=== PATIENT | male | born 1940 | race African-American/Black ===

== ENCOUNTER 2016-12-06 15:21 | Emergency (ER) | payer OTHER, MEDICAID ==
[2016-12-06 15:24] VITALS: BP 142/81; BMI 22.3
[2016-12-06] MEDS ORDERED: TORADOL 60 MG VIAL IM ONE (15:55)
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
[2016-12-06] MEDS ORDERED: TORADOL 60 MG VIAL ONE (16:10)
--- NOTE | 2016-12-06 16:28 | CT ---
HISTORY: Left flank pain. Study: CT abdomen and pelvis without contrast. Dose reduction techniques including Automated Exposur e Control (AEC) and adjustment of mA and kV were utilized. Comparison: None. Technique: Multiple axial images of the abdomen and pelvis were obtained from the lung bases to the pubic symphysis without the administration of IV contrast. Findings: The included portions of the lung bases are clear. The liver, gallbladder, pancreas, splee n, adrenal glands and kidneys are unremarkable in their noncontrast CT appearance. There is no nephr olithiasis or hydronephrosis. There are no calcified stones along the course of either ureter or wit hin the lumen of the well distended urinary bladder. There are bilateral pelvic phleboliths. The hunter endix is not visualized and by report is surgically absent. There is a left inguinal hernia which co ntains a loop of the redundant sigmoid colon without wall thickening or significant inflammatory liss nge. There is sigmoid diverticulosis without evidence of diverticulitis. There is a large amount of stool within the rectum. There is no small bowel dilatation. There is no significant mesenteric stra nding or lymphadenopathy. There is no intraperitoneal free air or free fluid. 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 There is multilevel degenerative disc disease of t he lumbar spine. IMPRESSION: 1. Left inguinal hernia which contains a loop of the redundant sigmoid colon. There is no wall thic kening or associated inflammatory change to suggest strangulation. Surgical consultation is recommen ded. 2. Sigmoid diverticulosis without evidence of diverticulitis. 3. No evidence of urolithiasis or obstructive uropathy. Reported By:
== END 2016-12-06 17:44 | disposition home or self-care (01) ==
LOC: ER 15:27
DX: M51.36 Other intervertebral disc degeneration, lumbar region (principal); K40.90 Unilateral inguinal hernia, without obstruction or gangrene, not specified as recurrent; K57.30 Diverticulosis of large intestine without perforation or abscess without bleeding; M54.5 Low back pain; R10.84 Generalized abdominal pain
CPT/HCPCS: 74176; 96372; 99282; J1885

== ENCOUNTER 2017-01-03 12:10 | Emergency (ER) | payer OTHER, MEDICAID ==
[2017-01-03 12:15] VITALS: BP 149/81; BMI 24.4
--- NOTE | 2017-01-03 12:47 | DR.GENAD ---
HPI - PCP Primary Care Physician: shahid - Complaint/Symptoms Chief Complaint:: patient stated he has been having right knee pain for several months and having back pain for several months. dr michel gave him lorcet 10 but he is out. - Nurses notes reviewed Nurses Notes Review: Yes - Source History Provided: Patient - Mode of Arrival Mode of Arrival: Ambulatory - Timing Onset of Chief Complaint: 09/10/16 Came on: Gradually - Duration Duration: Constant Duration: Days - Severity Severity: Moderate PMH - PMH Past Medical History: Yes Past Medical History: Anxiety, Diabetes, Dyslipidemia, Migraines, Hypertension Past Surgical History: Yes Surgical History: Appendectomy - Family History History of Family Medical Conditions: Yes Family Medical History: [place], Hypertension - Social History Does patient currently use any type of tobacco product: No Have you used tobacco products in the last 12 months: No Type of Tobacco Use: None Does any household member use tobacco: No Alcohol Use: None Do you use any recreational Drugs:: No Lives With: Family Lives Where: Home - infectious screening In the last 2 months have you had wt loss of >10#?: NO Have you had fever, night sweats or hemotysis?: No Have you traveled outside the country in the last 6 months?: No Isolation: Standard ROS - Review of Systems Constitutional: No Symptoms Reported Eyes: No Symptoms Reported ENTM: No Symptoms Reported Respiratoy: No Symptoms Reported Cardiovascular: No Symptoms Reported Gastrointestinal/Abdominal: No Symptoms Reported Genitourinary: No Symptoms Reported Neurological: No Symptoms Reported Musculoskeletal: Back Pain, Right, Knee Integumentary: No Symptoms Reported Hematologic/Lymphatic: No Symptoms Reported Endocrine: No Symptoms Reported All Other Systems: Reviewed and Negative PE - Vital Signs Vitals: Temperature 98.7 F Pulse Rate 77 Respiratory Rate 16 Blood Pressure [Left Arm] 158/78 Blood Pressure 149/81 O2 Sat by Pulse Oximetry 100 - General Limitations: No Limitations General Appearance: Alert - Head Head Exam: Normal Inspection - Eyes Eye exam: Normal Appearance - ENT ENT Exam: Normal External Ear Exam External Ear Exam: Normal External Inspection Throat Exam: Normal Inspection - Neck Neck Exam: Trachea Midline - Chest Chest Inspection: Symmetric Chest Wall Rise - Respiratory Respiratory Exam: Normal Lung Sounds Bilat Respiratory Exam: Bilateral Clear to Auscultation - Cardiovascular Cardiovascular Exam: Regular Rate, Normal Rhythm, Normal Heart Sounds - Abdominal Exam Abdominal Exam: Normal Inspection - Extremities Extremities Exam: Tenderness (RIGHT KNEE TENDER AND SWOLLEN.) - Back Back Exam: Paraspinal Tenderness (LOWER BACK) - Psychiatric Psychiatric Exam: Normal Affect, Normal Mood - Skin Skin Exam: Normal Color MDM - Differential Diagnosis Differential Diagnosis: ARTHRITIS, KNEE SPRAIN, KNEE PAIN, LOWER BACK STRAIN Course - Treatment Treatment: IM TORADOL AND IM DECADRUN IN ED. - Education/Counseling Education/Counseling: Patient, Education Educated On: Treatment, Diagnosis, Needs for Follow Up - Diagnosis Discharge Problem: Arthritis Back pain Qualifiers: Back pain location: low back pain Chronicity: chronic Back pain laterality: bilateral Sciatica presence: without sciatica Qualified Code(s): M54.5 - Low back pain; G89.29 - Other chronic pain Knee pain, right Qualifiers: Chronicity: chronic Qualified Code(s): M25.561 - Pain in right knee; G89.29 - Other chronic pain - Discharge Plan Disposition: HOME, SELF-CARE Condition: Stable Prescriptions: Meloxicam [Mobic Tab 15 mg] 15 mg PO DAILY #30 tab Prednisone [Prednisone Tab 10 mg] 10 mg PO QAM #7 tab Tramadol HCl 50 mg PO TID PRN #12 tablet PRN Reason: - Follow ups/Referrals Follow ups/Referrals: Nadia MICHEL [Primary Care Provider] - 3 days - Instructions Instructions: Arthritis, [id number], Back Pain, Adult, [id number] Additional Instructions: RETURN TO ED IF WORSE.
[2017-01-03] MEDS ORDERED: DECADRON INJ IM ONE (12:52)
[2017-01-03] MEDS ORDERED: TORADOL 60 MG VIAL IM ONE (12:52)
[2017-01-03] MEDS ORDERED: DECADRON INJ ONE (12:54)
[2017-01-03] MEDS ORDERED: TORADOL 60 MG VIAL ONE (12:54)
== END 2017-01-03 13:55 | disposition home or self-care (01) ==
LOC: ER 12:18
DX: M19.90 Unspecified osteoarthritis, unspecified site (principal); M54.5 Low back pain; M25.561 Pain in right knee; G89.29 Other chronic pain
CPT/HCPCS: 96372; 99282; J1100; J1885

== ENCOUNTER 2017-02-01 12:42 | Emergency (ER) | payer OTHER, MEDICAID ==
[2017-02-01 12:48] VITALS: BP 166/98; BMI 23.4
[2017-02-01] MEDS ORDERED: TORADOL 60 MG VIAL IM ONE (13:01)
[2017-02-01] MEDS ORDERED: TORADOL 60 MG VIAL ONE (13:07)
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
== END 2017-02-01 15:01 | disposition home or self-care (01) ==
LOC: ER 13:05
DX: M54.5 Low back pain (principal); G89.29 Other chronic pain; V87.7XXA Person injured in collision between other specified motor vehicles (traffic), initial encounter
CPT/HCPCS: 72100; 96372; 99282; J1885

== ENCOUNTER 2017-02-12 10:15 | Emergency (ER) | payer OTHER, MEDICAID ==
[2017-02-12 10:23] VITALS: BP 177/100; BMI 24.7
[2017-02-12] MEDS ORDERED: TORADOL 60 MG VIAL IM ONE (11:22)
[2017-02-12] MEDS ORDERED: NORFLEX INJ IM ONE (11:22)
[2017-02-12] MEDS ORDERED: TORADOL 60 MG VIAL ONE (11:26)
[2017-02-12] MEDS ORDERED: NORFLEX INJ ONE (11:26)
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
== END 2017-02-12 12:15 | disposition home or self-care (01) ==
LOC: ER 10:32
DX: M54.89 Other dorsalgia (principal)
CPT/HCPCS: 96372; 99281; 99282; J1885; J2360

== ENCOUNTER 2017-05-12 14:37 | Inpatient (IN) | payer OTHER, MEDICAID ==
[2017-05-12 14:46] VITALS: BMI 16.2
--- NOTE | 2017-05-12 15:38 | DR.GENAD ---
HPI - PCP Primary Care Physician: DEVEN - Complaint/Symptoms Chief Complaint Doctors Comments: Patient responds inappropirately to questons. He reports that he is under a lot of stress as a routine response to questions. He does not know what happended. The by standers reports that he was fine one minute then he blacked out. It is not known how long he was uresponsive. There is no reported vomiting or abnormal movements. EMS was summoned to the scene. Chief Complaint:: EMS STATED THAT FRIENDS ON SCENE STATED THAT PATIENT WAS JUST HANGING OUT AND ALL OF A SUDDEN PATIENT WAS LAYING ON THE GROUND. PATIENT IS VERY CONFUSED AND HAS ALTERED MENTAL STATUS. PATIENT WAS NORMAL PRIOR TO THIS HAPPENING. - Source History Provided: EMS - Mode of Arrival Mode of Arrival: EMS - Timing Onset of Chief Complaint: 05/12/17 PMH - PMH Past Medical History: Yes Past Medical History: Anxiety, Diabetes, Dyslipidemia, Migraines, Hypertension Past Surgical History: Yes Surgical History: Appendectomy Unable to Obtain Due To: Altered mental status - Family History History of Family Medical Conditions: Yes Family Medical History: [place], Hypertension - Social History Does patient currently use any type of tobacco product: No Have you used tobacco products in the last 12 months: No Type of Tobacco Use: None Does any household member use tobacco: No Do you use any recreational Drugs:: No Lives With: Family Lives Where: Home - infectious screening In the last 2 months have you had wt loss of >10#?: NO Have you had fever, night sweats or hemotysis?: No Have you traveled outside the country in the last 6 months?: No Isolation: Standard ROS - Review of Systems Constitutional: No Symptoms Reported Eyes: No Symptoms Reported ENTM: No Symptoms Reported Respiratoy: No Symptoms Reported Cardiovascular: No Symptoms Reported Gastrointestinal/Abdominal: No Symptoms Reported Genitourinary: No Symptoms Reported Neurological: See HPI Musculoskeletal: See HPI Integumentary: No Symptoms Reported Hematologic/Lymphatic: No Symptoms Reported Endocrine: No Symptoms Reported Psychiatric: No Symptoms Reported All Other Systems: Reviewed and Negative PE - Vital Signs Vitals: Temperature 98.2 F Pulse Rate 114 Respiratory Rate 20 Blood Pressure [Left Arm] 158/78 Blood Pressure 131/80 O2 Sat by Pulse Oximetry 100 - General General Appearance: Alert, In No Apparent Distress - Head Head Exam: Normal Inspection, Atraumatic - Eyes Eye exam: Normal Appearance, PERRL, EOMI - ENT ENT Exam: Normal Exam External Ear Exam: Normal External Inspection TM/Canal Exam: Bilateral Normal Nose Exam: Normal Nose Exam Mouth Exam: Normal Inspection Throat Exam: Normal Inspection - Chest Chest Inspection: Normal Inspection - Respiratory Respiratory Exam: Normal Lung Sounds Bilat Respiratory Exam: Bilateral Clear to Auscultation - Cardiovascular Cardiovascular Exam: Regular Rate, Normal Rhythm - Abdominal Exam Abdominal Exam: Normal Inspection, Normal Bowel Sounds Abdominal Tenderness: negative: RUQ, RLQ, LUQ, LLQ, Epigastrium, Suprapubic, Diffuse, Mild, Moderate, Severe, Other - Extremities Extremities Exam: Normal Inspection, Full ROM, Normal Capillary Refill. negative: Tenderness, Edema, Joint Swelling - Back Back Exam: Normal Inspection - Neurologic Neurological Exam: Alert, Oriented X3, CN II-XII Intact - Psychiatric Psychiatric Exam: Normal Affect, Normal Mood - Skin Skin Exam: Warm, Dry, Intact ROR - Labs Reviewed Result Diagrams: 05/12/17 16:03 05/12/17 16:03 Laboratory: WBC 10.3 X10^3/uL (3.6-10.0) H 05/12/17 16:03 RBC 4.35 X10^6/uL (4.7-6.0) L 05/12/17 16:03 Hgb 12.3 g/dL (13.5-18.0) L 05/12/17 16:03 Hct 36.9 % (42.0-54.0) L 05/12/17 16:03 MCV 84.7 fL (80.0-100.0) 05/12/17 16:03 MCH 28.3 pg (27.0-34.0) 05/12/17 16:03 MCHC 33.4 g/dL (33.0-35.0) 05/12/17 16:03 RDW 13.7 % (11.6-16.5) 05/12/17 16:03 Plt Count 231 X10^3/uL (150.0-450.0) 05/12/17 16:03 MPV 7.8 fL (7.4-11.0) 05/12/17 16:03 Neut % 82.4 % (42.0-75.0) H 05/12/17 16:03 Lymph % 9.7 % (21.0-51.0) L 05/12/17 16:03 [place] % 5.2 % (0.0-13.0) 05/12/17 16:03 Eos % 2.2 % (0.9-2.9) 05/12/17 16:03 Baso % 0.5 % (0.2-1.0) 05/12/17 16:03 Neut # 8.5 x10^3/uL (2.2-4.8) H 05/12/17 16:03 Lymph # 1.0 X10^3/uL (1.3-2.9) L 05/12/17 16:03 [place] # 0.5 x10^3/uL (0.3-0.8) 05/12/17 16:03 Eos # 0.2 x10^3/uL (0.0-0.2) 05/12/17 16:03 Baso # 0.1 X10^3/uL (0.0-0.1) 05/12/17 16:03 Absolute Nucleated RBC 0.0 /100WBC 05/12/17 16:03 Sodium 140 mmol/L (136-145) 05/12/17 16:03 Corrected Sodium 141 mmol/L (136-145) 05/12/17 16:03 Potassium 3.7 mmol/L (3.5-5.1) 05/12/17 16:03 Chloride 105 mmol/L (98-107) 05/12/17 16:03 Carbon Dioxide 25.5 mmol/L (21-32) 05/12/17 16:03 BUN 16 mg/dL (7-18) 05/12/17 16:03 Creatinine 1.44 mg/dL (0.70-1.30) H 05/12/17 16:03 Est GFR (MDRD) Af Amer > 60 (>60) 05/12/17 16:03 Est GFR (MDRD) Non-Af 51 (>60) L 05/12/17 16:03 Glucose 136 mg/dL (65-99) H 05/12/17 16:03 Calcium 8.4 mg/dL (8.5-10.1) L 05/12/17 16:03 Corrected Calcium 9.0 mg/dL (8.5-10.1) 05/12/17 16:03 Magnesium 1.4 mg/dL (1.7-2.9) L 05/12/17 16:03 Total Bilirubin 0.10 mg/dL (0.2-1.0) L 05/12/17 16:03 AST 14 Units/L (15-37) L 05/12/17 16:03 ALT 17 Units/L (12-78) 05/12/17 16:03 Alkaline Phosphatase 81 Units/L (46-116) 05/12/17 16:03 Creatine Kinase 48 Units/L (39-308) 05/12/17 16:03 CK-MB (CK-2) < 1.0 ng/mL (0-4.0) 05/12/17 16:03 CK/CKMB % Calc 2.1 % (<4) 05/12/17 16:03 Troponin I < 0.02 ng/mL (0-1.5) 05/12/17 16:03 C-Reactive Protein 3.10 mg/L (0-3.0) H 05/12/17 16:03 Total Protein 7.0 g/dL (6.4-8.2) 05/12/17 16:03 Albumin 3.3 g/dL (3.4-5.0) L 05/12/17 16:03 Globulin 3.7 g/dL (2.5-4.5) 05/12/17 16:03 Albumin/Globulin Ratio 0.9 Ratio (1.1-2.1) L 05/12/17 16:03 - XRAY XRAY Interpreted by: Radiologist (CT Brain:There is mild atrophy and nonspecific white matter hypoattenuation likely related to microvascular ischemic changes. No evidence of acute hemorrhage, midline shift,mass effect or abnormal extra axial fluid collection. The ventricular system is symmetric and nondilated. The soft tissues and osseous structures are unremarkable. The visualized paranasal sinuses are clear. Impression: There is mild atrophy and nonspecific white matter hypoattenuation likely related to microvascular ischemic changes. No acute intracranial abnormality identified. X-Ray Chest: Continued normal heart size. The left lung is essentially clear. There is an area of atelectasis in the medial right lower lung. No consolidation, hilar enlargment or pleural fluid. Impression: Small area of right middle lobe or right lower lobe atelectasis. Negative otherwise.) - Diagnosis Discharge Problem: Hypocalcemia, Hypoalbuminemia Altered mental status Qualifiers: Altered mental status type: transient alteration of awareness Qualified Code(s) : R40.4 - Transient alteration of awareness - Discharge Plan Condition: Stable - Follow ups/Referrals Follow ups/Referrals: Chase Pereyra [Primary Care Provider] - 3 days - Instructions
[2017-05-12 16:16] LABS: BASOPHILS # (AUTO) 0.1 X10^3/uL (0.0-0.1); BASOPHILS % (AUTO) 0.5 % (0.2-1.0); EOSINOPHILS # (AUTO) 0.2 x10^3/uL (0.0-0.2); EOSINOPHILS % (AUTO) 2.2 % (0.9-2.9); HEMATOCRIT 36.9 % (42.0-54.0); HEMOGLOBIN 12.3 g/dL (13.5-18.0); LYMPHOCYTES % (AUTO) 9.7 % (21.0-51.0); MEAN CORPUSCULAR HEMOGLOBIN 28.3 pg (27.0-34.0); MEAN CORPUSCULAR HGB CONC 33.4 g/dL (33.0-35.0); MEAN CORPUSCULAR VOLUME 84.7 fL (80.0-100.0); MEAN PLATELET VOLUME 7.8 fL (7.4-11.0); MONOCYTES # (AUTO) 0.5 x10^3/uL (0.3-0.8); MONOCYTES % (AUTO) 5.2 % (0.0-13.0); NEUTROPHILS # (AUTO) 8.5 x10^3/uL (2.2-4.8); NEUTROPHILS % (AUTO) 82.4 % (42.0-75.0); PLATELET COUNT 231 X10^3/uL (150.0-450.0); RED BLOOD COUNT 4.35 X10^6/uL (4.7-6.0); RED CELL DISTRIBUTION WIDTH 13.7 % (11.6-16.5); WHITE BLOOD COUNT 10.3 X10^3/uL (3.6-10.0)
--- NOTE | 2017-05-12 16:17 | RAD ---
Examination: AP chest History: Dizzy and confusion Comparison reference 07/25/2016 Findings: Continued normal heart size. The left lung is essentially clear. There is an area of atelec tasis in the medial right lower lung. No consolidation, hilar enlargement or pleural fluid. Impression: Small area of right middle lobe or right lower lobe atelectasis. Negative otherwise. Reported By:
--- NOTE | 2017-05-12 16:27 | CT ---
HISTORY: Altered mental status, dizziness, confusion, syncope Study: CT brain without contrast Comparison: None Technique: Multiple axial images of the brain were obtained from the skull base to the vertex without administra tion of IV contrast. Dose reduction techniques including Automated Exposure Control (AEC) and adjust ment of mA and kV were utilized. Findings: There is mild atrophy and nonspecific white matter hypoattenuation likely related to microvascular is chemic changes. No evidence of acute hemorrhage, midline shift, mass effect or abnormal extra-axial fluid collection. The ventricular system is symmetric and nondilated. The soft tissues and osseous structures are unremarkable. The visualized paranasal sinuses are clear. IMPRESSION: 1.There is mild atrophy and nonspecific white matter hypoattenuation likely related to microvascular ischemic changes. No acute intracranial abnormality identified. Reported By:
[2017-05-12 16:30] LABS: BLOOD UREA NITROGEN 16 mg/dL (7-18); CALCIUM 8.4 mg/dL (8.5-10.1); CARBON DIOXIDE 25.5 mmol/L (21-32); CHLORIDE 105 mmol/L (98-107); COR NA(FOR HYPERGLY) 141 mmol/L (136-145); CREATININE 1.44 mg/dL (0.70-1.30); SODIUM 140 mmol/L (136-145); TROPONIN I < 0.02 ng/mL (0-1.5); eGFR BLACK RACES > 60 (>60); eGFR NON BLACK RACES 51 (>60)
[2017-05-12 16:33] LABS: ALANINE AMINOTRANSFERASE 17 Units/L (12-78); ALBUMIN 3.3 g/dL (3.4-5.0); ALKALINE PHOSPHATASE 81 Units/L (46-116); ASPARTATE AMINO TRANSFERASE 14 Units/L (15-37); CKMB % 2.1 % (<4); CREATINE KINASE 48 Units/L (39-308); CREATINE KINASE MB < 1.0 ng/mL (0-4.0); MAGNESIUM 1.4 mg/dL (1.7-2.9)
[2017-05-12] MEDS: NS 1000 ML 1,000 ML IV SCH ×2 (17:18→20:47)
[2017-05-12] MEDS ORDERED: NORCO 10/325 TAB PO ONE (17:19)
[2017-05-12] MEDS ORDERED: NORCO 10/325 TAB ONE (17:20)
[2017-05-12] MEDS ORDERED: MAGNESIUM SULFATE 1 GM/100 mL PREMIX 1 GM/100 ML BAG IV PRN (19:36)
[2017-05-12] MEDS ORDERED: POTASSIUM CHL 60 MEQ/NS 0.45% 500 ML IV PRN (19:36)
[2017-05-12] MEDS ORDERED: POTASSIUM CHL 40 MEQ/NS 0.45% 500 ML IV PRN (19:36)
[2017-05-12] MEDS ORDERED: K-RIDER 10 MEQ/NS 100 ML 10 MEQ/100 ML BAG IV PRN (19:36)
[2017-05-12] MEDS ORDERED: K-LYTE EFFERVESCENT PO PRN (19:36)
[2017-05-12] MEDS ORDERED: POTASSIUM CHLORIDE LIQ 20 MEQ UDC PO PRN (19:36)
[2017-05-12] MEDS ORDERED: GLUCOPHAGE ONE (19:55)
[2017-05-12] MEDS: GLUCOPHAGE PO SCH (20:44)
[2017-05-12] MEDS: XANAX PO SCH (20:45)
[2017-05-12] MEDS: MAG-OX TAB PO PRN (20:45)
[2017-05-12] MEDS: ANTIVERT TAB 25 MG PO SCH (22:10)
[2017-05-12] MEDS: NEURONTIN CAP 300 MG PO SCH (22:10)
[2017-05-13] MEDS: NORCO 10/325 TAB PO SCH ×5 (00:23→21:39)
[2017-05-13] MEDS: MAG-OX TAB PO PRN ×3 (00:46→14:48)
[2017-05-13] MEDS: NS 1000 ML 1,000 ML IV SCH ×5 (03:11→21:40)
[2017-05-13 03:27] LABS: APPEARANCE,URINE CLEAR (CLEAR); COLOR,URINE PALE YELLOW (YELLOW); PH,URINE 6.5 (5.0 - 8.0)
[2017-05-13 03:28] LABS: BACTERIA,URINE NEGATIVE /HPF (NEGATIVE); BILIRUBIN,URINE NEGATIVE (NEGATIVE); BLOOD/HEMOGLOBIN,URINE TRACE (NEGATIVE); GLUCOSE, URINE NEGATIVE (NEGATIVE); KETONES,URINE NEGATIVE (NEGATIVE); LEUKOCYTE ESTERASE ,URINE NEGATIVE (NEGATIVE); NITRITES,URINE NEGATIVE (NEGATIVE); PROTEIN,URINE NEGATIVE (NEGATIVE); RBC,URINE 0-3 /HPF (NEGATIVE); SQUAMOUS EPITHELIAL CELL,UR FEW /HPF (NEGATIVE); UROBILINOGEN,URINE NORMAL (NORMAL)
[2017-05-13 05:34] LABS: ALANINE AMINOTRANSFERASE 15 Units/L (12-78); ALBUMIN 2.7 g/dL (3.4-5.0); ALKALINE PHOSPHATASE 70 Units/L (46-116); ASPARTATE AMINO TRANSFERASE 12 Units/L (15-37); BLOOD UREA NITROGEN 19 mg/dL (7-18); CALCIUM 7.9 mg/dL (8.5-10.1); CARBON DIOXIDE 23.5 mmol/L (21-32); CHLORIDE 109 mmol/L (98-107); COR CA(FOR HYPOALB) 8.9 mg/dL (8.5-10.1); MAGNESIUM 1.4 mg/dL (1.7-2.9); SODIUM 142 mmol/L (136-145); TOTAL PROTEIN 5.8 g/dL (6.4-8.2); eGFR BLACK RACES 59 (>60); eGFR NON BLACK RACES 49 (>60)
[2017-05-13 05:36] LABS: BASOPHILS # (AUTO) 0.1 X10^3/uL (0.0-0.1); BASOPHILS % (AUTO) 0.9 % (0.2-1.0); EOSINOPHILS # (AUTO) 0.3 x10^3/uL (0.0-0.2); EOSINOPHILS % (AUTO) 4.2 % (0.9-2.9); HEMATOCRIT 31.3 % (42.0-54.0); HEMOGLOBIN 10.7 g/dL (13.5-18.0); LYMPHOCYTES # (AUTO) 1.6 X10^3/uL (1.3-2.9); MEAN CORPUSCULAR HEMOGLOBIN 28.9 pg (27.0-34.0); MEAN CORPUSCULAR HGB CONC 34.4 g/dL (33.0-35.0); MEAN PLATELET VOLUME 7.7 fL (7.4-11.0); MONOCYTES # (AUTO) 0.5 x10^3/uL (0.3-0.8); MONOCYTES % (AUTO) 6.5 % (0.0-13.0); NEUTROPHILS # (AUTO) 5.7 x10^3/uL (2.2-4.8); NEUTROPHILS % (AUTO) 69.4 % (42.0-75.0); PLATELET COUNT 237 X10^3/uL (150.0-450.0); RED BLOOD COUNT 3.72 X10^6/uL (4.7-6.0); RED CELL DISTRIBUTION WIDTH 13.7 % (11.6-16.5); WHITE BLOOD COUNT 8.2 X10^3/uL (3.6-10.0)
[2017-05-13] MEDS: ANTIVERT TAB 25 MG PO SCH ×4 (05:39→21:39)
[2017-05-13] MEDS: NEURONTIN CAP 300 MG PO SCH ×4 (05:39→21:39)
--- NOTE | 2017-05-13 05:40 | RAD ---
Chest, AP portable Indication: Right middle lobe atelectasis Comparison: 05/12/2017 Findings: Triangular opacity of the right lower lung is unchanged. Minimal left basilar atelectasis h as developed. The lungs are otherwise essentially clear. Normal heart size. No significant pleural ef fusion. Impression: Minimal left basilar atelectasis. Otherwise, no significant change from prior. Reported By:
[2017-05-13] MEDS ORDERED: GLUCOPHAGE ONE (08:52)
[2017-05-13] MEDS: XANAX PO SCH ×3 (09:43→21:39)
[2017-05-13] MEDS: ZESTRIL TAB 10 MG PO SCH (09:43)
[2017-05-13] MEDS: GLUCOPHAGE PO SCH ×2 (09:43→21:38)
--- NOTE | 2017-05-13 11:50 | DR.H&P ---
H&P - History & Physical for Day of: H&P Date: 05/12/17 - Chief Complaint Chief Complaint: ALTERED MENTAL STATUS, SYNCOPE - Allergies Allergies/Adverse Reactions: Allergies Allergy/AdvReac Type Severity Reaction Status Date / Time No Known Drug Allergies Allergy Verified 05/12/17 14:46 - History of Present Illness History of Present Illness: IS A 76 YEAR OLD PATIENT OF OURS WHO PRESENTED TO THE EMERGENCY ROOM VIA EMS. FAMILY REPORTS SYMPTOMS OF SYNCOPE AND ALTERED MENTAL STATUS. THEY REPORT THAT PATIENT WAS SITTING AROUND TAKING ONE MINUTE AND THEN BLACKED OUT AND FELL TO THE GROUND. IT IS UNKNOWN TO HOW LONG HE WAS UNRESPONSIVE. THEY DO NOT REPORT SYMPTOMS OF VOMITING, FEVER, OR ABNORMAL MOVEMENTS. ON EXAMINATION, PUPILLS PERRL. HE DOES NOT ANSWER QUESTIONS APPROPRIATELY, BUT DOES REPORT THAT HE HAS BEEN UNDER A LOT OF STRESS. HE IS UNAWARE OF WHAT HAPPENED OR WHY HE WAS BROUGHT TO THE HOSPITAL. HEARTRATE IS RAPID. HE WAS PLACED ON OXYGEN VIA NASAL CANNULA AT 2L/MIN. LUNGS ARE CLEAR BILATERALLY TO AUSCULTATION. ABDOMEN IS ROUND, SOFT, AND NON-TENDER WITH NORMAL BOWEL SOUNDS NOTED IN ALL QUADRANTS. HE HAS NORMAL RANGE OF MOTION IN ALL EXTREMITIES. ON ARRIVAL TO THE ER, VITAL SIGNS WERE 98.5-149-00-100%-131/80. LABS, EKG, BRAIN CT, AND CHEST XRAY WERE OBTAINED. ABNORMAL LAB VALUES INCLUDE THE FOLLOWING: WBC 10.3, RBC 4.35, HGB 12.3, HCT 36.9, CREATININE 1.44, GLUCOSE 136, CALCIUM 8.4, MAGNESIUM 1.4, TOTAL BILI 0.10, AST 14, CRP 3.10, ALBUMIN 3.3 , A/G RATIO 0.9. URINALYSIS UNREMARKABLE. EKG REPORTS SINUS RHYTHM, PROBABLE LEFT ATRIAL ENLARGEMENT, LEFT VENTRICULAR HYPERTROPHY. HR 93. BRAIN CT REPORTED MILD ATROPHY AND NONSPECIFIC WHITE MATTER HYPOATTENUATION LIKELY RELATED TO MICROVASCULAR CHANGES. NO ACUTE INTRACRANIAL ABNORMALITY IDENTIFIED. CHEST XRAY REPORTED MINIMAL LEFT BASILAR ATELECTASIS. HE WAS GIVEN NORCO 10/325MG X 1 IN THE ER FOR COMPLAINTS OF HIP PAIN. WE ADMITTED PATIENT FOR FURTHER TREATMENT AND EVALUATION OF ALTERED MENTAL STATUS. WE PLAN TO FOLLOW UP WITH AM LABS AND CONTINUE TO MONITOR PATIENT. - Past Medical History Past Medical History: Anxiety, Diabetes, Dyslipidemia, Migraines, Hypertension - Past Surgical History Surgical History: Other - Family History Family Medical History: [place], Hypertension - Social History Does patient currently use any type of tobacco product: No Have you used tobacco products in the last 12 months: No Type of Tobacco Use: None Does any household member use tobacco: No Alcohol Use: None Drug Use: Prescription Drugs - Medications Home Medications: Meclizine HCl 1 tab PO TID 05/12/17 [History Confirmed 05/12/17] - Review of Systems Constitutional: Weakness. denies: No Symptoms Reported, See HPI, Fever, Chills , Sweats, Malaise, Other Eyes: No Symptoms Reported. denies: See HPI, Pain, Vision Change, Conjunctivae Inflammation, Eyelid Inflammation, Redness, Other ENT: No Symptoms Reported. denies: See HPI, Ear Pain, Ear Discharge, Nose Pain , Nose Discharge, Nose Congestion, Mouth Pain, Mouth Swelling, Throat Pain, Throat Swelling, Other Respiratory: No Symptoms Reported. denies: See HPI, Cough, Dry, Shortness of Breath, Hemoptysis, SOB with Excertion, Pleuritic Pain, Sputum, Wheezing, Other Cardiovascular: No Symptoms Reported. denies: Chest Pain, See HPI, Palpitations , Orthopnea, Paroxysmal Noc. Dyspnea, Edema, Light Headedness, Other Gastrointestinal: No Symptoms Reported. denies: See HPI, Nausea, Vomiting, Abdominal Pain, Diarrhea, Constipation, Melena, Hematochezia, Other Genitourinary: No Symptoms Reported. denies: See HPI, Dysuria, Frequency, Incontinence, Hematuria, Retention, Other Musculoskeletal: See HPI Skin: No Symptoms Reported. denies: See HPI, Rash, Lesions, Jaundice, Bruising , Wound, Ecchymosis, Other Neurological: Weakness, Confusion. denies: No Symptoms Reported, See HPI, Numbness, Incoordination, Change in Speech, Seizures, Other - Physical Exam Vital Signs: Temperature 97.9 F Pulse Rate [Right Brachial] 80 Pulse Rate 114 Respiratory Rate 18 Blood Pressure [Left Arm] 158/78 Blood Pressure 131/80 O2 Sat by Pulse Oximetry 96 Oriented: Person Eyes: Normal. negative: Blurred Vision, Diplopia, Discharge, Pain, Redness, Photophobia, Other Ear: Normal. negative: Right, Left, Swelling, Ecchymosis, Hemotypanum, Abrasion , Laceration Nose: Normal. negative: Injected, Discharge, Blood, Other Throat: Normal. negative: Tonsillar Hypertrophy, Red, Exudate, Dry, Other Respiratory: Clear Throughout. negative: Diminished Throughout, Rhonchi Throughout, Rales Throughout, Wheezes Throughout, RUL Clear, RML Clear, RLL Clear, ESTEBAN Clear, LML Clear, LLL Clear, RUL Diminished, RML Diminished, RLL Diminished, ESTEBAN Diminished, LML Diminished, LLL Diminished, RUL Absent, RML Absent, RLL Absent, ESTEBAN Absent, LML Absent, LLL Absent, RUL Rhonchi, RML Rhonchi , RLL Rhonchi, ESTEBAN Rhonchi, LML Rhonchi, LLL Rhonchi, RUL Insp. Wheeze, RML Insp. Wheeze, RLL Insp. Wheeze, ESTEBAN Insp.Wheeze, LML Insp.Wheeze, LLL Insp.Wheeze, RUL Exp. Wheeze, RML Exp. Wheeze, RLL Exp. Wheeze, ESTEBAN Exp. Wheeze , LML Exp. Wheeze, LLL Exp. Wheeze, RUL Rales, RML Rales, RLL Rales, ESTEBAN Rales, LML Rales, LLL Rales, RUL Rub, RML Rub, RLL Rub, ESTEBAN Rub, LML Rub, LLL Rub, RUL Squeak, RML Squeak, RLL Squeak, ESTEBAN Squeak, LML Squeak, LLL Squeak Cardiovascular: Tachycardia. negative: Irregular, Murmur, Edema : Normal. negative: Dysuria, Hematuria, Frequency, Discharge, Testicular Pain , Bleeding, , Other Auscultation: Bowel Sounds: Normal. negative: Bruit, Absent, Increased, Decreased, High Pitched, Other Palpation: Normal. negative: Spleen Enlarged, Liver Enlarged, Mass Pulsatile, Other Tenderness: Normal. negative: Diffuse, RUQ, RLQ, LUQ, LLQ, Epigastric, Periumbilical, Suprapubic, Mild, Moderate, Severe, Rebound, Guarding, Rigidity, Other Skin: Normal Musculoskeletal: Right, Left, Hip, Tender Psychiatric: Other (CONFUSION ) Mood Description: Calm Affect: Normal Speech Pattern: Clear - Assessment/Plan (1) Altered mental status Qualifiers: Altered mental status type: transient alteration of awareness Qualified Code(s): R40.4 - Transient alteration of awareness Status: Acute Plan: XANAX 0.5MG PO BID, OBTAIN MRI, HALDOL 1-2MG IV Q2H PRN, CONTINUE TO MONITOR
[2017-05-13] MEDS: HALDOL INJ IVP PRN (14:44)
--- NOTE | 2017-05-13 21:55 | PCM.PROG ---
Progress Note - Progress Note for Day of Date: 05/13/17 - Subjective Subjective: WAS ADMITTED FOR ALTERED MENTAL STATUS. TODAY, HE IS ALERT AND ORIENTED, SITTING UP IN BED ON MORNING ROUNDS. PATIENTS IS AT BEDSIDE. PATIENT REPORTS COMPLAINTS OF GENERALIZED WEAKNESS AND BILATERAL HIP PAIN. PATIENTS REPORTS THAT PATIENT CONTINUED WITH INTERMITTENT CONFUSION LAST NIGHT AND THIS MORNING. HE ANSWERS ALL QUESTIONS APPROPRIATELY ON ROUNDS. ON EXAMINATION, PUPILS PERRL. LUNGS ARE CLEAR TO AUSCULTATION BILATERALLY. ABDOMEN IS ROUND, SOFT, AND NON-TENDER. NORMAL BOWEL SOUNDS ARE NOTED IN ALL QUADRANTS. THERE IS GOOD RANGE OF MOTION NOTED IN ALL EXTREMITIES. HIS VITAL SIGNS THIS MORNING ARE 97.9-80-18-96%-158/78. ABNORMAL LAB VALUES THIS MORNING INCLUDE THE FOLLOWING: RBC 3.72, HGB 10.7, HCT 31.3, CHLORIDE 109, BUN 19, CREATININE 1.50, CHLORIDE 103, CALCIUM 7.9, MAGNESIUM 1.4, TIBC 199, TRANSFERRIN 147, AST 12, TOTAL PROTEIN 5.8, ALBUMIN 2.7, A/G RATIO 0.9, VITAMIN B12 118, FOLATE 4.6. URINE DRUG SCREEN IS POSITIVE FOR OPIATES AND MARIJUANA. A CHEST XRAY WAS OBTAINED THIS MORNING AND REPORTS MINIMAL LEFT BASILAR ATELECTASIS. OTHERWISE, NO SIGNIFICANT CHANGE FROM PRIOR CHEST XRAY. TODAY, WE WILL CONTINUE WITH CURRENT PLAN OF CARE. WE PLAN TO OBTAIN A BRAIN MRI WITH CONTRAST IN THE MORNING. OTHERWISE, WE WILL FOLLOW UP WITH AM LABS AND CONTINUE TO MONITOR PATIENT. - Past Medical Family Social History Past Med/Fam/Surg Hx: No changes since H&P Allergies: Allergies No Known Drug Allergies Allergy (Verified 05/12/17 14:46) - Review of Systems ROS: No change since H&P - Vital Signs and I&O's Vital Signs: Temperature 99.0 F Pulse Rate [Right Brachial] 79 Pulse Rate 114 Respiratory Rate 20 Blood Pressure [Right Arm] 132/99 Blood Pressure [Left Arm] 158/78 Blood Pressure 131/80 O2 Sat by Pulse Oximetry 97 Intake and Output: Intake & Output 05/11/17 05/12/17 05/13/17 05/14/17 11:59 11:59 11:59 11:59 Intake Total 680 360 Output Total 550 Balance 680 -190 - Physical Exam Oriented: Normal. negative: Time, Person, Place, Not Oriented, Unable to test, Other Eyes: Normal. negative: Blurred Vision, Diplopia, Discharge, Pain, Redness, Photophobia, Other Ear: Normal. negative: Right, Left, Swelling, Ecchymosis, Hemotypanum, Abrasion , Laceration Nose: Normal. negative: Injected, Discharge, Blood, Other Throat: Normal. negative: Tonsillar Hypertrophy, Red, Exudate, Dry, Other Respiratory: Normal. negative: Right, Left, Generalized, Superior, Inferior, Diminished, Wheezes, Rales, Rhonchi, OTHER Cardiovascular: Normal. negative: Tachycardia, Bradycardia, Irregular, S3, S4, Systolic, Diastolic, Murmur, Edema, Other : Normal. negative: Dysuria, Hematuria, Frequency, Discharge, Testicular Pain , Bleeding, , Other Auscultation: Bowel Sounds: Normal. negative: Bruit, Absent, Increased, Decreased, High Pitched, Other Palpation: Normal Tenderness: Normal. negative: Rebound, Guarding, Rigidity Skin: Normal Musculoskeletal: Right, Left, Hip, Tender Psychiatric: Normal Mood Description: Calm Affect: Normal Speech Pattern: Appropriate - Laboratory and Diagnostics Result Diagrams: 05/14/17 04:25 05/14/17 04:25 Labs: Laboratory WBC 8.2 X10^3/uL (3.6-10.0) 05/13/17 04:30 RBC 3.72 X10^6/uL (4.7-6.0) L 05/13/17 04:30 Hgb 10.7 g/dL (13.5-18.0) L 05/13/17 04:30 Hct 31.3 % (42.0-54.0) L 05/13/17 04:30 MCV 84.0 fL (80.0-100.0) 05/13/17 04:30 MCH 28.9 pg (27.0-34.0) 05/13/17 04:30 MCHC 34.4 g/dL (33.0-35.0) 05/13/17 04:30 RDW 13.7 % (11.6-16.5) 05/13/17 04:30 Plt Count 237 X10^3/uL (150.0-450.0) 05/13/17 04:30 MPV 7.7 fL (7.4-11.0) 05/13/17 04:30 Neut % 69.4 % (42.0-75.0) 05/13/17 04:30 Lymph % 19.0 % (21.0-51.0) L 05/13/17 04:30 [place] % 6.5 % (0.0-13.0) 05/13/17 04:30 Eos % 4.2 % (0.9-2.9) H 05/13/17 04:30 Baso % 0.9 % (0.2-1.0) 05/13/17 04:30 Neut # 5.7 x10^3/uL (2.2-4.8) H 05/13/17 04:30 Lymph # 1.6 X10^3/uL (1.3-2.9) 05/13/17 04:30 [place] # 0.5 x10^3/uL (0.3-0.8) 05/13/17 04:30 Eos # 0.3 x10^3/uL (0.0-0.2) H 05/13/17 04:30 Baso # 0.1 X10^3/uL (0.0-0.1) 05/13/17 04:30 Absolute Nucleated RBC 0.0 /100WBC 05/13/17 04:30 Sodium 142 mmol/L (136-145) 05/13/17 04:30 Corrected Sodium TNP 05/13/17 04:30 Potassium 3.9 mmol/L (3.5-5.1) 05/13/17 04:30 Chloride 109 mmol/L (98-107) H 05/13/17 04:30 Carbon Dioxide 23.5 mmol/L (21-32) 05/13/17 04:30 BUN 19 mg/dL (7-18) H 05/13/17 04:30 Creatinine 1.50 mg/dL (0.70-1.30) H 05/13/17 04:30 Est GFR (MDRD) Af Amer 59 (>60) 05/13/17 04:30 Est GFR (MDRD) Non-Af 49 (>60) L 05/13/17 04:30 Glucose 103 mg/dL (65-99) H 05/13/17 04:30 POC Glucose (mg/dL) 118 mg/dL (65-99) H 05/13/17 21:32 Calcium 7.9 mg/dL (8.5-10.1) L 05/13/17 04:30 Corrected Calcium 8.9 mg/dL (8.5-10.1) 05/13/17 04:30 Magnesium 1.4 mg/dL (1.7-2.9) L 05/13/17 04:30 Iron 56 ug/dL (50-175) 05/13/17 04:30 TIBC 199 ug/dL (250-450) L 05/13/17 04:30 Transferrin 147 mg/dL (202-364) L 05/13/17 04:30 Ferritin 192 ng/mL (26-388) 05/13/17 04:30 Total Bilirubin 0.20 mg/dL (0.2-1.0) 05/13/17 04:30 AST 12 Units/L (15-37) L 05/13/17 04:30 ALT 15 Units/L (12-78) 05/13/17 04:30 Alkaline Phosphatase 70 Units/L (46-116) 05/13/17 04:30 Creatine Kinase 48 Units/L (39-308) 05/12/17 16:03 CK-MB (CK-2) < 1.0 ng/mL (0-4.0) 05/12/17 16:03 CK/CKMB % Calc 2.1 % (<4) 05/12/17 16:03 Troponin I < 0.02 ng/mL (0-1.5) 05/12/17 16:03 C-Reactive Protein 3.10 mg/L (0-3.0) H 05/12/17 16:03 Total Protein 5.8 g/dL (6.4-8.2) L 05/13/17 04:30 Albumin 2.7 g/dL (3.4-5.0) L 05/13/17 04:30 Globulin 3.1 g/dL (2.5-4.5) 05/13/17 04:30 Albumin/Globulin Ratio 0.9 Ratio (1.1-2.1) L 05/13/17 04:30 Vitamin B12 118 pg/mL (193-986) L 05/13/17 04:30 Folate 4.6 ng/mL (>8.6) L 05/13/17 04:30 Specimen Type Clean catch urine 05/13/17 02:51 Urine Color Pale yellow (YELLOW) 05/13/17 02:51 Urine Appearance Clear (CLEAR) 05/13/17 02:51 Urine pH 6.5 (5.0 - 8.0) 05/13/17 02:51 Ur Specific [place] 1.015 (1.000-1.030) 05/13/17 02:51 Urine Protein Negative (NEGATIVE) 05/13/17 02:51 Urine Glucose (UA) Negative (NEGATIVE) 05/13/17 02:51 Urine Ketones Negative (NEGATIVE) 05/13/17 02:51 Urine Occult Blood Trace (NEGATIVE) 05/13/17 02:51 Urine Nitrite Negative (NEGATIVE) 05/13/17 02:51 Urine Bilirubin Negative (NEGATIVE) 05/13/17 02:51 Urine Urobilinogen Normal (NORMAL) 05/13/17 02:51 Ur Leukocyte Esterase Negative (NEGATIVE) 05/13/17 02:51 Urine RBC 0-3 /HPF (NEGATIVE) 05/13/17 02:51 Urine WBC 0-3 /HPF (NEGATIVE) 05/13/17 02:51 Ur Squamous Epith Cells Few /HPF (NEGATIVE) 05/13/17 02:51 Urine Bacteria Negative /HPF (NEGATIVE) 05/13/17 02:51 Ur Culture Indicated? No/not indicated 05/13/17 02:51 Urine Opiates Screen Positive (NEG=<300) 05/13/17 02:51 Urine Methadone Screen Negative (NEG=<300) 05/13/17 02:51 Ur Barbiturates Screen Negative (NEG=<200) 05/13/17 02:51 Ur Phencyclidine Scrn Negative (NEG=<25) 05/13/17 02:51 Ur Amphetamines Screen Negative (NEG=<1000) 05/13/17 02:51 U Benzodiazepines Scrn Negative (NEG=<200) 05/13/17 02:51 Urine Cocaine Screen Negative (NEG=<300) 05/13/17 02:51 U Marijuana (THC) Screen Positive (NEG=<50) A 05/13/17 02:51 - Plan (1) Altered mental status Status: Acute Qualifiers: Altered mental status type: transient alteration of awareness Qualified Code(s): R40.4 - Transient alteration of awareness Plan: CONTINUE XANAX, CONTINUE HALDOL, OBTAIN BRAIN MRI WITH CONTRAST, CONTINUE TO MONITOR
[2017-05-14 05:07] LABS: BASOPHILS # (AUTO) 0.1 X10^3/uL (0.0-0.1); BASOPHILS % (AUTO) 0.7 % (0.2-1.0); EOSINOPHILS # (AUTO) 0.4 x10^3/uL (0.0-0.2); EOSINOPHILS % (AUTO) 4.4 % (0.9-2.9); HEMOGLOBIN 11.2 g/dL (13.5-18.0); LYMPHOCYTES # (AUTO) 1.5 X10^3/uL (1.3-2.9); LYMPHOCYTES % (AUTO) 18.1 % (21.0-51.0); MEAN CORPUSCULAR HEMOGLOBIN 28.5 pg (27.0-34.0); MEAN CORPUSCULAR HGB CONC 33.8 g/dL (33.0-35.0); MEAN CORPUSCULAR VOLUME 84.3 fL (80.0-100.0); MEAN PLATELET VOLUME 7.8 fL (7.4-11.0); MONOCYTES # (AUTO) 0.5 x10^3/uL (0.3-0.8); NEUTROPHILS % (AUTO) 70.8 % (42.0-75.0); PLATELET COUNT 233 X10^3/uL (150.0-450.0); RED BLOOD COUNT 3.92 X10^6/uL (4.7-6.0); RED CELL DISTRIBUTION WIDTH 13.4 % (11.6-16.5); WHITE BLOOD COUNT 8.4 X10^3/uL (3.6-10.0)
[2017-05-14] MEDS: ANTIVERT TAB 25 MG PO SCH ×3 (05:35→21:08)
[2017-05-14] MEDS: NEURONTIN CAP 300 MG PO SCH ×3 (05:36→21:08)
[2017-05-14] MEDS: NORCO 10/325 TAB PO SCH ×3 (05:36→21:08)
[2017-05-14 05:37] LABS: ALANINE AMINOTRANSFERASE 16 Units/L (12-78); ALBUMIN 2.8 g/dL (3.4-5.0); ALKALINE PHOSPHATASE 62 Units/L (46-116); ASPARTATE AMINO TRANSFERASE 13 Units/L (15-37); BLOOD UREA NITROGEN 18 mg/dL (7-18); CALCIUM 8.2 mg/dL (8.5-10.1); CARBON DIOXIDE 23.2 mmol/L (21-32); CHLORIDE 108 mmol/L (98-107); COR CA(FOR HYPOALB) 9.2 mg/dL (8.5-10.1); CREATININE 1.35 mg/dL (0.70-1.30); SODIUM 140 mmol/L (136-145); TOTAL PROTEIN 5.9 g/dL (6.4-8.2); eGFR BLACK RACES > 60 (>60); eGFR NON BLACK RACES 55 (>60)
[2017-05-14] MEDS: NS 1000 ML 1,000 ML IV SCH ×3 (06:06→16:59)
[2017-05-14] MEDS ORDERED: GLUCOPHAGE ONE ×2 (08:51→19:47)
[2017-05-14] MEDS: XANAX PO SCH ×2 (09:03→20:07)
[2017-05-14] MEDS: ZESTRIL TAB 10 MG PO SCH (09:03)
[2017-05-14] MEDS: GLUCOPHAGE PO SCH ×2 (09:03→20:07)
--- NOTE | 2017-05-14 13:49 | PCM.PROG ---
Progress Note - Progress Note for Day of Date: 05/14/17 - Subjective Subjective: WAS ADMITTED FOR ALTERED MENTAL STATUS. TODAY, HE IS ALERT AND ORIENTED, LYING IN BED ON MORNING ROUNDS. PATIENTS IS AT BEDSIDE. PATIENT REPORTS COMPLAINTS OF GENERALIZED WEAKNESS AND BILATERAL HIP PAIN. PATIENTS REPORTS THAT PATIENT CONTINUED WITH INTERMITTENT CONFUSION LAST NIGHT AND THIS MORNING. AFTER ROUNDS YESTERDAY, PATIENT INCREASINGLY BECAME AGITATED AND PULLING AT TUBINGS AND GETTING OUT OF BED WITHOUT ASSISTANCE. PATIENT WAS PLACED IN RESTRAINTS FOR SAFETY. TODAY, HE ANSWERS ALL QUESTIONS APPROPRIATELY ON ROUNDS. RESTRAINTS HAVE BEEN DISCONTINUED. ON EXAMINATION, PUPILS PERRL. LUNGS ARE CLEAR TO AUSCULTATION BILATERALLY. ABDOMEN IS ROUND, SOFT, AND NON-TENDER. NORMAL BOWEL SOUNDS ARE NOTED IN ALL QUADRANTS. THERE IS GOOD RANGE OF MOTION NOTED IN ALL EXTREMITIES. HIS VITAL SIGNS THIS MORNING ARE 98.1-77-20-97%-182/88. ABNORMAL LAB VALUES THIS MORNING INCLUDE THE FOLLOWING: RBC 3.92, HGB 11.2, HCT 33, CHLORIDE 108, CREATININE 1.35, CALCIUM 8.2, MAGNESIUM 1.5, AST 13, TOTAL PROTEIN 5.9, ALBUMIN 2.8, A/G RATIO 0.9. A CHEST XRAY WAS OBTAINED THIS MORNING AND REPORTS MINIMAL LEFT BASILAR ATELECTASIS. OTHERWISE, NO SIGNIFICANT CHANGE FROM PRIOR CHEST XRAY. TODAY, WE WILL CONTINUE WITH CURRENT PLAN OF CARE. WE PLAN TO OBTAIN A BRAIN MRI WITH CONTRAST TODAY. OTHERWISE, WE WILL FOLLOW UP WITH AM LABS AND CONTINUE TO MONITOR PATIENT. - Past Medical Family Social History Past Med/Fam/Surg Hx: No changes since H&P Allergies: Allergies No Known Drug Allergies Allergy (Verified 05/12/17 14:46) - Review of Systems ROS: No change since H&P - Vital Signs and I&O's Vital Signs: Temperature 98.1 F Pulse Rate [Right Brachial] 77 Pulse Rate 114 Respiratory Rate 20 Blood Pressure [Right Arm] 182/88 Blood Pressure [Left Arm] 158/78 Blood Pressure 131/80 O2 Sat by Pulse Oximetry 97 Intake and Output: Intake & Output 05/12/17 05/13/17 05/14/17 05/15/17 11:59 11:59 11:59 11:59 Intake Total 680 960 Output Total 550 Balance 680 410 - Physical Exam Oriented: Normal. negative: Time, Person, Place, Not Oriented, Unable to test, Other Eyes: Normal. negative: Blurred Vision, Diplopia, Discharge, Pain, Redness, Photophobia, Other Ear: Normal. negative: Right, Left, Swelling, Ecchymosis, Hemotypanum, Abrasion , Laceration Nose: Normal. negative: Injected, Discharge, Blood, Other Throat: Normal. negative: Tonsillar Hypertrophy, Red, Exudate, Dry, Other Respiratory: Normal. negative: Right, Left, Generalized, Superior, Inferior, Diminished, Wheezes, Rales, Rhonchi, OTHER Cardiovascular: Normal. negative: Tachycardia, Bradycardia, Irregular, S3, S4, Systolic, Diastolic, Murmur, Edema, Other : Normal. negative: Dysuria, Hematuria, Frequency, Discharge, Testicular Pain , Bleeding, , Other Auscultation: Bowel Sounds: Normal. negative: Bruit, Absent, Increased, Decreased, High Pitched, Other Palpation: Normal Tenderness: Normal. negative: Rebound, Guarding, Rigidity Skin: Normal Musculoskeletal: Right, Left, Hip, Tender Psychiatric: Normal Mood Description: Calm Affect: Normal Speech Pattern: Appropriate - Laboratory and Diagnostics Result Diagrams: 05/14/17 04:25 05/14/17 04:25 Labs: Laboratory WBC 8.4 X10^3/uL (3.6-10.0) 05/14/17 04:25 RBC 3.92 X10^6/uL (4.7-6.0) L 05/14/17 04:25 Hgb 11.2 g/dL (13.5-18.0) L 05/14/17 04:25 Hct 33.0 % (42.0-54.0) L 05/14/17 04:25 MCV 84.3 fL (80.0-100.0) 05/14/17 04:25 MCH 28.5 pg (27.0-34.0) 05/14/17 04:25 MCHC 33.8 g/dL (33.0-35.0) 05/14/17 04:25 RDW 13.4 % (11.6-16.5) 05/14/17 04:25 Plt Count 233 X10^3/uL (150.0-450.0) 05/14/17 04:25 MPV 7.8 fL (7.4-11.0) 05/14/17 04:25 Neut % 70.8 % (42.0-75.0) 05/14/17 04:25 Lymph % 18.1 % (21.0-51.0) L 05/14/17 04:25 [place] % 6.0 % (0.0-13.0) 05/14/17 04:25 Eos % 4.4 % (0.9-2.9) H 05/14/17 04:25 Baso % 0.7 % (0.2-1.0) 05/14/17 04:25 Neut # 6.0 x10^3/uL (2.2-4.8) H 05/14/17 04:25 Lymph # 1.5 X10^3/uL (1.3-2.9) 05/14/17 04:25 [place] # 0.5 x10^3/uL (0.3-0.8) 05/14/17 04:25 Eos # 0.4 x10^3/uL (0.0-0.2) H 05/14/17 04:25 Baso # 0.1 X10^3/uL (0.0-0.1) 05/14/17 04:25 Absolute Nucleated RBC 0.0 /100WBC 05/14/17 04:25 Sodium 140 mmol/L (136-145) 05/14/17 04:25 Corrected Sodium TNP 05/14/17 04:25 Potassium 4.1 mmol/L (3.5-5.1) 05/14/17 04:25 Chloride 108 mmol/L (98-107) H 05/14/17 04:25 Carbon Dioxide 23.2 mmol/L (21-32) 05/14/17 04:25 BUN 18 mg/dL (7-18) 05/14/17 04:25 Creatinine 1.35 mg/dL (0.70-1.30) H 05/14/17 04:25 Est GFR (MDRD) Af Amer > 60 (>60) 05/14/17 04:25 Est GFR (MDRD) Non-Af 55 (>60) L 05/14/17 04:25 Glucose 92 mg/dL (65-99) 05/14/17 04:25 POC Glucose (mg/dL) 107 mg/dL (65-99) H 05/14/17 12:32 Calcium 8.2 mg/dL (8.5-10.1) L 05/14/17 04:25 Corrected Calcium 9.2 mg/dL (8.5-10.1) 05/14/17 04:25 Magnesium 1.5 mg/dL (1.7-2.9) L 05/14/17 04:25 Iron 56 ug/dL (50-175) 05/13/17 04:30 TIBC 199 ug/dL (250-450) L 05/13/17 04:30 Transferrin 147 mg/dL (202-364) L 05/13/17 04:30 Ferritin 192 ng/mL (26-388) 05/13/17 04:30 Total Bilirubin 0.20 mg/dL (0.2-1.0) 05/14/17 04:25 AST 13 Units/L (15-37) L 05/14/17 04:25 ALT 16 Units/L (12-78) 05/14/17 04:25 Alkaline Phosphatase 62 Units/L (46-116) 05/14/17 04:25 Creatine Kinase 48 Units/L (39-308) 05/12/17 16:03 CK-MB (CK-2) < 1.0 ng/mL (0-4.0) 05/12/17 16:03 CK/CKMB % Calc 2.1 % (<4) 05/12/17 16:03 Troponin I < 0.02 ng/mL (0-1.5) 05/12/17 16:03 C-Reactive Protein 3.10 mg/L (0-3.0) H 05/12/17 16:03 Total Protein 5.9 g/dL (6.4-8.2) L 05/14/17 04:25 Albumin 2.8 g/dL (3.4-5.0) L 05/14/17 04:25 Globulin 3.1 g/dL (2.5-4.5) 05/14/17 04:25 Albumin/Globulin Ratio 0.9 Ratio (1.1-2.1) L 05/14/17 04:25 Vitamin B12 118 pg/mL (193-986) L 05/13/17 04:30 Folate 4.6 ng/mL (>8.6) L 05/13/17 04:30 Specimen Type Clean catch urine 05/13/17 02:51 Urine Color Pale yellow (YELLOW) 05/13/17 02:51 Urine Appearance Clear (CLEAR) 05/13/17 02:51 Urine pH 6.5 (5.0 - 8.0) 05/13/17 02:51 Ur Specific [place] 1.015 (1.000-1.030) 05/13/17 02:51 Urine Protein Negative (NEGATIVE) 05/13/17 02:51 Urine Glucose (UA) Negative (NEGATIVE) 05/13/17 02:51 Urine Ketones Negative (NEGATIVE) 05/13/17 02:51 Urine Occult Blood Trace (NEGATIVE) 05/13/17 02:51 Urine Nitrite Negative (NEGATIVE) 05/13/17 02:51 Urine Bilirubin Negative (NEGATIVE) 05/13/17 02:51 Urine Urobilinogen Normal (NORMAL) 05/13/17 02:51 Ur Leukocyte Esterase Negative (NEGATIVE) 05/13/17 02:51 Urine RBC 0-3 /HPF (NEGATIVE) 05/13/17 02:51 Urine WBC 0-3 /HPF (NEGATIVE) 05/13/17 02:51 Ur Squamous Epith Cells Few /HPF (NEGATIVE) 05/13/17 02:51 Urine Bacteria Negative /HPF (NEGATIVE) 05/13/17 02:51 Ur Culture Indicated? No/not indicated 05/13/17 02:51 Urine Opiates Screen Positive (NEG=<300) 05/13/17 02:51 Urine Methadone Screen Negative (NEG=<300) 05/13/17 02:51 Ur Barbiturates Screen Negative (NEG=<200) 05/13/17 02:51 Ur Phencyclidine Scrn Negative (NEG=<25) 05/13/17 02:51 Ur Amphetamines Screen Negative (NEG=<1000) 05/13/17 02:51 U Benzodiazepines Scrn Negative (NEG=<200) 05/13/17 02:51 Urine Cocaine Screen Negative (NEG=<300) 05/13/17 02:51 U Marijuana (THC) Screen Positive (NEG=<50) A 05/13/17 02:51 - Plan (1) Altered mental status Status: Acute Qualifiers: Altered mental status type: transient alteration of awareness Qualified Code(s): R40.4 - Transient alteration of awareness Plan: CONTINUE XANAX, CONTINUE HALDOL, OBTAIN BRAIN MRI WITH CONTRAST, CONTINUE TO MONITOR
[2017-05-15] MEDS: ANTIVERT TAB 25 MG PO SCH ×4 (05:29→21:40)
[2017-05-15] MEDS: NORCO 10/325 TAB PO SCH ×4 (05:29→21:40)
[2017-05-15] MEDS: NEURONTIN CAP 300 MG PO SCH ×4 (05:29→21:40)
[2017-05-15] MEDS: NS 1000 ML 1,000 ML IV SCH ×4 (05:35→21:27)
[2017-05-15 08:16] LABS: BASOPHILS # (AUTO) 0.1 X10^3/uL (0.0-0.1); BASOPHILS % (AUTO) 0.7 % (0.2-1.0); EOSINOPHILS # (AUTO) 0.4 x10^3/uL (0.0-0.2); EOSINOPHILS % (AUTO) 4.6 % (0.9-2.9); HEMATOCRIT 33.4 % (42.0-54.0); HEMOGLOBIN 11.2 g/dL (13.5-18.0); LYMPHOCYTES % (AUTO) 11.3 % (21.0-51.0); MEAN CORPUSCULAR HEMOGLOBIN 28.5 pg (27.0-34.0); MEAN CORPUSCULAR HGB CONC 33.5 g/dL (33.0-35.0); MEAN CORPUSCULAR VOLUME 85.1 fL (80.0-100.0); MEAN PLATELET VOLUME 7.3 fL (7.4-11.0); MONOCYTES # (AUTO) 0.7 x10^3/uL (0.3-0.8); MONOCYTES % (AUTO) 7.2 % (0.0-13.0); NEUTROPHILS # (AUTO) 6.9 x10^3/uL (2.2-4.8); NEUTROPHILS % (AUTO) 76.2 % (42.0-75.0); PLATELET COUNT 214 X10^3/uL (150.0-450.0); RED BLOOD COUNT 3.92 X10^6/uL (4.7-6.0); RED CELL DISTRIBUTION WIDTH 13.8 % (11.6-16.5); WHITE BLOOD COUNT 9.1 X10^3/uL (3.6-10.0)
[2017-05-15] MEDS ORDERED: GLUCOPHAGE ONE ×2 (08:17→21:21)
[2017-05-15] MEDS: GLUCOPHAGE PO SCH ×3 (08:19→21:39)
[2017-05-15] MEDS: ZESTRIL TAB 10 MG PO SCH (08:19)
[2017-05-15] MEDS: XANAX PO SCH ×2 (08:19→21:29)
[2017-05-15 08:29] LABS: ALANINE AMINOTRANSFERASE 12 Units/L (12-78); ALBUMIN 2.7 g/dL (3.4-5.0); ALKALINE PHOSPHATASE 57 Units/L (46-116); ASPARTATE AMINO TRANSFERASE 13 Units/L (15-37); BLOOD UREA NITROGEN 18 mg/dL (7-18); CALCIUM 8.5 mg/dL (8.5-10.1); CARBON DIOXIDE 24.2 mmol/L (21-32); CHLORIDE 110 mmol/L (98-107); COR CA(FOR HYPOALB) 9.5 mg/dL (8.5-10.1); CREATININE 1.32 mg/dL (0.70-1.30); SODIUM 141 mmol/L (136-145); TOTAL PROTEIN 5.8 g/dL (6.4-8.2); eGFR BLACK RACES > 60 (>60); eGFR NON BLACK RACES 56 (>60)
[2017-05-15] MEDS ORDERED: VALIUM INJ IVP ONE (09:17)
[2017-05-15] MEDS: SNACK - Diabetic Appropriate PO SCH ×2 (09:59→21:40)
[2017-05-15] MEDS ORDERED: VALIUM INJ ONE (11:33)
[2017-05-15] MEDS: HALDOL INJ IVP PRN (15:30)
[2017-05-15] MEDS ORDERED: MILK OF MAGNESIA PO PRN (23:06)
[2017-05-16 04:47] LABS: BASOPHILS # (AUTO) 0.1 X10^3/uL (0.0-0.1); BASOPHILS % (AUTO) 0.8 % (0.2-1.0); EOSINOPHILS # (AUTO) 0.4 x10^3/uL (0.0-0.2); EOSINOPHILS % (AUTO) 4.9 % (0.9-2.9); HEMOGLOBIN 11.3 g/dL (13.5-18.0); LYMPHOCYTES % (AUTO) 13.2 % (21.0-51.0); MEAN CORPUSCULAR HEMOGLOBIN 28.3 pg (27.0-34.0); MEAN CORPUSCULAR HGB CONC 33.3 g/dL (33.0-35.0); MEAN PLATELET VOLUME 7.6 fL (7.4-11.0); MONOCYTES # (AUTO) 0.6 x10^3/uL (0.3-0.8); MONOCYTES % (AUTO) 7.6 % (0.0-13.0); NEUTROPHILS # (AUTO) 5.7 x10^3/uL (2.2-4.8); NEUTROPHILS % (AUTO) 73.5 % (42.0-75.0); PLATELET COUNT 218 X10^3/uL (150.0-450.0); RED CELL DISTRIBUTION WIDTH 13.9 % (11.6-16.5); WHITE BLOOD COUNT 7.8 X10^3/uL (3.6-10.0)
[2017-05-16 04:57] LABS: ALANINE AMINOTRANSFERASE 15 Units/L (12-78); ALBUMIN 2.7 g/dL (3.4-5.0); ALKALINE PHOSPHATASE 57 Units/L (46-116); ASPARTATE AMINO TRANSFERASE 14 Units/L (15-37); BLOOD UREA NITROGEN 17 mg/dL (7-18); CALCIUM 8.4 mg/dL (8.5-10.1); CARBON DIOXIDE 23.9 mmol/L (21-32); CHLORIDE 109 mmol/L (98-107); COR CA(FOR HYPOALB) 9.4 mg/dL (8.5-10.1); CREATININE 1.28 mg/dL (0.70-1.30); SODIUM 140 mmol/L (136-145); TOTAL PROTEIN 5.9 g/dL (6.4-8.2); eGFR BLACK RACES > 60 (>60); eGFR NON BLACK RACES 58 (>60)
[2017-05-16] MEDS: NORCO 10/325 TAB PO SCH ×3 (05:55→21:14)
[2017-05-16] MEDS: ANTIVERT TAB 25 MG PO SCH ×3 (05:56→21:15)
[2017-05-16] MEDS: NEURONTIN CAP 300 MG PO SCH ×3 (05:56→21:14)
[2017-05-16] MEDS ORDERED: GLUCOPHAGE ONE (10:35)
[2017-05-16] MEDS: XANAX PO SCH ×2 (11:19→21:14)
[2017-05-16] MEDS: COLACE CAP 100 MG PO SCH ×2 (11:29→21:15)
[2017-05-16] MEDS: NS 1000 ML 1,000 ML IV SCH ×2 (11:29→18:23)
[2017-05-16] MEDS: GLUCOPHAGE PO SCH ×2 (11:30→21:16)
[2017-05-16] MEDS: ZESTRIL TAB 10 MG PO SCH (11:30)
[2017-05-16] MEDS: HALDOL INJ IVP PRN ×2 (17:46→22:49)
[2017-05-16] MEDS: SNACK - Diabetic Appropriate PO SCH (21:15)
--- NOTE | 2017-05-17 01:17 | PCM.PROG ---
Progress Note - Progress Note for Day of Date: 05/15/17 - Subjective Subjective: WAS ADMITTED FOR ALTERED MENTAL STATUS. TODAY, HE IS ALERT AND ORIENTED, LYING IN BED ON MORNING ROUNDS. PATIENTS IS AT BEDSIDE. PATIENT REPORTS COMPLAINTS OF GENERALIZED WEAKNESS AND BILATERAL HIP PAIN. PATIENTS REPORTS THAT PATIENT CONTINUES WITH CONFUSION IN THE AFTERNOONS AND DURING THE NIGHT. ON EXAMINATION, PUPILS PERRL. LUNGS ARE CLEAR TO AUSCULTATION BILATERALLY. ABDOMEN IS ROUND, SOFT, AND NON-TENDER. NORMAL BOWEL SOUNDS ARE NOTED IN ALL QUADRANTS. THERE IS GOOD RANGE OF MOTION NOTED IN ALL EXTREMITIES. HIS VITAL SIGNS THIS MORNING ARE 98.0-95-20-97%-182/99. ABNORMAL LAB VALUES THIS MORNING INCLUDE THE FOLLOWING: RBC 3.92, HGB 11.2, HCT 33, CHLORIDE 110, CREATININE 1.32, AST 13, TOTAL PROTEIN 5.8, ALBUMIN 2.8, A/G RATIO 0.9. WE ATTEMPTED TO OBTAIN A MRI TODAY, HOWEVER, PATIENT WAS UNCOOPERATIVE AND REFUSED. TODAY, WE WILL CONTINUE WITH CURRENT PLAN OF CARE. STAFF REPORTS THAT PATIENT IS UNSTEADY WHEN AMBULATING. PHYSICAL THERAPY IS WORKING WITH PATIENT AND WE WILL CONTINUE TO UTILIZE THEIR SERVICES. OTHERWISE, WE WILL FOLLOW UP WITH AM LABS AND CONTINUE TO MONITOR PATIENT. - Past Medical Family Social History Past Med/Fam/Surg Hx: No changes since H&P Allergies: Allergies No Known Drug Allergies Allergy (Verified 05/12/17 14:46) - Review of Systems ROS: No change since H&P - Vital Signs and I&O's Vital Signs: Temperature 98.1 F Pulse Rate [Right Brachial] 86 Pulse Rate 114 Respiratory Rate 18 Blood Pressure [Right Arm] 114/65 Blood Pressure [Left Arm] 158/78 Blood Pressure 131/80 O2 Sat by Pulse Oximetry 94 Intake and Output: Intake & Output 05/14/17 05/15/17 05/16/17 05/17/17 11:59 11:59 11:59 11:59 Intake Total 960 3485 3906 920 Output Total 550 Balance 410 3485 3906 920 - Physical Exam Oriented: Normal. negative: Time, Person, Place, Not Oriented, Unable to test, Other Eyes: Normal. negative: Blurred Vision, Diplopia, Discharge, Pain, Redness, Photophobia, Other Ear: Normal. negative: Right, Left, Swelling, Ecchymosis, Hemotypanum, Abrasion , Laceration Nose: Normal. negative: Injected, Discharge, Blood, Other Throat: Normal. negative: Tonsillar Hypertrophy, Red, Exudate, Dry, Other Respiratory: Normal. negative: Right, Left, Generalized, Superior, Inferior, Diminished, Wheezes, Rales, Rhonchi, OTHER Cardiovascular: Normal. negative: Tachycardia, Bradycardia, Irregular, S3, S4, Systolic, Diastolic, Murmur, Edema, Other : Normal. negative: Dysuria, Hematuria, Frequency, Discharge, Testicular Pain , Bleeding, , Other Auscultation: Bowel Sounds: Normal. negative: Bruit, Absent, Increased, Decreased, High Pitched, Other Palpation: Normal Tenderness: Normal. negative: Rebound, Guarding, Rigidity Skin: Normal Musculoskeletal: Right, Left, Hip, Tender Psychiatric: Anxiety, Agitation, Other (INTERMITTENT CONFUSION ) Mood Description: Calm Affect: Normal Speech Pattern: Clear - Laboratory and Diagnostics Result Diagrams: 05/16/17 04:00 05/16/17 04:00 Labs: Laboratory WBC 7.8 X10^3/uL (3.6-10.0) 05/16/17 04:00 RBC 4.00 X10^6/uL (4.7-6.0) L 05/16/17 04:00 Hgb 11.3 g/dL (13.5-18.0) L 05/16/17 04:00 Hct 34.0 % (42.0-54.0) L 05/16/17 04:00 MCV 85.0 fL (80.0-100.0) 05/16/17 04:00 MCH 28.3 pg (27.0-34.0) 05/16/17 04:00 MCHC 33.3 g/dL (33.0-35.0) 05/16/17 04:00 RDW 13.9 % (11.6-16.5) 05/16/17 04:00 Plt Count 218 X10^3/uL (150.0-450.0) 05/16/17 04:00 MPV 7.6 fL (7.4-11.0) 05/16/17 04:00 Neut % 73.5 % (42.0-75.0) 05/16/17 04:00 Lymph % 13.2 % (21.0-51.0) L 05/16/17 04:00 [place] % 7.6 % (0.0-13.0) 05/16/17 04:00 Eos % 4.9 % (0.9-2.9) H 05/16/17 04:00 Baso % 0.8 % (0.2-1.0) 05/16/17 04:00 Neut # 5.7 x10^3/uL (2.2-4.8) H 05/16/17 04:00 Lymph # 1.0 X10^3/uL (1.3-2.9) L 05/16/17 04:00 [place] # 0.6 x10^3/uL (0.3-0.8) 05/16/17 04:00 Eos # 0.4 x10^3/uL (0.0-0.2) H 05/16/17 04:00 Baso # 0.1 X10^3/uL (0.0-0.1) 05/16/17 04:00 Absolute Nucleated RBC 0.0 /100WBC 05/16/17 04:00 Sodium 140 mmol/L (136-145) 05/16/17 04:00 Corrected Sodium TNP 05/16/17 04:00 Potassium 3.8 mmol/L (3.5-5.1) 05/16/17 04:00 Chloride 109 mmol/L (98-107) H 05/16/17 04:00 Carbon Dioxide 23.9 mmol/L (21-32) 05/16/17 04:00 BUN 17 mg/dL (7-18) 05/16/17 04:00 Creatinine 1.28 mg/dL (0.70-1.30) 05/16/17 04:00 Est GFR (MDRD) Af Amer > 60 (>60) 05/16/17 04:00 Est GFR (MDRD) Non-Af 58 (>60) L 05/16/17 04:00 Glucose 92 mg/dL (65-99) 05/16/17 04:00 POC Glucose (mg/dL) 99 mg/dL (65-99) 05/16/17 20:17 Calcium 8.4 mg/dL (8.5-10.1) L 05/16/17 04:00 Corrected Calcium 9.4 mg/dL (8.5-10.1) 05/16/17 04:00 Magnesium 1.5 mg/dL (1.7-2.9) L 05/14/17 04:25 Iron 56 ug/dL (50-175) 05/13/17 04:30 TIBC 199 ug/dL (250-450) L 05/13/17 04:30 Transferrin 147 mg/dL (202-364) L 05/13/17 04:30 Ferritin 192 ng/mL (26-388) 05/13/17 04:30 Total Bilirubin 0.20 mg/dL (0.2-1.0) 05/16/17 04:00 AST 14 Units/L (15-37) L 05/16/17 04:00 ALT 15 Units/L (12-78) 05/16/17 04:00 Alkaline Phosphatase 57 Units/L (46-116) 05/16/17 04:00 Creatine Kinase 48 Units/L (39-308) 05/12/17 16:03 CK-MB (CK-2) < 1.0 ng/mL (0-4.0) 05/12/17 16:03 CK/CKMB % Calc 2.1 % (<4) 05/12/17 16:03 Troponin I < 0.02 ng/mL (0-1.5) 05/12/17 16:03 C-Reactive Protein 3.10 mg/L (0-3.0) H 05/12/17 16:03 Total Protein 5.9 g/dL (6.4-8.2) L 05/16/17 04:00 Albumin 2.7 g/dL (3.4-5.0) L 05/16/17 04:00 Globulin 3.2 g/dL (2.5-4.5) 05/16/17 04:00 Albumin/Globulin Ratio 0.8 Ratio (1.1-2.1) L 05/16/17 04:00 Vitamin B12 118 pg/mL (193-986) L 05/13/17 04:30 Folate 4.6 ng/mL (>8.6) L 05/13/17 04:30 Specimen Type Clean catch urine 05/13/17 02:51 Urine Color Pale yellow (YELLOW) 05/13/17 02:51 Urine Appearance Clear (CLEAR) 05/13/17 02:51 Urine pH 6.5 (5.0 - 8.0) 05/13/17 02:51 Ur Specific [place] 1.015 (1.000-1.030) 05/13/17 02:51 Urine Protein Negative (NEGATIVE) 05/13/17 02:51 Urine Glucose (UA) Negative (NEGATIVE) 05/13/17 02:51 Urine Ketones Negative (NEGATIVE) 05/13/17 02:51 Urine Occult Blood Trace (NEGATIVE) 05/13/17 02:51 Urine Nitrite Negative (NEGATIVE) 05/13/17 02:51 Urine Bilirubin Negative (NEGATIVE) 05/13/17 02:51 Urine Urobilinogen Normal (NORMAL) 05/13/17 02:51 Ur Leukocyte Esterase Negative (NEGATIVE) 05/13/17 02:51 Urine RBC 0-3 /HPF (NEGATIVE) 05/13/17 02:51 Urine WBC 0-3 /HPF (NEGATIVE) 05/13/17 02:51 Ur Squamous Epith Cells Few /HPF (NEGATIVE) 05/13/17 02:51 Urine Bacteria Negative /HPF (NEGATIVE) 05/13/17 02:51 Ur Culture Indicated? No/not indicated 05/13/17 02:51 Urine Opiates Screen Positive (NEG=<300) 05/13/17 02:51 Urine Methadone Screen Negative (NEG=<300) 05/13/17 02:51 Ur Barbiturates Screen Negative (NEG=<200) 05/13/17 02:51 Ur Phencyclidine Scrn Negative (NEG=<25) 05/13/17 02:51 Ur Amphetamines Screen Negative (NEG=<1000) 05/13/17 02:51 U Benzodiazepines Scrn Negative (NEG=<200) 05/13/17 02:51 Urine Cocaine Screen Negative (NEG=<300) 05/13/17 02:51 U Marijuana (THC) Screen Positive (NEG=<50) A 05/13/17 02:51 - Plan (1) Altered mental status Status: Acute Qualifiers: Altered mental status type: transient alteration of awareness Qualified Code(s): R40.4 - Transient alteration of awareness Plan: CONTINUE XANAX, CONTINUE HALDOL, CONTINUE TO MONITOR (2) Hypertension Status: Acute Qualifiers: Hypertension type: essential hypertension Qualified Code(s): I10 - Essential (primary) hypertension Plan: CONTINUE ZESTRIL, CONTINUE TO MONITOR (3) Diabetes Status: Acute Qualifiers: Diabetes mellitus type: type 2 Diabetes mellitus complication status: without complication Diabetes mellitus halfway insulin use: with terminal make up operator use Qualified Code(s): E11.9 - Type 2 diabetes mellitus without complications ; Z79.4 - care home (current) use of insulin; Z79.4 - care home (current) use of insulin; Z79.4 - predatory animal exterminator (current) use of insulin; Z79.4 - care home ( current) use of insulin Plan: CONTINUE GLUCOPHAGE, CONTINUE TO MONITOR
[2017-05-17] MEDS: NS 1000 ML 1,000 ML IV SCH ×2 (03:39→18:41)
[2017-05-17] MEDS: ANTIVERT TAB 25 MG PO SCH ×3 (05:03→21:23)
[2017-05-17] MEDS: NORCO 10/325 TAB PO SCH ×3 (05:03→21:23)
[2017-05-17] MEDS: NEURONTIN CAP 300 MG PO SCH ×3 (05:03→21:22)
[2017-05-17 06:33] LABS: ALANINE AMINOTRANSFERASE 16 Units/L (12-78); ALBUMIN 3.3 g/dL (3.4-5.0); ALKALINE PHOSPHATASE 72 Units/L (46-116); ASPARTATE AMINO TRANSFERASE 21 Units/L (15-37); BLOOD UREA NITROGEN 15 mg/dL (7-18); CALCIUM 8.9 mg/dL (8.5-10.1); CARBON DIOXIDE 21.6 mmol/L (21-32); CHLORIDE 106 mmol/L (98-107); COR CA(FOR HYPOALB) 9.5 mg/dL (8.5-10.1); CREATININE 1.29 mg/dL (0.70-1.30); SODIUM 139 mmol/L (136-145); TOTAL PROTEIN 7.3 g/dL (6.4-8.2); eGFR BLACK RACES > 60 (>60); eGFR NON BLACK RACES 58 (>60)
[2017-05-17] MEDS ORDERED: GLUCOPHAGE ONE ×2 (08:53→20:00)
[2017-05-17] MEDS: ZESTRIL TAB 10 MG PO SCH (09:04)
[2017-05-17] MEDS: GLUCOPHAGE PO SCH ×2 (09:04→20:09)
[2017-05-17] MEDS: XANAX PO SCH ×2 (09:04→20:08)
[2017-05-17 10:17] LABS: BASOPHILS # (AUTO) 0.2 X10^3/uL (0.0-0.1); EOSINOPHILS # (AUTO) 0.4 x10^3/uL (0.0-0.2); HEMATOCRIT 39.2 % (42.0-54.0); HEMOGLOBIN 13.1 g/dL (13.5-18.0); LYMPHOCYTES # (AUTO) 1.3 X10^3/uL (1.3-2.9); LYMPHOCYTES % (AUTO) 7.1 % (21.0-51.0); MEAN CORPUSCULAR HEMOGLOBIN 28.3 pg (27.0-34.0); MEAN CORPUSCULAR HGB CONC 33.5 g/dL (33.0-35.0); MEAN CORPUSCULAR VOLUME 84.4 fL (80.0-100.0); MEAN PLATELET VOLUME 7.4 fL (7.4-11.0); MONOCYTES % (AUTO) 5.6 % (0.0-13.0); NEUTROPHILS # (AUTO) 15.1 x10^3/uL (2.2-4.8); NEUTROPHILS % (AUTO) 84.3 % (42.0-75.0); PLATELET COUNT 252 X10^3/uL (150.0-450.0); RED BLOOD COUNT 4.65 X10^6/uL (4.7-6.0); RED CELL DISTRIBUTION WIDTH 13.9 % (11.6-16.5)
[2017-05-17] MEDS ORDERED: TYLENOL 325 MG TAB PO PRN (11:38)
[2017-05-17] MEDS: ZyPREXA TAB 5 MG PO SCH ×2 (12:54→17:43)
[2017-05-17] MEDS ORDERED: ROCEPHIN VIAL 1 GM 1 GM in D5W 50 ML IV 50 ML IV SCH (13:00)
[2017-05-17] MEDS ORDERED: NS 50 ML IV 50 ML IV ONE (14:20)
[2017-05-17] MEDS ORDERED: ROCEPHIN VIAL 1 GM ONE (14:21)
[2017-05-17 14:59] LABS: BILIRUBIN,URINE NEGATIVE (NEGATIVE); BLOOD/HEMOGLOBIN,URINE 5+ (NEGATIVE); GLUCOSE, URINE NEGATIVE (NEGATIVE); KETONES,URINE 1+ (NEGATIVE); LEUKOCYTE ESTERASE ,URINE 3+ (NEGATIVE); NITRITES,URINE POSITIVE (NEGATIVE); PROTEIN,URINE 3+ (NEGATIVE); UROBILINOGEN,URINE NORMAL (NORMAL)
[2017-05-17 15:17] LABS: APPEARANCE,URINE CLOUDY (CLEAR); BACTERIA,URINE 2+ /HPF (NEGATIVE); COLOR,URINE YELLOW (YELLOW); RBC,URINE TNTC /HPF (NEGATIVE); SQUAMOUS EPITHELIAL CELL,UR FEW /HPF (NEGATIVE)
--- NOTE | 2017-05-17 15:30 | RAD ---
Examination: AP chest History: Fever, possible aspiration Comparison reference 05/13/2017 Findings: Continued normal heart size. The lungs are relatively hypo inflated compared to prior studi es. There is a persistent area of atelectasis/fibrosis adjacent to the right lower hilum. There is sl ight diffuse increase in parenchymal density behind the heart in the left lower lobe; the left diaphr agm surface is indistinct. No pneumothorax or large pleural effusion is evident. Impression: Possible acute infiltrate left lower lobe. Follow-up with standard PA and lateral views i f condition allows. Reported By:
[2017-05-17] MEDS: COLACE CAP 100 MG PO SCH (20:07)
[2017-05-17] MEDS: SNACK - Diabetic Appropriate PO SCH (20:10)
[2017-05-17] MEDS ORDERED: DUONEB 0.5 MG/3 MG NEB SCH (21:00)
[2017-05-17] MEDS ORDERED: TYLENOL SUPP 650 MG PR PRN (23:04)
--- NOTE | 2017-05-17 23:12 | RAD ---
Chest AP portable Indication: Congestion. Comparison: Radiograph from earlier the same day. Findings: Patchy left lower lung opacity persist. Diffuse increased interstitial markings and mild pe ribronchial thickening noted. Heart size is prominent. There is no pneumothorax or large effusion. Impression: 1. Cardiomegaly and borderline edema. Correlate clinically for CHF. 2. Left lower lung infiltrate possible. Follow-up to resolution to exclude underlying process. Reported By:
[2017-05-17] MEDS ORDERED: LASIX IVP ONE (23:32)
[2017-05-17] MEDS ORDERED: ZOSYN VIAL 3.375 GM 3.375 GM in NS 100 ML IV + SPIKE MINIBAG* 100 ML IV SCH (23:45)
--- NOTE | 2017-05-18 00:26 | PCM.PROG ---
Progress Note - Progress Note for Day of Date: 05/16/17 - Subjective Subjective: WAS ADMITTED FOR ALTERED MENTAL STATUS. TODAY, HE IS ALERT AND ORIENTED, LYING IN BED ON MORNING ROUNDS. PATIENTS IS AT BEDSIDE. PATIENT CONTINUES WITH REPORTS OF GENERALIZED WEAKNESS AND BILATERAL HIP PAIN. PATIENTS REPORTS THAT PATIENT CONTINUES WITH CONFUSION IN THE AFTERNOONS AND DURING THE NIGHT. SHE STATES THAT PATIENT FELL IN BATHROOM LAST NIGHT. WE CONFIRMED THIS WITH STAFF. A SKIN TEAR TO THE RIGHT ELBOW WAS OBTAINED DURING FALL. A TEGADERM IS NOTED TO ELBOW WITH NO SIGNS OR SX INFECTION NOTED TO SURROUNDING ARE. DRESSING DRY AND INTACT. ON EXAMINATION, PUPILS PERRL. LUNGS ARE CLEAR TO AUSCULTATION BILATERALLY. ABDOMEN IS ROUND, SOFT, AND NON-TENDER. NORMAL BOWEL SOUNDS ARE NOTED IN ALL QUADRANTS. THERE IS GOOD RANGE OF MOTION NOTED IN ALL EXTREMITIES. HIS VITAL SIGNS THIS MORNING ARE 98.3-91-20-90%-131/ 60. HE IS HEMODYNAMICALLY STABLE TODAY. TODAY, WE WILL CONTINUE WITH CURRENT PLAN OF CARE. PHYSICAL THERAPY IS WORKING WITH PATIENT AND WE WILL CONTINUE TO UTILIZE THEIR SERVICES. WE DISCUSSED PLAN FOR AFTER DISCHARGE WITH SPOUSE. SHE REPORTS THAT SHE WOULD LIKE TO BE ABLE TO TAKE PATIENT HOME IF HE IS STABLE. WE WILL CONSULT WITH HOME HEALTH FOR PATIENT ON THURSDAY. WE PLAN TO FOLLOW UP WITH AM LABS AND CONTINUE TO MONITOR PATIENT. - Past Medical Family Social History Past Med/Fam/Surg Hx: No changes since H&P Allergies: Allergies No Known Drug Allergies Allergy (Verified 05/12/17 14:46) - Review of Systems ROS: No change since H&P - Vital Signs and I&O's Vital Signs: Temperature 101.2 F Pulse Rate [Left Brachial] 120 Pulse Rate [Right Brachial] 90 Pulse Rate 110 Respiratory Rate 18 Blood Pressure [Right Arm] 156/83 Blood Pressure [Left Arm] 168/95 Blood Pressure 131/80 O2 Sat by Pulse Oximetry 92 Intake and Output: Intake & Output 05/15/17 05/16/17 05/17/17 05/18/17 11:59 11:59 11:59 11:59 Intake Total 3485 3906 980 1080 Balance 3485 3906 980 1080 - Physical Exam Oriented: Normal. negative: Time, Person, Place, Not Oriented, Unable to test, Other Eyes: Normal. negative: Blurred Vision, Diplopia, Discharge, Pain, Redness, Photophobia, Other Ear: Normal. negative: Right, Left, Swelling, Ecchymosis, Hemotypanum, Abrasion , Laceration Nose: Normal. negative: Injected, Discharge, Blood, Other Throat: Normal. negative: Tonsillar Hypertrophy, Red, Exudate, Dry, Other Respiratory: Normal. negative: Right, Left, Generalized, Superior, Inferior, Diminished, Wheezes, Rales, Rhonchi, OTHER Cardiovascular: Normal. negative: Tachycardia, Bradycardia, Irregular, S3, S4, Systolic, Diastolic, Murmur, Edema, Other : Normal. negative: Dysuria, Hematuria, Frequency, Discharge, Testicular Pain , Bleeding, , Other Auscultation: Bowel Sounds: Normal. negative: Bruit, Absent, Increased, Decreased, High Pitched, Other Palpation: Normal Tenderness: Normal. negative: Rebound, Guarding, Rigidity Skin: Normal Musculoskeletal: Right, Left, Hip, Tender Psychiatric: Anxiety, Agitation, Other (INTERMITTENT CONFUSION ) Mood Description: Calm Affect: Normal Speech Pattern: Clear, Inappropriate - Laboratory and Diagnostics Result Diagrams: 05/17/17 05:10 05/17/17 05:10 Labs: 05/17/17 19:16 Sputum - Endotracheal Wash - Final Laboratory WBC 18.0 X10^3/uL (3.6-10.0) H D 05/17/17 05:10 RBC 4.65 X10^6/uL (4.7-6.0) L 05/17/17 05:10 Hgb 13.1 g/dL (13.5-18.0) L 05/17/17 05:10 Hct 39.2 % (42.0-54.0) L 05/17/17 05:10 MCV 84.4 fL (80.0-100.0) 05/17/17 05:10 MCH 28.3 pg (27.0-34.0) 05/17/17 05:10 MCHC 33.5 g/dL (33.0-35.0) 05/17/17 05:10 RDW 13.9 % (11.6-16.5) 05/17/17 05:10 Plt Count 252 X10^3/uL (150.0-450.0) 05/17/17 05:10 MPV 7.4 fL (7.4-11.0) 05/17/17 05:10 Neut % 84.3 % (42.0-75.0) H 05/17/17 05:10 Lymph % 7.1 % (21.0-51.0) L 05/17/17 05:10 [place] % 5.6 % (0.0-13.0) 05/17/17 05:10 Eos % 2.0 % (0.9-2.9) 05/17/17 05:10 Baso % 1.0 % (0.2-1.0) 05/17/17 05:10 Neut # 15.1 x10^3/uL (2.2-4.8) H 05/17/17 05:10 Lymph # 1.3 X10^3/uL (1.3-2.9) 05/17/17 05:10 [place] # 1.0 x10^3/uL (0.3-0.8) H 05/17/17 05:10 Eos # 0.4 x10^3/uL (0.0-0.2) H 05/17/17 05:10 Baso # 0.2 X10^3/uL (0.0-0.1) H 05/17/17 05:10 Absolute Nucleated RBC 0.0 /100WBC 05/17/17 05:10 Sodium 139 mmol/L (136-145) 05/17/17 05:10 Corrected Sodium TNP 05/17/17 05:10 Potassium 4.2 mmol/L (3.5-5.1) 05/17/17 05:10 Chloride 106 mmol/L (98-107) 05/17/17 05:10 Carbon Dioxide 21.6 mmol/L (21-32) 05/17/17 05:10 BUN 15 mg/dL (7-18) 05/17/17 05:10 Creatinine 1.29 mg/dL (0.70-1.30) 05/17/17 05:10 Est GFR (MDRD) Af Amer > 60 (>60) 05/17/17 05:10 Est GFR (MDRD) Non-Af 58 (>60) L 05/17/17 05:10 Glucose 99 mg/dL (65-99) 05/17/17 05:10 POC Glucose (mg/dL) 129 mg/dL (65-99) H 05/17/17 20:06 Lactic Acid 0.8 mmol/L (0.4-2.0) 05/17/17 12:30 Calcium 8.9 mg/dL (8.5-10.1) 05/17/17 05:10 Corrected Calcium 9.5 mg/dL (8.5-10.1) 05/17/17 05:10 Magnesium 1.5 mg/dL (1.7-2.9) L 05/14/17 04:25 Iron 56 ug/dL (50-175) 05/13/17 04:30 TIBC 199 ug/dL (250-450) L 05/13/17 04:30 Transferrin 147 mg/dL (202-364) L 05/13/17 04:30 Ferritin 192 ng/mL (26-388) 05/13/17 04:30 Total Bilirubin 0.40 mg/dL (0.2-1.0) 05/17/17 05:10 AST 21 Units/L (15-37) 05/17/17 05:10 ALT 16 Units/L (12-78) 05/17/17 05:10 Alkaline Phosphatase 72 Units/L (46-116) 05/17/17 05:10 Creatine Kinase 48 Units/L (39-308) 05/12/17 16:03 CK-MB (CK-2) < 1.0 ng/mL (0-4.0) 05/12/17 16:03 CK/CKMB % Calc 2.1 % (<4) 05/12/17 16:03 Troponin I < 0.02 ng/mL (0-1.5) 05/12/17 16:03 C-Reactive Protein 3.10 mg/L (0-3.0) H 05/12/17 16:03 Total Protein 7.3 g/dL (6.4-8.2) 05/17/17 05:10 Albumin 3.3 g/dL (3.4-5.0) L 05/17/17 05:10 Globulin 4.0 g/dL (2.5-4.5) 05/17/17 05:10 Albumin/Globulin Ratio 0.8 Ratio (1.1-2.1) L 05/17/17 05:10 Vitamin B12 118 pg/mL (193-986) L 05/13/17 04:30 Folate 4.6 ng/mL (>8.6) L 05/13/17 04:30 Specimen Type Clean catch urine 05/17/17 14:26 Urine Color Yellow (YELLOW) 05/17/17 14:26 Urine Appearance Cloudy (CLEAR) 05/17/17 14:26 Urine pH 6.0 (5.0 - 8.0) 05/17/17 14:26 Ur Specific [place] 1.010 (1.000-1.030) 05/17/17 14:26 Urine Protein 3+ (NEGATIVE) 05/17/17 14:26 Urine Glucose (UA) Negative (NEGATIVE) 05/17/17 14: Urine Ketones 1+ (NEGATIVE) 05/17/17 14: Urine Occult Blood 5+ (NEGATIVE) 05/17/17 14: Urine Nitrite Positive (NEGATIVE) 05/17/17 14: Urine Bilirubin Negative (NEGATIVE) 05/17/17 14:26 Urine Urobilinogen Normal (NORMAL) 05/17/17 14:26 Ur Leukocyte Esterase 3+ (NEGATIVE) 05/17/17 14:26 Urine RBC Tntc /HPF (NEGATIVE) 05/17/17 14:26 Urine WBC Tntc /HPF (NEGATIVE) 05/17/17 14:26 Ur Squamous Epith Cells Few /HPF (NEGATIVE) 05/17/17 14:26 Urine Bacteria 2+ /HPF (NEGATIVE) 05/17/17 14:26 Ur Culture Indicated? Yes/culture set up 05/17/17 14:26 Urine Opiates Screen Positive (NEG=<300) 05/13/17 02:51 Urine Methadone Screen Negative (NEG=<300) 05/13/17 02:51 Ur Barbiturates Screen Negative (NEG=<200) 05/13/17 02:51 Ur Phencyclidine Scrn Negative (NEG=<25) 05/13/17 02:51 Ur Amphetamines Screen Negative (NEG=<1000) 05/13/17 02:51 U Benzodiazepines Scrn Negative (NEG=<200) 05/13/17 02:51 Urine Cocaine Screen Negative (NEG=<300) 05/13/17 02:51 U Marijuana (THC) Screen Positive (NEG=<50) A 05/13/17 02:51 - Plan (1) Altered mental status Status: Acute Qualifiers: Altered mental status type: transient alteration of awareness Qualified Code(s): R40.4 - Transient alteration of awareness Plan: CONTINUE XANAX, CONTINUE HALDOL, CONTINUE TO MONITOR (2) Hypertension Status: Acute Qualifiers: Hypertension type: essential hypertension Qualified Code(s): I10 - Essential (primary) hypertension Plan: CONTINUE ZESTRIL, CONTINUE TO MONITOR (3) Diabetes Status: Acute Qualifiers: Diabetes mellitus type: type 2 Diabetes mellitus complication status: without complication Diabetes mellitus long term care pharmacist insulin use: with long term care pharmacist use Qualified Code(s): E11.9 - Type 2 diabetes mellitus without complications ; Z79.4 - intermediate card tender (current) use of insulin; Z79.4 - intermediate card tender (current) use of insulin; Z79.4 - intermediate card tender (current) use of insulin; Z79.4 - intermediate card tender ( current) use of insulin Plan: CONTINUE GLUCOPHAGE, CONTINUE TO MONITOR
[2017-05-18] MEDS ORDERED: K-RIDER 10 MEQ/NS 100 ML 10 MEQ/100 ML BAG IV PRN (04:41)
[2017-05-18] MEDS ORDERED: POTASSIUM CHLORIDE LIQ 20 MEQ UDC PO PRN (04:41)
[2017-05-18] MEDS ORDERED: MILK OF MAGNESIA PO PRN (04:41)
[2017-05-18] MEDS ORDERED: POTASSIUM CHL 40 MEQ/NS 0.45% 500 ML IV PRN (04:41)
[2017-05-18] MEDS ORDERED: MAG-OX TAB PO PRN (04:41)
[2017-05-18] MEDS ORDERED: POTASSIUM CHL 60 MEQ/NS 0.45% 500 ML IV PRN (04:41)
[2017-05-18] MEDS ORDERED: TYLENOL SUPP 650 MG PR PRN (04:41)
[2017-05-18] MEDS ORDERED: MAGNESIUM SULFATE 1 GM/100 mL PREMIX 1 GM/100 ML BAG IV PRN (04:41)
[2017-05-18] MEDS ORDERED: K-LYTE EFFERVESCENT PO PRN (04:41)
[2017-05-18] MEDS: NORCO 10/325 TAB PO SCH ×4 (05:52→21:04)
[2017-05-18] MEDS: ZOSYN VIAL 3.375 GM 3.375 GM in NS 100 ML IV + SPIKE MINIBAG* 100 ML IV SCH ×3 (05:53→21:02)
[2017-05-18] MEDS: ANTIVERT TAB 25 MG PO SCH ×4 (05:53→21:03)
[2017-05-18] MEDS: NEURONTIN CAP 300 MG PO SCH ×4 (05:53→21:03)
[2017-05-18 06:08] LABS: BASOPHILS # (AUTO) 0.1 X10^3/uL (0.0-0.1); BASOPHILS % (AUTO) 0.4 % (0.2-1.0); EOSINOPHILS % (AUTO) 0.2 % (0.9-2.9); HEMATOCRIT 33.5 % (42.0-54.0); HEMOGLOBIN 11.2 g/dL (13.5-18.0); LYMPHOCYTES # (AUTO) 0.7 X10^3/uL (1.3-2.9); LYMPHOCYTES % (AUTO) 4.2 % (21.0-51.0); MEAN CORPUSCULAR HEMOGLOBIN 28.3 pg (27.0-34.0); MEAN CORPUSCULAR HGB CONC 33.6 g/dL (33.0-35.0); MEAN CORPUSCULAR VOLUME 84.3 fL (80.0-100.0); MEAN PLATELET VOLUME 8.2 fL (7.4-11.0); MONOCYTES # (AUTO) 1.3 x10^3/uL (0.3-0.8); NEUTROPHILS # (AUTO) 13.6 x10^3/uL (2.2-4.8); NEUTROPHILS % (AUTO) 87.2 % (42.0-75.0); PLATELET COUNT 189 X10^3/uL (150.0-450.0); RED BLOOD COUNT 3.98 X10^6/uL (4.7-6.0); RED CELL DISTRIBUTION WIDTH 13.9 % (11.6-16.5); WHITE BLOOD COUNT 15.6 X10^3/uL (3.6-10.0)
--- NOTE | 2017-05-18 06:29 | RAD ---
HISTORY: Shortness of breath Study: Chest AP portable Comparison: 05/17/2017 Findings: The patient is rotated to the right. The heart is mildly enlarged. No congestive heart failure is not ed. The lungs are mildly hypo inflated. The right lung and left upper lung coon are clear. There do es appear to be a left lower lobe infiltrate present unchanged from the prior examination. A small le ft pleural effusion may be present. The bony thorax is unremarkable. IMPRESSION: No change left lower lobe infiltrate Mild cardiomegaly without congestive heart failure Reported By:
[2017-05-18 06:30] LABS: ALBUMIN 2.6 g/dL (3.4-5.0); CALCIUM 8.4 mg/dL (8.5-10.1); CARBON DIOXIDE 21.7 mmol/L (21-32); COR CA(FOR HYPOALB) 9.5 mg/dL (8.5-10.1); CREATININE 1.66 mg/dL (0.70-1.30); TOTAL PROTEIN 6.2 g/dL (6.4-8.2)
[2017-05-18] MEDS: DUONEB 0.5 MG/3 MG NEB SCH ×4 (08:40→20:25)
[2017-05-18] MEDS ORDERED: GLUCOPHAGE ONE ×2 (08:45→20:50)
[2017-05-18] MEDS: XANAX PO SCH ×2 (09:00→21:03)
[2017-05-18] MEDS: ZESTRIL TAB 10 MG PO SCH (09:00)
[2017-05-18] MEDS: GLUCOPHAGE PO SCH ×2 (09:00→21:04)
[2017-05-18] MEDS: ZyPREXA TAB 5 MG PO SCH ×3 (10:11→18:02)
[2017-05-18] MEDS: LEVAQUIN PREMIX IV 750 MG 750 MG/150 ML BAG IV SCH (12:09)
--- NOTE | 2017-05-18 12:31 | RAD ---
Examination: Lumbar spine, five views History: Fell Findings: There are 6 non rib-bearing vertebrae. Alignment is anatomic. No acute fracture or bone valencia truction is noted. There are large flowing osteophytes present at multiple levels. Pedicles and sacro iliac joints intact. Slight disc narrowing is present at several levels. 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 Hypertrophic changes described are suggestive of DISH. Reported By:
[2017-05-18] MEDS: HALDOL INJ IVP PRN ×3 (12:58→23:59)
[2017-05-18] MEDS: COLACE CAP 100 MG PO SCH (21:04)
[2017-05-18] MEDS: SNACK - Diabetic Appropriate PO SCH (21:15)
--- NOTE | 2017-05-18 22:40 | PCM.PROG ---
Progress Note - Progress Note for Day of Date: 05/17/17 - Subjective Subjective: WAS ADMITTED FOR ALTERED MENTAL STATUS. TODAY, HE IS ALERT AND ORIENTED, LYING IN BED ON MORNING ROUNDS. PATIENTS IS AT BEDSIDE. PATIENT CONTINUES WITH REPORTS OF WEAKNESS. STAFF AND PATIENTS SPOUSE REPORTS THAT HE CONTINUES WITH CONFUSION AND ALTERED MENTAL STATUS AT TIMES. THEY REPORT THAT PATIENT IS COMBATIVE AT TIMES AND CONSTANTLY PULLING AT IV LINES. PATIENT DENIES PAIN AT THIS TIME. ON EXAMINATION, PUPILS PERRL. LUNGS ARE CLEAR TO AUSCULTATION BILATERALLY. ABDOMEN IS ROUND, SOFT, AND NON-TENDER. NORMAL BOWEL SOUNDS ARE NOTED IN ALL QUADRANTS. THERE IS GOOD RANGE OF MOTION NOTED IN ALL EXTREMITIES. HIS VITAL SIGNS THIS MORNING ARE 98.3-90-16-97%-156/83. TODAY' S LABS ARE CURRENTLY PENDING. I BELIEVE THAT PATIENT IS EXPERIENCING SYMPTOMS OF NEW ONSET DEMENTIA. WE WILL INCREASE ZYPREXA TO 5MG PO BID TODAY. OTHERWISE, WE WILL CONTINUE WITH CURRENT PLAN OF CARE. WE PLAN TO FOLLOW UP WITH AM LABS AND CONTINUE TO MONITOR PATIENT. - Past Medical Family Social History Past Med/Fam/Surg Hx: No changes since H&P Allergies: Allergies No Known Drug Allergies Allergy (Verified 05/12/17 14:46) - Review of Systems ROS: No change since H&P - Vital Signs and I&O's Vital Signs: Temperature 99.9 F Pulse Rate [Apical] 125 Pulse Rate [Left Brachial] 120 Pulse Rate [Right Brachial] 90 Pulse Rate 104 Respiratory Rate 20 Blood Pressure [Right Arm] 114/70 Blood Pressure [Left Arm] 110/62 Blood Pressure 131/80 O2 Sat by Pulse Oximetry 96 Intake and Output: Intake & Output 05/16/17 05/17/17 05/18/17 05/19/17 11:59 11:59 11:59 11:59 Intake Total 3906 980 1204 420 Balance 3906 980 1204 420 - Physical Exam Oriented: Normal. negative: Time, Person, Place, Not Oriented, Unable to test, Other Eyes: Normal. negative: Blurred Vision, Diplopia, Discharge, Pain, Redness, Photophobia, Other Ear: Normal. negative: Right, Left, Swelling, Ecchymosis, Hemotypanum, Abrasion , Laceration Nose: Normal. negative: Injected, Discharge, Blood, Other Throat: Normal. negative: Tonsillar Hypertrophy, Red, Exudate, Dry, Other Respiratory: Normal. negative: Right, Left, Generalized, Superior, Inferior, Diminished, Wheezes, Rales, Rhonchi, OTHER Cardiovascular: Normal. negative: Tachycardia, Bradycardia, Irregular, S3, S4, Systolic, Diastolic, Murmur, Edema, Other : Normal. negative: Dysuria, Hematuria, Frequency, Discharge, Testicular Pain , Bleeding, , Other Auscultation: Bowel Sounds: Normal. negative: Bruit, Absent, Increased, Decreased, High Pitched, Other Palpation: Normal Tenderness: Normal. negative: Rebound, Guarding, Rigidity Skin: Normal Musculoskeletal: Normal Psychiatric: Anxiety, Agitation, Other (INTERMITTENT CONFUSION ) Mood Description: Calm Affect: Normal Speech Pattern: Clear, Inappropriate - Laboratory and Diagnostics Result Diagrams: 05/18/17 05:15 05/18/17 05:15 Labs: 05/17/17 19:16 Sputum - Endotracheal Wash Sputum Culture - Preliminary 05/17/17 19:16 Sputum - Endotracheal Wash - Final 05/17/17 14:26 Urine,Catheterized Urine Culture - Preliminary Laboratory WBC 15.6 X10^3/uL (3.6-10.0) H 05/18/17 05:15 RBC 3.98 X10^6/uL (4.7-6.0) L 05/18/17 05:15 Hgb 11.2 g/dL (13.5-18.0) L 05/18/17 05:15 Hct 33.5 % (42.0-54.0) L 05/18/17 05:15 MCV 84.3 fL (80.0-100.0) 05/18/17 05:15 MCH 28.3 pg (27.0-34.0) 05/18/17 05:15 MCHC 33.6 g/dL (33.0-35.0) 05/18/17 05:15 RDW 13.9 % (11.6-16.5) 05/18/17 05:15 Plt Count 189 X10^3/uL (150.0-450.0) 05/18/17 05:15 MPV 8.2 fL (7.4-11.0) 05/18/17 05:15 Neut % 87.2 % (42.0-75.0) H 05/18/17 05:15 Lymph % 4.2 % (21.0-51.0) L 05/18/17 05:15 [place] % 8.0 % (0.0-13.0) 05/18/17 05:15 Eos % 0.2 % (0.9-2.9) L 05/18/17 05:15 Baso % 0.4 % (0.2-1.0) 05/18/17 05:15 Neut # 13.6 x10^3/uL (2.2-4.8) H 05/18/17 05:15 Lymph # 0.7 X10^3/uL (1.3-2.9) L 05/18/17 05:15 [place] # 1.3 x10^3/uL (0.3-0.8) H 05/18/17 05:15 Eos # 0.0 x10^3/uL (0.0-0.2) 05/18/17 05:15 Baso # 0.1 X10^3/uL (0.0-0.1) 05/18/17 05:15 Absolute Nucleated RBC 0.0 /100WBC 05/18/17 05:15 Sodium 137 mmol/L (136-145) 05/18/17 05:15 Corrected Sodium 138 mmol/L (136-145) 05/18/17 05:15 Potassium 4.4 mmol/L (3.5-5.1) 05/18/17 05:15 Chloride 105 mmol/L (98-107) 05/18/17 05:15 Carbon Dioxide 21.7 mmol/L (21-32) 05/18/17 05:15 BUN 18 mg/dL (7-18) 05/18/17 05:15 Creatinine 1.66 mg/dL (0.70-1.30) H 05/18/17 05:15 Est GFR (MDRD) Af Amer 52 (>60) L 05/18/17 05:15 Est GFR (MDRD) Non-Af 43 (>60) L 05/18/17 05:15 Glucose 121 mg/dL (65-99) H 05/18/17 05:15 POC Glucose (mg/dL) 139 mg/dL (65-99) H 05/18/17 21:01 Lactic Acid 0.8 mmol/L (0.4-2.0) 05/17/17 12:30 Calcium 8.4 mg/dL (8.5-10.1) L 05/18/17 05:15 Corrected Calcium 9.5 mg/dL (8.5-10.1) 05/18/17 05:15 Magnesium 1.5 mg/dL (1.7-2.9) L 05/14/17 04:25 Iron 56 ug/dL (50-175) 05/13/17 04:30 TIBC 199 ug/dL (250-450) L 05/13/17 04:30 Transferrin 147 mg/dL (202-364) L 05/13/17 04:30 Ferritin 192 ng/mL (26-388) 05/13/17 04:30 Total Bilirubin 0.80 mg/dL (0.2-1.0) 05/18/17 05:15 AST 20 Units/L (15-37) 05/18/17 05:15 ALT 15 Units/L (12-78) 05/18/17 05:15 Alkaline Phosphatase 56 Units/L (46-116) 05/18/17 05:15 Creatine Kinase 48 Units/L (39-308) 05/12/17 16:03 CK-MB (CK-2) < 1.0 ng/mL (0-4.0) 05/12/17 16:03 CK/CKMB % Calc 2.1 % (<4) 05/12/17 16:03 Troponin I < 0.02 ng/mL (0-1.5) 05/12/17 16:03 C-Reactive Protein 3.10 mg/L (0-3.0) H 05/12/17 16:03 Total Protein 6.2 g/dL (6.4-8.2) L 05/18/17 05:15 Albumin 2.6 g/dL (3.4-5.0) L 05/18/17 05:15 Globulin 3.6 g/dL (2.5-4.5) 05/18/17 05:15 Albumin/Globulin Ratio 0.7 Ratio (1.1-2.1) L 05/18/17 05:15 Vitamin B12 118 pg/mL (193-986) L 05/13/17 04:30 Folate 4.6 ng/mL (>8.6) L 05/13/17 04:30 Specimen Type Clean catch urine 05/17/17 14:26 Urine Color Yellow (YELLOW) 05/17/17 14:26 Urine Appearance Cloudy (CLEAR) 05/17/17 14:26 Urine pH 6.0 (5.0 - 8.0) 05/17/17 14:26 Ur Specific [place] 1.010 (1.000-1.030) 05/17/17 14:26 Urine Protein 3+ (NEGATIVE) 05/17/17 14:26 Urine Glucose (UA) Negative (NEGATIVE) 05/17/17 14:26 Urine Ketones 1+ (NEGATIVE) 05/17/17 14:26 Urine Occult Blood 5+ (NEGATIVE) 05/17/17 14:26 Urine Nitrite Positive (NEGATIVE) 05/17/17 14: Urine Bilirubin Negative (NEGATIVE) 05/17/17 14:26 Urine Urobilinogen Normal (NORMAL) 05/17/17 14:26 Ur Leukocyte Esterase 3+ (NEGATIVE) 05/17/17 14:26 Urine RBC Tntc /HPF (NEGATIVE) 05/17/17 14:26 Urine WBC Tntc /HPF (NEGATIVE) 05/17/17 14:26 Ur Squamous Epith Cells Few /HPF (NEGATIVE) 05/17/17 14:26 Urine Bacteria 2+ /HPF (NEGATIVE) 05/17/17 14:26 Ur Culture Indicated? Yes/culture set up 05/17/17 14:26 Urine Opiates Screen Positive (NEG=<300) 05/13/17 02:51 Urine Methadone Screen Negative (NEG=<300) 05/13/17 02:51 Ur Barbiturates Screen Negative (NEG=<200) 05/13/17 02:51 Ur Phencyclidine Scrn Negative (NEG=<25) 05/13/17 02:51 Ur Amphetamines Screen Negative (NEG=<1000) 05/13/17 02:51 U Benzodiazepines Scrn Negative (NEG=<200) 05/13/17 02:51 Urine Cocaine Screen Negative (NEG=<300) 05/13/17 02:51 U Marijuana (THC) Screen Positive (NEG=<50) A 05/13/17 02:51 - Plan (1) Altered mental status Status: Acute Qualifiers: Altered mental status type: transient alteration of awareness Qualified Code(s): R40.4 - Transient alteration of awareness Plan: ZYPREXA 5MG PO BID, CONTINUE XANAX, CONTINUE HALDOL, CONTINUE TO MONITOR (2) Hypertension Status: Acute Qualifiers: Hypertension type: essential hypertension Qualified Code(s): I10 - Essential (primary) hypertension Plan: CONTINUE ZESTRIL, CONTINUE TO MONITOR (3) Diabetes Status: Acute Qualifiers: Diabetes mellitus type: type 2 Diabetes mellitus complication status: without complication Diabetes mellitus snf insulin use: with snf use Qualified Code(s): E11.9 - Type 2 diabetes mellitus without complications ; Z79.4 - [facility] (current) use of insulin; Z79.4 - termite exterminator helper (current) use of insulin; Z79.4 - [facility] (current) use of insulin; Z79.4 - [facility] ( current) use of insulin Plan: CONTINUE GLUCOPHAGE, CONTINUE TO MONITOR (4) Dementia Status: Acute Qualifiers: Dementia type: vascular dementia Dementia behavioral disturbance: with behavioral disturbance Qualified Code(s): F01.51 - Vascular dementia with behavioral disturbance Plan: ZYPREXA 5MG PO BID, CONTINUE HALDOL PRN, CONTINUE TO MONITOR
--- NOTE | 2017-05-19 01:14 | PCM.PROG ---
Progress Note - Progress Note for Day of Date: 05/18/17 - Subjective Subjective: WAS ADMITTED FOR ALTERED MENTAL STATUS. ON YESTERDAYS ROUNDS, PATIENT WAS NOTED TO BE ALERT AND ORIENTED WITH NO COMPLAINTS NOTED. APPROXIMATELY TWO HOURS AFTER ROUNDS, PATIENT WAS NOTED WITH A TEMPERATURE OF 100.2 AND NOTED WITH COMPLAINTS OF SHORTNESS OF BREATH AND INCREASED AGITATION. LABS WERE PENDING ON MORNING ROUNDS. WHEN LABS WERE REPORTED, AND ELEVATED WBC WAS NOTED. WBC 18.0 COMPARED TO 7.8 ON PREVIOUS DAY. WE OBTAINED A REPEAT CHEST XRAY, URINALYSIS, BLOOD CULTURES, SPUTUM CULTURES, AND LACTIC ACID. REPEAT URINALYSIS REPORTED WBC TNTC, RBC TNTC, BACTERIA 2+, LEUKOCYTES 3+, NITRITES POSITIVE, OCCULT BLOOD 5+, URINE PROTEIN 3+. CHEST XRAY REPORTED POSSIBLE ACUTE INFILTRATE LEFT LOWER LOBE. HE WAS STARTED ON ROCEPHIN 1GM IV DAILY. PATIENT CONTINUED WITH SHORTNESS OF BREATH THROUGHOUT THE AFTERNOON AND NIGHT. AT 23:20 , OXYGEN SATURATIONS WERE NOTED TO BE 83% ON NASAL CANNULA. HE WAS PLACED ON A VENTI MASK. AN INCREASE IN SATURATIONS TO 93% NOTED. HIS HEART RATE WAS NOTED TO BE 150-180S. EKG REPORTED SVT WITH PVCs. PATIENT WAS NOTED WITH A PRODUCTIVE COUGH. WE DISCONTINUED ROCEPHIN AND STARTED ZOSYN. PATIENT WAS TRANSFERRED TO THE INTENSIVE CARE UNIT FOR CLOSE MONITORING. TODAY, PATIENT IS LYING IN BED WITH EYES CLOSE ON MORNING ROUNDS. PATIENTS IS AT BEDSIDE. SHE STATES THAT PATIENT IS RESTING WELL AND REQUEST THAT WE DO NOT WAKE HIM. SHE REPORTS THAT PATIENT CONTINUED WITH CONFUSION THROUGHOUT THE NIGHT. SHE STATES THAT HE CONTINUES WITH PRODUCTIVE COUGH AND SHORTNESS OF BREATH. SHE ALSO REPORTS THAT PATIENT WAS NOTED WITH COMPLAINTS OF LOWER BACK PAIN. SINCE PATIENT FELL TWO NIGHTS AGO, WE WILL OBTAIN A LUMBAR XRAY TO RULE OUT FRACURE FROM INJURY. ON EXAMINATION, HEART IS NORMAL IN RATE AND RHYTHM. LUNGS ARE NOTED WITH RHONCHI BILATERALLY TO AUSCULTATION. HE IS UTILIZING OXYGEN VIA NASAL CANNULA AT 2L/ MIN. ABDOMEN IS ROUND, SOFT, AND NON-TENDER. NORMAL BOWEL SOUNDS ARE NOTED IN ALL QUADRANTS. HIS VITAL SIGNS THIS MORNING ARE 100.4-98-18-98%-107/64. A DECREASE IN WBC TO 15.6 IS NOTED. OTHERWISE, HE IS HEMODYNAMICALLY STABLE. A CHEST XRAY WAS OBTAINED THIS MORNING AND REPORTS LEFT LOWER LOBE INFILTRATE, MILD CARDIOMEGALY WITHOUT CONGESTIVE HEART FAILURE. WE WILL ADD LEVAQUIN TO TREATMENT REGIMEN. OTHERWISE, WE WILL CONTINUE WITH CURRENT PLAN OF CARE. WE PLAN TO FOLLOW UP WITH AM LABS AND CONTINUE TO MONITOR PATIENT. - Past Medical Family Social History Past Med/Fam/Surg Hx: No changes since H&P Allergies: Allergies No Known Drug Allergies Allergy (Verified 05/12/17 14:46) - Review of Systems ROS: No change since H&P - Vital Signs and I&O's Vital Signs: Temperature 99.9 F Pulse Rate [Apical] 125 Pulse Rate [Left Brachial] 120 Pulse Rate [Right Brachial] 90 Pulse Rate 104 Respiratory Rate 21 Blood Pressure [Right Arm] 114/70 Blood Pressure [Left Arm] 107/74 Blood Pressure 131/80 O2 Sat by Pulse Oximetry 99 Intake and Output: Intake & Output 05/16/17 05/17/17 05/18/17 05/19/17 11:59 11:59 11:59 11:59 Intake Total 3906 980 1204 820 Balance 3906 980 1204 820 - Physical Exam Oriented: Person Eyes: Normal. negative: Blurred Vision, Diplopia, Discharge, Pain, Redness, Photophobia, Other Ear: Normal. negative: Right, Left, Swelling, Ecchymosis, Hemotypanum, Abrasion , Laceration Nose: Normal. negative: Injected, Discharge, Blood, Other Throat: Normal. negative: Tonsillar Hypertrophy, Red, Exudate, Dry, Other Respiratory: Right, Left, Generalized, Rhonchi Cardiovascular: Normal. negative: Tachycardia, Bradycardia, Irregular, S3, S4, Systolic, Diastolic, Murmur, Edema, Other : Normal. negative: Dysuria, Hematuria, Frequency, Discharge, Testicular Pain , Bleeding, , Other Auscultation: Bowel Sounds: Normal. negative: Bruit, Absent, Increased, Decreased, High Pitched, Other Palpation: Normal Tenderness: Normal. negative: Rebound, Guarding, Rigidity Skin: Normal Musculoskeletal: Back:Lumbar, Tender Psychiatric: Anxiety, Agitation, Other (INTERMITTENT CONFUSION ) Mood Description: Calm Affect: Normal Speech Pattern: Clear, Inappropriate - Laboratory and Diagnostics Result Diagrams: 05/18/17 05:15 05/18/17 05:15 Labs: 05/17/17 19:16 Sputum - Endotracheal Wash Sputum Culture - Preliminary 05/17/17 19:16 Sputum - Endotracheal Wash - Final 05/17/17 14:26 Urine,Catheterized Urine Culture - Preliminary Laboratory WBC 15.6 X10^3/uL (3.6-10.0) H 05/18/17 05:15 RBC 3.98 X10^6/uL (4.7-6.0) L 05/18/17 05:15 Hgb 11.2 g/dL (13.5-18.0) L 05/18/17 05:15 Hct 33.5 % (42.0-54.0) L 05/18/17 05:15 MCV 84.3 fL (80.0-100.0) 05/18/17 05:15 MCH 28.3 pg (27.0-34.0) 05/18/17 05:15 MCHC 33.6 g/dL (33.0-35.0) 05/18/17 05:15 RDW 13.9 % (11.6-16.5) 05/18/17 05:15 Plt Count 189 X10^3/uL (150.0-450.0) 05/18/17 05:15 MPV 8.2 fL (7.4-11.0) 05/18/17 05:15 Neut % 87.2 % (42.0-75.0) H 05/18/17 05:15 Lymph % 4.2 % (21.0-51.0) L 05/18/17 05:15 [place] % 8.0 % (0.0-13.0) 05/18/17 05:15 Eos % 0.2 % (0.9-2.9) L 05/18/17 05:15 Baso % 0.4 % (0.2-1.0) 05/18/17 05:15 Neut # 13.6 x10^3/uL (2.2-4.8) H 05/18/17 05:15 Lymph # 0.7 X10^3/uL (1.3-2.9) L 05/18/17 05:15 [place] # 1.3 x10^3/uL (0.3-0.8) H 05/18/17 05:15 Eos # 0.0 x10^3/uL (0.0-0.2) 05/18/17 05:15 Baso # 0.1 X10^3/uL (0.0-0.1) 05/18/17 05:15 Absolute Nucleated RBC 0.0 /100WBC 05/18/17 05:15 Sodium 137 mmol/L (136-145) 05/18/17 05:15 Corrected Sodium 138 mmol/L (136-145) 05/18/17 05:15 Potassium 4.4 mmol/L (3.5-5.1) 05/18/17 05:15 Chloride 105 mmol/L (98-107) 05/18/17 05:15 Carbon Dioxide 21.7 mmol/L (21-32) 05/18/17 05:15 BUN 18 mg/dL (7-18) 05/18/17 05:15 Creatinine 1.66 mg/dL (0.70-1.30) H 05/18/17 05:15 Est GFR (MDRD) Af Amer 52 (>60) L 05/18/17 05:15 Est GFR (MDRD) Non-Af 43 (>60) L 05/18/17 05:15 Glucose 121 mg/dL (65-99) H 05/18/17 05:15 POC Glucose (mg/dL) 139 mg/dL (65-99) H 05/18/17 21:01 Lactic Acid 0.8 mmol/L (0.4-2.0) 05/17/17 12:30 Calcium 8.4 mg/dL (8.5-10.1) L 05/18/17 05:15 Corrected Calcium 9.5 mg/dL (8.5-10.1) 05/18/17 05:15 Magnesium 1.5 mg/dL (1.7-2.9) L 05/14/17 04:25 Iron 56 ug/dL (50-175) 05/13/17 04:30 TIBC 199 ug/dL (250-450) L 05/13/17 04:30 Transferrin 147 mg/dL (202-364) L 05/13/17 04:30 Ferritin 192 ng/mL (26-388) 05/13/17 04:30 Total Bilirubin 0.80 mg/dL (0.2-1.0) 05/18/17 05:15 AST 20 Units/L (15-37) 05/18/17 05:15 ALT 15 Units/L (12-78) 05/18/17 05:15 Alkaline Phosphatase 56 Units/L (46-116) 05/18/17 05:15 Creatine Kinase 48 Units/L (39-308) 05/12/17 16:03 CK-MB (CK-2) < 1.0 ng/mL (0-4.0) 05/12/17 16:03 CK/CKMB % Calc 2.1 % (<4) 05/12/17 16:03 Troponin I < 0.02 ng/mL (0-1.5) 05/12/17 16:03 C-Reactive Protein 3.10 mg/L (0-3.0) H 05/12/17 16:03 Total Protein 6.2 g/dL (6.4-8.2) L 05/18/17 05:15 Albumin 2.6 g/dL (3.4-5.0) L 05/18/17 05:15 Globulin 3.6 g/dL (2.5-4.5) 05/18/17 05:15 Albumin/Globulin Ratio 0.7 Ratio (1.1-2.1) L 05/18/17 05:15 Vitamin B12 118 pg/mL (193-986) L 05/13/17 04:30 Folate 4.6 ng/mL (>8.6) L 05/13/17 04:30 Specimen Type Clean catch urine 05/17/17 14:26 Urine Color Yellow (YELLOW) 05/17/17 14:26 Urine Appearance Cloudy (CLEAR) 05/17/17 14:26 Urine pH 6.0 (5.0 - 8.0) 05/17/17 14:26 Ur Specific [place] 1.010 (1.000-1.030) 05/17/17 14:26 Urine Protein 3+ (NEGATIVE) 05/17/17 14:26 Urine Glucose (UA) Negative (NEGATIVE) 05/17/17 14:26 Urine Ketones 1+ (NEGATIVE) 05/17/17 14:26 Urine Occult Blood 5+ (NEGATIVE) 05/17/17 14:26 Urine Nitrite Positive (NEGATIVE) 05/17/17 14:26 Urine Bilirubin Negative (NEGATIVE) 05/17/17 14:26 Urine Urobilinogen Normal (NORMAL) 05/17/17 14:26 Ur Leukocyte Esterase 3+ (NEGATIVE) 05/17/17 14:26 Urine RBC Tntc /HPF (NEGATIVE) 05/17/17 14:26 Urine WBC Tntc /HPF (NEGATIVE) 05/17/17 14:26 Ur Squamous Epith Cells Few /HPF (NEGATIVE) 05/17/17 14:26 Urine Bacteria 2+ /HPF (NEGATIVE) 05/17/17 14:26 Ur Culture Indicated? Yes/culture set up 05/17/17 14:26 Urine Opiates Screen Positive (NEG=<300) 05/13/17 02:51 Urine Methadone Screen Negative (NEG=<300) 05/13/17 02:51 Ur Barbiturates Screen Negative (NEG=<200) 05/13/17 02:51 Ur Phencyclidine Scrn Negative (NEG=<25) 05/13/17 02:51 Ur Amphetamines Screen Negative (NEG=<1000) 05/13/17 02:51 U Benzodiazepines Scrn Negative (NEG=<200) 05/13/17 02:51 Urine Cocaine Screen Negative (NEG=<300) 05/13/17 02:51 U Marijuana (THC) Screen Positive (NEG=<50) A 05/13/17 02:51 - Plan (1) Urinary tract infection Status: Acute Qualifiers: Urinary tract infection type: acute cystitis Hematuria presence: with hematuria Qualified Code(s): N30.01 - Acute cystitis with hematuria Plan: LEVAQUIN 750MG IV DAILY, ZOSYN 3.375GM IV TID, CONTINUE TO MONITOR (2) Pneumonia Status: Acute Qualifiers: Pneumonia type: aspiration pneumonia Laterality: left Lung location: lower lobe of lung Plan: LEVAQUIN 750MG IV DAILY, ZOSYN 3.375GM IV DAILY, RESPIRATORY TX, SUPPLEMENTAL OXYGEN, CONTINUE TO MONITOR (3) Altered mental status Status: Acute Qualifiers: Altered mental status type: transient alteration of awareness Qualified Code(s): R40.4 - Transient alteration of awareness Plan: ZYPREXA 5MG PO BID, CONTINUE XANAX, CONTINUE HALDOL, CONTINUE TO MONITOR (4) Hypertension Status: Acute Qualifiers: Hypertension type: essential hypertension Qualified Code(s): I10 - Essential (primary) hypertension Plan: CONTINUE ZESTRIL, CONTINUE TO MONITOR (5) Diabetes Status: Acute Qualifiers: Diabetes mellitus type: type 2 Diabetes mellitus complication status: without complication Diabetes mellitus detention insulin use: with detention use Qualified Code(s): E11.9 - Type 2 diabetes mellitus without complications ; Z79.4 - termite technician (current) use of insulin; Z79.4 - senior care (current) use of insulin; Z79.4 - termite technician (current) use of insulin; Z79.4 - senior care ( current) use of insulin Plan: CONTINUE GLUCOPHAGE, CONTINUE TO MONITOR (6) Dementia Status: Acute Qualifiers: Dementia type: vascular dementia Dementia behavioral disturbance: with behavioral disturbance Qualified Code(s): F01.51 - Vascular dementia with behavioral disturbance Plan: ZYPREXA 5MG PO BID, CONTINUE HALDOL PRN, CONTINUE TO MONITOR
[2017-05-19] MEDS: HALDOL INJ IVP PRN ×6 (02:19→21:00)
[2017-05-19] MEDS: ZOSYN VIAL 3.375 GM 3.375 GM in NS 100 ML IV + SPIKE MINIBAG* 100 ML IV SCH ×3 (05:04→20:59)
[2017-05-19] MEDS: ANTIVERT TAB 25 MG PO SCH ×3 (05:05→21:00)
[2017-05-19] MEDS: NORCO 10/325 TAB PO SCH ×3 (05:05→21:00)
[2017-05-19] MEDS: NEURONTIN CAP 300 MG PO SCH ×3 (05:05→20:59)
[2017-05-19 05:31] LABS: BASOPHILS % (AUTO) 0.4 % (0.2-1.0); EOSINOPHILS # (AUTO) 0.3 x10^3/uL (0.0-0.2); EOSINOPHILS % (AUTO) 2.9 % (0.9-2.9); HEMATOCRIT 29.3 % (42.0-54.0); HEMOGLOBIN 9.9 g/dL (13.5-18.0); LYMPHOCYTES # (AUTO) 0.8 X10^3/uL (1.3-2.9); LYMPHOCYTES % (AUTO) 6.8 % (21.0-51.0); MEAN CORPUSCULAR HEMOGLOBIN 28.2 pg (27.0-34.0); MEAN CORPUSCULAR HGB CONC 33.6 g/dL (33.0-35.0); MEAN CORPUSCULAR VOLUME 83.9 fL (80.0-100.0); MONOCYTES # (AUTO) 0.9 x10^3/uL (0.3-0.8); MONOCYTES % (AUTO) 7.7 % (0.0-13.0); NEUTROPHILS # (AUTO) 9.3 x10^3/uL (2.2-4.8); NEUTROPHILS % (AUTO) 82.2 % (42.0-75.0); PLATELET COUNT 197 X10^3/uL (150.0-450.0); RED CELL DISTRIBUTION WIDTH 13.7 % (11.6-16.5); WHITE BLOOD COUNT 11.3 X10^3/uL (3.6-10.0)
[2017-05-19 05:50] LABS: ALBUMIN 2.3 g/dL (3.4-5.0); CALCIUM 8.3 mg/dL (8.5-10.1); CARBON DIOXIDE 24.5 mmol/L (21-32); COR CA(FOR HYPOALB) 9.7 mg/dL (8.5-10.1); CREATININE 1.88 mg/dL (0.70-1.30)
--- NOTE | 2017-05-19 07:01 | RAD ---
Examination: Portable AP chest History: SOB Comparison reference 05/18/2017 Findings: Continued normal heart size with central pulmonary vascular congestion. Persistent bibasal airspace disease consistent with pneumonia/atelectasis. No evidence for pneumothorax or large pleural effusion. Impression: Persistent bibasal disease, left greater than right. No new abnormality demonstrated. New Reported By:
[2017-05-19] MEDS ORDERED: GLUCOPHAGE ONE ×2 (08:09→20:10)
[2017-05-19] MEDS: GLUCOPHAGE PO SCH ×2 (08:20→20:59)
[2017-05-19] MEDS: DUONEB 0.5 MG/3 MG NEB SCH ×4 (08:20→22:12)
[2017-05-19] MEDS: XANAX PO SCH ×2 (08:21→21:00)
[2017-05-19] MEDS: ZyPREXA TAB 5 MG PO SCH ×2 (08:21→17:11)
[2017-05-19] MEDS: LEVAQUIN PREMIX IV 750 MG 750 MG/150 ML BAG IV SCH (08:21)
[2017-05-19] MEDS: ZESTRIL TAB 10 MG PO SCH (08:21)
[2017-05-19] MEDS: COLACE CAP 100 MG PO SCH (21:00)
[2017-05-19] MEDS: SNACK - Diabetic Appropriate PO SCH (21:01)
--- NOTE | 2017-05-19 22:59 | PCM.PROG ---
Progress Note - Progress Note for Day of Date: 05/19/17 - Subjective Subjective: WAS ADMITTED FOR ALTERED MENTAL STATUS. ON 05/17/17, HE WAS FOUND TO HAVE PNEUMONIA AND A URINARY TRACT INFECTION FOR WHICH TREATMENT WAS STARTED. TODAY, HE IS ALERT, LYING IN BED ON MORNING ROUNDS. PATIENTS IS AT BEDSIDE. HE IS NOTED TO BE IN SOFT WRIST RESTRAINTS DUE TO COMBATIVE BEHAVIOR TOWARDS SPOUSE AND STAFF. PATIENT IS CONTINUOUSLY TRYING TO CLIMB OVER SIDE RAILS AND GET OUT OF BED. HE IS PULLING AT IV LINES. PATIENT IS NOTED WITH INAPPROPRIATE RESPONSES UPON EXAMINATION. ON EXAMINATION, HEART IS NORMAL IN RATE AND RHYTHM. LUNGS CONTINUE WITH RHONCHI BILATERALLY TO AUSCULTATION. HE IS UTILIZING OXYGEN VIA NASAL CANNULA AT 2L/MIN. ABDOMEN IS ROUND, SOFT, AND NON- TENDER. NORMAL BOWEL SOUNDS ARE NOTED IN ALL QUADRANTS. HIS VITAL SIGNS THIS MORNING ARE 98.9-809-28-100%-151/88. A DECREASE IN WBC TO 11.3 IS NOTED. OTHERWISE, HE REMAINS HEMODYNAMICALLY STABLE. URINE CULTURE REPORTS GROWTH OF STAPHYLOCOCCUS AUREUS. IT IS SENSITIVE TO THE LEVAQUIN AND ZOSYN THAT HE IS ON. A CHEST XRAY WAS OBTAINED THIS MORNING AND REPORTS PERSISTENT BIBASAL DISEASE, LEFT GREATER THAN RIGHT. NO NEW ABNORMALITY DEMONSTRATED. TODAY, WE WILL INCREASE ZYPREXA TO 10MG BID. OTHERWISE, WE WILL CONTINUE WITH CURRENT PLAN OF CARE. WE PLAN TO FOLLOW UP WITH AM LABS AND CONTINUE TO MONITOR PATIENT. - Past Medical Family Social History Past Med/Fam/Surg Hx: No changes since H&P Allergies: Allergies No Known Drug Allergies Allergy (Verified 05/12/17 14:46) - Review of Systems ROS: No change since H&P - Vital Signs and I&O's Vital Signs: Temperature 99.1 F Pulse Rate [Apical] 112 Pulse Rate [Left Brachial] 120 Pulse Rate [Right Brachial] 90 Pulse Rate 134 Respiratory Rate 20 Blood Pressure [Right Arm] 114/70 Blood Pressure [Left Arm] 99/57 Blood Pressure 131/80 O2 Sat by Pulse Oximetry 100 Intake and Output: Intake & Output 05/17/17 05/18/17 05/19/17 05/20/17 11:59 11:59 11:59 11:59 Intake Total 980 1204 1130 600 Balance 980 1204 1130 600 - Physical Exam Oriented: Person Eyes: Normal. negative: Blurred Vision, Diplopia, Discharge, Pain, Redness, Photophobia, Other Ear: Normal. negative: Right, Left, Swelling, Ecchymosis, Hemotypanum, Abrasion , Laceration Nose: Normal. negative: Injected, Discharge, Blood, Other Throat: Normal. negative: Tonsillar Hypertrophy, Red, Exudate, Dry, Other Respiratory: Right, Left, Generalized, Rhonchi Cardiovascular: Normal. negative: Tachycardia, Bradycardia, Irregular, S3, S4, Systolic, Diastolic, Murmur, Edema, Other : Normal. negative: Dysuria, Hematuria, Frequency, Discharge, Testicular Pain , Bleeding, , Other Auscultation: Bowel Sounds: Normal. negative: Bruit, Absent, Increased, Decreased, High Pitched, Other Palpation: Normal Tenderness: Normal. negative: Rebound, Guarding, Rigidity Skin: Normal Musculoskeletal: Back:Lumbar, Tender Psychiatric: Anxiety, Agitation, Other (INTERMITTENT CONFUSION ) Mood Description: Calm Affect: Normal Speech Pattern: Clear, Inappropriate - Laboratory and Diagnostics Result Diagrams: 05/19/17 04:30 05/19/17 04:30 Labs: 05/17/17 13:22 Blood Blood Culture - Preliminary 05/17/17 12:30 Blood Blood Culture - Preliminary 05/17/17 19:16 Sputum - Endotracheal Wash Sputum Culture - Preliminary 05/17/17 19:16 Sputum - Endotracheal Wash - Final 05/17/17 14:26 Urine,Catheterized Urine Culture - Final Staphylococcus Aureus Laboratory WBC 11.3 X10^3/uL (3.6-10.0) H 05/19/17 04:30 RBC 3.50 X10^6/uL (4.7-6.0) L 05/19/17 04:30 Hgb 9.9 g/dL (13.5-18.0) L 05/19/17 04:30 Hct 29.3 % (42.0-54.0) L 05/19/17 04:30 MCV 83.9 fL (80.0-100.0) 05/19/17 04:30 MCH 28.2 pg (27.0-34.0) 05/19/17 04:30 MCHC 33.6 g/dL (33.0-35.0) 05/19/17 04:30 RDW 13.7 % (11.6-16.5) 05/19/17 04:30 Plt Count 197 X10^3/uL (150.0-450.0) 05/19/17 04:30 MPV 8.0 fL (7.4-11.0) 05/19/17 04:30 Neut % 82.2 % (42.0-75.0) H 05/19/17 04:30 Lymph % 6.8 % (21.0-51.0) L 05/19/17 04:30 [place] % 7.7 % (0.0-13.0) 05/19/17 04:30 Eos % 2.9 % (0.9-2.9) 05/19/17 04:30 Baso % 0.4 % (0.2-1.0) 05/19/17 04:30 Neut # 9.3 x10^3/uL (2.2-4.8) H 05/19/17 04:30 Lymph # 0.8 X10^3/uL (1.3-2.9) L 05/19/17 04:30 [place] # 0.9 x10^3/uL (0.3-0.8) H 05/19/17 04:30 Eos # 0.3 x10^3/uL (0.0-0.2) H 05/19/17 04:30 Baso # 0.0 X10^3/uL (0.0-0.1) 05/19/17 04:30 Absolute Nucleated RBC 0.0 /100WBC 05/19/17 04:30 Sodium 141 mmol/L (136-145) 05/19/17 04:30 Corrected Sodium 141 mmol/L (136-145) 05/19/17 04:30 Potassium 4.3 mmol/L (3.5-5.1) 05/19/17 04:30 Chloride 107 mmol/L (98-107) 05/19/17 04:30 Carbon Dioxide 24.5 mmol/L (21-32) 05/19/17 04:30 BUN 25 mg/dL (7-18) H 05/19/17 04:30 Creatinine 1.88 mg/dL (0.70-1.30) H 05/19/17 04:30 Est GFR (MDRD) Af Amer 45 (>60) L 05/19/17 04:30 Est GFR (MDRD) Non-Af 37 (>60) L 05/19/17 04:30 Glucose 115 mg/dL (65-99) H 05/19/17 04:30 POC Glucose (mg/dL) 131 mg/dL (65-99) H 05/19/17 20:07 Lactic Acid 0.8 mmol/L (0.4-2.0) 05/17/17 12:30 Calcium 8.3 mg/dL (8.5-10.1) L 05/19/17 04:30 Corrected Calcium 9.7 mg/dL (8.5-10.1) 05/19/17 04:30 Magnesium 1.5 mg/dL (1.7-2.9) L 05/14/17 04:25 Iron 56 ug/dL (50-175) 05/13/17 04:30 TIBC 199 ug/dL (250-450) L 05/13/17 04:30 Transferrin 147 mg/dL (202-364) L 05/13/17 04:30 Ferritin 192 ng/mL (26-388) 05/13/17 04:30 Total Bilirubin 0.40 mg/dL (0.2-1.0) 05/19/17 04:30 AST 14 Units/L (15-37) L 05/19/17 04:30 ALT 15 Units/L (12-78) 05/19/17 04:30 Alkaline Phosphatase 77 Units/L (46-116) 05/19/17 04:30 Creatine Kinase 48 Units/L (39-308) 05/12/17 16:03 CK-MB (CK-2) < 1.0 ng/mL (0-4.0) 05/12/17 16:03 CK/CKMB % Calc 2.1 % (<4) 05/12/17 16:03 Troponin I < 0.02 ng/mL (0-1.5) 05/12/17 16:03 C-Reactive Protein 3.10 mg/L (0-3.0) H 05/12/17 16:03 Total Protein 6.0 g/dL (6.4-8.2) L 05/19/17 04:30 Albumin 2.3 g/dL (3.4-5.0) L 05/19/17 04:30 Globulin 3.7 g/dL (2.5-4.5) 05/19/17 04:30 Albumin/Globulin Ratio 0.6 Ratio (1.1-2.1) L 05/19/17 04:30 Vitamin B12 118 pg/mL (193-986) L 05/13/17 04:30 Folate 4.6 ng/mL (>8.6) L 05/13/17 04:30 Specimen Type Clean catch urine 05/17/17 14:26 Urine Color Yellow (YELLOW) 05/17/17 14:26 Urine Appearance Cloudy (CLEAR) 05/17/17 14:26 Urine pH 6.0 (5.0 - 8.0) 05/17/17 14:26 Ur Specific [place] 1.010 (1.000-1.030) 05/17/17 14:26 Urine Protein 3+ (NEGATIVE) 05/17/17 14:26 Urine Glucose (UA) Negative (NEGATIVE) 05/17/17 14:26 Urine Ketones 1+ (NEGATIVE) 05/17/17 14:26 Urine Occult Blood 5+ (NEGATIVE) 05/17/17 14:26 Urine Nitrite Positive (NEGATIVE) 05/17/17 14:26 Urine Bilirubin Negative (NEGATIVE) 05/17/17 14:26 Urine Urobilinogen Normal (NORMAL) 05/17/17 14:26 Ur Leukocyte Esterase 3+ (NEGATIVE) 05/17/17 14:26 Urine RBC Tntc /HPF (NEGATIVE) 05/17/17 14:26 Urine WBC Tntc /HPF (NEGATIVE) 05/17/17 14:26 Ur Squamous Epith Cells Few /HPF (NEGATIVE) 05/17/17 14:26 Urine Bacteria 2+ /HPF (NEGATIVE) 05/17/17 14:26 Ur Culture Indicated? Yes/culture set up 05/17/17 14:26 Urine Opiates Screen Positive (NEG=<300) 05/13/17 02:51 Urine Methadone Screen Negative (NEG=<300) 05/13/17 02:51 Ur Barbiturates Screen Negative (NEG=<200) 05/13/17 02:51 Ur Phencyclidine Scrn Negative (NEG=<25) 05/13/17 02:51 Ur Amphetamines Screen Negative (NEG=<1000) 05/13/17 02:51 U Benzodiazepines Scrn Negative (NEG=<200) 05/13/17 02:51 Urine Cocaine Screen Negative (NEG=<300) 05/13/17 02:51 U Marijuana (THC) Screen Positive (NEG=<50) A 05/13/17 02:51 - Plan (1) Urinary tract infection Status: Acute Qualifiers: Urinary tract infection type: acute cystitis Hematuria presence: with hematuria Qualified Code(s): N30.01 - Acute cystitis with hematuria Plan: LEVAQUIN 750MG IV DAILY, ZOSYN 3.375GM IV TID, CONTINUE TO MONITOR (2) Pneumonia Status: Acute Qualifiers: Pneumonia type: aspiration pneumonia Laterality: left Lung location: lower lobe of lung Plan: LEVAQUIN 750MG IV DAILY, ZOSYN 3.375GM IV DAILY, RESPIRATORY TX, SUPPLEMENTAL OXYGEN, CONTINUE TO MONITOR (3) Altered mental status Status: Acute Qualifiers: Altered mental status type: transient alteration of awareness Qualified Code(s): R40.4 - Transient alteration of awareness Plan: ZYPREXA 5MG PO BID, CONTINUE XANAX, CONTINUE HALDOL, CONTINUE TO MONITOR (4) Hypertension Status: Acute Qualifiers: Hypertension type: essential hypertension Qualified Code(s): I10 - Essential (primary) hypertension Plan: CONTINUE ZESTRIL, CONTINUE TO MONITOR (5) Diabetes Status: Acute Qualifiers: Diabetes mellitus type: type 2 Diabetes mellitus complication status: without complication Diabetes mellitus longitudinal float operator insulin use: with longitudinal float operator use Qualified Code(s): E11.9 - Type 2 diabetes mellitus without complications ; Z79.4 - nursing home (current) use of insulin; Z79.4 - nursing home (current) use of insulin; Z79.4 - long term care social worker (current) use of insulin; Z79.4 - long term care social worker ( current) use of insulin Plan: CONTINUE GLUCOPHAGE, CONTINUE TO MONITOR (6) Dementia Status: Acute Qualifiers: Dementia type: vascular dementia Dementia behavioral disturbance: with behavioral disturbance Qualified Code(s): F01.51 - Vascular dementia with behavioral disturbance Plan: ZYPREXA 5MG PO BID, CONTINUE HALDOL PRN, CONTINUE TO MONITOR
[2017-05-20] MEDS: NEURONTIN CAP 300 MG PO SCH ×4 (05:08→21:04)
[2017-05-20] MEDS: ANTIVERT TAB 25 MG PO SCH ×4 (05:08→21:04)
[2017-05-20] MEDS: ZOSYN VIAL 3.375 GM 3.375 GM in NS 100 ML IV + SPIKE MINIBAG* 100 ML IV SCH ×3 (05:09→21:23)
[2017-05-20] MEDS: NORCO 10/325 TAB PO SCH ×4 (05:09→21:04)
[2017-05-20 05:24] LABS: BASOPHILS # (AUTO) 0.1 X10^3/uL (0.0-0.1); BASOPHILS % (AUTO) 0.8 % (0.2-1.0); EOSINOPHILS # (AUTO) 0.5 x10^3/uL (0.0-0.2); EOSINOPHILS % (AUTO) 4.7 % (0.9-2.9); HEMATOCRIT 32.2 % (42.0-54.0); HEMOGLOBIN 10.9 g/dL (13.5-18.0); LYMPHOCYTES % (AUTO) 9.9 % (21.0-51.0); MEAN CORPUSCULAR HEMOGLOBIN 28.4 pg (27.0-34.0); MEAN CORPUSCULAR HGB CONC 33.8 g/dL (33.0-35.0); MEAN CORPUSCULAR VOLUME 84.1 fL (80.0-100.0); MONOCYTES # (AUTO) 0.7 x10^3/uL (0.3-0.8); MONOCYTES % (AUTO) 7.4 % (0.0-13.0); NEUTROPHILS # (AUTO) 7.7 x10^3/uL (2.2-4.8); NEUTROPHILS % (AUTO) 77.2 % (42.0-75.0); PLATELET COUNT 240 X10^3/uL (150.0-450.0); RED BLOOD COUNT 3.83 X10^6/uL (4.7-6.0); RED CELL DISTRIBUTION WIDTH 13.7 % (11.6-16.5); WHITE BLOOD COUNT 9.9 X10^3/uL (3.6-10.0)
[2017-05-20 05:35] LABS: ALANINE AMINOTRANSFERASE 17 Units/L (12-78); ALBUMIN 2.6 g/dL (3.4-5.0); ALKALINE PHOSPHATASE 59 Units/L (46-116); ASPARTATE AMINO TRANSFERASE 16 Units/L (15-37); BLOOD UREA NITROGEN 25 mg/dL (7-18); CALCIUM 9.1 mg/dL (8.5-10.1); CARBON DIOXIDE 23.8 mmol/L (21-32); CHLORIDE 108 mmol/L (98-107); COR CA(FOR HYPOALB) 10.2 mg/dL (8.5-10.1); SODIUM 141 mmol/L (136-145); TOTAL PROTEIN 6.8 g/dL (6.4-8.2); eGFR BLACK RACES 51 (>60); eGFR NON BLACK RACES 42 (>60)
--- NOTE | 2017-05-20 07:16 | RAD ---
Examination: Portable AP chest History: Congestion, increasing Comparison reference 05/19/2017 Findings: Continued normal heart size with bilateral lower lobe airspace process. Central vascular co ngestion is stable. There is no evidence for large pleural effusion or pneumothorax. Impression: No change since 1 day earlier. Reported By:
[2017-05-20] MEDS ORDERED: GLUCOPHAGE ONE ×2 (08:14→20:44)
[2017-05-20] MEDS: GLUCOPHAGE PO SCH ×2 (08:32→21:04)
[2017-05-20] MEDS: ZyPREXA TAB 5 MG PO SCH ×2 (08:32→17:03)
[2017-05-20] MEDS: HALDOL INJ IVP PRN ×2 (08:32→19:26)
[2017-05-20] MEDS: ZESTRIL TAB 10 MG PO SCH (08:33)
[2017-05-20] MEDS: XANAX PO SCH (08:49)
[2017-05-20] MEDS: DUONEB 0.5 MG/3 MG NEB SCH ×4 (12:11→21:52)
[2017-05-20] MEDS: ATIVAN TAB 0.5 MG PO SCH ×3 (15:19→21:05)
[2017-05-20] MEDS: SNACK - Diabetic Appropriate PO SCH (20:00)
[2017-05-20] MEDS: COLACE CAP 100 MG PO SCH (21:03)
[2017-05-20] MEDS: MILK OF MAGNESIA PO SCH (21:05)
[2017-05-21 04:57] LABS: BASOPHILS # (AUTO) 0.1 X10^3/uL (0.0-0.1); BASOPHILS % (AUTO) 0.5 % (0.2-1.0); EOSINOPHILS # (AUTO) 0.6 x10^3/uL (0.0-0.2); EOSINOPHILS % (AUTO) 5.1 % (0.9-2.9); HEMATOCRIT 34.2 % (42.0-54.0); HEMOGLOBIN 11.6 g/dL (13.5-18.0); LYMPHOCYTES # (AUTO) 1.3 X10^3/uL (1.3-2.9); LYMPHOCYTES % (AUTO) 11.4 % (21.0-51.0); MEAN CORPUSCULAR HEMOGLOBIN 28.4 pg (27.0-34.0); MEAN CORPUSCULAR VOLUME 83.6 fL (80.0-100.0); MEAN PLATELET VOLUME 7.5 fL (7.4-11.0); MONOCYTES # (AUTO) 0.7 x10^3/uL (0.3-0.8); MONOCYTES % (AUTO) 6.3 % (0.0-13.0); NEUTROPHILS # (AUTO) 8.6 x10^3/uL (2.2-4.8); NEUTROPHILS % (AUTO) 76.7 % (42.0-75.0); PLATELET COUNT 301 X10^3/uL (150.0-450.0); RED BLOOD COUNT 4.09 X10^6/uL (4.7-6.0); RED CELL DISTRIBUTION WIDTH 13.5 % (11.6-16.5); WHITE BLOOD COUNT 11.3 X10^3/uL (3.6-10.0)
[2017-05-21] MEDS: ANTIVERT TAB 25 MG PO SCH ×3 (05:08→22:03)
[2017-05-21] MEDS: NORCO 10/325 TAB PO SCH ×3 (05:09→22:03)
[2017-05-21] MEDS: ZOSYN VIAL 3.375 GM 3.375 GM in NS 100 ML IV + SPIKE MINIBAG* 100 ML IV SCH ×3 (05:09→22:01)
[2017-05-21] MEDS: NEURONTIN CAP 300 MG PO SCH ×3 (05:09→22:02)
[2017-05-21] MEDS: ATIVAN TAB 0.5 MG PO SCH ×3 (05:09→22:02)
[2017-05-21 05:14] LABS: ALANINE AMINOTRANSFERASE 24 Units/L (12-78); ALBUMIN 2.8 g/dL (3.4-5.0); ALKALINE PHOSPHATASE 70 Units/L (46-116); ASPARTATE AMINO TRANSFERASE 26 Units/L (15-37); BLOOD UREA NITROGEN 26 mg/dL (7-18); CALCIUM 9.7 mg/dL (8.5-10.1); CARBON DIOXIDE 23.1 mmol/L (21-32); CHLORIDE 107 mmol/L (98-107); COR CA(FOR HYPOALB) 10.7 mg/dL (8.5-10.1); CREATININE 1.66 mg/dL (0.70-1.30); SODIUM 141 mmol/L (136-145); TOTAL PROTEIN 7.4 g/dL (6.4-8.2); eGFR BLACK RACES 52 (>60); eGFR NON BLACK RACES 43 (>60)
[2017-05-21] MEDS: HALDOL INJ IVP PRN ×4 (06:09→15:18)
--- NOTE | 2017-05-21 06:24 | RAD ---
Examination: Portable AP chest History: Congestion Comparison reference 05/20/2017 Findings: Continued normal heart size. Persistent but improving central vascular congestionWith inter sam improvement in aeration of the bases. Areas of bibasal infiltrates/atelectasis remain. No new abn ormality is noted. Impression: 1 day interval improvement in appearance of the chest. Reported By:
[2017-05-21] MEDS ORDERED: GLUCOPHAGE ONE ×2 (07:20→21:47)
[2017-05-21] MEDS: ZESTRIL TAB 10 MG PO SCH (08:02)
[2017-05-21] MEDS: MILK OF MAGNESIA PO SCH ×2 (08:02→22:02)
[2017-05-21] MEDS: GLUCOPHAGE PO SCH ×2 (08:02→22:02)
[2017-05-21] MEDS: ZyPREXA TAB 5 MG PO SCH ×2 (08:03→17:57)
[2017-05-21] MEDS ORDERED: LEVAQUIN PREMIX IV 750 MG 750 MG/150 ML BAG IV SCH (09:00)
[2017-05-21] MEDS: DUONEB 0.5 MG/3 MG NEB SCH ×4 (09:11→20:46)
[2017-05-21] MEDS ORDERED: LOPRESSOR INJ 5 MG AMP IVP ONE (09:13)
[2017-05-21] MEDS: TOPROL XL PO SCH (09:17)
[2017-05-21] MEDS: ZESTRIL TAB 20 MG PO SCH ×2 (09:18→22:02)
[2017-05-21] MEDS ORDERED: CATAPRES-TTS-2 TD SCH (10:00)
--- NOTE | 2017-05-21 10:11 | PCM.PROG ---
Progress Note - Progress Note for Day of Date: 05/20/17 - Subjective Subjective: WAS ADMITTED FOR ALTERED MENTAL STATUS. ON 05/17/17, HE WAS FOUND TO HAVE PNEUMONIA AND A URINARY TRACT INFECTION FOR WHICH TREATMENT WAS STARTED. TODAY, HE IS ALERT, LYING IN BED ON MORNING ROUNDS. PATIENTS IS AT BEDSIDE. STAFF REPORTS THAT PATIENT CONTINUES TO BE CONFUSED AND COMBATIVE THROUGHOUT THE NIGHT. HE IS IN SOFT WRIST RESTRAINTS THIS MORNING. SPOUSE REPORTS THAT HE HAS BEEN COMBATIVE AND AGGRESSIVE WITH HER. PATIENT IS NOT ORIENTED TO PLACE OR SITUATION. 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 ON EXAMINATION, HEART IS NORMAL IN RATE AND RHYTHM. LUNGS SOUNDS ARE DIMINISHED. HE IS UTILIZING OXYGEN VIA NASAL CANNULA AT 2L/MIN. ABDOMEN IS ROUND , SOFT, AND NON-TENDER. NORMAL BOWEL SOUNDS ARE NOTED IN ALL QUADRANTS. HIS VITAL SIGNS THIS MORNING ARE 99.5-97-15-100%-137/74. A DECREASE IN WBC TO 9.9 IS NOTED. OTHERWISE, HE REMAINS HEMODYNAMICALLY STABLE. HE CONTINUES ON ANTIBIOTICS FOR GROWTH OF STAPHYLOCOCCUS AUREUS IN URINE AND SPUTUM. HE IS CURRENTLY RECEIVING LEVAQUIN AND ZOSYN IV. BLOOD CULTURES ARE NEGATIVE. A CHEST XRAY WAS OBTAINED THIS MORNING AND REPORTS STABLE CENTRAL VASCULAR CONGESTION. NORMAL HEART SIZE WITH BILATERAL LOWER LOBE AIRSPACE PROCESS. TODAY , WE DISCONTINUE THE XANAX AND START ATIVAN 0.5MG PO TID. OTHERWISE, WE WILL CONTINUE WITH CURRENT PLAN OF CARE. WE PLAN TO FOLLOW UP WITH AM LABS AND CONTINUE TO MONITOR PATIENT. - Past Medical Family Social History Past Med/Fam/Surg Hx: No changes since H&P Allergies: Allergies No Known Drug Allergies Allergy (Verified 05/12/17 14:46) - Review of Systems ROS: No change since H&P - Vital Signs and I&O's Vital Signs: Temperature 98.9 F Pulse Rate [Apical] 128 Pulse Rate [Left Brachial] 120 Pulse Rate [Right Brachial] 90 Pulse Rate 122 Respiratory Rate 12 Blood Pressure [Right Arm] 114/70 Blood Pressure [Left Arm] 141/85 Blood Pressure 131/80 O2 Sat by Pulse Oximetry 100 Intake and Output: Intake & Output 05/18/17 05/19/17 05/20/17 05/21/17 11:59 11:59 11:59 11:59 Intake Total 1204 1130 1010 712 Balance 1204 1130 1010 712 - Physical Exam Oriented: Person Eyes: Normal. negative: Blurred Vision, Diplopia, Discharge, Pain, Redness, Photophobia, Other Ear: Normal. negative: Right, Left, Swelling, Ecchymosis, Hemotypanum, Abrasion , Laceration Nose: Normal. negative: Injected, Discharge, Blood, Other Throat: Normal. negative: Tonsillar Hypertrophy, Red, Exudate, Dry, Other Respiratory: Generalized, Diminished Cardiovascular: Normal. negative: Tachycardia, Bradycardia, Irregular, S3, S4, Systolic, Diastolic, Murmur, Edema, Other : Normal. negative: Dysuria, Hematuria, Frequency, Discharge, Testicular Pain , Bleeding, , Other Auscultation: Bowel Sounds: Normal. negative: Bruit, Absent, Increased, Decreased, High Pitched, Other Palpation: Normal Tenderness: Normal. negative: Rebound, Guarding, Rigidity Skin: Normal Musculoskeletal: Back:Lumbar, Tender Psychiatric: Anxiety, Agitation, Other (INTERMITTENT CONFUSION ) Mood Description: Calm Affect: Normal Speech Pattern: Clear, Inappropriate - Laboratory and Diagnostics Result Diagrams: 05/21/17 04:10 05/21/17 04:10 Labs: 05/17/17 19:16 Sputum - Endotracheal Wash Sputum Culture - Final Staphylococcus Aureus 05/17/17 19:16 Sputum - Endotracheal Wash - Final 05/17/17 13:22 Blood Blood Culture - Preliminary 05/17/17 12:30 Blood Blood Culture - Preliminary 05/17/17 14:26 Urine,Catheterized Urine Culture - Final Staphylococcus Aureus Laboratory WBC 11.3 X10^3/uL (3.6-10.0) H 05/21/17 04:10 RBC 4.09 X10^6/uL (4.7-6.0) L 05/21/17 04:10 Hgb 11.6 g/dL (13.5-18.0) L 05/21/17 04:10 Hct 34.2 % (42.0-54.0) L 05/21/17 04:10 MCV 83.6 fL (80.0-100.0) 05/21/17 04:10 MCH 28.4 pg (27.0-34.0) 05/21/17 04:10 MCHC 34.0 g/dL (33.0-35.0) 05/21/17 04:10 RDW 13.5 % (11.6-16.5) 05/21/17 04:10 Plt Count 301 X10^3/uL (150.0-450.0) 05/21/17 04:10 MPV 7.5 fL (7.4-11.0) 05/21/17 04:10 Neut % 76.7 % (42.0-75.0) H 05/21/17 04:10 Lymph % 11.4 % (21.0-51.0) L 05/21/17 04:10 [place] % 6.3 % (0.0-13.0) 05/21/17 04:10 Eos % 5.1 % (0.9-2.9) H 05/21/17 04:10 Baso % 0.5 % (0.2-1.0) 05/21/17 04:10 Neut # 8.6 x10^3/uL (2.2-4.8) H 05/21/17 04:10 Lymph # 1.3 X10^3/uL (1.3-2.9) 05/21/17 04:10 [place] # 0.7 x10^3/uL (0.3-0.8) 05/21/17 04:10 Eos # 0.6 x10^3/uL (0.0-0.2) H 05/21/17 04:10 Baso # 0.1 X10^3/uL (0.0-0.1) 05/21/17 04:10 Absolute Nucleated RBC 0.0 /100WBC 05/21/17 04:10 Sodium 141 mmol/L (136-145) 05/21/17 04:10 Corrected Sodium TNP 05/21/17 04:10 Potassium 4.7 mmol/L (3.5-5.1) 05/21/17 04:10 Chloride 107 mmol/L (98-107) 05/21/17 04:10 Carbon Dioxide 23.1 mmol/L (21-32) 05/21/17 04:10 BUN 26 mg/dL (7-18) H 05/21/17 04:10 Creatinine 1.66 mg/dL (0.70-1.30) H 05/21/17 04:10 Est GFR (MDRD) Af Amer 52 (>60) L 05/21/17 04:10 Est GFR (MDRD) Non-Af 43 (>60) L 05/21/17 04:10 Glucose 103 mg/dL (65-99) H 05/21/17 04:10 POC Glucose (mg/dL) 113 mg/dL (65-99) H 05/21/17 05:45 Lactic Acid 0.8 mmol/L (0.4-2.0) 05/17/17 12:30 Calcium 9.7 mg/dL (8.5-10.1) 05/21/17 04:10 Corrected Calcium 10.7 mg/dL (8.5-10.1) H 05/21/17 04:10 Magnesium 1.5 mg/dL (1.7-2.9) L 05/14/17 04:25 Iron 56 ug/dL (50-175) 05/13/17 04:30 TIBC 199 ug/dL (250-450) L 05/13/17 04:30 Transferrin 147 mg/dL (202-364) L 05/13/17 04:30 Ferritin 192 ng/mL (26-388) 05/13/17 04:30 Total Bilirubin 0.60 mg/dL (0.2-1.0) 05/21/17 04:10 AST 26 Units/L (15-37) 05/21/17 04:10 ALT 24 Units/L (12-78) 05/21/17 04:10 Alkaline Phosphatase 70 Units/L (46-116) 05/21/17 04:10 Creatine Kinase 48 Units/L (39-308) 05/12/17 16:03 CK-MB (CK-2) < 1.0 ng/mL (0-4.0) 05/12/17 16:03 CK/CKMB % Calc 2.1 % (<4) 05/12/17 16:03 Troponin I < 0.02 ng/mL (0-1.5) 05/12/17 16:03 C-Reactive Protein 3.10 mg/L (0-3.0) H 05/12/17 16:03 Total Protein 7.4 g/dL (6.4-8.2) 05/21/17 04:10 Albumin 2.8 g/dL (3.4-5.0) L 05/21/17 04:10 Globulin 4.6 g/dL (2.5-4.5) H 05/21/17 04:10 Albumin/Globulin Ratio 0.6 Ratio (1.1-2.1) L 05/21/17 04:10 Vitamin B12 118 pg/mL (193-986) L 05/13/17 04:30 Folate 4.6 ng/mL (>8.6) L 05/13/17 04:30 Specimen Type Clean catch urine 05/17/17 14:26 Urine Color Yellow (YELLOW) 05/17/17 14:26 Urine Appearance Cloudy (CLEAR) 05/17/17 14:26 Urine pH 6.0 (5.0 - 8.0) 05/17/17 14:26 Ur Specific [place] 1.010 (1.000-1.030) 05/17/17 14:26 Urine Protein 3+ (NEGATIVE) 05/17/17 14:26 Urine Glucose (UA) Negative (NEGATIVE) 05/17/17 14:26 Urine Ketones 1+ (NEGATIVE) 05/17/17 14:26 Urine Occult Blood 5+ (NEGATIVE) 05/17/17 14:26 Urine Nitrite Positive (NEGATIVE) 05/17/17 14:26 Urine Bilirubin Negative (NEGATIVE) 05/17/17 14:26 Urine Urobilinogen Normal (NORMAL) 05/17/17 14:26 Ur Leukocyte Esterase 3+ (NEGATIVE) 05/17/17 14:26 Urine RBC Tntc /HPF (NEGATIVE) 05/17/17 14:26 Urine WBC Tntc /HPF (NEGATIVE) 05/17/17 14:26 Ur Squamous Epith Cells Few /HPF (NEGATIVE) 05/17/17 14:26 Urine Bacteria 2+ /HPF (NEGATIVE) 05/17/17 14:26 Ur Culture Indicated? Yes/culture set up 05/17/17 14:26 Urine Opiates Screen Positive (NEG=<300) 05/13/17 02:51 Urine Methadone Screen Negative (NEG=<300) 05/13/17 02:51 Ur Barbiturates Screen Negative (NEG=<200) 05/13/17 02:51 Ur Phencyclidine Scrn Negative (NEG=<25) 05/13/17 02:51 Ur Amphetamines Screen Negative (NEG=<1000) 05/13/17 02:51 U Benzodiazepines Scrn Negative (NEG=<200) 05/13/17 02:51 Urine Cocaine Screen Negative (NEG=<300) 05/13/17 02:51 U Marijuana (THC) Screen Positive (NEG=<50) A 05/13/17 02:51 - Plan (1) Urinary tract infection Status: Acute Qualifiers: Urinary tract infection type: acute cystitis Hematuria presence: with hematuria Qualified Code(s): N30.01 - Acute cystitis with hematuria Plan: LEVAQUIN 750MG IV DAILY, ZOSYN 3.375GM IV TID, CONTINUE TO MONITOR (2) Pneumonia Status: Acute Qualifiers: Pneumonia type: aspiration pneumonia Laterality: left Lung location: lower lobe of lung Plan: LEVAQUIN 750MG IV DAILY, ZOSYN 3.375GM IV DAILY, RESPIRATORY TX, SUPPLEMENTAL OXYGEN, CONTINUE TO MONITOR (3) Altered mental status Status: Acute Qualifiers: Altered mental status type: transient alteration of awareness Qualified Code(s): R40.4 - Transient alteration of awareness Plan: ZYPREXA 10MG PO BID, DISCONTINUE XANAX AND START ATIVAN 0.5MG PO TID, CONTINUE HALDOL, CONTINUE TO MONITOR (4) Hypertension Status: Acute Qualifiers: Hypertension type: essential hypertension Qualified Code(s): I10 - Essential (primary) hypertension Plan: CONTINUE ZESTRIL, CONTINUE TO MONITOR (5) Diabetes Status: Acute Qualifiers: Diabetes mellitus type: type 2 Diabetes mellitus complication status: without complication Diabetes mellitus shelter insulin use: with electronic test technician use Qualified Code(s): E11.9 - Type 2 diabetes mellitus without complications ; Z79.4 - retirement (current) use of insulin; Z79.4 - supervisor production managing (current) use of insulin; Z79.4 - supervisor production managing (current) use of insulin; Z79.4 - supervisor production managing ( current) use of insulin Plan: CONTINUE GLUCOPHAGE, CONTINUE TO MONITOR (6) Dementia Status: Acute Qualifiers: Dementia type: vascular dementia Dementia behavioral disturbance: with behavioral disturbance Qualified Code(s): F01.51 - Vascular dementia with behavioral disturbance Plan: ZYPREXA 10MG PO BID, CONTINUE HALDOL PRN, CONTINUE TO MONITOR
--- NOTE | 2017-05-21 14:21 | PCM.PROG ---
Progress Note - Progress Note for Day of Date: 05/21/17 - Subjective Subjective: WAS ADMITTED FOR ALTERED MENTAL STATUS. HE WAS FOUND TO HAVE PNEUMONIA AND A URINARY TRACT INFECTION FOR WHICH TREATMENT WAS STARTED. TODAY, HE IS ALERT, LYING IN BED WITH SPOUSE AT BEDSIDE. PATIENT CONTINUES WITH AGITATION. HE CONTINUES TO BE IN SOFT WRIST RESTRAINTS DUE TO COMBATIVE AND AGGRESSIVE BEHAVIOUR. SPOUSE REPORTS THAT PATIENTS COUGH HAS IMPROVED AND HAS NOT VERBALIZED COMPLAINTS OF ANY KIND. PATIENT CONTINUES TO BE DISORIENTED. ON EXAMINATION, HEART IS NORMAL IN RATE AND RHYTHM. LUNGS SOUNDS ARE DIMINISHED THROUGHOUT. HE IS CURRENTLY UTILIZING OXYGEN VIA NASAL CANNULA AT 2L/MIN. ABDOMEN IS ROUND, SOFT, AND NON-TENDER. NORMAL BOWEL SOUNDS ARE NOTED IN ALL QUADRANTS. GOOD MOVEMENT NOTED TO ALL EXTREMITIES WHEN RESTRAINTS RELEASED. HIS VITAL SIGNS THIS MORNING ARE 98.4-612-49-100%-141/85. AN INCREASE IN WBC TO 11.3 IS NOTED. OTHERWISE, HE REMAINS HEMODYNAMICALLY STABLE. A CHEST XRAY WAS OBTAINED THIS MORNING AND REPORTS PERSISTENT BUT IMPROVING CENTRAL VASCULAR CONGESTION WITH INTERVAL IMPROVEMENT IN AERATION OF THE BASES. AREAS OF BIBASAL INFILTRATES/ATELECTASIS REMAIN. NO NEW ABNORMALITY IS NOTED. HE CONTINUES ON ANTIBIOTICS FOR GROWTH OF STAPHYLOCOCCUS AUREUS IN URINE AND SPUTUM. HE IS CURRENTLY RECEIVING LEVAQUIN 750MG IV Q48H AND ZOSYN 3.375MG IV TID. TODAY, WE WILL CONSULT WITH THE BEHAVIORAL UNIT IN [place] FOR POSSIBLE TRANSFER. SHAY IS MEDICALLY CLEAR TO BE TRANSFERRED TO THE BEHAVIORAL UNIT. HE WILL NEED TO CONTINUE ON IV ANTIBIOTICS FOR INFECTION IN SPUTUM AND URINE. - Past Medical Family Social History Past Med/Fam/Surg Hx: No changes since H&P Allergies: Allergies No Known Drug Allergies Allergy (Verified 05/12/17 14:46) - Review of Systems ROS: No change since H&P - Vital Signs and I&O's Vital Signs: Temperature 99.6 F Pulse Rate [Apical] 128 Pulse Rate [Left Brachial] 120 Pulse Rate [Right Brachial] 90 Pulse Rate 119 Respiratory Rate 20 Blood Pressure [Right Arm] 114/70 Blood Pressure [Left Arm] 162/98 Blood Pressure 164/89 O2 Sat by Pulse Oximetry 100 Intake and Output: Intake & Output 05/19/17 05/20/17 05/21/17 05/22/17 11:59 11:59 11:59 11:59 Intake Total 1130 1010 712 Balance 1130 1010 712 - Physical Exam Oriented: Person Eyes: Normal. negative: Blurred Vision, Diplopia, Discharge, Pain, Redness, Photophobia, Other Ear: Normal. negative: Right, Left, Swelling, Ecchymosis, Hemotypanum, Abrasion , Laceration Nose: Normal. negative: Injected, Discharge, Blood, Other Throat: Normal. negative: Tonsillar Hypertrophy, Red, Exudate, Dry, Other Respiratory: Generalized, Diminished Cardiovascular: Normal. negative: Tachycardia, Bradycardia, Irregular, S3, S4, Systolic, Diastolic, Murmur, Edema, Other : Normal. negative: Dysuria, Hematuria, Frequency, Discharge, Testicular Pain , Bleeding, , Other Auscultation: Bowel Sounds: Normal. negative: Bruit, Absent, Increased, Decreased, High Pitched, Other Palpation: Normal Tenderness: Normal. negative: Rebound, Guarding, Rigidity Skin: Normal Musculoskeletal: Normal Psychiatric: Anxiety, Agitation, Other (INTERMITTENT CONFUSION ) Mood Description: Calm Affect: Normal Speech Pattern: Clear, Inappropriate - Laboratory and Diagnostics Result Diagrams: 05/21/17 04:10 05/21/17 04:10 Labs: 05/17/17 19:16 Sputum - Endotracheal Wash Sputum Culture - Final Staphylococcus Aureus 05/17/17 19:16 Sputum - Endotracheal Wash - Final 05/17/17 13:22 Blood Blood Culture - Preliminary 05/17/17 12:30 Blood Blood Culture - Preliminary 05/17/17 14:26 Urine,Catheterized Urine Culture - Final Staphylococcus Aureus Laboratory WBC 11.3 X10^3/uL (3.6-10.0) H 05/21/17 04:10 RBC 4.09 X10^6/uL (4.7-6.0) L 05/21/17 04:10 Hgb 11.6 g/dL (13.5-18.0) L 05/21/17 04:10 Hct 34.2 % (42.0-54.0) L 05/21/17 04:10 MCV 83.6 fL (80.0-100.0) 05/21/17 04:10 MCH 28.4 pg (27.0-34.0) 05/21/17 04:10 MCHC 34.0 g/dL (33.0-35.0) 05/21/17 04:10 RDW 13.5 % (11.6-16.5) 05/21/17 04:10 Plt Count 301 X10^3/uL (150.0-450.0) 05/21/17 04:10 MPV 7.5 fL (7.4-11.0) 05/21/17 04:10 Neut % 76.7 % (42.0-75.0) H 05/21/17 04:10 Lymph % 11.4 % (21.0-51.0) L 05/21/17 04:10 [place] % 6.3 % (0.0-13.0) 05/21/17 04:10 Eos % 5.1 % (0.9-2.9) H 05/21/17 04:10 Baso % 0.5 % (0.2-1.0) 05/21/17 04:10 Neut # 8.6 x10^3/uL (2.2-4.8) H 05/21/17 04:10 Lymph # 1.3 X10^3/uL (1.3-2.9) 05/21/17 04:10 [place] # 0.7 x10^3/uL (0.3-0.8) 05/21/17 04:10 Eos # 0.6 x10^3/uL (0.0-0.2) H 05/21/17 04:10 Baso # 0.1 X10^3/uL (0.0-0.1) 05/21/17 04:10 Absolute Nucleated RBC 0.0 /100WBC 05/21/17 04:10 Sodium 141 mmol/L (136-145) 05/21/17 04:10 Corrected Sodium TNP 05/21/17 04:10 Potassium 4.7 mmol/L (3.5-5.1) 05/21/17 04:10 Chloride 107 mmol/L (98-107) 05/21/17 04:10 Carbon Dioxide 23.1 mmol/L (21-32) 05/21/17 04:10 BUN 26 mg/dL (7-18) H 05/21/17 04:10 Creatinine 1.66 mg/dL (0.70-1.30) H 05/21/17 04:10 Est GFR (MDRD) Af Amer 52 (>60) L 05/21/17 04:10 Est GFR (MDRD) Non-Af 43 (>60) L 05/21/17 04:10 Glucose 103 mg/dL (65-99) H 05/21/17 04:10 POC Glucose (mg/dL) 113 mg/dL (65-99) H 05/21/17 05:45 Lactic Acid 0.8 mmol/L (0.4-2.0) 05/17/17 12:30 Calcium 9.7 mg/dL (8.5-10.1) 05/21/17 04:10 Corrected Calcium 10.7 mg/dL (8.5-10.1) H 05/21/17 04:10 Magnesium 1.5 mg/dL (1.7-2.9) L 05/14/17 04:25 Iron 56 ug/dL (50-175) 05/13/17 04:30 TIBC 199 ug/dL (250-450) L 05/13/17 04:30 Transferrin 147 mg/dL (202-364) L 05/13/17 04:30 Ferritin 192 ng/mL (26-388) 05/13/17 04:30 Total Bilirubin 0.60 mg/dL (0.2-1.0) 05/21/17 04:10 AST 26 Units/L (15-37) 05/21/17 04:10 ALT 24 Units/L (12-78) 05/21/17 04:10 Alkaline Phosphatase 70 Units/L (46-116) 05/21/17 04:10 Creatine Kinase 48 Units/L (39-308) 05/12/17 16:03 CK-MB (CK-2) < 1.0 ng/mL (0-4.0) 05/12/17 16:03 CK/CKMB % Calc 2.1 % (<4) 05/12/17 16:03 Troponin I < 0.02 ng/mL (0-1.5) 05/12/17 16:03 C-Reactive Protein 3.10 mg/L (0-3.0) H 05/12/17 16:03 Total Protein 7.4 g/dL (6.4-8.2) 05/21/17 04:10 Albumin 2.8 g/dL (3.4-5.0) L 05/21/17 04:10 Globulin 4.6 g/dL (2.5-4.5) H 05/21/17 04:10 Albumin/Globulin Ratio 0.6 Ratio (1.1-2.1) L 05/21/17 04:10 Vitamin B12 118 pg/mL (193-986) L 05/13/17 04:30 Folate 4.6 ng/mL (>8.6) L 05/13/17 04:30 Specimen Type Clean catch urine 05/17/17 14:26 Urine Color Yellow (YELLOW) 05/17/17 14:26 Urine Appearance Cloudy (CLEAR) 05/17/17 14:26 Urine pH 6.0 (5.0 - 8.0) 05/17/17 14:26 Ur Specific [place] 1.010 (1.000-1.030) 05/17/17 14:26 Urine Protein 3+ (NEGATIVE) 05/17/17 14:26 Urine Glucose (UA) Negative (NEGATIVE) 05/17/17 14:26 Urine Ketones 1+ (NEGATIVE) 05/17/17 14:26 Urine Occult Blood 5+ (NEGATIVE) 05/17/17 14:26 Urine Nitrite Positive (NEGATIVE) 05/17/17 14:26 Urine Bilirubin Negative (NEGATIVE) 05/17/17 14:26 Urine Urobilinogen Normal (NORMAL) 05/17/17 14:26 Ur Leukocyte Esterase 3+ (NEGATIVE) 05/17/17 14:26 Urine RBC Tntc /HPF (NEGATIVE) 05/17/17 14:26 Urine WBC Tntc /HPF (NEGATIVE) 05/17/17 14:26 Ur Squamous Epith Cells Few /HPF (NEGATIVE) 05/17/17 14:26 Urine Bacteria 2+ /HPF (NEGATIVE) 05/17/17 14:26 Ur Culture Indicated? Yes/culture set up 05/17/17 14:26 Urine Opiates Screen Positive (NEG=<300) 05/13/17 02:51 Urine Methadone Screen Negative (NEG=<300) 05/13/17 02:51 Ur Barbiturates Screen Negative (NEG=<200) 05/13/17 02:51 Ur Phencyclidine Scrn Negative (NEG=<25) 05/13/17 02:51 Ur Amphetamines Screen Negative (NEG=<1000) 05/13/17 02:51 U Benzodiazepines Scrn Negative (NEG=<200) 05/13/17 02:51 Urine Cocaine Screen Negative (NEG=<300) 05/13/17 02:51 U Marijuana (THC) Screen Positive (NEG=<50) A 05/13/17 02:51 - Plan (1) Urinary tract infection Status: Acute Qualifiers: Urinary tract infection type: acute cystitis Hematuria presence: with hematuria Qualified Code(s): N30.01 - Acute cystitis with hematuria Plan: LEVAQUIN 750MG IV DAILY, ZOSYN 3.375GM IV TID, CONTINUE TO MONITOR (2) Pneumonia Status: Acute Qualifiers: Pneumonia type: aspiration pneumonia Laterality: left Lung location: lower lobe of lung Plan: LEVAQUIN 750MG IV DAILY, ZOSYN 3.375GM IV DAILY, RESPIRATORY TX, SUPPLEMENTAL OXYGEN, CONTINUE TO MONITOR (3) Altered mental status Status: Acute Qualifiers: Altered mental status type: transient alteration of awareness Qualified Code(s): R40.4 - Transient alteration of awareness Plan: ZYPREXA 10MG PO BID, DISCONTINUE XANAX AND START ATIVAN 0.5MG PO TID, CONTINUE HALDOL, CONTINUE TO MONITOR (4) Hypertension Status: Acute Qualifiers: Hypertension type: essential hypertension Qualified Code(s): I10 - Essential (primary) hypertension Plan: CONTINUE ZESTRIL, CONTINUE TO MONITOR (5) Diabetes Status: Acute Qualifiers: Diabetes mellitus type: type 2 Diabetes mellitus complication status: without complication Diabetes mellitus nursing home insulin use: with nursing home use Qualified Code(s): E11.9 - Type 2 diabetes mellitus without complications ; Z79.4 - skilled nursing (current) use of insulin; Z79.4 - skilled nursing (current) use of insulin; Z79.4 - local intermodal truck driver (current) use of insulin; Z79.4 - skilled nursing ( current) use of insulin Plan: CONTINUE GLUCOPHAGE, CONTINUE TO MONITOR (6) Dementia Status: Acute Qualifiers: Dementia type: vascular dementia Dementia behavioral disturbance: with behavioral disturbance Qualified Code(s): F01.51 - Vascular dementia with behavioral disturbance Plan: ZYPREXA 10MG PO BID, CONTINUE HALDOL PRN, CONTINUE TO MONITOR
[2017-05-21] MEDS: SNACK - Diabetic Appropriate PO SCH (20:35)
[2017-05-21] MEDS ORDERED: ZESTRIL TAB 20 MG ONE (21:47)
[2017-05-21] MEDS: COLACE CAP 100 MG PO SCH (22:01)
[2017-05-22] MEDS: HALDOL INJ IVP PRN ×4 (00:15→14:03)
[2017-05-22 05:12] LABS: BASOPHILS # (AUTO) 0.1 X10^3/uL (0.0-0.1); BASOPHILS % (AUTO) 0.9 % (0.2-1.0); EOSINOPHILS # (AUTO) 0.4 x10^3/uL (0.0-0.2); EOSINOPHILS % (AUTO) 3.9 % (0.9-2.9); HEMATOCRIT 31.7 % (42.0-54.0); HEMOGLOBIN 10.9 g/dL (13.5-18.0); LYMPHOCYTES # (AUTO) 0.9 X10^3/uL (1.3-2.9); LYMPHOCYTES % (AUTO) 8.7 % (21.0-51.0); MEAN CORPUSCULAR HEMOGLOBIN 28.9 pg (27.0-34.0); MEAN CORPUSCULAR HGB CONC 34.3 g/dL (33.0-35.0); MEAN CORPUSCULAR VOLUME 84.1 fL (80.0-100.0); MEAN PLATELET VOLUME 7.4 fL (7.4-11.0); MONOCYTES # (AUTO) 0.8 x10^3/uL (0.3-0.8); MONOCYTES % (AUTO) 7.1 % (0.0-13.0); NEUTROPHILS # (AUTO) 8.3 x10^3/uL (2.2-4.8); NEUTROPHILS % (AUTO) 79.4 % (42.0-75.0); PLATELET COUNT 293 X10^3/uL (150.0-450.0); RED BLOOD COUNT 3.77 X10^6/uL (4.7-6.0); WHITE BLOOD COUNT 10.5 X10^3/uL (3.6-10.0)
[2017-05-22] MEDS: ATIVAN TAB 0.5 MG PO SCH ×2 (05:45→13:01)
[2017-05-22] MEDS: NORCO 10/325 TAB PO SCH ×2 (05:45→13:02)
[2017-05-22] MEDS: ANTIVERT TAB 25 MG PO SCH ×2 (05:45→13:01)
[2017-05-22] MEDS: ZOSYN VIAL 3.375 GM 3.375 GM in NS 100 ML IV + SPIKE MINIBAG* 100 ML IV SCH ×2 (05:45→13:02)
[2017-05-22] MEDS: NEURONTIN CAP 300 MG PO SCH ×2 (05:45→13:01)
[2017-05-22 07:12] LABS: ALBUMIN 2.7 g/dL (3.4-5.0); CALCIUM 9.5 mg/dL (8.5-10.1); CARBON DIOXIDE 25.5 mmol/L (21-32); COR CA(FOR HYPOALB) 10.5 mg/dL (8.5-10.1); CREATININE 1.63 mg/dL (0.70-1.30)
--- NOTE | 2017-05-22 07:17 | RAD ---
Examination: Portable AP chest History: Congestion Comparison reference 05/21/2017 Findings: Continued normal heart size. Improving central vascular congestion. Persistent bibasal atel ectasis. No pulmonary edema or pneumothorax. Impression: No new abnormality; slight improvement in pulmonary vascular congestion. Reported By:
[2017-05-22] MEDS ORDERED: GLUCOPHAGE ONE (08:29)
[2017-05-22] MEDS: GLUCOPHAGE PO SCH (08:37)
[2017-05-22] MEDS: MILK OF MAGNESIA PO SCH (08:38)
[2017-05-22] MEDS: ZyPREXA TAB 5 MG PO SCH (08:38)
[2017-05-22] MEDS: ZESTRIL TAB 20 MG PO SCH ×2 (08:38→12:19)
[2017-05-22] MEDS: TOPROL XL PO SCH (08:38)
[2017-05-22] MEDS: DUONEB 0.5 MG/3 MG NEB SCH (09:00)
--- NOTE | 2017-05-22 10:29 | PCM.PROG ---
Progress Note - Progress Note for Day of Date: 05/22/17 - Subjective Subjective: WAS ADMITTED FOR ALTERED MENTAL STATUS. HE WAS FOUND TO HAVE PNEUMONIA AND A URINARY TRACT INFECTION FOR WHICH TREATMENT WAS STARTED. STATUS WAS CHANGED FROM ICU TO FLOOR STATUS YESTERDAY. HE REMAINS IN THE INTENSIVE CARE UNIT DUE TO BED AVAILABILITY. TODAY, HE IS LYING IN BED WITH EYES CLOSED. HE AWAKENS AND RESPONDS TO VERBAL STIMULI. PAITENT APPEARS TO BE LESS AGITATED THAN YESTERDAY. STAFF REPORTS RECENTLY ADMINISTERING HALDOL DUE TO AGITATION. STAFF REPORTS THAT PATIENT CONTINUES WITH CONFUSION AND AGITATION WHEN AROUSED. ON EXAMINATION, HEART IS NORMAL IN RATE AND RHYTHM. LUNGS SOUNDS ARE CLEAR BILATERALLY TO AUSCULTATION. HE IS CURRENTLY UTILIZING OXYGEN VIA NASAL CANNULA AT 2L/MIN. ABDOMEN IS ROUND, SOFT, AND NON-TENDER. NORMAL BOWEL SOUNDS ARE NOTED IN ALL QUADRANTS. GOOD MOVEMENT NOTED TO ALL EXTREMITIES. HIS VITAL SIGNS THIS MORNING ARE 98.4-91-25-100% ON RA-108/72. HE REMAINS HEMODYNAMICALLY TODAY.A CHEST XRAY WAS OBTAINED THIS MORNING AND REPORTS NO ABNORMALITY IDENTIFIED. WE CONTINUE TO CONSULT WITH BEHAVIORAL HEALTH REGARDING POSSIBLE TRANSFER FOR FURTHER EVALUATION. - Past Medical Family Social History Past Med/Fam/Surg Hx: No changes since H&P Allergies: Allergies No Known Drug Allergies Allergy (Verified 05/12/17 14:46) - Review of Systems ROS: No change since H&P - Vital Signs and I&O's Vital Signs: Temperature 98.4 F Pulse Rate [Apical] 88 Pulse Rate [Left Brachial] 120 Pulse Rate [Right Brachial] 90 Pulse Rate 101 Respiratory Rate 24 Blood Pressure [Right Arm] 114/70 Blood Pressure [Left Arm] 103/64 Blood Pressure 164/89 O2 Sat by Pulse Oximetry 100 Intake and Output: Intake & Output 05/19/17 05/20/17 05/21/17 05/22/17 11:59 11:59 11:59 11:59 Intake Total 1130 6437 414 6834 Output Total 400 Balance 1130 1010 712 645 - Physical Exam Oriented: Person Eyes: Normal. negative: Blurred Vision, Diplopia, Discharge, Pain, Redness, Photophobia, Other Ear: Normal. negative: Right, Left, Swelling, Ecchymosis, Hemotypanum, Abrasion , Laceration Nose: Normal. negative: Injected, Discharge, Blood, Other Throat: Normal. negative: Tonsillar Hypertrophy, Red, Exudate, Dry, Other Respiratory: Generalized, Diminished Cardiovascular: Normal. negative: Tachycardia, Bradycardia, Irregular, S3, S4, Systolic, Diastolic, Murmur, Edema, Other : Normal. negative: Dysuria, Hematuria, Frequency, Discharge, Testicular Pain , Bleeding, , Other Auscultation: Bowel Sounds: Normal. negative: Bruit, Absent, Increased, Decreased, High Pitched, Other Palpation: Normal Tenderness: Normal. negative: Rebound, Guarding, Rigidity Skin: Normal Musculoskeletal: Normal Psychiatric: Anxiety, Agitation, Other (INTERMITTENT CONFUSION ) Mood Description: Calm Affect: Normal Speech Pattern: Inappropriate - Laboratory and Diagnostics Result Diagrams: 05/22/17 04:20 05/22/17 04:20 Labs: 05/17/17 19:16 Sputum - Endotracheal Wash Sputum Culture - Final Staphylococcus Aureus 05/17/17 19:16 Sputum - Endotracheal Wash - Final 05/17/17 13:22 Blood Blood Culture - Preliminary 05/17/17 12:30 Blood Blood Culture - Preliminary 05/17/17 14:26 Urine,Catheterized Urine Culture - Final Staphylococcus Aureus Laboratory WBC 10.5 X10^3/uL (3.6-10.0) H 05/22/17 04:20 RBC 3.77 X10^6/uL (4.7-6.0) L 05/22/17 04:20 Hgb 10.9 g/dL (13.5-18.0) L 05/22/17 04:20 Hct 31.7 % (42.0-54.0) L 05/22/17 04:20 MCV 84.1 fL (80.0-100.0) 05/22/17 04:20 MCH 28.9 pg (27.0-34.0) 05/22/17 04:20 MCHC 34.3 g/dL (33.0-35.0) 05/22/17 04:20 RDW 14.0 % (11.6-16.5) 05/22/17 04:20 Plt Count 293 X10^3/uL (150.0-450.0) 05/22/17 04:20 MPV 7.4 fL (7.4-11.0) 05/22/17 04:20 Neut % 79.4 % (42.0-75.0) H 05/22/17 04:20 Lymph % 8.7 % (21.0-51.0) L 05/22/17 04:20 Vance % 7.1 % (0.0-13.0) 05/22/17 04:20 Eos % 3.9 % (0.9-2.9) H 05/22/17 04:20 Baso % 0.9 % (0.2-1.0) 05/22/17 04:20 Neut # 8.3 x10^3/uL (2.2-4.8) H 05/22/17 04:20 Lymph # 0.9 X10^3/uL (1.3-2.9) L 05/22/17 04:20 [place]ance # 0.8 x10^3/uL (0.3-0.8) 05/22/17 04:20 Eos # 0.4 x10^3/uL (0.0-0.2) H 05/22/17 04:20 Baso # 0.1 X10^3/uL (0.0-0.1) 05/22/17 04:20 Absolute Nucleated RBC 0.0 /100WBC 05/22/17 04:20 Sodium 141 mmol/L (136-145) 05/22/17 04:20 Corrected Sodium 141 mmol/L (136-145) 05/22/17 04:20 Potassium 4.7 mmol/L (3.5-5.1) 05/22/17 04:20 Chloride 106 mmol/L (98-107) 05/22/17 04:20 Carbon Dioxide 25.5 mmol/L (21-32) 05/22/17 04:20 BUN 30 mg/dL (7-18) H 05/22/17 04:20 Creatinine 1.63 mg/dL (0.70-1.30) H 05/22/17 04:20 Est GFR (MDRD) Af Amer 53 (>60) L 05/22/17 04:20 Est GFR (MDRD) Non-Af 44 (>60) L 05/22/17 04:20 Glucose 120 mg/dL (65-99) H 05/22/17 04:20 POC Glucose (mg/dL) 119 mg/dL (65-99) H 05/22/17 05:43 Lactic Acid 0.8 mmol/L (0.4-2.0) 05/17/17 12:30 Calcium 9.5 mg/dL (8.5-10.1) 05/22/17 04:20 Corrected Calcium 10.5 mg/dL (8.5-10.1) H 05/22/17 04:20 Magnesium 1.5 mg/dL (1.7-2.9) L 05/14/17 04:25 Iron 56 ug/dL (50-175) 05/13/17 04:30 TIBC 199 ug/dL (250-450) L 05/13/17 04:30 Transferrin 147 mg/dL (202-364) L 05/13/17 04:30 Ferritin 192 ng/mL (26-388) 05/13/17 04:30 Total Bilirubin 0.60 mg/dL (0.2-1.0) 05/22/17 04:20 AST 27 Units/L (15-37) 05/22/17 04:20 ALT 25 Units/L (12-78) 05/22/17 04:20 Alkaline Phosphatase 70 Units/L (46-116) 05/22/17 04:20 Creatine Kinase 48 Units/L (39-308) 05/12/17 16:03 CK-MB (CK-2) < 1.0 ng/mL (0-4.0) 05/12/17 16:03 CK/CKMB % Calc 2.1 % (<4) 05/12/17 16:03 Troponin I < 0.02 ng/mL (0-1.5) 05/12/17 16:03 C-Reactive Protein 3.10 mg/L (0-3.0) H 05/12/17 16:03 Total Protein 7.0 g/dL (6.4-8.2) 05/22/17 04:20 Albumin 2.7 g/dL (3.4-5.0) L 05/22/17 04:20 Globulin 4.3 g/dL (2.5-4.5) 05/22/17 04:20 Albumin/Globulin Ratio 0.6 Ratio (1.1-2.1) L 05/22/17 04:20 Vitamin B12 118 pg/mL (193-986) L 05/13/17 04:30 Folate 4.6 ng/mL (>8.6) L 05/13/17 04:30 Specimen Type Clean catch urine 05/17/17 14:26 Urine Color Yellow (YELLOW) 05/17/17 14: Urine Appearance Cloudy (CLEAR) 05/17/17 14:26 Urine pH 6.0 (5.0 - 8.0) 05/17/17 14:26 Ur Specific Jadwin 1.010 (1.000-1.030) 05/17/17 14:26 Urine Protein 3+ (NEGATIVE) 05/17/17 14:26 Urine Glucose (UA) Negative (NEGATIVE) 05/17/17 14:26 Urine Ketones 1+ (NEGATIVE) 05/17/17 14:26 Urine Occult Blood 5+ (NEGATIVE) 05/17/17 14: Urine Nitrite Positive (NEGATIVE) 05/17/17 14: Urine Bilirubin Negative (NEGATIVE) 05/17/17 14:26 Urine Urobilinogen Normal (NORMAL) 05/17/17 14:26 Ur Leukocyte Esterase 3+ (NEGATIVE) 05/17/17 14:26 Urine RBC Tntc /HPF (NEGATIVE) 05/17/17 14:26 Urine WBC Tntc /HPF (NEGATIVE) 05/17/17 14:26 Ur Squamous Epith Cells Few /HPF (NEGATIVE) 05/17/17 14:26 Urine Bacteria 2+ /HPF (NEGATIVE) 05/17/17 14:26 Ur Culture Indicated? Yes/culture set up 05/17/17 14:26 Urine Opiates Screen Positive (NEG=<300) 05/13/17 02:51 Urine Methadone Screen Negative (NEG=<300) 05/13/17 02:51 Ur Barbiturates Screen Negative (NEG=<200) 05/13/17 02:51 Ur Phencyclidine Scrn Negative (NEG=<25) 05/13/17 02:51 Ur Amphetamines Screen Negative (NEG=<1000) 05/13/17 02:51 U Benzodiazepines Scrn Negative (NEG=<200) 05/13/17 02:51 Urine Cocaine Screen Negative (NEG=<300) 05/13/17 02:51 U Marijuana (THC) Screen Positive (NEG=<50) A 05/13/17 02:51 - Plan (1) Urinary tract infection Status: Acute Qualifiers: Urinary tract infection type: acute cystitis Hematuria presence: with hematuria Qualified Code(s): N30.01 - Acute cystitis with hematuria Plan: LEVAQUIN 750MG IV DAILY, ZOSYN 3.375GM IV TID, CONTINUE TO MONITOR (2) Pneumonia Status: Acute Qualifiers: Pneumonia type: aspiration pneumonia Laterality: left Lung location: lower lobe of lung Plan: LEVAQUIN 750MG IV DAILY, ZOSYN 3.375GM IV DAILY, RESPIRATORY TX, SUPPLEMENTAL OXYGEN, CONTINUE TO MONITOR (3) Altered mental status Status: Acute Qualifiers: Altered mental status type: transient alteration of awareness Qualified Code(s): R40.4 - Transient alteration of awareness Plan: ZYPREXA 10MG PO BID, DISCONTINUE XANAX AND START ATIVAN 0.5MG PO TID, CONTINUE HALDOL, CONTINUE TO MONITOR (4) Hypertension Status: Acute Qualifiers: Hypertension type: essential hypertension Qualified Code(s): I10 - Essential (primary) hypertension Plan: CONTINUE ZESTRIL, CONTINUE TO MONITOR (5) Diabetes Status: Acute Qualifiers: Diabetes mellitus type: type 2 Diabetes mellitus complication status: without complication Diabetes mellitus editorial specialist insulin use: with editorial specialist use Qualified Code(s): E11.9 - Type 2 diabetes mellitus without complications ; Z79.4 - skilled nursing (current) use of insulin; Z79.4 - chief media officer (current) use of insulin; Z79.4 - skilled nursing (current) use of insulin; Z79.4 - chief media officer ( current) use of insulin Plan: CONTINUE GLUCOPHAGE, CONTINUE TO MONITOR (6) Dementia Status: Acute Qualifiers: Dementia type: vascular dementia Dementia behavioral disturbance: with behavioral disturbance Qualified Code(s): F01.51 - Vascular dementia with behavioral disturbance Plan: ZYPREXA 10MG PO BID, CONTINUE HALDOL PRN, CONTINUE TO MONITOR
[2017-05-22] MEDS ORDERED: ZESTRIL TAB 20 MG ONE (12:14)
[2017-05-22 14:25] VITALS: BP 158/84
== END 2017-05-22 14:20 | DRG 884 ==
LOC: ER 14:51 → MED/SURG 17:37 → ICU 05-17 23:55 → MED/SURG 05-17 23:55 → UNDODISIN 05-22 14:20
PROVIDERS: ADMIT Internal Medicine; ATTEND Internal Medicine
DX: R40.4 Transient alteration of awareness (principal); R55 Syncope and collapse; E83.51 Hypocalcemia; J16.8 Pneumonia due to other specified infectious organisms; N30.01 Acute cystitis with hematuria; F41.8 Other specified anxiety disorders; E11.65 Type 2 diabetes mellitus with hyperglycemia; E78.2 Mixed hyperlipidemia; I10 Essential (primary) hypertension; R94.31 Abnormal electrocardiogram [ECG] [EKG]; R53.1 Weakness; M25.552 Pain in left hip; M25.551 Pain in right hip; F12.90 Cannabis use, unspecified, uncomplicated; F11.90 Opioid use, unspecified, uncomplicated; Z91.81 History of falling; R26.89 Other abnormalities of gait and mobility; Z79.4 Long term (current) use of insulin; W18.39XA Other fall on same level, initial encounter; Y92.231 Patient bathroom in hospital as the place of occurrence of the external cause; F01.51 Vascular dementia, unspecified severity, with behavioral disturbance; R06.02 Shortness of breath; M54.5 Low back pain; B95.62 Methicillin resistant Staphylococcus aureus infection as the cause of diseases classified elsewhere; Z78.1 Physical restraint status
CPT/HCPCS: 36415; 70450; 71010; 72110; 80053; 80307; 81001; 82550; 82553; 82607; 82728; 82746; 83540; 83550; 83605; 83735; 84466; 84484; 85025; 86140; 87040; 87070; 87077; 87086; 87088; 87186; 87205; 93005; 94640; 94760; 96365; 97535; 99284; A4216; A4222; G0434; J0696; J1630; J1940; J1956; J2543; J3360; J3490; J7620

== ENCOUNTER 2017-06-10 15:35 | Inpatient (IN) | payer OTHER, MEDICAID ==
[2017-06-10 15:53] VITALS: BMI 21.9
--- NOTE | 2017-06-10 15:53 | DR.AMS ---
HPI - Time Seen Time seen: 16:00 - PCP Primary Care Physician: DEVEN - HPI Comment HPI Comment: PATIENT IS GETTING WORSE. RECENTLY GOT HOME FROM [facility]. - Complaint Cheif Complaint Doctors Comments: GENERALIZE WEAKNESS, ANOREXIA AND LOWGRADE FEVER WITH CONFUSION. Chief Complaint:: EMS STATES PT'S FAMILY C/O PT HAS NOT BEEN EATING OR DRINKING. EMS ALSO STATES PT HAS BEEN HAVING INCREASED AMS AND RUNNING LOW GRADE FEVER. - Reviewed Nurses Notes Reviewed: Yes - Source History Provided: Family Member, EMS - Mode of Arrival Mode of Arrival: EMS - Timing Onset of Chief Complaint: 06/10/17 Came On: Suddenly Symptoms: Unchanged - Duration Duration: Constant Duration: Days - Quality Quality: Confusion - Severity Severity: Moderate - Context Recent: None History Of: Dementia, Diabetes - Associated Signs and Symptoms Associated Signs and Symptoms: Generalized Weakness, Change in Behavior, Confusion, Decreased Oral Intake PMH - PMH Past Medical History: Yes Past Medical History: Anxiety, Dementia, Diabetes, Dyslipidemia, Migraines, Hypertension Past Surgical History: Yes Surgical History: Other - Family History History of Family Medical Conditions: Yes Family Medical History: [place], Hypertension - Social History Does any household member use tobacco: No Alcohol Use: None Do you use any recreational Drugs:: No Lives With: Family Lives Where: Home - infectious screening In the last 2 months have you had wt loss of >10#?: NO Have you had fever, night sweats or hemotysis?: No Have you traveled outside the country in the last 6 months?: No Isolation: Standard ROS - Review of Systems Constitutional: Fever (LOW GRADE), Weakness, Fatigue, Loss of Appetite. negative: Chills Eyes: negative: Eye Pain, Discharge ENTM: Mouth Pain (BITE LOWER LIP). negative: Ear Pain, Nose Discharge, Nose Congestion, Throat Pain Respiratoy: Non-Productive Cough, Short of Breath (ON EXERTION). negative: Productive Cough, Wheezing, Hemoptysis Cardiovascular: Edema. negative: Chest Pain Gastrointestinal/Abdominal: negative: Abdominal Pain, Diarrhea, Nausea, Vomiting Genitourinary: negative: Hematuria Neurological: Weakness Musculoskeletal: No Symptoms Reported Integumentary: Change in Color Hematologic/Lymphatic: Easy Bruising Endocrine: No Symptoms Reported All Other Systems: Reviewed and Negative PE - Vitals Vital Signs: Temp Pulse Resp BP BP BP Pulse Ox 06/10/17 15:35 99.8 F H 68 20 139/91 96 05/22/17 14:00 158/84 158/84 05/18/17 12:00 114/70 - General Limitations: Altered Mental Status General Appearance: Alert - Head Head Exam: Normal Inspection Head Exam Physical: Other (NONE) - Eyes Eye exam: Other (SMALL REACTIVE PUPIL.) Pupils: Regular, Round: Bilateral, Reactive: Bilateral - ENT ENT Exam: Normal External Ear Exam External Ear Exam: Normal External Inspection TM/Canal Exam: Bilateral Normal Nose Exam: Normal Nose Exam Mouth Exam: Lip Swelling (LLOWER LIP WITH OLD BLOOD.). negative: Trismus - Neck Neck Exam: Trachea Midline - Chest Chest Inspection: Symmetric Chest Wall Rise - Respiratory Respiratory Exam: Normal Lung Sounds Bilat Respiratory Exam: Bilateral Rhonchi, Lower Rhonchi - Cardiovascular Cardiovascular Exam: Regular Rate, Normal Rhythm, Normal Heart Sounds - Abdominal Exam Abdominal Exam: Normal Bowel Sounds, Soft. negative: Tenderness - Extremities Extremities Exam: Normal Inspection - Back Back Exam: Paraspinal Tenderness - Neurological Neurological Exam: Alert, Oriented X3 Upper Motor Neuron Exam: Babinski Sign: Normal MDM - Additional Information Obtained Additional Information Obtained From: Family - Differential Diagnosis Metabolic: Dehydration, DKA, Hypercalcemia, Hypernatremia, Hypoglycemia, Hyponatremia Infectious: UTI Course - Treatment Treatment: SEE ORDERS - Consultation Consultation Comments: DISCUSS PATIENT WITH DR. CARVALHO. HE WILL ADMIT PATIENT. - Education/Counseling Education/Counseling: Patient, Family, Education Educated On: Diagnosis ROR - Labs Reviewed Laboratory Results Reviewed?: Yes Result Diagrams: 06/10/17 16:02 06/10/17 16:02 Laboratory: WBC 10.6 X10^3/uL (3.6-10.0) H 06/10/17 16:02 RBC 3.81 X10^6/uL (4.7-6.0) L 06/10/17 16:02 Hgb 10.7 g/dL (13.5-18.0) L 06/10/17 16:02 Hct 32.1 % (42.0-54.0) L 06/10/17 16:02 MCV 84.3 fL (80.0-100.0) 06/10/17 16:02 MCH 28.2 pg (27.0-34.0) 06/10/17 16:02 MCHC 33.5 g/dL (33.0-35.0) 06/10/17 16:02 RDW 13.8 % (11.6-16.5) 06/10/17 16:02 Plt Count 382 X10^3/uL (150.0-450.0) 06/10/17 16:02 MPV 7.6 fL (7.4-11.0) 06/10/17 16:02 Neut % 87.3 % (42.0-75.0) H 06/10/17 16:02 Lymph % 3.7 % (21.0-51.0) L 06/10/17 16:02 [place] % 5.1 % (0.0-13.0) 06/10/17 16:02 Eos % 3.4 % (0.9-2.9) H 06/10/17 16:02 Baso % 0.5 % (0.2-1.0) 06/10/17 16:02 Neut # 9.3 x10^3/uL (2.2-4.8) H 06/10/17 16:02 Lymph # 0.4 X10^3/uL (1.3-2.9) L 06/10/17 16:02 [place] # 0.5 x10^3/uL (0.3-0.8) 06/10/17 16:02 Eos # 0.4 x10^3/uL (0.0-0.2) H 06/10/17 16:02 Baso # 0.1 X10^3/uL (0.0-0.1) 06/10/17 16:02 Absolute Nucleated RBC 0.0 /100WBC 06/10/17 16:02 Sodium 147 mmol/L (136-145) H 06/10/17 16:02 Corrected Sodium TNP 06/10/17 16:02 Potassium 4.5 mmol/L (3.5-5.1) 06/10/17 16:02 Chloride 112 mmol/L (98-107) H 06/10/17 16:02 Carbon Dioxide 25.0 mmol/L (21-32) 06/10/17 16:02 BUN 24 mg/dL (7-18) H 06/10/17 16:02 Creatinine 1.42 mg/dL (0.70-1.30) H 06/10/17 16:02 Est GFR (MDRD) Af Amer > 60 (>60) 06/10/17 16:02 Est GFR (MDRD) Non-Af 52 (>60) L 06/10/17 16:02 Glucose 109 mg/dL (65-99) H 06/10/17 16:02 Calcium 10.0 mg/dL (8.5-10.1) 06/10/17 16:02 Corrected Calcium 11.1 mg/dL (8.5-10.1) H 06/10/17 16:02 Total Bilirubin 0.40 mg/dL (0.2-1.0) 06/10/17 16:02 AST 50 Units/L (15-37) H 06/10/17 16:02 ALT 59 Units/L (12-78) 06/10/17 16:02 Alkaline Phosphatase 85 Units/L (46-116) 06/10/17 16:02 Creatine Kinase 300 Units/L (39-308) 06/10/17 16:02 CK-MB (CK-2) < 1.0 ng/mL (0-4.0) 06/10/17 16:02 CK/CKMB % Calc 0.3 % (<4) 06/10/17 16:02 Troponin I < 0.02 ng/mL (0-1.5) 06/10/17 16:02 Total Protein 7.8 g/dL (6.4-8.2) 06/10/17 16:02 Albumin 2.6 g/dL (3.4-5.0) L 06/10/17 16:02 Globulin 5.2 g/dL (2.5-4.5) H 06/10/17 16:02 Albumin/Globulin Ratio 0.5 Ratio (1.1-2.1) L 06/10/17 16:02 - XRAY XRAY Interpreted by: Radiologist XRAY Findings: REPORT DECUSS WITH PATIENT. - EKG Rhythm: NSR (EKG NOTED) - Diagnosis Discharge Problem: Dehydration Mental status alteration Qualifiers: Altered mental status type: transient alteration of awareness Qualified Code(s) : R40.4 - Transient alteration of awareness Dementia Qualifiers: Dementia type: unspecified type Dementia behavioral disturbance: with behavioral disturbance Qualified Code(s): F03.91 - Unspecified dementia with behavioral disturbance - Discharge Plan Condition: Stable - Follow ups/Referrals Follow ups/Referrals: Chase Carvalho [Primary Care Provider] - 3 days - Instructions
[2017-06-10 16:11] LABS: BASOPHILS # (AUTO) 0.1 X10^3/uL (0.0-0.1); BASOPHILS % (AUTO) 0.5 % (0.2-1.0); EOSINOPHILS # (AUTO) 0.4 x10^3/uL (0.0-0.2); EOSINOPHILS % (AUTO) 3.4 % (0.9-2.9); HEMATOCRIT 32.1 % (42.0-54.0); HEMOGLOBIN 10.7 g/dL (13.5-18.0); LYMPHOCYTES # (AUTO) 0.4 X10^3/uL (1.3-2.9); LYMPHOCYTES % (AUTO) 3.7 % (21.0-51.0); MEAN CORPUSCULAR HEMOGLOBIN 28.2 pg (27.0-34.0); MEAN CORPUSCULAR HGB CONC 33.5 g/dL (33.0-35.0); MEAN CORPUSCULAR VOLUME 84.3 fL (80.0-100.0); MEAN PLATELET VOLUME 7.6 fL (7.4-11.0); MONOCYTES # (AUTO) 0.5 x10^3/uL (0.3-0.8); MONOCYTES % (AUTO) 5.1 % (0.0-13.0); NEUTROPHILS # (AUTO) 9.3 x10^3/uL (2.2-4.8); NEUTROPHILS % (AUTO) 87.3 % (42.0-75.0); PLATELET COUNT 382 X10^3/uL (150.0-450.0); RED BLOOD COUNT 3.81 X10^6/uL (4.7-6.0); RED CELL DISTRIBUTION WIDTH 13.8 % (11.6-16.5); WHITE BLOOD COUNT 10.6 X10^3/uL (3.6-10.0)
--- NOTE | 2017-06-10 16:22 | CT ---
CT head without contrast Indication: Altered mental status Technique: Helical CT images of the brain were obtained without IV contrast. Reformatted images in th e coronal and sagittal planes were also generated for review. Comparison: 05/12/2017 Findings: There is no intracranial hemorrhage, visible acute infarct, focal or generalized edema, ext ra-axial collection, hydrocephalus or mass. There is stable age-appropriate cerebral atrophy with pro portional compensatory ventricular and sulcal enlargement. Patchy periventricular and subcortical whi te matter hypodensities appear unchanged, suggestive for mild microangiopathic disease. The visualize d paranasal sinuses and mastoid air cells are clear. No acute osseous or soft tissue abnormality is i dentified. Impression: No acute intracranial abnormality. Stable atrophy and mild microangiopathic disease. Reported By:
--- NOTE | 2017-06-10 16:23 | RAD ---
Examination: AP chest History: AMS, low-grade fever Comparison reference 05/22/2017 Findings: Continued normal heart size. Stable area of linear atelectasis or fibrosis right base. Inte rval development of a 2.0 cm nodular density at the left costophrenic angle. No pneumothorax or signi ficant pleural fluid. Impression: Interval appearance of rounded nodular density left lung base. This could be inflammatory or neoplastic. Follow-up indicated. Reported By:
[2017-06-10 16:27] LABS: BLOOD UREA NITROGEN 24 mg/dL (7-18); CHLORIDE 112 mmol/L (98-107); CREATININE 1.42 mg/dL (0.70-1.30); SODIUM 147 mmol/L (136-145); TROPONIN I < 0.02 ng/mL (0-1.5); eGFR BLACK RACES > 60 (>60); eGFR NON BLACK RACES 52 (>60)
[2017-06-10 16:31] LABS: ALANINE AMINOTRANSFERASE 59 Units/L (12-78); ALBUMIN 2.6 g/dL (3.4-5.0); ALKALINE PHOSPHATASE 85 Units/L (46-116); ASPARTATE AMINO TRANSFERASE 50 Units/L (15-37); CKMB % 0.3 % (<4); COR CA(FOR HYPOALB) 11.1 mg/dL (8.5-10.1); CREATINE KINASE 300 Units/L (39-308); CREATINE KINASE MB < 1.0 ng/mL (0-4.0); TOTAL PROTEIN 7.8 g/dL (6.4-8.2)
[2017-06-10] MEDS ORDERED: XANAX PO PRN (17:31)
[2017-06-10] MEDS ORDERED: NYSTATIN CREAM ONE (18:06)
[2017-06-10] MEDS ORDERED: NYSTATIN POWDER ONE (18:07)
[2017-06-10] MEDS: NS 1000 ML 1,000 ML IV SCH (18:16)
[2017-06-10] MEDS: NYSTATIN POWDER TOP SCH ×2 (18:37→21:36)
[2017-06-10] MEDS: NYSTATIN CREAM TOP SCH ×2 (18:37→21:36)
[2017-06-10] MEDS: COLACE CAP 100 MG PO SCH (21:35)
[2017-06-10] MEDS: LOPRESSOR TAB 50 MG PO SCH (21:35)
[2017-06-10] MEDS: MILK OF MAGNESIA PO SCH (21:35)
[2017-06-10] MEDS: ZyPREXA TAB 5 MG PO SCH (21:35)
[2017-06-10] MEDS: NYSTATIN SUSP PO SCH (21:36)
[2017-06-10] MEDS: NEURONTIN CAP 100 MG PO SCH (22:00)
[2017-06-11 00:06] LABS: CKMB % 0.5 % (<4); CREATINE KINASE 191 Units/L (39-308); CREATINE KINASE MB < 1.0 ng/mL (0-4.0); TROPONIN I < 0.02 ng/mL (0-1.5)
[2017-06-11] MEDS: NEURONTIN CAP 100 MG PO SCH ×3 (05:42→21:04)
[2017-06-11 05:54] LABS: BILIRUBIN,URINE NEGATIVE (NEGATIVE); BLOOD/HEMOGLOBIN,URINE 4+ (NEGATIVE); GLUCOSE, URINE NEGATIVE (NEGATIVE); KETONES,URINE 1+ (NEGATIVE); LEUKOCYTE ESTERASE ,URINE NEGATIVE (NEGATIVE); NITRITES,URINE NEGATIVE (NEGATIVE); PROTEIN,URINE 2+ (NEGATIVE); UROBILINOGEN,URINE NORMAL (NORMAL)
[2017-06-11 06:09] LABS: APPEARANCE,URINE CLEAR (CLEAR); BACTERIA,URINE NEGATIVE /HPF (NEGATIVE); COLOR,URINE YELLOW (YELLOW); RBC,URINE 15-20 /HPF (NEGATIVE); SQUAMOUS EPITHELIAL CELL,UR RARE /HPF (NEGATIVE); YEAST,URINE MODERATE /HPF (NEGATIVE)
[2017-06-11 06:21] LABS: ALANINE AMINOTRANSFERASE 53 Units/L (12-78); ALBUMIN 2.2 g/dL (3.4-5.0); ALKALINE PHOSPHATASE 71 Units/L (46-116); ASPARTATE AMINO TRANSFERASE 53 Units/L (15-37); BLOOD UREA NITROGEN 22 mg/dL (7-18); CALCIUM 8.9 mg/dL (8.5-10.1); CARBON DIOXIDE 20.6 mmol/L (21-32); COR CA(FOR HYPOALB) 10.3 mg/dL (8.5-10.1); CREATININE 1.41 mg/dL (0.70-1.30); MAGNESIUM 1.8 mg/dL (1.7-2.9); SODIUM 149 mmol/L (136-145); TOTAL PROTEIN 6.8 g/dL (6.4-8.2); eGFR BLACK RACES > 60 (>60); eGFR NON BLACK RACES 52 (>60)
[2017-06-11 06:26] LABS: CHLORIDE 116 mmol/L (98-107); CKMB % 0.7 % (<4); CREATINE KINASE 149 Units/L (39-308); CREATINE KINASE MB < 1.0 ng/mL (0-4.0); TROPONIN I < 0.02 ng/mL (0-1.5)
[2017-06-11 06:34] LABS: BASOPHILS # (AUTO) 0.1 X10^3/uL (0.0-0.1); BASOPHILS % (AUTO) 0.6 % (0.2-1.0); EOSINOPHILS # (AUTO) 0.2 x10^3/uL (0.0-0.2); EOSINOPHILS % (AUTO) 1.9 % (0.9-2.9); HEMATOCRIT 30.6 % (42.0-54.0); HEMOGLOBIN 10.2 g/dL (13.5-18.0); LYMPHOCYTES # (AUTO) 0.4 X10^3/uL (1.3-2.9); LYMPHOCYTES % (AUTO) 4.5 % (21.0-51.0); MEAN CORPUSCULAR HEMOGLOBIN 28.1 pg (27.0-34.0); MEAN CORPUSCULAR HGB CONC 33.4 g/dL (33.0-35.0); MEAN CORPUSCULAR VOLUME 84.2 fL (80.0-100.0); MEAN PLATELET VOLUME 8.8 fL (7.4-11.0); MONOCYTES # (AUTO) 0.7 x10^3/uL (0.3-0.8); MONOCYTES % (AUTO) 8.2 % (0.0-13.0); NEUTROPHILS % (AUTO) 84.8 % (42.0-75.0); PLATELET COUNT 301 X10^3/uL (150.0-450.0); RED BLOOD COUNT 3.63 X10^6/uL (4.7-6.0); RED CELL DISTRIBUTION WIDTH 13.6 % (11.6-16.5); WHITE BLOOD COUNT 8.2 X10^3/uL (3.6-10.0)
[2017-06-11] MEDS ORDERED: GLUCOPHAGE ONE ×2 (07:52→20:27)
[2017-06-11] MEDS: DIFLUCAN 200 MG IV PREMIX* 200 MG/100 ML BAG IV SCH ×2 (08:54→10:20)
[2017-06-11] MEDS: NS 1000 ML 1,000 ML IV SCH ×2 (08:54→21:18)
[2017-06-11] MEDS: ALBUMIN HUMAN 25%- 100ML 100 ML IV SCH ×2 (08:55→10:20)
[2017-06-11] MEDS: NYSTATIN POWDER TOP SCH ×2 (09:37→21:03)
[2017-06-11] MEDS: NYSTATIN CREAM TOP SCH ×2 (09:37→21:03)
[2017-06-11] MEDS: LOPRESSOR TAB 50 MG PO SCH ×2 (12:30→21:19)
[2017-06-11] MEDS: TYLENOL SUPP 650 MG PR PRN ×2 (12:30→16:55)
[2017-06-11] MEDS: GLUCOPHAGE PO SCH ×2 (12:30→21:02)
[2017-06-11] MEDS: PROTONIX TAB 40 MG PO SCH (12:30)
[2017-06-11] MEDS: LASIX PO SCH (12:30)
[2017-06-11] MEDS: NYSTATIN SUSP PO SCH ×4 (12:30→21:20)
--- NOTE | 2017-06-11 16:20 | RAD ---
HISTORY: Shortness of breath, cough Study: Single view chest Comparison: 06/10/2017 Findings: Single portable view is submitted. Persistent 3 cm rounded opacity seen at the left lung base. No eff usion or pneumothorax identified. The cardiac and mediastinal contours are within normal limits. The soft tissues are unremarkable. IMPRESSION: 1. Persistent 3 cm rounded opacity at the left lung base. CT recommended for further characterization . Reported By:
[2017-06-11] MEDS: ROCEPHIN VIAL 1 GM 1 GM in NS 100 ML IV + SPIKE MINIBAG* 100 ML IV SCH (16:51)
[2017-06-11] MEDS ORDERED: CATAPRES-TTS-1 TD SCH (21:00)
[2017-06-11] MEDS: COLACE CAP 100 MG PO SCH (21:01)
[2017-06-11] MEDS: ZyPREXA TAB 5 MG PO SCH (21:04)
[2017-06-11] MEDS: MILK OF MAGNESIA PO SCH (21:20)
[2017-06-12 06:24] LABS: ALANINE AMINOTRANSFERASE 52 Units/L (12-78); ALBUMIN 2.5 g/dL (3.4-5.0); ALKALINE PHOSPHATASE 67 Units/L (46-116); ASPARTATE AMINO TRANSFERASE 51 Units/L (15-37); BLOOD UREA NITROGEN 23 mg/dL (7-18); CALCIUM 8.7 mg/dL (8.5-10.1); CARBON DIOXIDE 23.6 mmol/L (21-32); CHLORIDE 110 mmol/L (98-107); COR CA(FOR HYPOALB) 9.9 mg/dL (8.5-10.1); CREATININE 1.56 mg/dL (0.70-1.30); SODIUM 145 mmol/L (136-145); eGFR BLACK RACES 56 (>60); eGFR NON BLACK RACES 46 (>60)
[2017-06-12 07:25] LABS: BASOPHILS # (AUTO) 0.1 X10^3/uL (0.0-0.1); BASOPHILS % (AUTO) 0.5 % (0.2-1.0); EOSINOPHILS # (AUTO) 0.1 x10^3/uL (0.0-0.2); EOSINOPHILS % (AUTO) 0.7 % (0.9-2.9); HEMATOCRIT 29.1 % (42.0-54.0); HEMOGLOBIN 9.9 g/dL (13.5-18.0); LYMPHOCYTES % (AUTO) 9.2 % (21.0-51.0); MEAN CORPUSCULAR HEMOGLOBIN 28.4 pg (27.0-34.0); MEAN CORPUSCULAR HGB CONC 34.1 g/dL (33.0-35.0); MEAN CORPUSCULAR VOLUME 83.1 fL (80.0-100.0); MONOCYTES # (AUTO) 0.8 x10^3/uL (0.3-0.8); MONOCYTES % (AUTO) 7.5 % (0.0-13.0); NEUTROPHILS # (AUTO) 8.7 x10^3/uL (2.2-4.8); NEUTROPHILS % (AUTO) 82.1 % (42.0-75.0); PLATELET COUNT 251 X10^3/uL (150.0-450.0); RED CELL DISTRIBUTION WIDTH 13.6 % (11.6-16.5); WHITE BLOOD COUNT 10.6 X10^3/uL (3.6-10.0)
[2017-06-12] MEDS: NYSTATIN POWDER TOP SCH ×2 (09:00→20:33)
[2017-06-12] MEDS: NYSTATIN SUSP PO SCH ×4 (09:00→20:35)
--- NOTE | 2017-06-12 10:25 | DR.H&P ---
H&P - History & Physical for Day of: H&P Date: 06/10/17 - Chief Complaint Chief Complaint: altered mental status, weakness - Allergies Allergies/Adverse Reactions: Allergies Allergy/AdvReac Type Severity Reaction Status Date / Time No Known Drug Allergies Allergy Verified 05/12/17 14:46 - History of Present Illness History of Present Illness: is a 76 year old patient of ours who presented to the emergency room via ems with complaints of generalized weakness , low grade fever, decreased appetite, and altered mental status (per family). Family reports that patient was recently released from the behavioral health unit in [place], [place], and symptoms have increasingly gotten worse since then. Patient has a known history of dementia. On examination, pupils PERRL. Patient is confused and does not follow simple commands. There is dry blood noted to mouth. Family reports that patient bites on his lower lip. Heart is reglular in rate and rhythm. Bilateral lungs are noted with rhonchi throughout and diminished. Abdomen is flat, soft, and non-tender with normal bowel sounds noted in all quadrants. Sacrum is noted with a stage 2 pressure ulcer with yellow slough. There is normal range of motion noted to all extremities. Bilateral lower extremities are noted with non-pitting edema. On arrival to the emergency room, vital signs were 99.8-68-20-96%-139/91. Labs, brain CT, and xray were obtained. Abnormal lab values include the following: wbc 10.6, rbc 3.81, hgb 10.7, hct 32.1, sodium 147, chloride 112, bun 24, creatinine 1.42, glucose 109, ast 50, albumin 2.6, globulin 5.2. cardiac enzymes within normal limits. Urinalysis reported wbc 0-3, rbd 15-20, leukocytes negative, bacteria negative, moderate amount of yeast, protein 2+, nitrites negative. A chest xray was obtained and reported a rounded nodular density left lung base. This could be inflammatory or neoplastic. Brain CT reported no acute intracranial abnormality. Stable atrophy and mild microangiopathic disease. EKG reported sinus tachycardia with HR 121. We admitted patient for further treatment and evaluation. He was started on normal saline at 75ml/hr. we will obtain wound cultures and follow up with AM labs. - Past Medical History Past Medical History: Anxiety, Dementia, Diabetes, Dyslipidemia, Migraines, Hypertension - Past Surgical History Surgical History: Other - Family History Family Medical History: [place], Hypertension - Social History Does patient currently use any type of tobacco product: No Have you used tobacco products in the last 12 months: No Type of Tobacco Use: None Does any household member use tobacco: No Alcohol Use: None Drug Use: Prescription Drugs - Medications Home Medications: Alprazolam [XANAX 0.5 MG *] 1 tab PO TID PRN 06/10/17 [History Confirmed ] Amoxicillin [AMOXIL CAP 500 MG *] 1 cap PO BID 06/10/17 [History Confirmed 06/10] Furosemide [LASIX TAB 20 MG *] 1 tab PO DAILY 06/10/17 [History Confirmed ] Gabapentin 2 cap PO TID 06/10/17 [History Confirmed 06/10/17] Metformin HCl [GLUCOPHAGE 500 MG *] 1 tab PO BID 06/10/17 [History Confirmed 08/23] Metoprolol Tartrate [LOPRESSOR 50 MG *] 1 tab PO BID 06/10/17 [History Confirmed 06/10/17] Nystatin Susp [NYSTATIN ORAL SUSP *] 1 teaspoon PO QID 06/10/17 [History Confirmed 06/10/17] Olanzapine [Zyprexa 10 mg] 1 tab PO HS 06/10/17 [History Confirmed 06/10/17] Pantoprazole Sodium 40 mg [PROTONIX 40 MG *] 1 tab PO DAILY 06/10/17 [History Confirmed 06/10/17] - Review of Systems Constitutional: Fever, Weakness, Other (LOSS OF APPETITE) Eyes: No Symptoms Reported. denies: See HPI, Pain, Vision Change, Conjunctivae Inflammation, Eyelid Inflammation, Redness, Other ENT: Mouth Pain (BITE LOWER LIP) Respiratory: Cough, Shortness of Breath, SOB with Excertion Cardiovascular: Edema (BILATERAL LOWER EXTREMITIES) Gastrointestinal: No Symptoms Reported Genitourinary: No Symptoms Reported Musculoskeletal: No Symptoms Reported Skin: Wound (SACRAL WOUND ) Neurological: Weakness, Confusion - Physical Exam Vital Signs: Temperature 99.3 F Pulse Rate [Right Brachial] 107 Pulse Rate [Left Brachial] 113 Pulse Rate 68 Respiratory Rate 20 Blood Pressure [Right Arm] 136/76 Blood Pressure [Left Arm] 180/84 Blood Pressure 139/91 O2 Sat by Pulse Oximetry 96 Oriented: Not Oriented Eyes: Normal. negative: Blurred Vision, Diplopia, Discharge, Pain, Redness, Photophobia, Other Ear: Normal. negative: Right, Left, Swelling, Ecchymosis, Hemotypanum, Abrasion , Laceration Nose: Normal. negative: Injected, Discharge, Blood, Other Throat: Normal. negative: Tonsillar Hypertrophy, Red, Exudate, Dry, Other Respiratory: Diminished Throughout, Rhonchi Throughout Cardiovascular: Edema (BILATERAL LOWER EXTREMITY EDEMA ) : Normal Auscultation: Bowel Sounds: Normal Palpation: Normal Tenderness: Normal Skin: Wound (STAGE 2 DECUBITUS ULCER ) Musculoskeletal: Normal Psychiatric: Normal, Other (DISORIENTED, CONFUSED ) Mood Description: Calm Affect: Normal Speech Pattern: Inappropriate - Assessment/Plan (1) Altered mental status Qualifiers: Altered mental status type: transient alteration of awareness Qualified Code(s): R40.4 - Transient alteration of awareness Status: Acute Plan: CONTINUE ZYPREXA 10MG HS, CONTINUE TO MONITOR (2) Decubital ulcer Qualifiers: Pressure ulcer location: sacral region Pressure ulcer stage: stage 2 Qualified Code(s): L89.152 - Pressure ulcer of sacral region, stage 2 Status: Acute Plan: WOUND CARE, IV ANTIBIOTICS, CONTINUE TO MONITOR
[2017-06-12] MEDS: NS 1000 ML 1,000 ML IV SCH ×2 (10:42→22:11)
[2017-06-12] MEDS: LEVAQUIN PREMIX IV 500 MG 500 MG/100 ML BAG IV SCH (10:42)
[2017-06-12] MEDS: ZOSYN VIAL 3.375 GM 3.375 GM in NS 100 ML IV + SPIKE MINIBAG* 100 ML IV SCH ×4 (10:42→22:11)
[2017-06-12] MEDS: ALBUMIN HUMAN 25%- 100ML 100 ML IV SCH (10:42)
[2017-06-12] MEDS: DIFLUCAN 200 MG IV PREMIX* 200 MG/100 ML BAG IV SCH (10:42)
[2017-06-12] MEDS: PROTONIX TAB 40 MG PO SCH (11:39)
[2017-06-12] MEDS: GLUCOPHAGE PO SCH ×2 (11:39→20:33)
[2017-06-12] MEDS: LOPRESSOR TAB 50 MG PO SCH ×3 (11:39→20:33)
[2017-06-12] MEDS: LASIX PO SCH (11:39)
[2017-06-12] MEDS: NYSTATIN CREAM TOP SCH ×2 (11:40→20:33)
--- NOTE | 2017-06-12 12:21 | CT ---
CT CHEST WITH IV CONTRAST HISTORY: Lung nodule Comparison: Chest x-ray 06/11/2017 Technique: Multiple axial images of the chest were obtained from the thoracic inlet to the upper abdo men after the administration of IV contrast.Dose reduction techniques including Automated Exposure Co ntrol (AEC) and adjustment of mA and kV were utlized. Findings: The heart is normal in size. No pericardial effusion. 3 cm subcarinal lymph node on series 4, image 28. Although not optimized to detect pulmonary embolism, no large central pulmonary emboli are seen. Patchy consolidations at the left lung base and, to a lesser degree, the right lung base. No effusion s. Limited images of the upper abdomen are unremarkable. No aggressive osseous lesions. IMPRESSION: 1. Patchy bibasilar opacities which are favored to represent infection or aspiration. Reported By:
[2017-06-12] MEDS: NEURONTIN CAP 100 MG PO SCH ×3 (13:57→22:11)
[2017-06-12] MEDS: MILK OF MAGNESIA PO PRN (13:59)
[2017-06-12] MEDS: ROCEPHIN VIAL 1 GM 1 GM in NS 100 ML IV + SPIKE MINIBAG* 100 ML IV SCH (15:42)
[2017-06-12] MEDS ORDERED: GLUCOPHAGE ONE (20:23)
[2017-06-12] MEDS: COLACE CAP 100 MG PO SCH (20:33)
[2017-06-12] MEDS: ZyPREXA TAB 5 MG PO SCH (20:33)
--- NOTE | 2017-06-12 21:19 | PCM.PROG ---
Progress Note - Progress Note for Day of Date: 06/11/17 - Subjective Subjective: WAS ADMITTED FOR ALTERED MENTAL STATUS AND GENERALIZED WEAKNESS. TODAY, HE IS LYING IN BED WITH EYES CLOSED. PATIENT IS DIFFICULT TO AROUSE, BUT DOES RESPOND TO PAINFUL STIMULI. HEARTRATE IS RAPID. BILATERAL LUNGS ARE NOTED WITH RHONCHI THROUGHOUT. ABDOMEN IS FLAT, SOFT, AND NON-TENDER WITH DECREASED BOWEL SOUNDS NOTED IN ALL QUADRANTS. BUTTOCK/SACRUM CONTINUES WITH REDNESS AND A STAGE 2 DECUBITUS ULCER WITH YELLOW SLOUGH. STAFF REPORTS THAT PATIENT SPIKED A TEMPERATURE OF 100.3 THROUGHOUT THE NIGHT. HIS VITAL SIGNS THIS MORNING ARE 100.8-116-20-97%-180/84. LABS WERE OBTAINED. ABNORMAL LAB VALUES INCLUDE THE FOLLOWING: RBC 3.63, HGB 10.2, HCT 30.6, SODIUM 149, CHLORIDE 116, CARBON DIOXIDE 20.6, BUN 22, CREATININE 1.41, GLUCOSE 105, AST 53 , ALBUMIN 2.2, GLOBULIN 4.6. CARDIAC ENZYMES HAVE BEEN WITHIN NORMAL LIMITS. A CHEST XRAY WAS OBTAINED TODAY AND REPORTS PERSISTENT 3CM ROUNDED OPACITY AT THE LEFT LUNG BASE. TODAY, WE PLAN TO OBTAIN WOUND CULTURES OF THE SACRUM WELL BLOOD CULTURES. WE WILL ORDER FOR A SPUTUM INDUCTION AND CULTURE. WE WILL START PATIENT ON ROCEPHIN 1GM IV DAILY AND OBTAIN A CHEST CT WITH CONTRAST IN THE MORNING. WE WILL START ALBUMIN 25% IV DAILY. OTHERWISE, WE PLAN TO FOLLOW UP WITH AM LABS AND CONTINUE TO MONITOR PATIENT. - Past Medical Family Social History Past Med/Fam/Surg Hx: No changes since H&P Allergies: Allergies No Known Drug Allergies Allergy (Verified 05/12/17 14:46) - Review of Systems ROS: No change since H&P - Vital Signs and I&O's Vital Signs: Temperature 98.6 F Pulse Rate [Right Brachial] 107 Pulse Rate [Left Brachial] 101 Pulse Rate 68 Respiratory Rate 20 Blood Pressure [Right Arm] 136/76 Blood Pressure [Left Arm] 142/80 Blood Pressure 139/91 O2 Sat by Pulse Oximetry 98 Intake and Output: Intake & Output 06/10/17 06/11/17 06/12/17 06/13/17 11:59 11:59 11:59 11:59 Intake Total 875 580 660 Output Total 2155 700 Balance 875 -3105 -40 - Physical Exam Oriented: Not Oriented Eyes: Normal. negative: Blurred Vision, Diplopia, Discharge, Pain, Redness, Photophobia, Other Ear: Normal. negative: Right, Left, Swelling, Ecchymosis, Hemotypanum, Abrasion , Laceration Nose: Normal. negative: Injected, Discharge, Blood, Other Throat: Normal. negative: Tonsillar Hypertrophy, Red, Exudate, Dry, Other Respiratory: Right, Left, Generalized, Rhonchi Cardiovascular: Tachycardia : Normal Auscultation: Bowel Sounds: Normal Palpation: Normal Tenderness: Normal Skin: Wound (BUTTOCK, SACRUM) Musculoskeletal: Normal Psychiatric: Normal Mood Description: Calm Affect: Normal Speech Pattern: Clear, Inappropriate - Laboratory and Diagnostics Result Diagrams: 06/15/17 05:15 06/15/17 05:15 Labs: 06/11/17 15:39 Sputum - Expectorated Sputum Sputum Culture - Preliminary 06/11/17 15:39 Sputum - Expectorated Sputum - Final 06/11/17 12:58 Buttock Gram Stain - Final 06/11/17 12:58 Buttock Wound Culture - Preliminary 06/11/17 12:58 Buttock Gram Stain - Final 06/11/17 12:58 Buttock Wound Culture - Preliminary Laboratory WBC 10.6 X10^3/uL (3.6-10.0) H 06/12/17 07:10 RBC 3.50 X10^6/uL (4.7-6.0) L 06/12/17 07:10 Hgb 9.9 g/dL (13.5-18.0) L 06/12/17 07:10 Hct 29.1 % (42.0-54.0) L 06/12/17 07:10 MCV 83.1 fL (80.0-100.0) 06/12/17 07:10 MCH 28.4 pg (27.0-34.0) 06/12/17 07:10 MCHC 34.1 g/dL (33.0-35.0) 06/12/17 07:10 RDW 13.6 % (11.6-16.5) 06/12/17 07:10 Plt Count 251 X10^3/uL (150.0-450.0) 06/12/17 07:10 MPV 8.0 fL (7.4-11.0) 06/12/17 07:10 Neut % 82.1 % (42.0-75.0) H 06/12/17 07:10 Lymph % 9.2 % (21.0-51.0) L 06/12/17 07:10 [place] % 7.5 % (0.0-13.0) 06/12/17 07:10 Eos % 0.7 % (0.9-2.9) L 06/12/17 07:10 Baso % 0.5 % (0.2-1.0) 06/12/17 07:10 Neut # 8.7 x10^3/uL (2.2-4.8) H 06/12/17 07:10 Lymph # 1.0 X10^3/uL (1.3-2.9) L 06/12/17 07:10 [place] # 0.8 x10^3/uL (0.3-0.8) 06/12/17 07:10 Eos # 0.1 x10^3/uL (0.0-0.2) 06/12/17 07:10 Baso # 0.1 X10^3/uL (0.0-0.1) 06/12/17 07:10 Absolute Nucleated RBC 0.0 /100WBC 06/12/17 07:10 Sodium 145 mmol/L (136-145) 06/12/17 04:50 Corrected Sodium TNP 06/12/17 04:50 Potassium 4.1 mmol/L (3.5-5.1) 06/12/17 04:50 Chloride 110 mmol/L (98-107) H 06/12/17 04:50 Carbon Dioxide 23.6 mmol/L (21-32) 06/12/17 04:50 BUN 23 mg/dL (7-18) H 06/12/17 04:50 Creatinine 1.56 mg/dL (0.70-1.30) H 06/12/17 04:50 Est GFR (MDRD) Af Amer 56 (>60) L 06/12/17 04:50 Est GFR (MDRD) Non-Af 46 (>60) L 06/12/17 04:50 Glucose 98 mg/dL (65-99) 06/12/17 04:50 POC Glucose (mg/dL) 127 mg/dL (65-99) H 06/12/17 20:22 Calcium 8.7 mg/dL (8.5-10.1) 06/12/17 04:50 Corrected Calcium 9.9 mg/dL (8.5-10.1) 06/12/17 04:50 Magnesium 1.8 mg/dL (1.7-2.9) 06/11/17 05:19 Total Bilirubin 0.20 mg/dL (0.2-1.0) 06/12/17 04:50 AST 51 Units/L (15-37) H 06/12/17 04:50 ALT 52 Units/L (12-78) 06/12/17 04:50 Alkaline Phosphatase 67 Units/L (46-116) 06/12/17 04:50 Creatine Kinase 149 Units/L (39-308) 06/11/17 05:19 CK-MB (CK-2) < 1.0 ng/mL (0-4.0) 06/11/17 05:19 CK/CKMB % Calc 0.7 % (<4) 06/11/17 05:19 Troponin I < 0.02 ng/mL (0-1.5) 06/11/17 05:19 Total Protein 7.0 g/dL (6.4-8.2) 06/12/17 04:50 Albumin 2.5 g/dL (3.4-5.0) L 06/12/17 04:50 Globulin 4.5 g/dL (2.5-4.5) 06/12/17 04:50 Albumin/Globulin Ratio 0.6 Ratio (1.1-2.1) L 06/12/17 04:50 Specimen Type Catherized urine 06/11/17 05:29 Urine Color Yellow (YELLOW) 06/11/17 05:29 Urine Appearance Clear (CLEAR) 06/11/17 05:29 Urine pH 7.0 (5.0 - 8.0) 06/11/17 05:29 Ur Specific [place] 1.010 (1.000-1.030) 06/11/17 05:29 Urine Protein 2+ (NEGATIVE) 06/11/17 05:29 Urine Glucose (UA) Negative (NEGATIVE) 06/11/17 05:29 Urine Ketones 1+ (NEGATIVE) 06/11/17 05:29 Urine Occult Blood 4+ (NEGATIVE) 06/11/17 05:29 Urine Nitrite Negative (NEGATIVE) 06/11/17 05:29 Urine Bilirubin Negative (NEGATIVE) 06/11/17 05:29 Urine Urobilinogen Normal (NORMAL) 06/11/17 05:29 Ur Leukocyte Esterase Negative (NEGATIVE) 06/11/17 05:29 Urine RBC 15-20 /HPF (NEGATIVE) 06/11/17 05:29 Urine WBC 0-3 /HPF (NEGATIVE) 06/11/17 05:29 Ur Squamous Epith Cells Rare /HPF (NEGATIVE) 06/11/17 05:29 Urine Bacteria Negative /HPF (NEGATIVE) 06/11/17 05:29 Urine Yeast Moderate /HPF (NEGATIVE) 06/11/17 05:29 Ur Culture Indicated? No/not indicated 06/11/17 05:29 - Plan (1) Cellulitis of buttock Status: Acute Plan: ROCEPHIN 1GM IV DAILY, WOUND CARE, WOUND CULTURES, CONTINUE TO MONITOR (2) Decubital ulcer Status: Acute Qualifiers: Pressure ulcer location: sacral region Pressure ulcer stage: stage 2 Qualified Code(s): L89.152 - Pressure ulcer of sacral region, stage 2 Plan: WOUND CARE, WOUND CULTURES, CONTINUE TO MONITOR (3) Altered mental status Status: Acute Qualifiers: Altered mental status type: transient alteration of awareness Qualified Code(s): R40.4 - Transient alteration of awareness Plan: CONTINUE ZYPREXA 10MG HS, CONTINUE TO MONITOR (4) Hypoalbuminemia Status: Acute Plan: ALBUMIN 25% IV DAILY, CONTINUE TO MONITOR
--- NOTE | 2017-06-12 21:31 | PCM.PROG ---
Progress Note - Progress Note for Day of Date: 06/12/17 - Subjective Subjective: WAS ADMITTED FOR ALTERED MENTAL STATUS AND GENERALIZED WEAKNESS. TODAY, HE IS LYING IN BED WITH EYES CLOSED. PATIENTCONTINUES TO BE DIFFICULT TO AROUSE TODAY. HEART RATE IS REGULAR IN RATE AND RHYTHM. BILATERAL LUNGS CONTINUE WITH RHONCHI THROUGHOUT. ABDOMEN IS FLAT, SOFT, AND NON-TENDER WITH DECREASED BOWEL SOUNDS NOTED IN ALL QUADRANTS. BUTTOCK/SACRUM CONTINUES WITH REDNESS AND A STAGE 2 DECUBITUS ULCER WITH YELLOW SLOUGH. STAFF REPORTS THAT PATIENT SPIKED A TEMPERATURE OF 102.3 YESTERDAY. HIS VITAL SIGNS THIS MORNING ARE 99.3, 107, 20, 96%, 136/76. LABS WERE OBTAINED. ABNORMAL LAB VALUES INCLUDE THE FOLLOWING: WBC 10.6, RBC 3.50, HGB 9.9, HCT 29.1, CHLORIDE 110, BUN 23, CREATININE 1.56, AST 51, ALBUMIN 2.5. WOUND CULTURES WERE OBTAINED. PRELIMINARY RESULTS REPORT GROWTH OF COAGULASE NEGATIVE STAPH AT DAY 1. SPUTUM CULTURE REPORTS MODERATE GROWTH OF GRAM POSITIVE COCCI AND MODERATE WHITE BLOOD CELLS. BLOOD CULTURES ARE PENDING. A CHEST CT WAS OBTAINED AND REPORTED PATCHY BIBASILAR OPACITIES WHICH ARE FAVORED TO REPRESENT INFECTION OR ASPIRATION. TODAY, WE WILL DISCONTINUE THE ROCEPHIN AND START LEVAQUIN 500MG IV DAILY AND ZOSYB 3.375GM IV Q8H. WE WILL CONTINUE WOUND CARE. OTHERWISE, WE PLAN TO FOLLOW UP WITH AM LABS AND CONTINUE TO MONITOR PATIENT. - Past Medical Family Social History Past Med/Fam/Surg Hx: No changes since H&P Allergies: Allergies No Known Drug Allergies Allergy (Verified 05/12/17 14:46) - Review of Systems ROS: No change since H&P - Vital Signs and I&O's Vital Signs: Temperature 98.6 F Pulse Rate [Right Brachial] 107 Pulse Rate [Left Brachial] 101 Pulse Rate 68 Respiratory Rate 20 Blood Pressure [Right Arm] 136/76 Blood Pressure [Left Arm] 142/80 Blood Pressure 139/91 O2 Sat by Pulse Oximetry 98 Intake and Output: Intake & Output 06/10/17 06/11/17 06/12/17 06/13/17 11:59 11:59 11:59 11:59 Intake Total 875 580 660 Output Total 6302 700 Balance 875 -6275 -40 - Physical Exam Oriented: Not Oriented Eyes: Normal. negative: Blurred Vision, Diplopia, Discharge, Pain, Redness, Photophobia, Other Ear: Normal. negative: Right, Left, Swelling, Ecchymosis, Hemotypanum, Abrasion , Laceration Nose: Normal. negative: Injected, Discharge, Blood, Other Throat: Normal. negative: Tonsillar Hypertrophy, Red, Exudate, Dry, Other Respiratory: Right, Left, Generalized, Rhonchi Cardiovascular: Tachycardia : Normal Auscultation: Bowel Sounds: Normal Palpation: Normal Tenderness: Normal Skin: Wound (BUTTOCK, SACRUM) Musculoskeletal: Normal Psychiatric: Normal Mood Description: Calm Affect: Normal Speech Pattern: Clear, Inappropriate - Laboratory and Diagnostics Result Diagrams: 06/15/17 05:15 06/15/17 05:15 Labs: 06/11/17 15:39 Sputum - Expectorated Sputum Sputum Culture - Preliminary 06/11/17 15:39 Sputum - Expectorated Sputum - Final 06/11/17 12:58 Buttock Gram Stain - Final 06/11/17 12:58 Buttock Wound Culture - Preliminary 06/11/17 12:58 Buttock Gram Stain - Final 06/11/17 12:58 Buttock Wound Culture - Preliminary Laboratory WBC 10.6 X10^3/uL (3.6-10.0) H 06/12/17 07:10 RBC 3.50 X10^6/uL (4.7-6.0) L 06/12/17 07:10 Hgb 9.9 g/dL (13.5-18.0) L 06/12/17 07:10 Hct 29.1 % (42.0-54.0) L 06/12/17 07:10 MCV 83.1 fL (80.0-100.0) 06/12/17 07:10 MCH 28.4 pg (27.0-34.0) 06/12/17 07:10 MCHC 34.1 g/dL (33.0-35.0) 06/12/17 07:10 RDW 13.6 % (11.6-16.5) 06/12/17 07:10 Plt Count 251 X10^3/uL (150.0-450.0) 06/12/17 07:10 MPV 8.0 fL (7.4-11.0) 06/12/17 07:10 Neut % 82.1 % (42.0-75.0) H 06/12/17 07:10 Lymph % 9.2 % (21.0-51.0) L 06/12/17 07:10 [place] % 7.5 % (0.0-13.0) 06/12/17 07:10 Eos % 0.7 % (0.9-2.9) L 06/12/17 07:10 Baso % 0.5 % (0.2-1.0) 06/12/17 07:10 Neut # 8.7 x10^3/uL (2.2-4.8) H 06/12/17 07:10 Lymph # 1.0 X10^3/uL (1.3-2.9) L 06/12/17 07:10 [place] # 0.8 x10^3/uL (0.3-0.8) 06/12/17 07:10 Eos # 0.1 x10^3/uL (0.0-0.2) 06/12/17 07:10 Baso # 0.1 X10^3/uL (0.0-0.1) 06/12/17 07:10 Absolute Nucleated RBC 0.0 /100WBC 06/12/17 07:10 Sodium 145 mmol/L (136-145) 06/12/17 04:50 Corrected Sodium TNP 06/12/17 04:50 Potassium 4.1 mmol/L (3.5-5.1) 06/12/17 04:50 Chloride 110 mmol/L (98-107) H 06/12/17 04:50 Carbon Dioxide 23.6 mmol/L (21-32) 06/12/17 04:50 BUN 23 mg/dL (7-18) H 06/12/17 04:50 Creatinine 1.56 mg/dL (0.70-1.30) H 06/12/17 04:50 Est GFR (MDRD) Af Amer 56 (>60) L 06/12/17 04:50 Est GFR (MDRD) Non-Af 46 (>60) L 06/12/17 04:50 Glucose 98 mg/dL (65-99) 06/12/17 04:50 POC Glucose (mg/dL) 127 mg/dL (65-99) H 06/12/17 20:22 Calcium 8.7 mg/dL (8.5-10.1) 06/12/17 04:50 Corrected Calcium 9.9 mg/dL (8.5-10.1) 06/12/17 04:50 Magnesium 1.8 mg/dL (1.7-2.9) 06/11/17 05:19 Total Bilirubin 0.20 mg/dL (0.2-1.0) 06/12/17 04:50 AST 51 Units/L (15-37) H 06/12/17 04:50 ALT 52 Units/L (12-78) 06/12/17 04:50 Alkaline Phosphatase 67 Units/L (46-116) 06/12/17 04:50 Creatine Kinase 149 Units/L (39-308) 06/11/17 05:19 CK-MB (CK-2) < 1.0 ng/mL (0-4.0) 06/11/17 05:19 CK/CKMB % Calc 0.7 % (<4) 06/11/17 05:19 Troponin I < 0.02 ng/mL (0-1.5) 06/11/17 05:19 Total Protein 7.0 g/dL (6.4-8.2) 06/12/17 04:50 Albumin 2.5 g/dL (3.4-5.0) L 06/12/17 04:50 Globulin 4.5 g/dL (2.5-4.5) 06/12/17 04:50 Albumin/Globulin Ratio 0.6 Ratio (1.1-2.1) L 06/12/17 04:50 Specimen Type Catherized urine 06/11/17 05:29 Urine Color Yellow (YELLOW) 06/11/17 05:29 Urine Appearance Clear (CLEAR) 06/11/17 05:29 Urine pH 7.0 (5.0 - 8.0) 06/11/17 05:29 Ur Specific [place] 1.010 (1.000-1.030) 06/11/17 05:29 Urine Protein 2+ (NEGATIVE) 06/11/17 05:29 Urine Glucose (UA) Negative (NEGATIVE) 06/11/17 05:29 Urine Ketones 1+ (NEGATIVE) 06/11/17 05:29 Urine Occult Blood 4+ (NEGATIVE) 06/11/17 05:29 Urine Nitrite Negative (NEGATIVE) 06/11/17 05:29 Urine Bilirubin Negative (NEGATIVE) 06/11/17 05:29 Urine Urobilinogen Normal (NORMAL) 06/11/17 05:29 Ur Leukocyte Esterase Negative (NEGATIVE) 06/11/17 05:29 Urine RBC 15-20 /HPF (NEGATIVE) 06/11/17 05:29 Urine WBC 0-3 /HPF (NEGATIVE) 06/11/17 05:29 Ur Squamous Epith Cells Rare /HPF (NEGATIVE) 06/11/17 05:29 Urine Bacteria Negative /HPF (NEGATIVE) 06/11/17 05:29 Urine Yeast Moderate /HPF (NEGATIVE) 06/11/17 05:29 Ur Culture Indicated? No/not indicated 06/11/17 05:29 - Plan (1) Cellulitis of buttock Status: Acute Plan: LEVAQUIN AND ZOSYN IV, WOUND CARE, WOUND CULTURES, CONTINUE TO MONITOR (2) Decubital ulcer Status: Acute Qualifiers: Pressure ulcer location: sacral region Pressure ulcer stage: stage 2 Qualified Code(s): L89.152 - Pressure ulcer of sacral region, stage 2 Plan: WOUND CARE, WOUND CULTURES, CONTINUE TO MONITOR (3) Altered mental status Status: Acute Qualifiers: Altered mental status type: transient alteration of awareness Qualified Code(s): R40.4 - Transient alteration of awareness Plan: CONTINUE ZYPREXA 10MG HS, CONTINUE TO MONITOR (4) Hypoalbuminemia Status: Acute Plan: ALBUMIN 25% IV DAILY, CONTINUE TO MONITOR
[2017-06-13 05:21] LABS: BASOPHILS % (AUTO) 0.5 % (0.2-1.0); EOSINOPHILS # (AUTO) 0.1 x10^3/uL (0.0-0.2); HEMATOCRIT 27.4 % (42.0-54.0); HEMOGLOBIN 9.2 g/dL (13.5-18.0); LYMPHOCYTES # (AUTO) 0.7 X10^3/uL (1.3-2.9); LYMPHOCYTES % (AUTO) 9.6 % (21.0-51.0); MEAN CORPUSCULAR HEMOGLOBIN 28.1 pg (27.0-34.0); MEAN CORPUSCULAR HGB CONC 33.7 g/dL (33.0-35.0); MEAN CORPUSCULAR VOLUME 83.2 fL (80.0-100.0); MEAN PLATELET VOLUME 8.2 fL (7.4-11.0); MONOCYTES # (AUTO) 0.6 x10^3/uL (0.3-0.8); MONOCYTES % (AUTO) 7.9 % (0.0-13.0); PLATELET COUNT 273 X10^3/uL (150.0-450.0); RED BLOOD COUNT 3.29 X10^6/uL (4.7-6.0); RED CELL DISTRIBUTION WIDTH 13.5 % (11.6-16.5); WHITE BLOOD COUNT 7.4 X10^3/uL (3.6-10.0)
[2017-06-13] MEDS: ZOSYN VIAL 3.375 GM 3.375 GM in NS 100 ML IV + SPIKE MINIBAG* 100 ML IV SCH ×3 (05:25→21:19)
[2017-06-13] MEDS: NEURONTIN CAP 100 MG PO SCH ×3 (05:25→21:29)
--- NOTE | 2017-06-13 06:46 | RAD ---
Chest, one view Indication: Shortness of breath Comparison: CT chest 06/12/2017 Findings: The heart size is normal. There are streaky right lower lobe opacities and dense rounded fo cus of consolidation within the left lower lobe, grossly unchanged when compared to the prior CT. The upper lungs remain clear. No significant pleural effusion or pneumothorax identified. Impression: Stable bilateral lobe opacities, either representing platelike and rounded atelectasis or pneumonia. Correlation recommended. Reported By:
[2017-06-13 07:45] LABS: ALANINE AMINOTRANSFERASE 41 Units/L (12-78); ALBUMIN 2.5 g/dL (3.4-5.0); ALKALINE PHOSPHATASE 58 Units/L (46-116); BLOOD UREA NITROGEN 18 mg/dL (7-18); CALCIUM 8.2 mg/dL (8.5-10.1); CARBON DIOXIDE 21.9 mmol/L (21-32); CHLORIDE 110 mmol/L (98-107); COR CA(FOR HYPOALB) 9.4 mg/dL (8.5-10.1); CREATININE 1.47 mg/dL (0.70-1.30); SODIUM 145 mmol/L (136-145); TOTAL PROTEIN 5.9 g/dL (6.4-8.2); eGFR BLACK RACES 60 (>60); eGFR NON BLACK RACES 50 (>60)
[2017-06-13 07:54] LABS: ASPARTATE AMINO TRANSFERASE 34 Units/L (15-37)
[2017-06-13] MEDS: CHECK PATCH XX SCH ×2 (09:00→21:30)
[2017-06-13] MEDS ORDERED: GLUCOPHAGE ONE ×2 (10:21→20:47)
[2017-06-13] MEDS: ALBUMIN HUMAN 25%- 100ML 100 ML IV SCH (10:26)
[2017-06-13] MEDS: LASIX PO SCH (10:27)
[2017-06-13] MEDS: DIFLUCAN 200 MG IV PREMIX* 200 MG/100 ML BAG IV SCH (10:27)
[2017-06-13] MEDS: GLUCOPHAGE PO SCH ×2 (10:27→21:29)
[2017-06-13] MEDS: NS 1000 ML 1,000 ML IV SCH (10:28)
[2017-06-13] MEDS: NYSTATIN SUSP PO SCH ×4 (10:28→21:28)
[2017-06-13] MEDS: PROTONIX TAB 40 MG PO SCH (10:28)
[2017-06-13] MEDS: LEVAQUIN PREMIX IV 500 MG 500 MG/100 ML BAG IV SCH (10:28)
[2017-06-13] MEDS: NYSTATIN POWDER TOP SCH ×2 (10:28→21:28)
[2017-06-13] MEDS: NYSTATIN CREAM TOP SCH ×2 (10:28→21:29)
[2017-06-13] MEDS: LOPRESSOR TAB 50 MG PO SCH ×3 (10:28→21:30)
[2017-06-13] MEDS ORDERED: DUONEB 0.5 MG/3 MG NEB SCH (13:00)
[2017-06-13] MEDS: MILK OF MAGNESIA PO PRN (17:36)
[2017-06-13] MEDS: COLACE CAP 100 MG PO SCH (21:28)
[2017-06-13] MEDS: ZyPREXA TAB 5 MG PO SCH (21:29)
[2017-06-13] MEDS: TAMIFLU PO SCH (21:48)
[2017-06-14] MEDS: NS 1000 ML 1,000 ML IV SCH ×3 (04:49→15:29)
[2017-06-14] MEDS: NEURONTIN CAP 100 MG PO SCH ×3 (05:39→21:04)
[2017-06-14] MEDS: ZOSYN VIAL 3.375 GM 3.375 GM in NS 100 ML IV + SPIKE MINIBAG* 100 ML IV SCH ×3 (05:40→21:04)
[2017-06-14 06:42] LABS: BASOPHILS % (AUTO) 0.4 % (0.2-1.0); EOSINOPHILS # (AUTO) 0.1 x10^3/uL (0.0-0.2); EOSINOPHILS % (AUTO) 1.3 % (0.9-2.9); HEMATOCRIT 24.7 % (42.0-54.0); HEMOGLOBIN 8.4 g/dL (13.5-18.0); LYMPHOCYTES # (AUTO) 0.9 X10^3/uL (1.3-2.9); LYMPHOCYTES % (AUTO) 18.4 % (21.0-51.0); MEAN CORPUSCULAR HEMOGLOBIN 28.3 pg (27.0-34.0); MEAN CORPUSCULAR HGB CONC 33.8 g/dL (33.0-35.0); MEAN CORPUSCULAR VOLUME 83.6 fL (80.0-100.0); MEAN PLATELET VOLUME 8.2 fL (7.4-11.0); MONOCYTES # (AUTO) 0.4 x10^3/uL (0.3-0.8); MONOCYTES % (AUTO) 7.7 % (0.0-13.0); NEUTROPHILS # (AUTO) 3.7 x10^3/uL (2.2-4.8); NEUTROPHILS % (AUTO) 72.2 % (42.0-75.0); PLATELET COUNT 274 X10^3/uL (150.0-450.0); RED BLOOD COUNT 2.96 X10^6/uL (4.7-6.0); RED CELL DISTRIBUTION WIDTH 13.2 % (11.6-16.5); WHITE BLOOD COUNT 5.1 X10^3/uL (3.6-10.0)
[2017-06-14 06:56] LABS: ALANINE AMINOTRANSFERASE 29 Units/L (12-78); ALBUMIN 2.4 g/dL (3.4-5.0); ALKALINE PHOSPHATASE 53 Units/L (46-116); ASPARTATE AMINO TRANSFERASE 25 Units/L (15-37); BLOOD UREA NITROGEN 18 mg/dL (7-18); CARBON DIOXIDE 21.7 mmol/L (21-32); CHLORIDE 110 mmol/L (98-107); COR CA(FOR HYPOALB) 9.3 mg/dL (8.5-10.1); CREATININE 1.49 mg/dL (0.70-1.30); SODIUM 143 mmol/L (136-145); TOTAL PROTEIN 5.9 g/dL (6.4-8.2); eGFR BLACK RACES 59 (>60); eGFR NON BLACK RACES 49 (>60)
--- NOTE | 2017-06-14 08:06 | RAD ---
Examination: Portable AP chest History: SOB Comparison reference 06/13/2017 Findings:Persistent and stable heart size. Mild interstitial infiltrate in the base these with associ ated discoid atelectasis right lower lung. No evidence for developing pleural fluid or pneumothorax. Impression: No change since 1 day earlier. Reported By:
[2017-06-14] MEDS ORDERED: GLUCOPHAGE ONE ×2 (11:01→20:45)
[2017-06-14] MEDS: NYSTATIN SUSP PO SCH ×4 (11:12→21:03)
[2017-06-14] MEDS: CHECK PATCH XX SCH ×2 (11:12→21:05)
[2017-06-14] MEDS: TAMIFLU PO SCH ×2 (11:12→23:53)
[2017-06-14] MEDS: GLUCOPHAGE PO SCH ×2 (11:12→21:04)
[2017-06-14] MEDS: PROTONIX TAB 40 MG PO SCH (11:12)
[2017-06-14] MEDS: LASIX PO SCH (11:12)
[2017-06-14] MEDS: LOPRESSOR TAB 50 MG PO SCH ×2 (11:12→21:03)
[2017-06-14] MEDS: NYSTATIN CREAM TOP SCH ×2 (11:13→21:04)
[2017-06-14] MEDS: DIFLUCAN 200 MG IV PREMIX* 200 MG/100 ML BAG IV SCH (11:13)
[2017-06-14] MEDS: NYSTATIN POWDER TOP SCH ×2 (11:13→21:05)
[2017-06-14] MEDS: ALBUMIN HUMAN 25%- 100ML 100 ML IV SCH (11:13)
[2017-06-14] MEDS: LEVAQUIN PREMIX IV 500 MG 500 MG/100 ML BAG IV SCH (11:13)
[2017-06-14] MEDS: ZyPREXA TAB 5 MG PO SCH (21:03)
[2017-06-14] MEDS: COLACE CAP 100 MG PO SCH (21:03)
--- NOTE | 2017-06-14 22:15 | PCM.PROG ---
Progress Note - Progress Note for Day of Date: 06/13/17 - Subjective Subjective: WAS ADMITTED FOR ALTERED MENTAL STATUS AND GENERALIZED WEAKNESS. TODAY, HE IS LYING IN BED WITH EYES OPEN ON MORNING ROUNDS. HE IS ALERT AND ANSWERS QUESTIONS APPROPRIATLY THIS MORNING. HE COMPLAINS OF WEAKNESS AND COUGH. ON EXAMINATION, HEART RATE IS REGULAR IN RATE AND RHYTHM. BILATERAL LUNGS CONTINUE WITH RHONCHI THROUGHOUT. ABDOMEN IS FLAT, SOFT, AND NON-TENDER WITH DECREASED BOWEL SOUNDS NOTED IN ALL QUADRANTS. BUTTOCK/SACRUM IS NOTED WITH A DRESSING TO WOUND. DRESSING IS DRY AND INTACT AT THIS TIME. PATIENT CONTINUED TO RUN A FEVER THROUGHOUT THE NIGHT. TEMPERATURE SPIKED TO 102.2 AT MIDNIGHT. HIS VITAL SIGNS THIS MORNING ARE 99.1-92-20-95%-128/69. LABS WERE OBTAINED. HE IS HEMODYNAMICALLY STABLE TODAY. A INFLUENZA SWAB WAS COLLECTED AND REPORTED POSITIVE FOR FLU A. WOUND CULTURES WERE OBTAINED. PRELIMINARY RESULTS REPORT GROWTH OF COAGULASE NEGATIVE STAPH AT DAY 3. SPUTUM CULTURE REPORTS NORMAL ROBERTO AT DAY 2. PRELIMINARY BLOOD CULTURES REPORT NO GROWTH. CHEST XRAY REPORTS STABLE BILATERAL LOBE OPACITIES, EITHER REPRESENTING PLATELIKE AND ROUNDED ATELECTASIS OR PNEUMONIA. TODAY, WE WILL START TAMIFLU 75MG PO BID. WE WILL CONTINUE WOUND CARE AND IV ANTIBIOTICS. OTHERWISE, WE PLAN TO FOLLOW UP WITH AM LABS AND CONTINUE TO MONITOR PATIENT. - Past Medical Family Social History Past Med/Fam/Surg Hx: No changes since H&P Allergies: Allergies No Known Drug Allergies Allergy (Verified 05/12/17 14:46) - Review of Systems ROS: No change since H&P - Vital Signs and I&O's Vital Signs: Temperature 98 F Pulse Rate [Right Brachial] 92 Pulse Rate [Left Brachial] 82 Pulse Rate 68 Respiratory Rate 20 Blood Pressure [Right Arm] 127/68 Blood Pressure [Left Arm] 142/80 Blood Pressure 139/91 O2 Sat by Pulse Oximetry 97 Intake and Output: Intake & Output 06/12/17 06/13/17 06/14/17 06/15/17 11:59 11:59 11:59 11:59 Intake Total 580 1255 1872 1275 Output Total 8758 2250 Balance -1745 -995 1872 1275 - Physical Exam Oriented: Person Eyes: Normal. negative: Blurred Vision, Diplopia, Discharge, Pain, Redness, Photophobia, Other Ear: Normal. negative: Right, Left, Swelling, Ecchymosis, Hemotypanum, Abrasion , Laceration Nose: Normal. negative: Injected, Discharge, Blood, Other Throat: Normal. negative: Tonsillar Hypertrophy, Red, Exudate, Dry, Other Respiratory: Right, Left, Generalized, Rhonchi Cardiovascular: Tachycardia : Normal Auscultation: Bowel Sounds: Normal Palpation: Normal Tenderness: Normal Skin: Wound (BUTTOCK, SACRUM) Musculoskeletal: Normal Psychiatric: Normal Mood Description: Calm Affect: Normal Speech Pattern: Clear, Inappropriate - Laboratory and Diagnostics Result Diagrams: 06/15/17 05:15 06/15/17 05:15 Labs: 06/11/17 12:58 Buttock Gram Stain - Final 06/11/17 12:58 Buttock Wound Culture - Final 06/11/17 12:58 Buttock Gram Stain - Final 06/11/17 12:58 Buttock Wound Culture - Final 06/11/17 12:23 Blood Blood Culture - Preliminary 06/11/17 12:19 Blood Blood Culture - Preliminary 06/11/17 15:39 Sputum - Expectorated Sputum Sputum Culture - Final 06/11/17 15:39 Sputum - Expectorated Sputum - Final Laboratory WBC 5.1 X10^3/uL (3.6-10.0) 06/14/17 05:56 RBC 2.96 X10^6/uL (4.7-6.0) L 06/14/17 05:56 Hgb 8.4 g/dL (13.5-18.0) L 06/14/17 05:56 Hct 24.7 % (42.0-54.0) L 06/14/17 05:56 MCV 83.6 fL (80.0-100.0) 06/14/17 05:56 MCH 28.3 pg (27.0-34.0) 06/14/17 05:56 MCHC 33.8 g/dL (33.0-35.0) 06/14/17 05:56 RDW 13.2 % (11.6-16.5) 06/14/17 05:56 Plt Count 274 X10^3/uL (150.0-450.0) 06/14/17 05:56 MPV 8.2 fL (7.4-11.0) 06/14/17 05:56 Neut % 72.2 % (42.0-75.0) 06/14/17 05:56 Lymph % 18.4 % (21.0-51.0) L 06/14/17 05:56 [place] % 7.7 % (0.0-13.0) 06/14/17 05:56 Eos % 1.3 % (0.9-2.9) 06/14/17 05:56 Baso % 0.4 % (0.2-1.0) 06/14/17 05:56 Neut # 3.7 x10^3/uL (2.2-4.8) 06/14/17 05:56 Lymph # 0.9 X10^3/uL (1.3-2.9) L 06/14/17 05:56 [place] # 0.4 x10^3/uL (0.3-0.8) 06/14/17 05:56 Eos # 0.1 x10^3/uL (0.0-0.2) 06/14/17 05:56 Baso # 0.0 X10^3/uL (0.0-0.1) 06/14/17 05:56 Absolute Nucleated RBC 0.1 /100WBC 06/14/17 05:56 Sodium 143 mmol/L (136-145) 06/14/17 05:56 Corrected Sodium TNP 06/14/17 05:56 Potassium 3.7 mmol/L (3.5-5.1) 06/14/17 05:56 Chloride 110 mmol/L (98-107) H 06/14/17 05:56 Carbon Dioxide 21.7 mmol/L (21-32) 06/14/17 05:56 BUN 18 mg/dL (7-18) 06/14/17 05:56 Creatinine 1.49 mg/dL (0.70-1.30) H 06/14/17 05:56 Est GFR (MDRD) Af Amer 59 (>60) 06/14/17 05:56 Est GFR (MDRD) Non-Af 49 (>60) L 06/14/17 05:56 Glucose 99 mg/dL (65-99) 06/14/17 05:56 POC Glucose (mg/dL) 91 mg/dL (65-99) 06/14/17 22:09 Calcium 8.0 mg/dL (8.5-10.1) L 06/14/17 05:56 Corrected Calcium 9.3 mg/dL (8.5-10.1) 06/14/17 05:56 Magnesium 1.8 mg/dL (1.7-2.9) 06/11/17 05:19 Total Bilirubin 0.10 mg/dL (0.2-1.0) L 06/14/17 05:56 AST 25 Units/L (15-37) 06/14/17 05:56 ALT 29 Units/L (12-78) 06/14/17 05:56 Alkaline Phosphatase 53 Units/L (46-116) 06/14/17 05:56 Creatine Kinase 149 Units/L (39-308) 06/11/17 05:19 CK-MB (CK-2) < 1.0 ng/mL (0-4.0) 06/11/17 05:19 CK/CKMB % Calc 0.7 % (<4) 06/11/17 05:19 Troponin I < 0.02 ng/mL (0-1.5) 06/11/17 05:19 Total Protein 5.9 g/dL (6.4-8.2) L 06/14/17 05:56 Albumin 2.4 g/dL (3.4-5.0) L 06/14/17 05:56 Globulin 3.5 g/dL (2.5-4.5) 06/14/17 05:56 Albumin/Globulin Ratio 0.7 Ratio (1.1-2.1) L 06/14/17 05:56 Specimen Type Catherized urine 06/11/17 05:29 Urine Color Yellow (YELLOW) 06/11/17 05:29 Urine Appearance Clear (CLEAR) 06/11/17 05:29 Urine pH 7.0 (5.0 - 8.0) 06/11/17 05:29 Ur Specific [place] 1.010 (1.000-1.030) 06/11/17 05:29 Urine Protein 2+ (NEGATIVE) 06/11/17 05:29 Urine Glucose (UA) Negative (NEGATIVE) 06/11/17 05:29 Urine Ketones 1+ (NEGATIVE) 06/11/17 05:29 Urine Occult Blood 4+ (NEGATIVE) 06/11/17 05:29 Urine Nitrite Negative (NEGATIVE) 06/11/17 05:29 Urine Bilirubin Negative (NEGATIVE) 06/11/17 05:29 Urine Urobilinogen Normal (NORMAL) 06/11/17 05:29 Ur Leukocyte Esterase Negative (NEGATIVE) 06/11/17 05:29 Urine RBC 15-20 /HPF (NEGATIVE) 06/11/17 05:29 Urine WBC 0-3 /HPF (NEGATIVE) 06/11/17 05:29 Ur Squamous Epith Cells Rare /HPF (NEGATIVE) 06/11/17 05:29 Urine Bacteria Negative /HPF (NEGATIVE) 06/11/17 05:29 Urine Yeast Moderate /HPF (NEGATIVE) 06/11/17 05:29 Ur Culture Indicated? No/not indicated 06/11/17 05:29 Influenza Type A (PCR) Positive (NEGATIVE) A 06/13/17 09:05 Influenza Type B (PCR) Negative (NEGATIVE) 06/13/17 09:05 - Plan (1) Cellulitis of buttock Status: Acute Plan: LEVAQUIN AND ZOSYN IV, WOUND CARE, WOUND CULTURES, CONTINUE TO MONITOR (2) Decubital ulcer Status: Acute Qualifiers: Pressure ulcer location: sacral region Pressure ulcer stage: stage 2 Qualified Code(s): L89.152 - Pressure ulcer of sacral region, stage 2 Plan: WOUND CARE, WOUND CULTURES, CONTINUE TO MONITOR (3) Altered mental status Status: Acute Qualifiers: Altered mental status type: transient alteration of awareness Qualified Code(s): R40.4 - Transient alteration of awareness Plan: CONTINUE ZYPREXA 10MG HS, CONTINUE TO MONITOR (4) Influenza A Status: Acute Plan: TAMIFLU 75MG PO BID, CONTINUE TO MONITOR (5) Hypoalbuminemia Status: Acute Plan: ALBUMIN 25% IV DAILY, CONTINUE TO MONITOR
[2017-06-15] MEDS: NS 1000 ML 1,000 ML IV SCH (05:42)
[2017-06-15 06:25] LABS: BASOPHILS % (AUTO) 0.6 % (0.2-1.0); EOSINOPHILS % (AUTO) 0.8 % (0.9-2.9); HEMATOCRIT 27.8 % (42.0-54.0); HEMOGLOBIN 9.5 g/dL (13.5-18.0); LYMPHOCYTES % (AUTO) 19.8 % (21.0-51.0); MEAN CORPUSCULAR HEMOGLOBIN 28.3 pg (27.0-34.0); MEAN CORPUSCULAR HGB CONC 34.2 g/dL (33.0-35.0); MEAN CORPUSCULAR VOLUME 82.5 fL (80.0-100.0); MEAN PLATELET VOLUME 8.6 fL (7.4-11.0); MONOCYTES # (AUTO) 0.4 x10^3/uL (0.3-0.8); MONOCYTES % (AUTO) 7.6 % (0.0-13.0); NEUTROPHILS # (AUTO) 3.6 x10^3/uL (2.2-4.8); NEUTROPHILS % (AUTO) 71.2 % (42.0-75.0); PLATELET COUNT 270 X10^3/uL (150.0-450.0); RED BLOOD COUNT 3.36 X10^6/uL (4.7-6.0); RED CELL DISTRIBUTION WIDTH 13.7 % (11.6-16.5); WHITE BLOOD COUNT 5.1 X10^3/uL (3.6-10.0)
[2017-06-15] MEDS: NEURONTIN CAP 100 MG PO SCH ×2 (06:29→15:11)
[2017-06-15] MEDS: ZOSYN VIAL 3.375 GM 3.375 GM in NS 100 ML IV + SPIKE MINIBAG* 100 ML IV SCH (06:29)
--- NOTE | 2017-06-15 06:34 | RAD ---
Examination: Portable AP chest History: SOB Comparison reference 06/14/2017 Findings: Continued normal heart size. Stable discoid atelectasis right parahilar area with diffuse i nfiltrate again noted at the left base. No pneumothorax identified. Impression: Bilateral parenchymal abnormalities as described; no interval change. Reported By:
[2017-06-15 06:45] LABS: ALBUMIN 2.6 g/dL (3.4-5.0); CALCIUM 8.2 mg/dL (8.5-10.1); COR CA(FOR HYPOALB) 9.3 mg/dL (8.5-10.1); CREATININE 1.47 mg/dL (0.70-1.30); TOTAL PROTEIN 6.3 g/dL (6.4-8.2)
[2017-06-15] MEDS ORDERED: GLUCOPHAGE ONE (09:05)
[2017-06-15] MEDS: ALBUMIN HUMAN 25%- 100ML 100 ML IV SCH (10:03)
[2017-06-15] MEDS: NYSTATIN SUSP PO SCH ×2 (10:04→15:11)
[2017-06-15] MEDS: GLUCOPHAGE PO SCH (10:04)
[2017-06-15] MEDS: PROTONIX TAB 40 MG PO SCH (10:05)
[2017-06-15] MEDS: TAMIFLU PO SCH (10:05)
[2017-06-15] MEDS: NYSTATIN CREAM TOP SCH (10:06)
[2017-06-15] MEDS: LASIX PO SCH (10:06)
[2017-06-15] MEDS: LOPRESSOR TAB 50 MG PO SCH (10:06)
[2017-06-15] MEDS: NYSTATIN POWDER TOP SCH (10:07)
[2017-06-15] MEDS: CHECK PATCH XX SCH (10:14)
[2017-06-15] MEDS: LEVAQUIN PREMIX IV 500 MG 500 MG/100 ML BAG IV SCH (11:09)
[2017-06-15] MEDS: DIFLUCAN 200 MG IV PREMIX* 200 MG/100 ML BAG IV SCH (12:00)
--- NOTE | 2017-06-15 16:04 | PCM.PROG ---
Progress Note - Progress Note for Day of Date: 06/14/17 - Subjective Subjective: WAS ADMITTED FOR ALTERED MENTAL STATUS AND GENERALIZED WEAKNESS. TODAY, HE IS LYING IN BED WITH EYES CLOSED ON MORNING ROUNDS. HE AWAKENS TO VERBAL STIMULI. HE IS DISORIENTED UPON AWAKENING. HE CONTINUES TO COMPLAIN OF WEAKNESS AND COUGH. ON EXAMINATION, HEART RATE IS REGULAR IN RATE AND RHYTHM. BILATERAL LUNGS CONTINUE WITH RHONCHI THROUGHOUT, DIMINISHED. ABDOMEN IS FLAT, SOFT, AND NON-TENDER WITH DECREASED BOWEL SOUNDS NOTED IN ALL QUADRANTS. BUTTOCK/SACRUM IS NOTED WITH A DRESSING TO WOUND. DRESSING IS DRY AND INTACT AT THIS TIME. PATIENT HAS BEEN AFEBRILE THROUGHOUT THE NIGHT. HIS VITAL SIGNS THIS MORNING ARE 99.2-81-20-98%-127/68. LABS WERE OBTAINED. HE IS ANEMIC, WITH HGB NOTED TO BE 8.4, HCT 24.7. WE WILL CONTINUE TO MONITOR THIS. TOTAL PROTEIN 5.9, ALBUMIN 2.4. OTHERWISE, HE IS HEMODYNAMICALLY STABLE. WE CONTINUE TO AWAIT FINAL RESULTS OF SPUTUM, BLOOD, AND WOUND CULTURES. TODAYS CHEST XRAY REPORTS MILD INTERSTITIAL INFILTRATE IN THE BASE THESE WITH ASSOCIATED DISCOID ATELECTASIS RIGHT LOWER LUNG. PATIENTS SPOUSE REPORTS THAT SHE IS NO LONGER ABLE TO CARE FOR HIM AT HOME DUE TO THE NEED FOR MODERATE ASSISTANCE WITH ADLS AND AMBULATING. SHE REQUEST THAT PATIENT BE ADMITTED TO [facility]. WE ARE IN AGREEMENT WITH PLAN AND WILL DISCUSS THIS WITH CASE MANAGEMENT. WE WILL CONTINUE WITH CURRENT PLAN OF CARE TODAY. OTHERWISE, WE PLAN TO FOLLOW UP WITH AM LABS AND CONTINUE TO MONITOR PATIENT. - Past Medical Family Social History Past Med/Fam/Surg Hx: No changes since H&P Allergies: Allergies No Known Drug Allergies Allergy (Verified 05/12/17 14:46) - Review of Systems ROS: No change since H&P - Vital Signs and I&O's Vital Signs: Temperature 98.1 F Pulse Rate [Right Brachial] 92 Pulse Rate [Left Brachial] 84 Pulse Rate 68 Respiratory Rate 20 Blood Pressure [Right Arm] 127/68 Blood Pressure [Left Arm] 135/78 Blood Pressure 139/91 O2 Sat by Pulse Oximetry 97 Intake and Output: Intake & Output 06/13/17 06/14/17 06/15/17 06/16/17 11:59 11:59 11:59 11:59 Intake Total 1255 1872 1600 Output Total 2250 400 Balance -995 1872 1200 - Physical Exam Oriented: Person Eyes: Normal. negative: Blurred Vision, Diplopia, Discharge, Pain, Redness, Photophobia, Other Ear: Normal. negative: Right, Left, Swelling, Ecchymosis, Hemotypanum, Abrasion , Laceration Nose: Normal. negative: Injected, Discharge, Blood, Other Throat: Normal. negative: Tonsillar Hypertrophy, Red, Exudate, Dry, Other Respiratory: Right, Left, Generalized, Rhonchi Cardiovascular: Tachycardia : Normal Auscultation: Bowel Sounds: Normal Palpation: Normal Tenderness: Normal Skin: Wound (BUTTOCK, SACRUM) Musculoskeletal: Normal Psychiatric: Normal Mood Description: Calm Affect: Normal Speech Pattern: Clear, Inappropriate - Laboratory and Diagnostics Result Diagrams: 06/15/17 05:15 06/15/17 05:15 Labs: 06/11/17 12:58 Buttock Gram Stain - Final 06/11/17 12:58 Buttock Wound Culture - Final 06/11/17 12:58 Buttock Gram Stain - Final 06/11/17 12:58 Buttock Wound Culture - Final 06/11/17 12:23 Blood Blood Culture - Preliminary 06/11/17 12:19 Blood Blood Culture - Preliminary 06/11/17 15:39 Sputum - Expectorated Sputum Sputum Culture - Final 06/11/17 15:39 Sputum - Expectorated Sputum - Final Laboratory WBC 5.1 X10^3/uL (3.6-10.0) 06/15/17 05:15 RBC 3.36 X10^6/uL (4.7-6.0) L 06/15/17 05:15 Hgb 9.5 g/dL (13.5-18.0) L 06/15/17 05:15 Hct 27.8 % (42.0-54.0) L 06/15/17 05:15 MCV 82.5 fL (80.0-100.0) 06/15/17 05:15 MCH 28.3 pg (27.0-34.0) 06/15/17 05:15 MCHC 34.2 g/dL (33.0-35.0) 06/15/17 05:15 RDW 13.7 % (11.6-16.5) 06/15/17 05:15 Plt Count 270 X10^3/uL (150.0-450.0) 06/15/17 05:15 MPV 8.6 fL (7.4-11.0) 06/15/17 05:15 Neut % 71.2 % (42.0-75.0) 06/15/17 05:15 Lymph % 19.8 % (21.0-51.0) L 06/15/17 05:15 [place] % 7.6 % (0.0-13.0) 06/15/17 05:15 Eos % 0.8 % (0.9-2.9) L 06/15/17 05:15 Baso % 0.6 % (0.2-1.0) 06/15/17 05:15 Neut # 3.6 x10^3/uL (2.2-4.8) 06/15/17 05:15 Lymph # 1.0 X10^3/uL (1.3-2.9) L 06/15/17 05:15 [place] # 0.4 x10^3/uL (0.3-0.8) 06/15/17 05:15 Eos # 0.0 x10^3/uL (0.0-0.2) 06/15/17 05:15 Baso # 0.0 X10^3/uL (0.0-0.1) 06/15/17 05:15 Absolute Nucleated RBC 0.2 /100WBC 06/15/17 05:15 Sodium 143 mmol/L (136-145) 06/15/17 05:15 Corrected Sodium 143 mmol/L (136-145) 06/15/17 05:15 Potassium 3.9 mmol/L (3.5-5.1) 06/15/17 05:15 Chloride 111 mmol/L (98-107) H 06/15/17 05:15 Carbon Dioxide 18.0 mmol/L (21-32) L 06/15/17 05:15 BUN 16 mg/dL (7-18) 06/15/17 05:15 Creatinine 1.47 mg/dL (0.70-1.30) H 06/15/17 05:15 Est GFR (MDRD) Af Amer 60 (>60) 06/15/17 05:15 Est GFR (MDRD) Non-Af 50 (>60) L 06/15/17 05:15 Glucose 111 mg/dL (65-99) H 06/15/17 05:15 POC Glucose (mg/dL) 123 mg/dL (65-99) H 06/15/17 11:31 Calcium 8.2 mg/dL (8.5-10.1) L 06/15/17 05:15 Corrected Calcium 9.3 mg/dL (8.5-10.1) 06/15/17 05:15 Magnesium 1.8 mg/dL (1.7-2.9) 06/11/17 05:19 Total Bilirubin 0.20 mg/dL (0.2-1.0) 06/15/17 05:15 AST 32 Units/L (15-37) 06/15/17 05:15 ALT 25 Units/L (12-78) 06/15/17 05:15 Alkaline Phosphatase 55 Units/L (46-116) 06/15/17 05:15 Creatine Kinase 149 Units/L (39-308) 06/11/17 05:19 CK-MB (CK-2) < 1.0 ng/mL (0-4.0) 06/11/17 05:19 CK/CKMB % Calc 0.7 % (<4) 06/11/17 05:19 Troponin I < 0.02 ng/mL (0-1.5) 06/11/17 05:19 Total Protein 6.3 g/dL (6.4-8.2) L 06/15/17 05:15 Albumin 2.6 g/dL (3.4-5.0) L 06/15/17 05:15 Globulin 3.7 g/dL (2.5-4.5) 06/15/17 05:15 Albumin/Globulin Ratio 0.7 Ratio (1.1-2.1) L 06/15/17 05:15 Specimen Type Catherized urine 06/11/17 05:29 Urine Color Yellow (YELLOW) 06/11/17 05:29 Urine Appearance Clear (CLEAR) 06/11/17 05:29 Urine pH 7.0 (5.0 - 8.0) 06/11/17 05:29 Ur Specific [place] 1.010 (1.000-1.030) 06/11/17 05:29 Urine Protein 2+ (NEGATIVE) 06/11/17 05:29 Urine Glucose (UA) Negative (NEGATIVE) 06/11/17 05:29 Urine Ketones 1+ (NEGATIVE) 06/11/17 05:29 Urine Occult Blood 4+ (NEGATIVE) 06/11/17 05:29 Urine Nitrite Negative (NEGATIVE) 06/11/17 05:29 Urine Bilirubin Negative (NEGATIVE) 06/11/17 05:29 Urine Urobilinogen Normal (NORMAL) 06/11/17 05:29 Ur Leukocyte Esterase Negative (NEGATIVE) 06/11/17 05:29 Urine RBC 15-20 /HPF (NEGATIVE) 06/11/17 05:29 Urine WBC 0-3 /HPF (NEGATIVE) 06/11/17 05:29 Ur Squamous Epith Cells Rare /HPF (NEGATIVE) 06/11/17 05:29 Urine Bacteria Negative /HPF (NEGATIVE) 06/11/17 05:29 Urine Yeast Moderate /HPF (NEGATIVE) 06/11/17 05:29 Ur Culture Indicated? No/not indicated 06/11/17 05:29 Influenza Type A (PCR) Positive (NEGATIVE) A 06/13/17 09:05 Influenza Type B (PCR) Negative (NEGATIVE) 06/13/17 09:05 - Plan (1) Cellulitis of buttock Status: Acute Plan: LEVAQUIN AND ZOSYN IV, WOUND CARE, WOUND CULTURES, CONTINUE TO MONITOR (2) Decubital ulcer Status: Acute Qualifiers: Pressure ulcer location: sacral region Pressure ulcer stage: stage 2 Qualified Code(s): L89.152 - Pressure ulcer of sacral region, stage 2 Plan: WOUND CARE, WOUND CULTURES, CONTINUE TO MONITOR (3) Altered mental status Status: Acute Qualifiers: Altered mental status type: transient alteration of awareness Qualified Code(s): R40.4 - Transient alteration of awareness Plan: CONTINUE ZYPREXA 10MG HS, CONTINUE TO MONITOR (4) Influenza A Status: Acute Plan: TAMIFLU 75MG PO BID, CONTINUE TO MONITOR (5) Hypoalbuminemia Status: Acute Plan: ALBUMIN 25% IV DAILY, CONTINUE TO MONITOR
[2017-06-15 16:58] VITALS: BP 137/81
== END 2017-06-15 15:35 | DRG 641 ==
LOC: ER 15:35 → MED/SURG 17:03 → OBSVTOIN 06-12 10:00
PROVIDERS: ADMIT Internal Medicine; ATTEND Internal Medicine
DX: E86.0 Dehydration (principal); F03.91 Unspecified dementia, unspecified severity, with behavioral disturbance; L03.317 Cellulitis of buttock; R40.4 Transient alteration of awareness; R53.1 Weakness; L89.152 Pressure ulcer of sacral region, stage 2; J10.1 Influenza due to other identified influenza virus with other respiratory manifestations; R94.31 Abnormal electrocardiogram [ECG] [EKG]; R06.02 Shortness of breath; I10 Essential (primary) hypertension; E78.2 Mixed hyperlipidemia; F41.8 Other specified anxiety disorders
CPT/HCPCS: 36415; 70450; 71045; 71260; 80053; 81001; 82550; 82553; 83735; 84484; 85025; 87040; 87070; 87075; 87205; 87502; 93005; 94760; 96365; 99284; A4222; G9035; P9047; G0378; J0696; J1450; J1956; J2543

== ENCOUNTER 2017-06-24 05:15 | Inpatient (IN) | payer OTHER, MEDICAID ==
[2017-06-24] MEDS ORDERED: NS 1000 ML 1,000 ML ONE (05:30)
--- NOTE | 2017-06-24 05:52 | DR.GENAD ---
HPI - PCP Primary Care Physician: DEVEN - Complaint/Symptoms Chief Complaint Doctors Comments: [facility] secondary to becoming tachycardic s/p deep suctioning. He was recently discharged from the hospital after being treated for bilateral pneumonia. Patient is alert with frequent cough. VS 99.4 HR 148 R26 BP 134/61, shivering. Patient has been in [facility] care since spouse is unable to provide care he needs. Chief Complaint:: PT IS SOB; SOUNDS "WET"; TACHYCARDIC Self Treatment fo Chief Complaint: ATTEMPTED TO SUCTION AT NH - Source History Provided: [facility] - Mode of Arrival Mode of Arrival: Stretcher - Timing Onset of Chief Complaint: 06/23/17 PMH - PMH Past Medical History: Yes Past Medical History: Anxiety, Dementia, Diabetes, Migraines, Hypertension Past Surgical History: No Surgical History: Unknown - Family History History of Family Medical Conditions: No Family Medical History: [place], Hypertension - Social History Alcohol Use: None Do you use any recreational Drugs:: No Lives With: Other Lives Where: [facility] - infectious screening Have you traveled outside the country in the last 6 months?: No ROS - Review of Systems Eyes: No Symptoms Reported ENTM: See HPI Respiratoy: No Symptoms Reported Cardiovascular: Other (tachy) Gastrointestinal/Abdominal: No Symptoms Reported Genitourinary: No Symptoms Reported Neurological: No Symptoms Reported, Pre-existing Deficit (speech, walking, dementia), Problems Walking, Speech Problem Musculoskeletal: No Symptoms Reported Integumentary: No Symptoms Reported Hematologic/Lymphatic: No Symptoms Reported Endocrine: No Symptoms Reported Psychiatric: Other (Dementia) All Other Systems: Reviewed and Negative PE - Vital Signs Vitals: Temperature 99.4 F Pulse Rate [Right Brachial] 148 Respiratory Rate 26 Blood Pressure [Right Arm] 134/61 Blood Pressure [Left Arm] 137/81 Blood Pressure 137/81 O2 Sat by Pulse Oximetry 99 - General General Appearance: Anxious - Head Head Exam: Normal Inspection, Atraumatic - Eyes Eye exam: Normal Appearance, PERRL, EOMI - ENT ENT Exam: Normal Exam External Ear Exam: Normal External Inspection TM/Canal Exam: Bilateral Normal Nose Exam: Normal Nose Exam Mouth Exam: Normal Inspection Throat Exam: Normal Inspection - Neck Neck Exam: Normal Inspection, Full ROM - Chest Chest Inspection: Normal Inspection - Respiratory Respiratory Exam: Normal Lung Sounds Bilat (moist), Other (moist) Respiratory Exam: Bilateral Clear to Auscultation, Bilateral Crackles (moist) - Cardiovascular Cardiovascular Exam: Tachycardia - Abdominal Exam Abdominal Exam: Normal Inspection Abdominal Tenderness: negative: RUQ, RLQ, LUQ, LLQ, Epigastrium, Suprapubic, Diffuse, Mild, Moderate, Severe, Other - Extremities Extremities Exam: Normal Inspection - Back Back Exam: Normal Inspection - Neurologic Neurological Exam: Alert, Oriented X3, CN II-XII Intact - Psychiatric Psychiatric Exam: Agitated - Skin Skin Exam: Warm, Dry, Intact Course - Reevaluation 1st: Improved - Consultation Called: 07:50 (Dr Pereyra agreed to admit for further management) ROR - Labs Reviewed Result Diagrams: 06/24/17 06:20 06/24/17 06:20 Laboratory: WBC 13.5 X10^3/uL (3.6-10.0) H 06/24/17 06:20 RBC 4.03 X10^6/uL (4.7-6.0) L 06/24/17 06:20 Hgb 10.9 g/dL (13.5-18.0) L 06/24/17 06:20 Hct 32.9 % (42.0-54.0) L 06/24/17 06:20 MCV 81.5 fL (80.0-100.0) 06/24/17 06:20 MCH 27.0 pg (27.0-34.0) 06/24/17 06:20 MCHC 33.1 g/dL (33.0-35.0) 06/24/17 06:20 RDW 13.7 % (11.6-16.5) 06/24/17 06:20 Plt Count 576 X10^3/uL (150.0-450.0) H 06/24/17 06:20 MPV 8.0 fL (7.4-11.0) 06/24/17 06:20 Neut % 78.6 % (42.0-75.0) H 06/24/17 06:20 Lymph % 11.9 % (21.0-51.0) L 06/24/17 06:20 [place] % 9.3 % (0.0-13.0) 06/24/17 06:20 Eos % 0.0 % (0.9-2.9) L 06/24/17 06:20 Baso % 0.2 % (0.2-1.0) 06/24/17 06:20 Neut # 10.6 x10^3/uL (2.2-4.8) H 06/24/17 06:20 Lymph # 1.6 X10^3/uL (1.3-2.9) 06/24/17 06:20 [place] # 1.3 x10^3/uL (0.3-0.8) H 06/24/17 06:20 Eos # 0.0 x10^3/uL (0.0-0.2) 06/24/17 06:20 Baso # 0.0 X10^3/uL (0.0-0.1) 06/24/17 06:20 Absolute Nucleated RBC 0.1 /100WBC 06/24/17 06:20 Influenza Type A (PCR) Positive (NEGATIVE) A 06/24/17 05:30 Influenza Type B (PCR) Negative (NEGATIVE) 06/24/17 05:30 - XRAY XRAY Interpreted by: Radiologist (Chest: Improved aeration with very small subsegmental foci of atelectasis present in the lung bases.) - Diagnosis Discharge Problem: Influenza A, Dehydration, Hyperosmolality, R/O Pulmonary Embolus, Prerenal acute renal failure, Hypernatremia - Discharge Plan Condition: Stable - Follow ups/Referrals Follow ups/Referrals: Chase Pereyra [Primary Care Provider] - 3 days - Instructions
--- NOTE | 2017-06-24 06:07 | RAD ---
HISTORY: Shortness of breath Study: Single-view chest Comparison: 06/15/2017 Findings: Cardiac monitoring electrodes are noted on the chest. The trachea is midline. Heart size is normal. T here is aortic uncoiling. Improved aeration is noted in the lungs. Very small subsegmental foci of at electasis are present in the lung bases. No pleural fluid or pneumothorax is seen. Osseous structures are intact. IMPRESSION: Improved aeration with very small subsegmental foci of atelectasis present in the lung bases. Reported By:
[2017-06-24 06:40] LABS: BASOPHILS % (AUTO) 0.2 % (0.2-1.0); HEMATOCRIT 32.9 % (42.0-54.0); HEMOGLOBIN 10.9 g/dL (13.5-18.0); LYMPHOCYTES # (AUTO) 1.6 X10^3/uL (1.3-2.9); LYMPHOCYTES % (AUTO) 11.9 % (21.0-51.0); MEAN CORPUSCULAR HGB CONC 33.1 g/dL (33.0-35.0); MEAN CORPUSCULAR VOLUME 81.5 fL (80.0-100.0); MONOCYTES # (AUTO) 1.3 x10^3/uL (0.3-0.8); MONOCYTES % (AUTO) 9.3 % (0.0-13.0); NEUTROPHILS # (AUTO) 10.6 x10^3/uL (2.2-4.8); NEUTROPHILS % (AUTO) 78.6 % (42.0-75.0); PLATELET COUNT 576 X10^3/uL (150.0-450.0); RED BLOOD COUNT 4.03 X10^6/uL (4.7-6.0); RED CELL DISTRIBUTION WIDTH 13.7 % (11.6-16.5); WHITE BLOOD COUNT 13.5 X10^3/uL (3.6-10.0)
[2017-06-24 06:47] LABS: CALCIUM 9.4 mg/dL (8.5-10.1); CARBON DIOXIDE 19.2 mmol/L (21-32); CREATININE 2.32 mg/dL (0.70-1.30)
[2017-06-24 06:54] LABS: COR CA(FOR HYPOALB) 10.2 mg/dL (8.5-10.1); TOTAL PROTEIN 7.1 g/dL (6.4-8.2)
[2017-06-24 06:58] LABS: CKMB % 2.8 % (<4); CREATINE KINASE 36 Units/L (39-308); CREATINE KINASE MB < 1.0 ng/mL (0-4.0); MAGNESIUM 1.7 mg/dL (1.7-2.9); TROPONIN I < 0.02 ng/mL (0-1.5)
[2017-06-24 07:00] LABS: B-TYPE NATRIURETIC PEPTIDE 54.8 pg/mL (0-79)
[2017-06-24] MEDS ORDERED: NS 1/2 1000 ML IV 1,000 ML IV ONE (07:23)
[2017-06-24] MEDS ORDERED: TAMIFLU PO ONE (07:25)
[2017-06-24] MEDS: TAMIFLU PO SCH ×3 (07:46→22:26)
[2017-06-24] MEDS ORDERED: XANAX PO PRN (08:00)
[2017-06-24] MEDS ORDERED: NS 1/2 1000 ML IV 1,000 ML IV SCH (08:00)
[2017-06-24] MEDS ORDERED: DUONEB 0.5 MG/3 MG NEB SCH (09:00)
[2017-06-24] MEDS ORDERED: TAMIFLU PO SCH (09:00)
[2017-06-24 10:07] LABS: BILIRUBIN,URINE 1+ (NEGATIVE); BLOOD/HEMOGLOBIN,URINE 1+ (NEGATIVE); GLUCOSE, URINE NEGATIVE (NEGATIVE); KETONES,URINE 1+ (NEGATIVE); LEUKOCYTE ESTERASE ,URINE NEGATIVE (NEGATIVE); NITRITES,URINE NEGATIVE (NEGATIVE); PROTEIN,URINE 2+ (NEGATIVE); UROBILINOGEN,URINE NORMAL (NORMAL)
[2017-06-24 10:26] LABS: APPEARANCE,URINE CLEAR (CLEAR); BACTERIA,URINE NEGATIVE /HPF (NEGATIVE); COLOR,URINE YELLOW (YELLOW); RBC,URINE 0-5 /HPF (NEGATIVE); SQUAMOUS EPITHELIAL CELL,UR RARE /HPF (NEGATIVE)
[2017-06-24] MEDS ORDERED: MILK OF MAGNESIA PO PRN (10:40)
[2017-06-24] MEDS ORDERED: NORCO 10/325 TAB PO PRN (10:40)
[2017-06-24] MEDS: LOPRESSOR TAB 50 MG PO SCH ×2 (10:46→22:21)
[2017-06-24] MEDS: GLUCOPHAGE PO SCH ×2 (10:46→22:20)
[2017-06-24] MEDS: COLACE CAP 100 MG PO SCH (10:46)
[2017-06-24] MEDS ORDERED: PROTONIX TAB 40 MG PO SCH (11:00)
[2017-06-24] MEDS ORDERED: PHARMACY CONSULT - DOSE _____ XX SCH (11:00)
[2017-06-24] MEDS ORDERED: HumuLIN R SC SCH (11:30)
[2017-06-24] MEDS: MEGACE PO SCH (12:23)
[2017-06-24] MEDS ORDERED: HumuLIN R SC PRN (12:23)
[2017-06-24] MEDS: NS 1/2 1000 ML IV 1,000 ML IV SCH (12:24)
[2017-06-24] MEDS: LEVAQUIN PREMIX IV 750 MG 750 MG/150 ML BAG IV SCH (12:45)
[2017-06-24] MEDS: MUCOMYST 20% 200 MG/ML NEB SCH ×3 (13:52→20:43)
[2017-06-24] MEDS: ACCUNEB 1.25 MG NEBULE NEB SCH ×3 (13:52→20:43)
[2017-06-24] MEDS: VANCOMYCIN HCL 1 GM VIAL 1 GM in NS 250 ML IV 250 ML IV SCH (15:09)
--- NOTE | 2017-06-24 15:10 | RAD ---
HISTORY: Central line placement Study: Single-view chest Comparison: 06/24/2017 Findings: There has been interval placement of a left central venous catheter, with the distal tip appearing to terminate within the lower SVC or cavoatrial junction. The trachea is midline. The cardiac silhouett e is unremarkable. There has been worsening airspace disease or consolidation within the medial right lung base, concerning for pneumonia. Unchanged infiltrate and/or atelectasis within the left lung ba se is noted. IMPRESSION: 1. Central line in place as above. Worsening medial right basilar airspace disease/consolidation conc erning for pneumonia. Reported By:
[2017-06-24] MEDS: NEURONTIN CAP 100 MG PO SCH ×2 (15:20→22:25)
[2017-06-24] MEDS: ALBUMIN HUMAN 25%- 100ML 100 ML IV SCH (16:00)
[2017-06-24] MEDS: TYLENOL SUPP 650 MG RECTAL PRN (18:00)
[2017-06-24 18:25] VITALS: BMI 21.5
[2017-06-24] MEDS ORDERED: OLANZAPINE PO SCH (21:00)
[2017-06-24] MEDS: FORTAZ or TAZICEF INJ 1 GM in NS 100 ML IV + SPIKE MINIBAG* 100 ML IV SCH (22:10)
[2017-06-24] MEDS: ZyPREXA TAB 5 MG PO SCH (22:24)
[2017-06-25] MEDS: TYLENOL SUPP 650 MG RECTAL PRN ×2 (01:35→02:30)
[2017-06-25] MEDS: VALIUM INJ IVP PRN ×2 (02:32→09:38)
[2017-06-25] MEDS ORDERED: NS 1/2 1000 ML IV 1,000 ML IV ONE ×3 (04:24→23:33)
[2017-06-25] MEDS: NS 1/2 1000 ML IV 1,000 ML IV SCH ×2 (04:31→18:45)
[2017-06-25 06:29] LABS: BASOPHILS % (AUTO) 0.1 % (0.2-1.0); HEMATOCRIT 27.4 % (42.0-54.0); HEMOGLOBIN 9.1 g/dL (13.5-18.0); LYMPHOCYTES # (AUTO) 1.6 X10^3/uL (1.3-2.9); LYMPHOCYTES % (AUTO) 7.3 % (21.0-51.0); MEAN CORPUSCULAR HEMOGLOBIN 26.9 pg (27.0-34.0); MEAN CORPUSCULAR HGB CONC 33.1 g/dL (33.0-35.0); MEAN CORPUSCULAR VOLUME 81.1 fL (80.0-100.0); MEAN PLATELET VOLUME 7.7 fL (7.4-11.0); MONOCYTES # (AUTO) 0.8 x10^3/uL (0.3-0.8); MONOCYTES % (AUTO) 3.6 % (0.0-13.0); PLATELET COUNT 351 X10^3/uL (150.0-450.0); RED BLOOD COUNT 3.38 X10^6/uL (4.7-6.0); RED CELL DISTRIBUTION WIDTH 13.8 % (11.6-16.5); WHITE BLOOD COUNT 21.3 X10^3/uL (3.6-10.0)
[2017-06-25 06:45] LABS: ALBUMIN 2.6 g/dL (3.4-5.0); CALCIUM 9.2 mg/dL (8.5-10.1); CARBON DIOXIDE 23.2 mmol/L (21-32); COR CA(FOR HYPOALB) 10.3 mg/dL (8.5-10.1); CREATININE 2.26 mg/dL (0.70-1.30); TOTAL PROTEIN 6.7 g/dL (6.4-8.2)
[2017-06-25 07:04] LABS: BAND NEUTROPHILS % 25 % (0-10)
[2017-06-25 07:05] LABS: PLATELET MORPHOLOGY COMMENT NORMAL (NORMAL)
--- NOTE | 2017-06-25 07:06 | RAD ---
Examination: Portable AP chest History: SOB Comparison 06/24/2017 Findings: Continued normal heart size. Persistent bilateral lower lobe airspace disease with slight i nterval progression. Upper lungs remain clear. No large pleural effusion or complicating pneumothorax . Stable position of left subclavian line. Impression: Persistent lower lobe infiltrates consistent with bibasal pneumonia. Reported By:
[2017-06-25] MEDS: NEURONTIN CAP 100 MG PO SCH ×3 (07:12→22:12)
[2017-06-25] MEDS: VANCOMYCIN HCL 1 GM VIAL 1 GM in NS 250 ML IV 250 ML IV SCH (08:25)
[2017-06-25] MEDS: PROTONIX INJ 40 MG VIAL IVP SCH (08:26)
[2017-06-25] MEDS: ACCUNEB 1.25 MG NEBULE NEB SCH ×4 (09:00→21:32)
[2017-06-25] MEDS: MUCOMYST 20% 200 MG/ML NEB SCH ×4 (09:00→21:32)
[2017-06-25] MEDS: ALBUMIN HUMAN 25%- 100ML 100 ML IV SCH (10:08)
[2017-06-25] MEDS: FORTAZ or TAZICEF INJ 1 GM in NS 100 ML IV + SPIKE MINIBAG* 100 ML IV SCH ×2 (10:08→21:30)
[2017-06-25] MEDS: HALDOL INJ IVP PRN (10:54)
--- NOTE | 2017-06-25 11:05 | DR.H&P ---
H&P - History & Physical for Day of: H&P Date: 06/24/17 - Chief Complaint Chief Complaint: short of breath - Allergies Allergies/Adverse Reactions: Allergies Allergy/AdvReac Type Severity Reaction Status Date / Time No Known Drug Allergies Allergy Verified 05/12/17 14:46 - History of Present Illness History of Present Illness: is a 76 year old patient of ours who presented to the emergency room from the long-term with complaints of shortness of breath and tachycardia. prison staff reports that they attempted deep suctioning when patient became tachycardic. Patient was recently discharged from the long-term after being treated for pneumonia and influenza. Patient has a medical history of hypertension, arthritis, DM type 2, depression, and dementia. On arrival to the ER, patient was noted with frequent cough. Heart rate rapid with a rate in the 140s. Bilateral lungs noted with crackles. Abdomen is round, soft, and non-tender with normal bowel sounds in all quadrants. There is normal range of motion noted to all extremities. On arrival to the ER, vitals were 99.4, 148, 26, 99% 2L NC, 134/61. Labs, chest xray, and EKG obtained. Abnormal lab values include the following: WBC 13.5, RBC 4.03, Hgb 10.9, Hct 32.9, Plt Count 576, D-Dimer 2760, Sodium 152, Corrected Sodium 154, Chloride 114, Carbon Dioxide 19.2, BUN 51, Creatinine 2.32 , GFR af 36, GFR non 29, Glucose 194, Calcium 10.2, AST 14, Creatine Kinase 36, Albumin 3.0, A/G Ratio 0.7, Influenza A Positive. Urinalysis: Catherized, Protein 2+, Ketones 1+, Occult Blood 1+, Bilirubin 1+, RBC 0-5. Sputum Culture Pending, Sputum Gram Stain Gram Pos Rods Rare, Gram Pos Cocci Moderate pair chains, Gram Neg Rods Rare, WBC Moderate. Blood Cultures x2 Pending. Chest X-Ray : Improved aeration with very small subsegmental foci of atelectasis present in the lung bases. EKG: Sinus Tachycardia. Oeut=156. He was started on normal saline and given a duoneb x 1 in the ER. Only mild improvement in symptoms noted. We admitted patient to the intensive care unit for further treatment and evaluation. He was started on normal saline, fortaz 1gm iv q8h, vancomycin 1gm iv daily, and levaquin 750mg iv q48h. He was also started on respiratory tx with mucomyst. We plan to follow up with am labs and chest xray and continue to monitor patient. - Past Medical History Past Medical History: Anxiety, Dementia, Diabetes, Migraines, Hypertension - Past Surgical History Surgical History: Other - Family History Family Medical History: [place], Hypertension - Social History Does patient currently use any type of tobacco product: No Have you used tobacco products in the last 12 months: No Type of Tobacco Use: None Alcohol Use: None Drug Use: None - Medications Home Medications: Acetaminophen [TYLENOL SUPPOSITORY 650 MG *] 1 tab RECTAL Q4H PRN 06/24/17 [ History Confirmed 06/24/17] Clonidine HCl [CATAPRES-TTS patch 0.1 mg/24 hr 7-day *] 1 patch TD WEEKLY [History Confirmed 06/24/17] Docusate Sodium [Colace] 100 mg PO HS 06/24/17 [History Confirmed 06/24/17] Hydrocodone-Acet 10/325 mg [NORCO 10 MG/325 MG *] 1 tab PO Q6H PRN 06/24/17 [ History Confirmed 06/24/17] Insulin R (Regular) [HUMULIN R (REGULAR) INSULIN 10 ML VIAL *] 1 unit SQ ACHS [History Confirmed 06/24/17] Magnesium Hydroxide [Milk of Magnesia] 30 ml PO Q6H PRN 06/24/17 [History Confirmed 06/24/17] Megestrol Acetate [MEGACE TAB 40 MG *] 1 tab PO DAILY 06/24/17 [History Confirmed 06/24/17] - Review of Systems Constitutional: Fever, Chills, Weakness Eyes: No Symptoms Reported ENT: No Symptoms Reported Respiratory: Cough, Shortness of Breath Cardiovascular: See HPI Gastrointestinal: No Symptoms Reported Genitourinary: No Symptoms Reported Skin: No Symptoms Reported Neurological: Weakness, Confusion - Physical Exam Vital Signs: Temperature 99.4 F Pulse Rate [Right Brachial] 125 Pulse Rate 128 Respiratory Rate 20 Blood Pressure [Right Arm] 134/60 Blood Pressure [Left Arm] 118/65 Blood Pressure 137/81 O2 Sat by Pulse Oximetry 100 Oriented: Not Oriented Eyes: Normal Ear: Normal Nose: Normal Throat: Normal Respiratory: Rales Throughout Cardiovascular: Tachycardia. negative: S3, S4, Murmur, Edema : Normal. negative: Dysuria, Hematuria, Frequency, Discharge, Testicular Pain , Bleeding, , Other Auscultation: Bowel Sounds: Normal. negative: Bruit, Absent, Increased, Decreased, High Pitched, Other Palpation: Normal. negative: Spleen Enlarged, Liver Enlarged, Mass Pulsatile, Other Tenderness: Normal Skin: Normal Musculoskeletal: Instability Psychiatric: Agitation, Other (dementia ) Affect: Anxious Speech Pattern: Unclear - Assessment/Plan (1) Pneumonia Qualifiers: Pneumonia type: due to unspecified organism Laterality: bilateral Lung location: lower lobe of lung Qualified Code(s): J18.9 - Pneumonia, unspecified organism Status: Acute Plan: FORTAZ 1GM IV Q12H, LEVAQUIN 750MG IV Q48H, VANCOMYCIN 1GM IV DAILY, RESPIRATORY TX, SUPPLEMENTAL OXYGEN, CONTINUE TO MONTIOR (2) Dehydration Status: Acute Plan: 1/2 NS AT 80ML/HR, CONTINUE TO MONITOR (3) Hypernatremia Status: Acute Plan: 1/2NS AT 80ML/HR, CONTINUE TO MONITOR (4) Influenza A Status: Acute Plan: TAMIFLU 75MG PO BID, CONTINUE TO MONITOR (5) Prerenal acute renal failure Status: Acute Plan: 1/2 NS AT 80ML/HR, CONTINUE TO MONITOR
[2017-06-25] MEDS: COLACE CAP 100 MG PO SCH (12:50)
[2017-06-25] MEDS: GLUCOPHAGE PO SCH ×2 (12:51→22:10)
[2017-06-25] MEDS: LOPRESSOR TAB 50 MG PO SCH ×2 (12:51→22:11)
[2017-06-25] MEDS: TAMIFLU PO SCH ×2 (12:51→22:11)
[2017-06-25] MEDS: MEGACE PO SCH (12:51)
[2017-06-25] MEDS: MORPHINE SULFATE INJ 2 MG INJ IVP PRN (17:27)
[2017-06-25] MEDS ORDERED: LOPRESSOR INJ 5 MG AMP IVP ONE (20:14)
[2017-06-25] MEDS: ZyPREXA TAB 5 MG PO SCH (22:11)
[2017-06-26] MEDS: NEURONTIN CAP 100 MG PO SCH ×3 (05:10→22:31)
[2017-06-26 06:36] LABS: BASOPHILS # (AUTO) 0.1 X10^3/uL (0.0-0.1); BASOPHILS % (AUTO) 0.2 % (0.2-1.0); HEMATOCRIT 27.1 % (42.0-54.0); LYMPHOCYTES # (AUTO) 1.4 X10^3/uL (1.3-2.9); LYMPHOCYTES % (AUTO) 6.1 % (21.0-51.0); MEAN CORPUSCULAR HGB CONC 33.2 g/dL (33.0-35.0); MEAN CORPUSCULAR VOLUME 81.4 fL (80.0-100.0); MEAN PLATELET VOLUME 8.4 fL (7.4-11.0); MONOCYTES # (AUTO) 1.2 x10^3/uL (0.3-0.8); MONOCYTES % (AUTO) 5.2 % (0.0-13.0); NEUTROPHILS # (AUTO) 20.5 x10^3/uL (2.2-4.8); NEUTROPHILS % (AUTO) 88.5 % (42.0-75.0); PLATELET COUNT 282 X10^3/uL (150.0-450.0); RED BLOOD COUNT 3.32 X10^6/uL (4.7-6.0); RED CELL DISTRIBUTION WIDTH 13.9 % (11.6-16.5); WHITE BLOOD COUNT 23.2 X10^3/uL (3.6-10.0)
[2017-06-26 07:01] LABS: BAND NEUTROPHILS % 13 % (0-10)
[2017-06-26 07:02] LABS: PLATELET MORPHOLOGY COMMENT NORMAL (NORMAL)
[2017-06-26 07:06] LABS: ALBUMIN 2.5 g/dL (3.4-5.0); CALCIUM 9.6 mg/dL (8.5-10.1); CARBON DIOXIDE 20.1 mmol/L (21-32); COR CA(FOR HYPOALB) 10.8 mg/dL (8.5-10.1); CREATININE 1.75 mg/dL (0.70-1.30); TOTAL PROTEIN 6.7 g/dL (6.4-8.2)
--- NOTE | 2017-06-26 07:40 | RAD ---
Chest AP portable Indication: Hypertension and diabetes. Comparison: 06/25/2017 Findings: Right infrahilar opacity process. There is no pneumothorax. Trace left effusion suspected. Heart size is normal. Lungs appear hyperinflated. Impression: Right lower lung opacity is concerning for pneumonia. Follow-up to resolution. Reported By:
[2017-06-26] MEDS: MUCOMYST 20% 200 MG/ML NEB SCH ×4 (09:32→21:40)
[2017-06-26] MEDS: ACCUNEB 1.25 MG NEBULE NEB SCH ×4 (09:32→21:40)
[2017-06-26] MEDS: ALBUMIN HUMAN 25%- 100ML 100 ML IV SCH (09:34)
[2017-06-26] MEDS: PROTONIX INJ 40 MG VIAL IVP SCH (09:36)
[2017-06-26] MEDS: VANCOMYCIN HCL 1 GM VIAL 1 GM in NS 250 ML IV 250 ML IV SCH (09:39)
[2017-06-26] MEDS: LOPRESSOR TAB 50 MG PO SCH ×2 (09:40→22:27)
[2017-06-26] MEDS: MEGACE PO SCH (09:40)
[2017-06-26] MEDS: GLUCOPHAGE PO SCH ×2 (09:40→22:26)
[2017-06-26] MEDS: TAMIFLU PO SCH ×2 (09:40→22:30)
[2017-06-26] MEDS: COLACE CAP 100 MG PO SCH (09:41)
[2017-06-26] MEDS: FORTAZ or TAZICEF INJ 1 GM in NS 100 ML IV + SPIKE MINIBAG* 100 ML IV SCH ×2 (09:49→21:44)
[2017-06-26] MEDS: LEVAQUIN PREMIX IV 750 MG 750 MG/150 ML BAG IV SCH (13:31)
[2017-06-26] MEDS: NS 1/2 1000 ML IV 1,000 ML IV SCH (13:33)
[2017-06-26] MEDS: MORPHINE SULFATE INJ 2 MG INJ IVP PRN (13:40)
[2017-06-26] MEDS ORDERED: POTASSIUM CHL 60 MEQ/NS 0.45% 500 ML IV PRN (15:42)
[2017-06-26] MEDS ORDERED: POTASSIUM CHLORIDE LIQ 20 MEQ UDC PO PRN (15:42)
[2017-06-26] MEDS ORDERED: K-LYTE EFFERVESCENT PO PRN (15:42)
[2017-06-26] MEDS ORDERED: MAG-OX TAB PO PRN (15:42)
[2017-06-26] MEDS ORDERED: MAGNESIUM SULFATE 1 GM/100 mL PREMIX 1 GM/100 ML BAG IV PRN (15:42)
--- NOTE | 2017-06-26 21:04 | PCM.PROG ---
Progress Note - Progress Note for Day of Date: 06/25/17 - Subjective Subjective: WAS ADMITTED FOR DEHYDRATION, PRERENAL FAILURE, HYPERNATREMIA, INFLUENZA A, AND PNEUMONIA. TODAY, HE IS LYING IN BED WITH EYES CLOSED ON MORNING ROUNDS. HE AWAKENS AND RESPONDS TO VERBAL STIMULI. UPON AWAKENING, PATIENT BEGINS TO ATTEMPT CLIMING OUT OF BED AND STATES THAT HE HAS TO GO LAY BRICKS AT WORK. HE IS NOT ORIENTED TO LOCATION OR TIME. PATIENT DOES HAVE A HISTORY SIGNIFICANT FOR DEMENTIA. HE CONTINUES WITH A PERSISTENT, PRODUCTIVE COUGH. ON EXAMINATION, HEART RATE IS RAPID, WITH RATE IN THE 140S. BILATERAL LUNGS ARE NOTED WITH COURSE RHONCHI AND WHEEZING. HE IS CURRENTLY UTILIZING OXYGEN VIA NASAL CANNULA AT 2L/MIN. ABDOMEN IS ROUND, SOFT, AND NON- TENDER WITH NORMAL BOWEL SOUNDS NOTED IN ALL QUADRANTS. THERE IS NORMAL RANGE OF MOTION NOTED TO ALL EXTREMITIES. HIS VITALS THIS MORNING ARE 99.6-215-65-100% -123/74. ABNORMAL LAB VALUES INCLUDE THE FOLLOWING: WBC 21.3, RBC 3.38, HGB 9.1 , HCT 27.4, SODIUM 152, CHLORIDE 116, BUN 48, CREATININE 2.26, GLUCOSE 159, ALBUMIN 2.6. A CHEST XRAY WAS OBTAINED TODAY AND REPORTED WORSENING MEDIAL RIGHT BIASILAR AIRSPACE DISEASE/CONSOLIDATION CONCERNING FOR PNEUMONIA. HE CONTINUES ON VANCOMYCIN, LEVAQUIN, AND FORTAZ, AND RESPIRATORY TREATMENTS. WE WILL START HALDOL 2MG IV Q4H PRN AGITATION. OTHERWISE, WE WILL CONTINUE WITH CURRENT PLAN OF CARE TODAY. WE PLAN TO FOLLOW UP WITH AM LABS AND CHEST XRAY AND CONTINUE TO MONITOR. - Past Medical Family Social History Past Med/Fam/Surg Hx: No changes since H&P Allergies: Allergies No Known Drug Allergies Allergy (Verified 05/12/17 14:46) - Review of Systems ROS: No change since H&P - Vital Signs and I&O's Vital Signs: Temperature 99.1 F Pulse Rate [Right Brachial] 120 Pulse Rate 129 Respiratory Rate 16 Blood Pressure [Right Arm] 122/62 Blood Pressure [Left Arm] 118/65 Blood Pressure 134/79 O2 Sat by Pulse Oximetry 100 Intake and Output: Intake & Output 06/24/17 06/25/17 06/26/17 06/27/17 11:59 11:59 11:59 11:59 Intake Total 1810 2024 1087 Output Total 1000 1025 450 Balance 811 1000 637 - Physical Exam Oriented: Not Oriented Eyes: Normal Ear: Normal Nose: Normal Throat: Normal Respiratory: Right, Left, Generalized, Wheezes, Rhonchi Cardiovascular: Tachycardia. negative: S3, S4, Murmur, Edema : Normal. negative: Dysuria, Hematuria, Frequency, Discharge, Testicular Pain , Bleeding, , Other Auscultation: Bowel Sounds: Normal. negative: Bruit, Absent, Increased, Decreased, High Pitched, Other Palpation: Normal Tenderness: Normal Skin: Normal Musculoskeletal: Instability Psychiatric: Agitation, Other (dementia ) Affect: Anxious Speech Pattern: Unclear - Laboratory and Diagnostics Result Diagrams: 06/26/17 06:00 06/26/17 06:00 Labs: 06/24/17 10:32 Blood Blood Culture - Preliminary 06/24/17 10:15 Blood Blood Culture - Preliminary 06/24/17 06:30 Sputum - Expectorated Sputum Sputum Culture - Final Methicillin Resis Staph Aureus 06/24/17 06:30 Sputum - Expectorated Sputum - Final Laboratory WBC 23.2 X10^3/uL (3.6-10.0) H 06/26/17 06:00 RBC 3.32 X10^6/uL (4.7-6.0) L 06/26/17 06:00 Hgb 9.0 g/dL (13.5-18.0) L 06/26/17 06:00 Hct 27.1 % (42.0-54.0) L 06/26/17 06:00 MCV 81.4 fL (80.0-100.0) 06/26/17 06:00 MCH 27.0 pg (27.0-34.0) 06/26/17 06:00 MCHC 33.2 g/dL (33.0-35.0) 06/26/17 06:00 RDW 13.9 % (11.6-16.5) 06/26/17 06:00 Plt Count 282 X10^3/uL (150.0-450.0) 06/26/17 06:00 Plt Count Comment Adequate (ADEQUATE) 06/26/17 06:00 MPV 8.4 fL (7.4-11.0) 06/26/17 06:00 Neut % 88.5 % (42.0-75.0) H 06/26/17 06:00 Lymph % 6.1 % (21.0-51.0) L 06/26/17 06:00 [place] % 5.2 % (0.0-13.0) 06/26/17 06:00 Eos % 0.0 % (0.9-2.9) L 06/26/17 06:00 Baso % 0.2 % (0.2-1.0) 06/26/17 06:00 Neut # 20.5 x10^3/uL (2.2-4.8) H 06/26/17 06:00 Lymph # 1.4 X10^3/uL (1.3-2.9) 06/26/17 06:00 [place] # 1.2 x10^3/uL (0.3-0.8) H 06/26/17 06:00 Eos # 0.0 x10^3/uL (0.0-0.2) 06/26/17 06:00 Baso # 0.1 X10^3/uL (0.0-0.1) 06/26/17 06:00 Absolute Nucleated RBC 0.0 /100WBC 06/26/17 06:00 Total Counted 100 06/26/17 06:00 Neutrophils % (Manual) 80 % (39-76) H 06/26/17 06:00 Band Neutrophils % 13 % (0-10) H 06/26/17 06:00 Lymphocytes % (Manual) 3 % (13-43) L 06/26/17 06:00 Monocytes % (Manual) 4 % (4-9) 06/26/17 06:00 Plt Morphology Comment Normal (NORMAL) 06/26/17 06:00 RBC Morphology Normal (NORMAL) 06/26/17 06:00 D-Dimer 2760 ng/mL (0-400) H* 06/24/17 06:20 Sodium 154 mmol/L (136-145) H* 06/26/17 06:00 Corrected Sodium 155 mmol/L (136-145) H 06/26/17 06:00 Potassium 3.1 mmol/L (3.5-5.1) L 06/26/17 06:00 Chloride 120 mmol/L (98-107) H* 06/26/17 06:00 Carbon Dioxide 20.1 mmol/L (21-32) L 06/26/17 06:00 BUN 40 mg/dL (7-18) H 06/26/17 06:00 Creatinine 1.75 mg/dL (0.70-1.30) H 06/26/17 06:00 Est GFR (MDRD) Af Amer 49 (>60) L 06/26/17 06:00 Est GFR (MDRD) Non-Af 41 (>60) L 06/26/17 06:00 Glucose 125 mg/dL (65-99) H 06/26/17 06:00 POC Glucose (mg/dL) 89 mg/dL (65-99) 06/26/17 17:27 Lactic Acid 1.7 mmol/L (0.4-2.0) 06/24/17 10:32 Calcium 9.6 mg/dL (8.5-10.1) 06/26/17 06:00 Corrected Calcium 10.8 mg/dL (8.5-10.1) H 06/26/17 06:00 Magnesium 1.9 mg/dL (1.7-2.9) 06/26/17 06:00 Total Bilirubin 0.40 mg/dL (0.2-1.0) 06/26/17 06:00 AST 16 Units/L (15-37) 06/26/17 06:00 ALT 14 Units/L (12-78) 06/26/17 06:00 Alkaline Phosphatase 64 Units/L (46-116) 06/26/17 06:00 Creatine Kinase 36 Units/L (39-308) L 06/24/17 06:20 CK-MB (CK-2) < 1.0 ng/mL (0-4.0) 06/24/17 06:20 CK/CKMB % Calc 2.8 % (<4) 06/24/17 06:20 Troponin I < 0.02 ng/mL (0-1.5) 06/24/17 06:20 B-Natriuretic Peptide 54.8 pg/mL (0-79) 06/24/17 06:20 Total Protein 6.7 g/dL (6.4-8.2) 06/26/17 06:00 Albumin 2.5 g/dL (3.4-5.0) L 06/26/17 06:00 Globulin 4.2 g/dL (2.5-4.5) 06/26/17 06:00 Albumin/Globulin Ratio 0.6 Ratio (1.1-2.1) L 06/26/17 06:00 Specimen Type Catherized urine 06/24/17 09:58 Urine Color Yellow (YELLOW) 06/24/17 09:58 Urine Appearance Clear (CLEAR) 06/24/17 09:58 Urine pH 5.0 (5.0 - 8.0) 06/24/17 09:58 Ur Specific [place] 1.020 (1.000-1.030) 06/24/17 09:58 Urine Protein 2+ (NEGATIVE) 06/24/17 09:58 Urine Glucose (UA) Negative (NEGATIVE) 06/24/17 09:58 Urine Ketones 1+ (NEGATIVE) 06/24/17 09:58 Urine Occult Blood 1+ (NEGATIVE) 06/24/17 09:58 Urine Nitrite Negative (NEGATIVE) 06/24/17 09:58 Urine Bilirubin 1+ (NEGATIVE) 06/24/17 09:58 Urine Urobilinogen Normal (NORMAL) 06/24/17 09:58 Ur Leukocyte Esterase Negative (NEGATIVE) 06/24/17 09:58 Urine RBC 0-5 /HPF (NEGATIVE) 06/24/17 09:58 Urine WBC None seen /HPF (NEGATIVE) 06/24/17 09:58 Ur Squamous Epith Cells Rare /HPF (NEGATIVE) 06/24/17 09:58 Urine Bacteria Negative /HPF (NEGATIVE) 06/24/17 09:58 Ur Culture Indicated? No/not indicated 06/24/17 09:58 Influenza Type A (PCR) Positive (NEGATIVE) A 06/24/17 05:30 Influenza Type B (PCR) Negative (NEGATIVE) 06/24/17 05:30 - Plan (1) Pneumonia Status: Acute Qualifiers: Pneumonia type: due to unspecified organism Laterality: bilateral Lung location: lower lobe of lung Qualified Code(s): J18.9 - Pneumonia, unspecified organism Plan: FORTAZ 1GM IV Q12H, LEVAQUIN 750MG IV Q48H, VANCOMYCIN 1GM IV DAILY, RESPIRATORY TX, SUPPLEMENTAL OXYGEN, CONTINUE TO MONTIOR (2) Influenza A Status: Acute Plan: TAMIFLU 75MG PO BID, CONTINUE TO MONITOR (3) Dehydration Status: Acute Plan: 1/2 NS AT 80ML/HR, CONTINUE TO MONITOR (4) Hypernatremia Status: Acute Plan: 1/2NS AT 80ML/HR, CONTINUE TO MONITOR (5) Prerenal acute renal failure Status: Acute Plan: 1/2 NS AT 80ML/HR, CONTINUE TO MONITOR (6) Dementia Status: Acute Qualifiers: Dementia type: vascular dementia Dementia behavioral disturbance: with behavioral disturbance Qualified Code(s): F01.51 - Vascular dementia with behavioral disturbance Plan: HALDOL 2MG IV Q4H PRN, CONTINUE XANAX, CONTINUE ZYPREXA, CONTINUE TO MONITOR
[2017-06-26] MEDS: ZyPREXA TAB 5 MG PO SCH (22:31)
[2017-06-26] MEDS: D5W 1000 ML IV 1,000 ML IV SCH (22:31)
[2017-06-27] MEDS: D5W 1000 ML IV 1,000 ML IV SCH ×4 (00:30→15:54)
[2017-06-27] MEDS: NEURONTIN CAP 100 MG PO SCH ×3 (05:06→23:01)
[2017-06-27 06:13] LABS: BASOPHILS # (AUTO) 0.1 X10^3/uL (0.0-0.1); BASOPHILS % (AUTO) 0.3 % (0.2-1.0); HEMATOCRIT 28.9 % (42.0-54.0); HEMOGLOBIN 9.5 g/dL (13.5-18.0); MEAN CORPUSCULAR HEMOGLOBIN 26.7 pg (27.0-34.0); MEAN CORPUSCULAR HGB CONC 32.9 g/dL (33.0-35.0); MEAN PLATELET VOLUME 8.2 fL (7.4-11.0); MONOCYTES # (AUTO) 1.7 x10^3/uL (0.3-0.8); MONOCYTES % (AUTO) 6.9 % (0.0-13.0); NEUTROPHILS # (AUTO) 21.4 x10^3/uL (2.2-4.8); NEUTROPHILS % (AUTO) 88.8 % (42.0-75.0); PLATELET COUNT 297 X10^3/uL (150.0-450.0); RED BLOOD COUNT 3.58 X10^6/uL (4.7-6.0); RED CELL DISTRIBUTION WIDTH 14.3 % (11.6-16.5)
[2017-06-27 06:24] LABS: ALBUMIN 2.5 g/dL (3.4-5.0); CARBON DIOXIDE 22.8 mmol/L (21-32); COR CA(FOR HYPOALB) 11.2 mg/dL (8.5-10.1); CREATININE 1.49 mg/dL (0.70-1.30); TOTAL PROTEIN 6.9 g/dL (6.4-8.2)
[2017-06-27] MEDS: POTASSIUM CHL 40 MEQ/NS 0.45% 500 ML IV PRN (06:49)
[2017-06-27 07:16] LABS: BAND NEUTROPHILS % 2 % (0-10); WHITE BLOOD COUNT 24.1 X10^3/uL (3.6-10.0)
[2017-06-27 07:17] LABS: PLATELET MORPHOLOGY COMMENT NORMAL (NORMAL)
--- NOTE | 2017-06-27 07:43 | RAD ---
Examination: Portable AP upright chest History: SOB, hypertension and diabetes Comparison 06/26/2017 Findings: Continued normal heart size with clear upper lungs. Persistent airspace consolidation media l right lower lung. Increasing diffuse infiltrate left base. No pneumothorax or large pleural effusio n. Impression: Stable appearance of consolidation right lower lung with increasing diffuse infiltrate co nsistent with infection in the left lower lobe. Reported By:
[2017-06-27] MEDS: PROTONIX INJ 40 MG VIAL IVP SCH (09:07)
[2017-06-27] MEDS: ALBUMIN HUMAN 25%- 100ML 100 ML IV SCH (09:08)
[2017-06-27] MEDS: FORTAZ or TAZICEF INJ 1 GM in NS 100 ML IV + SPIKE MINIBAG* 100 ML IV SCH ×2 (09:09→20:29)
[2017-06-27] MEDS: COLACE CAP 100 MG PO SCH (09:33)
[2017-06-27] MEDS: MEGACE PO SCH (09:33)
[2017-06-27] MEDS: LOPRESSOR TAB 50 MG PO SCH ×2 (09:33→20:15)
[2017-06-27] MEDS: GLUCOPHAGE PO SCH ×2 (09:33→20:15)
[2017-06-27] MEDS: TAMIFLU PO SCH ×2 (09:34→20:15)
[2017-06-27] MEDS: ACCUNEB 1.25 MG NEBULE NEB SCH ×4 (09:50→21:59)
[2017-06-27] MEDS: MUCOMYST 20% 200 MG/ML NEB SCH (09:50)
[2017-06-27] MEDS: VANCOMYCIN HCL 1 GM VIAL 1 GM in NS 250 ML IV 250 ML IV SCH ×2 (10:42→12:20)
[2017-06-27 12:06] LABS: CREATININE 1.47 mg/dL (0.70-1.30); VANCOMYCIN,TROUGH 9.4 ug/mL (15-20)
[2017-06-27] MEDS: HALDOL INJ IVP PRN (13:42)
[2017-06-27] MEDS: ZyPREXA TAB 5 MG PO SCH (20:15)
[2017-06-28] MEDS: D5W 1000 ML IV 1,000 ML IV SCH ×3 (03:06→16:35)
[2017-06-28] MEDS: NEURONTIN CAP 100 MG PO SCH ×3 (06:05→21:08)
[2017-06-28 06:13] LABS: MONOCYTES # (AUTO) 1.8 x10^3/uL (0.3-0.8); RED CELL DISTRIBUTION WIDTH 14.2 % (11.6-16.5)
[2017-06-28 06:17] LABS: BASOPHILS % (AUTO) 0.2 % (0.2-1.0); EOSINOPHILS % (AUTO) 0.1 % (0.9-2.9); HEMOGLOBIN 9.6 g/dL (13.5-18.0); LYMPHOCYTES # (AUTO) 1.3 X10^3/uL (1.3-2.9); LYMPHOCYTES % (AUTO) 7.3 % (21.0-51.0); MEAN CORPUSCULAR HEMOGLOBIN 27.1 pg (27.0-34.0); MEAN CORPUSCULAR HGB CONC 33.2 g/dL (33.0-35.0); MEAN CORPUSCULAR VOLUME 81.6 fL (80.0-100.0); MEAN PLATELET VOLUME 8.4 fL (7.4-11.0); MONOCYTES % (AUTO) 10.3 % (0.0-13.0); NEUTROPHILS # (AUTO) 14.4 x10^3/uL (2.2-4.8); NEUTROPHILS % (AUTO) 82.1 % (42.0-75.0); PLATELET COUNT 283 X10^3/uL (150.0-450.0); RED BLOOD COUNT 3.56 X10^6/uL (4.7-6.0); WHITE BLOOD COUNT 17.5 X10^3/uL (3.6-10.0)
[2017-06-28 06:30] LABS: ALANINE AMINOTRANSFERASE 22 Units/L (12-78); ALBUMIN 2.6 g/dL (3.4-5.0); ALKALINE PHOSPHATASE 104 Units/L (46-116); ASPARTATE AMINO TRANSFERASE 31 Units/L (15-37); BLOOD UREA NITROGEN 25 mg/dL (7-18); CALCIUM 9.9 mg/dL (8.5-10.1); CARBON DIOXIDE 22.8 mmol/L (21-32); COR NA(FOR HYPERGLY) 152 mmol/L (136-145); CREATININE 1.39 mg/dL (0.70-1.30); TOTAL PROTEIN 6.9 g/dL (6.4-8.2); eGFR BLACK RACES > 60 (>60); eGFR NON BLACK RACES 53 (>60)
[2017-06-28 06:44] LABS: CHLORIDE 116 mmol/L (98-107); SODIUM 151 mmol/L (136-145)
[2017-06-28 07:17] LABS: BAND NEUTROPHILS % 2 % (0-10); PLATELET MORPHOLOGY COMMENT NORMAL (NORMAL)
--- NOTE | 2017-06-28 07:53 | RAD ---
Examination: Portable AP upright chest History: SOB Comparison 06/27/2017 Findings: Stable cardiac size with no change in appearance of the lungs or pleural spaces. Right basa l consolidation again noted with more diffuse left lower lung infiltrate. No change in position of ce ntral line. No pneumothorax or developing pleural effusion. Impression: No change since 1 day earlier. Reported By:
[2017-06-28] MEDS: ALBUMIN HUMAN 25%- 100ML 100 ML IV SCH (08:38)
[2017-06-28] MEDS: FORTAZ or TAZICEF INJ 1 GM in NS 100 ML IV + SPIKE MINIBAG* 100 ML IV SCH (09:30)
[2017-06-28] MEDS: VANCOMYCIN HCL 1 GM VIAL 1 GM in NS 250 ML IV 250 ML IV SCH (09:46)
[2017-06-28] MEDS: PROTONIX INJ 40 MG VIAL IVP SCH (09:46)
[2017-06-28] MEDS: ACCUNEB 1.25 MG NEBULE NEB SCH ×4 (10:04→20:46)
[2017-06-28] MEDS: COLACE CAP 100 MG PO SCH (10:06)
[2017-06-28] MEDS: MEGACE PO SCH (10:07)
[2017-06-28] MEDS: TAMIFLU PO SCH (10:07)
[2017-06-28] MEDS: GLUCOPHAGE PO SCH ×2 (10:07→20:46)
[2017-06-28] MEDS: LOPRESSOR TAB 50 MG PO SCH ×2 (10:07→20:46)
[2017-06-28] MEDS ORDERED: NS 250 ML IV 250 ML IV ONE (10:11)
[2017-06-28] MEDS: K-RIDER 10 MEQ/NS 100 ML 10 MEQ/100 ML BAG IV PRN ×2 (10:27→11:31)
--- NOTE | 2017-06-28 19:46 | PCM.PROG ---
Progress Note - Progress Note for Day of Date: 06/26/17 - Subjective Subjective: WAS ADMITTED FOR DEHYDRATION, PRERENAL FAILURE, HYPERNATREMIA, INFLUENZA A, AND PNEUMONIA. TODAY, HE IS LYING IN BED WITH EYES OPEN ON MORNING ROUNDS. HE CONTINUES WITH A PERSISTENT, PRODUCTIVE COUGH, AND CONFUSION. STAFF RESTRAINED PATIENT THROUGHOUT THE NIGHT DUE TO AGITATION, PULLING AT LINES, AND ATTEMPTING TO GET OUT OF BED. ON EXAMINATION, HEART RATE IS RAPID, WITH RATE SUSTAINED IN THE 130S. BILATERAL LUNGS ARE CONTINUE WITH COURSE RHONCHI AND WHEEZING. HE IS CURRENTLY UTILIZING OXYGEN VIA NASAL CANNULA AT 2L/MIN. ABDOMEN IS ROUND, SOFT, AND NON-TENDER WITH NORMAL BOWEL SOUNDS NOTED IN ALL QUADRANTS. THERE IS NORMAL RANGE OF MOTION NOTED TO ALL EXTREMITIES. HIS VITALS THIS MORNING ARE 99.6-562-43-100-140/77. ABNORMAL LAB VALUES INCLUDE THE FOLLOWING: WBC INCREASED FROM 21.3 TO 23.2, RBC 3.32, HGB 9.0 , HCT 27.1, SODIUM 154, POTASSIUM 3.1, CHLORIDE 120, CARBON DIOXIDE 20.1, BUN 40 , CREATININE 1.75, GLUCOSE 125, ALBUMIN 2.5. A CHEST XRAY WAS OBTAINED TODAY AND REPORTED CONTINUED RIGHT LOWER LUNG OPACITY CONCERNING FOR PNEUMONIA. HE CONTINUES ON VANCOMYCIN, LEVAQUIN, AND FORTAZ, AND RESPIRATORY TREATMENTS. SPEECH THERAPY EVALUATED PATIENT TODAY AND RECOMMENDED THAT HE REMAIN NPO DUE TO HIGH RISK OF ASPIRATION. WE WILL CONSULT WITH PHARMACY REGARDING PO MEDICATIONS. OTHERWISE, WE WILL CONTINUE WITH CURRENT PLAN OF CARE TODAY. WE PLAN TO FOLLOW UP WITH AM LABS AND CHEST XRAY AND CONTINUE TO MONITOR. - Past Medical Family Social History Past Med/Fam/Surg Hx: No changes since H&P Allergies: Allergies No Known Drug Allergies Allergy (Verified 05/12/17 14:46) - Review of Systems ROS: No change since H&P - Vital Signs and I&O's Vital Signs: Temperature 99.3 F Pulse Rate [Right Brachial] 116 Pulse Rate 118 Respiratory Rate 19 Blood Pressure [Right Arm] 147/53 Blood Pressure [Left Arm] 156/89 Blood Pressure 134/79 O2 Sat by Pulse Oximetry 100 Intake and Output: Intake & Output 06/26/17 06/27/17 06/28/17 06/29/17 11:59 11:59 11:59 11:59 Intake Total 2024 2086 4083 680 Output Total 1025 1150 1150 450 Balance 8714 044 6663 230 - Physical Exam Oriented: Not Oriented Eyes: Normal Ear: Normal Nose: Normal Throat: Normal Respiratory: Right, Left, Generalized, Wheezes, Rhonchi Cardiovascular: Tachycardia. negative: S3, S4, Murmur, Edema : Normal. negative: Dysuria, Hematuria, Frequency, Discharge, Testicular Pain , Bleeding, , Other Auscultation: Bowel Sounds: Normal. negative: Bruit, Absent, Increased, Decreased, High Pitched, Other Palpation: Normal Tenderness: Normal Skin: Normal Musculoskeletal: Instability Psychiatric: Agitation, Other (dementia ) Affect: Anxious Speech Pattern: Unclear - Laboratory and Diagnostics Result Diagrams: 06/28/17 05:33 06/28/17 05:33 Labs: 06/24/17 10:32 Blood Blood Culture - Preliminary 06/24/17 10:15 Blood Blood Culture - Preliminary 06/24/17 06:30 Sputum - Expectorated Sputum Sputum Culture - Final Methicillin Resis Staph Aureus 06/24/17 06:30 Sputum - Expectorated Sputum - Final Laboratory WBC 17.5 X10^3/uL (3.6-10.0) H 06/28/17 05:33 RBC 3.56 X10^6/uL (4.7-6.0) L 06/28/17 05:33 Hgb 9.6 g/dL (13.5-18.0) L 06/28/17 05:33 Hct 29.0 % (42.0-54.0) L 06/28/17 05:33 MCV 81.6 fL (80.0-100.0) 06/28/17 05:33 MCH 27.1 pg (27.0-34.0) 06/28/17 05:33 MCHC 33.2 g/dL (33.0-35.0) 06/28/17 05:33 RDW 14.2 % (11.6-16.5) 06/28/17 05:33 Plt Count 283 X10^3/uL (150.0-450.0) 06/28/17 05:33 Plt Count Comment Adequate (ADEQUATE) 06/28/17 05:33 MPV 8.4 fL (7.4-11.0) 06/28/17 05:33 Neut % 82.1 % (42.0-75.0) H 06/28/17 05:33 Lymph % 7.3 % (21.0-51.0) L 06/28/17 05:33 [place] % 10.3 % (0.0-13.0) 06/28/17 05:33 Eos % 0.1 % (0.9-2.9) L 06/28/17 05:33 Baso % 0.2 % (0.2-1.0) 06/28/17 05:33 Neut # 14.4 x10^3/uL (2.2-4.8) H 06/28/17 05:33 Lymph # 1.3 X10^3/uL (1.3-2.9) 06/28/17 05:33 [place] # 1.8 x10^3/uL (0.3-0.8) H 06/28/17 05:33 Eos # 0.0 x10^3/uL (0.0-0.2) 06/28/17 05:33 Baso # 0.0 X10^3/uL (0.0-0.1) 06/28/17 05:33 Absolute Nucleated RBC 0.1 /100WBC 06/28/17 05:33 Total Counted 100 06/28/17 05:33 Neutrophils % (Manual) 74 % (39-76) 06/28/17 05:33 Band Neutrophils % 2 % (0-10) 06/28/17 05:33 Lymphocytes % (Manual) 11 % (13-43) L 06/28/17 05:33 Monocytes % (Manual) 12 % (4-9) H 06/28/17 05:33 Eosinophils % (Manual) 1 % (0-6) 06/28/17 05:33 Plt Morphology Comment Normal (NORMAL) 06/28/17 05:33 RBC Morphology Normal (NORMAL) 06/28/17 05:33 D-Dimer 2760 ng/mL (0-400) H* 06/24/17 06:20 Sodium 151 mmol/L (136-145) H* 06/28/17 05:33 Corrected Sodium 152 mmol/L (136-145) H 06/28/17 05:33 Potassium 3.4 mmol/L (3.5-5.1) L 06/28/17 05:33 Chloride 116 mmol/L (98-107) H* 06/28/17 05:33 Carbon Dioxide 22.8 mmol/L (21-32) 06/28/17 05:33 BUN 25 mg/dL (7-18) H 06/28/17 05:33 Creatinine 1.39 mg/dL (0.70-1.30) H 06/28/17 05:33 Est GFR (MDRD) Af Amer > 60 (>60) 06/28/17 05:33 Est GFR (MDRD) Non-Af 53 (>60) L 06/28/17 05:33 Glucose 155 mg/dL (65-99) H 06/28/17 05:33 POC Glucose (mg/dL) 131 mg/dL (65-99) H 06/28/17 16:24 Lactic Acid 1.7 mmol/L (0.4-2.0) 06/24/17 10:32 Calcium 9.9 mg/dL (8.5-10.1) 06/28/17 05:33 Corrected Calcium 11.0 mg/dL (8.5-10.1) H 06/28/17 05:33 Magnesium 1.6 mg/dL (1.7-2.9) L 06/28/17 05:33 Total Bilirubin 0.70 mg/dL (0.2-1.0) 06/28/17 05:33 AST 31 Units/L (15-37) 06/28/17 05:33 ALT 22 Units/L (12-78) 06/28/17 05:33 Alkaline Phosphatase 104 Units/L (46-116) 06/28/17 05:33 Creatine Kinase 36 Units/L (39-308) L 06/24/17 06:20 CK-MB (CK-2) < 1.0 ng/mL (0-4.0) 06/24/17 06:20 CK/CKMB % Calc 2.8 % (<4) 06/24/17 06:20 Troponin I < 0.02 ng/mL (0-1.5) 06/24/17 06:20 B-Natriuretic Peptide 54.8 pg/mL (0-79) 06/24/17 06:20 Total Protein 6.9 g/dL (6.4-8.2) 06/28/17 05:33 Albumin 2.6 g/dL (3.4-5.0) L 06/28/17 05:33 Globulin 4.3 g/dL (2.5-4.5) 06/28/17 05:33 Albumin/Globulin Ratio 0.6 Ratio (1.1-2.1) L 06/28/17 05:33 Specimen Type Catherized urine 06/24/17 09:58 Urine Color Yellow (YELLOW) 06/24/17 09:58 Urine Appearance Clear (CLEAR) 06/24/17 09:58 Urine pH 5.0 (5.0 - 8.0) 06/24/17 09:58 Ur Specific [place] 1.020 (1.000-1.030) 06/24/17 09:58 Urine Protein 2+ (NEGATIVE) 06/24/17 09:58 Urine Glucose (UA) Negative (NEGATIVE) 06/24/17 09:58 Urine Ketones 1+ (NEGATIVE) 06/24/17 09:58 Urine Occult Blood 1+ (NEGATIVE) 06/24/17 09:58 Urine Nitrite Negative (NEGATIVE) 06/24/17 09:58 Urine Bilirubin 1+ (NEGATIVE) 06/24/17 09:58 Urine Urobilinogen Normal (NORMAL) 06/24/17 09:58 Ur Leukocyte Esterase Negative (NEGATIVE) 06/24/17 09:58 Urine RBC 0-5 /HPF (NEGATIVE) 06/24/17 09:58 Urine WBC None seen /HPF (NEGATIVE) 06/24/17 09:58 Ur Squamous Epith Cells Rare /HPF (NEGATIVE) 06/24/17 09:58 Urine Bacteria Negative /HPF (NEGATIVE) 06/24/17 09:58 Ur Culture Indicated? No/not indicated 06/24/17 09:58 Vancomycin Trough 9.4 ug/mL (15-20) L 06/27/17 11:22 Influenza Type A (PCR) Positive (NEGATIVE) A 06/24/17 05:30 Influenza Type B (PCR) Negative (NEGATIVE) 06/24/17 05:30 - Plan (1) Pneumonia Status: Acute Qualifiers: Pneumonia type: due to unspecified organism Laterality: bilateral Lung location: lower lobe of lung Qualified Code(s): J18.9 - Pneumonia, unspecified organism Plan: FORTAZ 1GM IV Q12H, LEVAQUIN 750MG IV Q48H, VANCOMYCIN 1GM IV DAILY, RESPIRATORY TX, SUPPLEMENTAL OXYGEN, CONTINUE TO MONTIOR (2) Influenza A Status: Acute Plan: TAMIFLU 75MG PO BID, CONTINUE TO MONITOR (3) Dehydration Status: Acute Plan: 1/2 NS AT 80ML/HR, CONTINUE TO MONITOR (4) Hypernatremia Status: Acute Plan: 1/2NS AT 80ML/HR, CONTINUE TO MONITOR (5) Prerenal acute renal failure Status: Acute Plan: 1/2 NS AT 80ML/HR, CONTINUE TO MONITOR (6) Dementia Status: Acute Qualifiers: Dementia type: vascular dementia Dementia behavioral disturbance: with behavioral disturbance Qualified Code(s): F01.51 - Vascular dementia with behavioral disturbance Plan: HALDOL 2MG IV Q4H PRN, CONTINUE XANAX, CONTINUE ZYPREXA, CONTINUE TO MONITOR
[2017-06-28] MEDS: ZyPREXA TAB 5 MG PO SCH (20:47)
[2017-06-29] MEDS: D5W 1000 ML IV 1,000 ML IV SCH ×2 (02:33→15:40)
[2017-06-29] MEDS: NEURONTIN CAP 100 MG PO SCH ×3 (05:04→21:32)
[2017-06-29 06:19] LABS: BASOPHILS # (AUTO) 0.1 X10^3/uL (0.0-0.1); BASOPHILS % (AUTO) 0.4 % (0.2-1.0); HEMATOCRIT 26.9 % (42.0-54.0); LYMPHOCYTES # (AUTO) 1.3 X10^3/uL (1.3-2.9); LYMPHOCYTES % (AUTO) 8.6 % (21.0-51.0); MEAN CORPUSCULAR HEMOGLOBIN 26.7 pg (27.0-34.0); MEAN CORPUSCULAR HGB CONC 33.3 g/dL (33.0-35.0); MEAN CORPUSCULAR VOLUME 80.4 fL (80.0-100.0); MEAN PLATELET VOLUME 8.8 fL (7.4-11.0); MONOCYTES # (AUTO) 1.7 x10^3/uL (0.3-0.8); MONOCYTES % (AUTO) 11.4 % (0.0-13.0); NEUTROPHILS # (AUTO) 12.1 x10^3/uL (2.2-4.8); NEUTROPHILS % (AUTO) 79.6 % (42.0-75.0); PLATELET COUNT 214 X10^3/uL (150.0-450.0); RED BLOOD COUNT 3.35 X10^6/uL (4.7-6.0); RED CELL DISTRIBUTION WIDTH 14.1 % (11.6-16.5); WHITE BLOOD COUNT 15.2 X10^3/uL (3.6-10.0)
[2017-06-29 06:25] LABS: ALANINE AMINOTRANSFERASE 17 Units/L (12-78); ALBUMIN 2.5 g/dL (3.4-5.0); ALKALINE PHOSPHATASE 79 Units/L (46-116); ASPARTATE AMINO TRANSFERASE 20 Units/L (15-37); BLOOD UREA NITROGEN 23 mg/dL (7-18); CALCIUM 9.5 mg/dL (8.5-10.1); CARBON DIOXIDE 21.9 mmol/L (21-32); COR CA(FOR HYPOALB) 10.7 mg/dL (8.5-10.1); COR NA(FOR HYPERGLY) 149 mmol/L (136-145); SODIUM 148 mmol/L (136-145); TOTAL PROTEIN 6.5 g/dL (6.4-8.2); eGFR BLACK RACES > 60 (>60); eGFR NON BLACK RACES > 60 (>60)
[2017-06-29 06:40] LABS: CHLORIDE 115 mmol/L (98-107)
--- NOTE | 2017-06-29 06:54 | RAD ---
HISTORY: Shortness of breath Study: Chest AP portable Comparison: 06/28/2017, 06/27/2017 Findings: There is left-sided central line with its tip in the superior vena cava. The heart is minimally enlar ged. No congestive heart failure is noted. Right basilar infiltrate is unchanged. There is improvemen t in the left basilar infiltrate previously noted. The upper lung coon remain clear. No pleural eff usions are identified. 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 IMPRESSION: No change right medial basal infiltrate Improving left lower lobe infiltrate Reported By:
[2017-06-29 09:03] LABS: CREATININE 1.2 mg/dL (0.70-1.30); VANCOMYCIN,TROUGH 11.3 ug/mL (15-20)
[2017-06-29] MEDS: PROTONIX INJ 40 MG VIAL IVP SCH (09:23)
[2017-06-29] MEDS: ALBUMIN HUMAN 25%- 100ML 100 ML IV SCH (09:23)
[2017-06-29] MEDS: COLACE CAP 100 MG PO SCH (09:24)
[2017-06-29] MEDS: MEGACE PO SCH (09:24)
[2017-06-29] MEDS: GLUCOPHAGE PO SCH ×2 (09:24→21:31)
[2017-06-29] MEDS: LOPRESSOR TAB 50 MG PO SCH ×2 (09:24→21:31)
[2017-06-29] MEDS: VANCOMYCIN HCL 1 GM VIAL 1 GM in NS 250 ML IV 250 ML IV SCH (09:32)
[2017-06-29] MEDS: ACCUNEB 1.25 MG NEBULE NEB SCH ×4 (09:55→21:14)
--- NOTE | 2017-06-29 14:29 | PCM.PROG ---
Progress Note - Progress Note for Day of Date: 06/27/17 - Subjective Subjective: WAS ADMITTED FOR DEHYDRATION, PRERENAL FAILURE, HYPERNATREMIA, INFLUENZA A, AND PNEUMONIA. TODAY, HE IS LYING IN BED WITH EYES OPEN ON MORNING ROUNDS. HE AWAKENS AND RESPONDS TO VERBAL STIMULI. HE CONTINUES WITH A PERSISTENT, PRODUCTIVE COUGH, AND CONFUSION, ALTHOUGH HE IS NOTED WITH SLIGHT IMPROVEMENT TODAY. ON EXAMINATION, HEART RATE IS RAPID, WITH RATE 110-120s. BILATERAL LUNGS ARE CONTINUE WITH COURSE RHONCHI AND WHEEZING. HE IS CURRENTLY UTILIZING OXYGEN VIA NASAL CANNULA AT 2L/MIN. ABDOMEN IS ROUND, SOFT, AND NON-TENDER WITH NORMAL BOWEL SOUNDS NOTED IN ALL QUADRANTS. THERE IS NORMAL RANGE OF MOTION NOTED TO ALL EXTREMITIES. HIS VITALS THIS MORNING ARE 99.1-896-12-100%-164/77. ABNORMAL LAB VALUES INCLUDE THE FOLLOWING: WBC INCREASED FROM 23.2 TO 24.1, RBC 3.58, HGB 9.5, HCT 28.9, SODIUM 155, POTASSIUM 3.2, CHLORIDE 120, BUN 34, CREATININE 1.49, GLUCOSE 164, ALBUMIN 2.5. A CHEST XRAY WAS OBTAINED TODAY AND REPORTS STABLE APPEARANCE OF CONSOLIDATION RIGHT LOWER LUNG WITH INCREASING DIFFUSE INFILTRATE CONSISTENT WITH INFECTION IN THE LEFT LOWER LOBE. HE CONTINUES ON VANCOMYCIN, LEVAQUIN, AND FORTAZ, AND RESPIRATORY TREATMENTS. SPEECH THERAPY CONTINUES TO RECOMMEND KEEPING PATIENT NPO AT THIS TIME. WE WILL CONTINUE WITH CURRENT PLAN OF CARE TODAY. WE PLAN TO FOLLOW UP WITH AM LABS AND CHEST XRAY AND CONTINUE TO MONITOR. - Past Medical Family Social History Past Med/Fam/Surg Hx: No changes since H&P Allergies: Allergies No Known Drug Allergies Allergy (Verified 05/12/17 14:46) - Review of Systems ROS: No change since H&P - Vital Signs and I&O's Vital Signs: Temperature 98.3 F Pulse Rate [Right Brachial] 108 Pulse Rate 110 Respiratory Rate 20 Blood Pressure [Right Arm] 151/81 Blood Pressure [Left Arm] 156/82 Blood Pressure 134/79 O2 Sat by Pulse Oximetry 97 Intake and Output: Intake & Output 06/27/17 06/28/17 06/29/17 06/30/17 11:59 11:59 11:59 11:59 Intake Total 2087 4083 880 Output Total 1150 1150 1075 Balance 937 2933 -195 - Physical Exam Oriented: Not Oriented Eyes: Normal Ear: Normal Nose: Normal Throat: Normal Respiratory: Right, Left, Generalized, Wheezes, Rhonchi Cardiovascular: Tachycardia. negative: S3, S4, Murmur, Edema : Normal. negative: Dysuria, Hematuria, Frequency, Discharge, Testicular Pain , Bleeding, , Other Auscultation: Bowel Sounds: Normal. negative: Bruit, Absent, Increased, Decreased, High Pitched, Other Palpation: Normal Tenderness: Normal Skin: Normal Musculoskeletal: Instability Psychiatric: Agitation, Other (dementia ) Affect: Anxious Speech Pattern: Unclear - Laboratory and Diagnostics Result Diagrams: 06/29/17 05:30 06/29/17 08:40 Labs: 06/24/17 10:32 Blood Blood Culture - Final 06/24/17 10:15 Blood Blood Culture - Final 06/24/17 06:30 Sputum - Expectorated Sputum Sputum Culture - Final Methicillin Resis Staph Aureus 06/24/17 06:30 Sputum - Expectorated Sputum - Final Laboratory WBC 15.2 X10^3/uL (3.6-10.0) H 06/29/17 05:30 RBC 3.35 X10^6/uL (4.7-6.0) L 06/29/17 05:30 Hgb 9.0 g/dL (13.5-18.0) L 06/29/17 05:30 Hct 26.9 % (42.0-54.0) L 06/29/17 05:30 MCV 80.4 fL (80.0-100.0) 06/29/17 05:30 MCH 26.7 pg (27.0-34.0) L 06/29/17 05:30 MCHC 33.3 g/dL (33.0-35.0) 06/29/17 05:30 RDW 14.1 % (11.6-16.5) 06/29/17 05:30 Plt Count 214 X10^3/uL (150.0-450.0) 06/29/17 05:30 Plt Count Comment Adequate (ADEQUATE) 06/28/17 05:33 MPV 8.8 fL (7.4-11.0) 06/29/17 05:30 Neut % 79.6 % (42.0-75.0) H 06/29/17 05:30 Lymph % 8.6 % (21.0-51.0) L 06/29/17 05:30 [place] % 11.4 % (0.0-13.0) 06/29/17 05:30 Eos % 0.0 % (0.9-2.9) L 06/29/17 05:30 Baso % 0.4 % (0.2-1.0) 06/29/17 05:30 Neut # 12.1 x10^3/uL (2.2-4.8) H 06/29/17 05:30 Lymph # 1.3 X10^3/uL (1.3-2.9) 06/29/17 05:30 [place] # 1.7 x10^3/uL (0.3-0.8) H 06/29/17 05:30 Eos # 0.0 x10^3/uL (0.0-0.2) 06/29/17 05:30 Baso # 0.1 X10^3/uL (0.0-0.1) 06/29/17 05:30 Absolute Nucleated RBC 0.0 /100WBC 06/29/17 05:30 Total Counted 100 06/28/17 05:33 Neutrophils % (Manual) 74 % (39-76) 06/28/17 05:33 Band Neutrophils % 2 % (0-10) 06/28/17 05:33 Lymphocytes % (Manual) 11 % (13-43) L 06/28/17 05:33 Monocytes % (Manual) 12 % (4-9) H 06/28/17 05:33 Eosinophils % (Manual) 1 % (0-6) 06/28/17 05:33 Plt Morphology Comment Normal (NORMAL) 06/28/17 05:33 RBC Morphology Normal (NORMAL) 06/28/17 05:33 D-Dimer 2760 ng/mL (0-400) H* 06/24/17 06:20 Sodium 148 mmol/L (136-145) H 06/29/17 05:30 Corrected Sodium 149 mmol/L (136-145) H 06/29/17 05:30 Potassium 2.9 mmol/L (3.5-5.1) L* 06/29/17 05:30 Chloride 115 mmol/L (98-107) H* 06/29/17 05:30 Carbon Dioxide 21.9 mmol/L (21-32) 06/29/17 05:30 BUN 23 mg/dL (7-18) H 06/29/17 05:30 Creatinine 1.20 mg/dL (0.70-1.30) 06/29/17 08:40 Est GFR (MDRD) Af Amer > 60 (>60) 06/29/17 05:30 Est GFR (MDRD) Non-Af > 60 (>60) 06/29/17 05:30 Glucose 160 mg/dL (65-99) H 06/29/17 05:30 POC Glucose (mg/dL) 149 mg/dL (65-99) H 06/29/17 11:53 Lactic Acid 1.7 mmol/L (0.4-2.0) 06/24/17 10:32 Calcium 9.5 mg/dL (8.5-10.1) 06/29/17 05:30 Corrected Calcium 10.7 mg/dL (8.5-10.1) H 06/29/17 05:30 Magnesium 2.0 mg/dL (1.7-2.9) 06/29/17 05:30 Total Bilirubin 0.70 mg/dL (0.2-1.0) 06/29/17 05:30 AST 20 Units/L (15-37) 06/29/17 05:30 ALT 17 Units/L (12-78) 06/29/17 05:30 Alkaline Phosphatase 79 Units/L (46-116) 06/29/17 05:30 Creatine Kinase 36 Units/L (39-308) L 06/24/17 06:20 CK-MB (CK-2) < 1.0 ng/mL (0-4.0) 06/24/17 06:20 CK/CKMB % Calc 2.8 % (<4) 06/24/17 06:20 Troponin I < 0.02 ng/mL (0-1.5) 06/24/17 06:20 B-Natriuretic Peptide 54.8 pg/mL (0-79) 06/24/17 06:20 Total Protein 6.5 g/dL (6.4-8.2) 06/29/17 05:30 Albumin 2.5 g/dL (3.4-5.0) L 06/29/17 05:30 Globulin 4.0 g/dL (2.5-4.5) 06/29/17 05:30 Albumin/Globulin Ratio 0.6 Ratio (1.1-2.1) L 06/29/17 05:30 Specimen Type Catherized urine 06/24/17 09:58 Urine Color Yellow (YELLOW) 06/24/17 09:58 Urine Appearance Clear (CLEAR) 06/24/17 09:58 Urine pH 5.0 (5.0 - 8.0) 06/24/17 09:58 Ur Specific [place] 1.020 (1.000-1.030) 06/24/17 09:58 Urine Protein 2+ (NEGATIVE) 06/24/17 09:58 Urine Glucose (UA) Negative (NEGATIVE) 06/24/17 09:58 Urine Ketones 1+ (NEGATIVE) 06/24/17 09:58 Urine Occult Blood 1+ (NEGATIVE) 06/24/17 09:58 Urine Nitrite Negative (NEGATIVE) 06/24/17 09:58 Urine Bilirubin 1+ (NEGATIVE) 06/24/17 09:58 Urine Urobilinogen Normal (NORMAL) 06/24/17 09:58 Ur Leukocyte Esterase Negative (NEGATIVE) 06/24/17 09:58 Urine RBC 0-5 /HPF (NEGATIVE) 06/24/17 09:58 Urine WBC None seen /HPF (NEGATIVE) 06/24/17 09:58 Ur Squamous Epith Cells Rare /HPF (NEGATIVE) 06/24/17 09:58 Urine Bacteria Negative /HPF (NEGATIVE) 06/24/17 09:58 Ur Culture Indicated? No/not indicated 06/24/17 09:58 Vancomycin Trough 11.3 ug/mL (15-20) L 06/29/17 08:40 Influenza Type A (PCR) Positive (NEGATIVE) A 06/24/17 05:30 Influenza Type B (PCR) Negative (NEGATIVE) 06/24/17 05:30 - Plan (1) Pneumonia Status: Acute Qualifiers: Pneumonia type: due to unspecified organism Laterality: bilateral Lung location: lower lobe of lung Qualified Code(s): J18.9 - Pneumonia, unspecified organism Plan: FORTAZ 1GM IV Q12H, LEVAQUIN 750MG IV Q48H, VANCOMYCIN 1GM IV DAILY, RESPIRATORY TX, SUPPLEMENTAL OXYGEN, CONTINUE TO [facility] (2) Influenza A Status: Acute Plan: TAMIFLU 75MG PO BID, CONTINUE TO MONITOR (3) Dehydration Status: Acute Plan: 1/2 NS AT 80ML/HR, CONTINUE TO MONITOR (4) Hypernatremia Status: Acute Plan: 1/2NS AT 80ML/HR, CONTINUE TO MONITOR (5) Prerenal acute renal failure Status: Acute Plan: 1/2 NS AT 80ML/HR, CONTINUE TO MONITOR (6) Dementia Status: Acute Qualifiers: Dementia type: vascular dementia Dementia behavioral disturbance: with behavioral disturbance Qualified Code(s): F01.51 - Vascular dementia with behavioral disturbance Plan: HALDOL 2MG IV Q4H PRN, CONTINUE XANAX, CONTINUE ZYPREXA, CONTINUE TO MONITOR
[2017-06-29] MEDS: MORPHINE SULFATE INJ 2 MG INJ IVP PRN ×2 (14:33→23:41)
[2017-06-29] MEDS: K-RIDER 10 MEQ/NS 100 ML 10 MEQ/100 ML BAG IV PRN (19:50)
[2017-06-29] MEDS: POTASSIUM CHL 40 MEQ/NS 0.45% 500 ML IV PRN (19:51)
--- NOTE | 2017-06-29 21:23 | PCM.PROG ---
Progress Note - Progress Note for Day of Date: 06/28/17 - Subjective Subjective: WAS ADMITTED FOR DEHYDRATION, PRERENAL FAILURE, HYPERNATREMIA, INFLUENZA A, AND PNEUMONIA. TODAY, HE IS LYING IN BED WITH EYES OPEN ON MORNING ROUNDS. HE AWAKENS AND RESPONDS TO VERBAL STIMULI. HE CONTINUES WITH A PERSISTENT, PRODUCTIVE COUGH, AND CONFUSION. ON EXAMINATION, HEART IS REGULAR IN RATE AND RHYTHM. BILATERAL LUNGS ARE CONTINUE WITH COURSE RHONCHI AND WHEEZING. HE IS CURRENTLY UTILIZING OXYGEN VIA NASAL CANNULA AT 2L/ MIN. ABDOMEN IS ROUND, SOFT, AND NON-TENDER WITH NORMAL BOWEL SOUNDS NOTED IN ALL QUADRANTS. THERE IS NORMAL RANGE OF MOTION NOTED TO ALL EXTREMITIES. HIS VITALS THIS MORNING ARE 98.5-93-16-100%-154/90. ABNORMAL LAB VALUES INCLUDE THE FOLLOWING: WBC 17.5, RBC 3.56, HGB 9.6, HCT 29.0, SODIUM 151, POTASSIUM 3.4, CHLORIDE 116, BUN 25, CREATININE 1.39, GLUCOSE 155, MAGNESIUM 1.6, ALBUMIN 2.6. 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 IT IS RESISTENT TO THE LEVAQUIN THAT SHE IS CURRENTLY ON. WE WILL DISCONTINUE FORTAZ AND LEVAQUIN AND CONTINUE WITH VANCOMYCIN. A CHEST XRAY WAS OBTAINED TODAY AND REPORTS STABLE CARDIAC SIZE WITH NO CHANGE IN APPEARANCE OF THE LUNGS OR PLEURAL SPACES. HE REMAINS NPO AT THIS TIME PER SPEECH THERAPY RECOMMENDATIONS. OTHERWISE, WE WILL CONTINUE WITH CURRENT PLAN OF CARE TODAY. WE PLAN TO FOLLOW UP WITH AM LABS AND CHEST XRAY AND CONTINUE TO MONITOR. - Past Medical Family Social History Past Med/Fam/Surg Hx: No changes since H&P Allergies: Allergies No Known Drug Allergies Allergy (Verified 05/12/17 14:46) - Review of Systems ROS: No change since H&P - Vital Signs and I&O's Vital Signs: Temperature 99.0 F Pulse Rate [Right Brachial] 104 Pulse Rate 112 Respiratory Rate 20 Blood Pressure [Right Arm] 151/81 Blood Pressure [Left Arm] 151/87 Blood Pressure 134/79 O2 Sat by Pulse Oximetry 95 Intake and Output: Intake & Output 06/27/17 06/28/17 06/29/17 06/30/17 11:59 11:59 11:59 11:59 Intake Total 2087 4083 880 1240 Output Total 1150 1150 1075 400 Balance 937 2933 -195 840 - Physical Exam Oriented: Not Oriented Eyes: Normal Ear: Normal Nose: Normal Throat: Normal Respiratory: Right, Left, Generalized, Wheezes, Rhonchi Cardiovascular: Tachycardia. negative: S3, S4, Murmur, Edema : Normal. negative: Dysuria, Hematuria, Frequency, Discharge, Testicular Pain , Bleeding, , Other Auscultation: Bowel Sounds: Normal. negative: Bruit, Absent, Increased, Decreased, High Pitched, Other Palpation: Normal Tenderness: Normal Skin: Normal Musculoskeletal: Instability Psychiatric: Agitation, Other (dementia ) Affect: Anxious Speech Pattern: Unclear - Laboratory and Diagnostics Result Diagrams: 06/29/17 05:30 06/29/17 18:04 Labs: 06/24/17 10:32 Blood Blood Culture - Final 06/24/17 10:15 Blood Blood Culture - Final 06/24/17 06:30 Sputum - Expectorated Sputum Sputum Culture - Final Methicillin Resis Staph Aureus 06/24/17 06:30 Sputum - Expectorated Sputum - Final Laboratory WBC 15.2 X10^3/uL (3.6-10.0) H 06/29/17 05:30 RBC 3.35 X10^6/uL (4.7-6.0) L 06/29/17 05:30 Hgb 9.0 g/dL (13.5-18.0) L 06/29/17 05:30 Hct 26.9 % (42.0-54.0) L 06/29/17 05:30 MCV 80.4 fL (80.0-100.0) 06/29/17 05:30 MCH 26.7 pg (27.0-34.0) L 06/29/17 05:30 MCHC 33.3 g/dL (33.0-35.0) 06/29/17 05:30 RDW 14.1 % (11.6-16.5) 06/29/17 05:30 Plt Count 214 X10^3/uL (150.0-450.0) 06/29/17 05:30 Plt Count Comment Adequate (ADEQUATE) 06/28/17 05:33 MPV 8.8 fL (7.4-11.0) 06/29/17 05:30 Neut % 79.6 % (42.0-75.0) H 06/29/17 05:30 Lymph % 8.6 % (21.0-51.0) L 06/29/17 05:30 [place] % 11.4 % (0.0-13.0) 06/29/17 05:30 Eos % 0.0 % (0.9-2.9) L 06/29/17 05:30 Baso % 0.4 % (0.2-1.0) 06/29/17 05:30 Neut # 12.1 x10^3/uL (2.2-4.8) H 06/29/17 05:30 Lymph # 1.3 X10^3/uL (1.3-2.9) 06/29/17 05:30 [place] # 1.7 x10^3/uL (0.3-0.8) H 06/29/17 05:30 Eos # 0.0 x10^3/uL (0.0-0.2) 06/29/17 05:30 Baso # 0.1 X10^3/uL (0.0-0.1) 06/29/17 05:30 Absolute Nucleated RBC 0.0 /100WBC 06/29/17 05:30 Total Counted 100 06/28/17 05:33 Neutrophils % (Manual) 74 % (39-76) 06/28/17 05:33 Band Neutrophils % 2 % (0-10) 06/28/17 05:33 Lymphocytes % (Manual) 11 % (13-43) L 06/28/17 05:33 Monocytes % (Manual) 12 % (4-9) H 06/28/17 05:33 Eosinophils % (Manual) 1 % (0-6) 06/28/17 05:33 Plt Morphology Comment Normal (NORMAL) 06/28/17 05:33 RBC Morphology Normal (NORMAL) 06/28/17 05:33 D-Dimer 2760 ng/mL (0-400) H* 06/24/17 06:20 Sodium 148 mmol/L (136-145) H 06/29/17 05:30 Corrected Sodium 149 mmol/L (136-145) H 06/29/17 05:30 Potassium 3.3 mmol/L (3.5-5.1) L 06/29/17 18:04 Chloride 115 mmol/L (98-107) H* 06/29/17 05:30 Carbon Dioxide 21.9 mmol/L (21-32) 06/29/17 05:30 BUN 23 mg/dL (7-18) H 06/29/17 05:30 Creatinine 1.20 mg/dL (0.70-1.30) 06/29/17 08:40 Est GFR (MDRD) Af Amer > 60 (>60) 06/29/17 05:30 Est GFR (MDRD) Non-Af > 60 (>60) 06/29/17 05:30 Glucose 160 mg/dL (65-99) H 06/29/17 05:30 POC Glucose (mg/dL) 145 mg/dL (65-99) H 06/29/17 20:51 Lactic Acid 1.7 mmol/L (0.4-2.0) 06/24/17 10:32 Calcium 9.5 mg/dL (8.5-10.1) 06/29/17 05:30 Corrected Calcium 10.7 mg/dL (8.5-10.1) H 06/29/17 05:30 Magnesium 2.0 mg/dL (1.7-2.9) 06/29/17 05:30 Total Bilirubin 0.70 mg/dL (0.2-1.0) 06/29/17 05:30 AST 20 Units/L (15-37) 06/29/17 05:30 ALT 17 Units/L (12-78) 06/29/17 05:30 Alkaline Phosphatase 79 Units/L (46-116) 06/29/17 05:30 Creatine Kinase 36 Units/L (39-308) L 06/24/17 06:20 CK-MB (CK-2) < 1.0 ng/mL (0-4.0) 06/24/17 06:20 CK/CKMB % Calc 2.8 % (<4) 06/24/17 06:20 Troponin I < 0.02 ng/mL (0-1.5) 06/24/17 06:20 B-Natriuretic Peptide 54.8 pg/mL (0-79) 06/24/17 06:20 Total Protein 6.5 g/dL (6.4-8.2) 06/29/17 05:30 Albumin 2.5 g/dL (3.4-5.0) L 06/29/17 05:30 Globulin 4.0 g/dL (2.5-4.5) 06/29/17 05:30 Albumin/Globulin Ratio 0.6 Ratio (1.1-2.1) L 06/29/17 05:30 Specimen Type Catherized urine 06/24/17 09:58 Urine Color Yellow (YELLOW) 06/24/17 09:58 Urine Appearance Clear (CLEAR) 06/24/17 09:58 Urine pH 5.0 (5.0 - 8.0) 06/24/17 09:58 Ur Specific [place] 1.020 (1.000-1.030) 06/24/17 09:58 Urine Protein 2+ (NEGATIVE) 06/24/17 09:58 Urine Glucose (UA) Negative (NEGATIVE) 06/24/17 09:58 Urine Ketones 1+ (NEGATIVE) 06/24/17 09:58 Urine Occult Blood 1+ (NEGATIVE) 06/24/17 09:58 Urine Nitrite Negative (NEGATIVE) 06/24/17 09:58 Urine Bilirubin 1+ (NEGATIVE) 06/24/17 09:58 Urine Urobilinogen Normal (NORMAL) 06/24/17 09:58 Ur Leukocyte Esterase Negative (NEGATIVE) 06/24/17 09:58 Urine RBC 0-5 /HPF (NEGATIVE) 06/24/17 09:58 Urine WBC None seen /HPF (NEGATIVE) 06/24/17 09:58 Ur Squamous Epith Cells Rare /HPF (NEGATIVE) 06/24/17 09:58 Urine Bacteria Negative /HPF (NEGATIVE) 06/24/17 09:58 Ur Culture Indicated? No/not indicated 06/24/17 09:58 Vancomycin Trough 11.3 ug/mL (15-20) L 06/29/17 08:40 Influenza Type A (PCR) Positive (NEGATIVE) A 06/24/17 05:30 Influenza Type B (PCR) Negative (NEGATIVE) 06/24/17 05:30 - Plan (1) Pneumonia Status: Acute Qualifiers: Pneumonia type: due to methicillin-resistant Staphylococcus aureus (MRSA) Laterality: bilateral Lung location: lower lobe of lung Qualified Code(s): J15.212 - Pneumonia due to Methicillin resistant Staphylococcus aureus Plan: VANCOMYCIN 1GM IV DAILY, RESPIRATORY TX, SUPPLEMENTAL OXYGEN, CONTINUE TO MONTIOR (2) Influenza A Status: Acute Plan: TAMIFLU 75MG PO BID, CONTINUE TO MONITOR (3) Dehydration Status: Acute Plan: 1/2 NS AT 80ML/HR, CONTINUE TO MONITOR (4) Hypernatremia Status: Acute Plan: 1/2NS AT 80ML/HR, CONTINUE TO MONITOR (5) Prerenal acute renal failure Status: Acute Plan: 1/2 NS AT 80ML/HR, CONTINUE TO MONITOR (6) Dementia Status: Acute Qualifiers: Dementia type: vascular dementia Dementia behavioral disturbance: with behavioral disturbance Qualified Code(s): F01.51 - Vascular dementia with behavioral disturbance Plan: HALDOL 2MG IV Q4H PRN, CONTINUE XANAX, CONTINUE ZYPREXA, CONTINUE TO MONITOR
[2017-06-29] MEDS: ZyPREXA TAB 5 MG PO SCH (21:32)
[2017-06-30] MEDS: D5W 1000 ML IV 1,000 ML IV SCH ×2 (05:41→15:10)
[2017-06-30] MEDS: NEURONTIN CAP 100 MG PO SCH ×3 (05:42→21:37)
[2017-06-30 06:09] LABS: BASOPHILS % (AUTO) 0.3 % (0.2-1.0); HEMATOCRIT 22.6 % (42.0-54.0); HEMOGLOBIN 7.7 g/dL (13.5-18.0); LYMPHOCYTES # (AUTO) 1.4 X10^3/uL (1.3-2.9); LYMPHOCYTES % (AUTO) 10.8 % (21.0-51.0); MEAN CORPUSCULAR HGB CONC 34.1 g/dL (33.0-35.0); MEAN CORPUSCULAR VOLUME 79.3 fL (80.0-100.0); MEAN PLATELET VOLUME 8.6 fL (7.4-11.0); MONOCYTES # (AUTO) 1.2 x10^3/uL (0.3-0.8); MONOCYTES % (AUTO) 9.9 % (0.0-13.0); PLATELET COUNT 195 X10^3/uL (150.0-450.0); RED BLOOD COUNT 2.85 X10^6/uL (4.7-6.0); RED CELL DISTRIBUTION WIDTH 14.2 % (11.6-16.5); WHITE BLOOD COUNT 12.7 X10^3/uL (3.6-10.0)
[2017-06-30 06:45] LABS: ALANINE AMINOTRANSFERASE 18 Units/L (12-78); ALBUMIN 2.2 g/dL (3.4-5.0); ALKALINE PHOSPHATASE 79 Units/L (46-116); ASPARTATE AMINO TRANSFERASE 26 Units/L (15-37); BLOOD UREA NITROGEN 19 mg/dL (7-18); CALCIUM 8.8 mg/dL (8.5-10.1); CARBON DIOXIDE 22.2 mmol/L (21-32); CHLORIDE 112 mmol/L (98-107); COR CA(FOR HYPOALB) 10.2 mg/dL (8.5-10.1); COR NA(FOR HYPERGLY) 144 mmol/L (136-145); CREATININE 1.05 mg/dL (0.70-1.30); SODIUM 143 mmol/L (136-145); TOTAL PROTEIN 5.9 g/dL (6.4-8.2); eGFR BLACK RACES > 60 (>60); eGFR NON BLACK RACES > 60 (>60)
[2017-06-30 06:59] LABS: HYPOCHROMASIA SLIGHT; PLATELET MORPHOLOGY COMMENT NORMAL (NORMAL)
--- NOTE | 2017-06-30 07:36 | RAD ---
HISTORY: Shortness of breath Study: Chest AP portable Comparison: 06/29/2017 Findings: There is a left-sided central line with its tip in the superior vena cava. The heart is minimally enl arged. No congestive heart failure is noted. Bilateral lower lobe infiltrates are again identified an d are unchanged. No definite pleural effusions are identified. The bony thorax is unremarkable. IMPRESSION: No change bilateral lower lobe infiltrates Mild cardiomegaly without congestive heart failure Reported By:
[2017-06-30] MEDS: VANCOMYCIN HCL 1 GM VIAL 1 GM in NS 250 ML IV 250 ML IV SCH (09:00)
[2017-06-30] MEDS: MORPHINE SULFATE INJ 2 MG INJ IVP PRN ×3 (09:00→19:21)
[2017-06-30] MEDS: K-RIDER 10 MEQ/NS 100 ML 10 MEQ/100 ML BAG IV PRN ×3 (09:10→11:27)
[2017-06-30] MEDS: ACCUNEB 1.25 MG NEBULE NEB SCH ×4 (09:35→20:08)
[2017-06-30] MEDS: MEGACE PO SCH (09:37)
[2017-06-30] MEDS: COLACE CAP 100 MG PO SCH (09:37)
[2017-06-30] MEDS: GLUCOPHAGE PO SCH ×2 (09:37→21:36)
[2017-06-30] MEDS: LOPRESSOR TAB 50 MG PO SCH ×2 (09:37→21:36)
[2017-06-30] MEDS: ALBUMIN HUMAN 25%- 100ML 100 ML IV SCH (10:08)
[2017-06-30] MEDS: PROTONIX INJ 40 MG VIAL IVP SCH (10:09)
[2017-06-30] MEDS ORDERED: NS 500 ML IV 500 ML IV ONE ×2 (13:56)
[2017-06-30] MEDS ORDERED: DIPRIVAN VIAL 20 ML ONE (14:04)
--- NOTE | 2017-06-30 16:59 | RAD ---
HISTORY: Peg tube placement Study: KUB Comparison: None FINDINGS/IMPRESSION: Single portable view of the abdomen demonstrates contrast within the stomach after PEG tube injection . Reported By:
[2017-06-30] MEDS: ZyPREXA TAB 5 MG PO SCH (21:37)
--- NOTE | 2017-06-30 21:48 | PCM.PROG ---
Progress Note - Progress Note for Day of Date: 06/29/17 - Subjective Subjective: WAS ADMITTED FOR DEHYDRATION, PRERENAL FAILURE, HYPERNATREMIA, INFLUENZA A, AND PNEUMONIA. TODAY, HE IS LYING IN BED WITH EYES OPEN ON MORNING ROUNDS. HE AWAKENS TO VERBAL STIMULI, BUT IS DISORIENTED AND CONFUSED. HE CONTINUES WITH A PERSISTENT, PRODUCTIVE COUGH. ON EXAMINATION, HEART IS REGULAR IN RATE AND RHYTHM. BILATERAL LUNGS ARE CONTINUE WITH COURSE RHONCHI AND WHEEZING. HE IS CURRENTLY UTILIZING OXYGEN VIA NASAL CANNULA AT 2L/ MIN. ABDOMEN IS ROUND, SOFT, AND NON-TENDER WITH NORMAL BOWEL SOUNDS NOTED IN ALL QUADRANTS. THERE IS NORMAL RANGE OF MOTION NOTED TO ALL EXTREMITIES. HIS VITALS THIS MORNING ARE 97.3-104-18-99%-167/93. ABNORMAL LAB VALUES INCLUDE THE FOLLOWING: WBC 15.2, RBC 3.35, HGB 9.0, HCT 26.9, SODIUM 148, POTASSIUM 2.9, CHLORIDE 115, BUN 23, GLUCOSE 160, ALBUMIN 2.5. A CHEST XRAY WAS OBTAINED TODAY AND REPORTS NO CHANGE IN RIGHT MEDIAL BASAL INFILTRATE. IMPROVING LEFT LOWER LOBE INFILTRATE. HE REMAINS NPO AT THIS TIME PER SPEECH THERAPY RECOMMENDATIONS. WE DISCUSSED POSSIBLE PLACEMENT OF PEG TUBE FOR NUTRITION AND ADMINISTRATION OF MEDICATIONS. FAMILY AGREES WITH PLAN. WE WILL CONSULT WITH , GENERAL SURGEON. OTHERWISE, WE WILL CONTINUE WITH CURRENT PLAN OF CARE TODAY. WE PLAN TO FOLLOW UP WITH AM LABS AND CHEST XRAY AND CONTINUE TO MONITOR. - Past Medical Family Social History Past Med/Fam/Surg Hx: No changes since H&P Allergies: Allergies No Known Drug Allergies Allergy (Verified 05/12/17 14:46) - Review of Systems ROS: No change since H&P - Vital Signs and I&O's Vital Signs: Temperature 98.2 F Pulse Rate [Left Brachial] 108 Pulse Rate [Right Brachial] 124 Pulse Rate 91 Respiratory Rate 22 Blood Pressure [Right Arm] 155/87 Blood Pressure [Left Arm] 131/77 Blood Pressure 134/79 O2 Sat by Pulse Oximetry 95 Intake and Output: Intake & Output 06/28/17 06/29/17 06/30/17 07/01/17 11:59 11:59 11:59 11:59 Intake Total 4083 880 2080 1140 Output Total 1150 1075 850 300 Balance 2933 -195 1230 840 - Physical Exam Oriented: Not Oriented Eyes: Normal Ear: Normal Nose: Normal Throat: Normal Respiratory: Right, Left, Generalized, Wheezes, Rhonchi Cardiovascular: Tachycardia. negative: S3, S4, Murmur, Edema : Normal. negative: Dysuria, Hematuria, Frequency, Discharge, Testicular Pain , Bleeding, , Other Auscultation: Bowel Sounds: Normal. negative: Bruit, Absent, Increased, Decreased, High Pitched, Other Palpation: Normal Tenderness: Normal Skin: Normal Musculoskeletal: Instability Psychiatric: Normal, Other (dementia, disoriented) Mood Description: Calm Affect: Normal Speech Pattern: Unclear - Laboratory and Diagnostics Result Diagrams: 06/30/17 05:25 06/30/17 19:25 Labs: 06/24/17 10:32 Blood Blood Culture - Final 06/24/17 10:15 Blood Blood Culture - Final 06/24/17 06:30 Sputum - Expectorated Sputum Sputum Culture - Final Methicillin Resis Staph Aureus 06/24/17 06:30 Sputum - Expectorated Sputum - Final Laboratory WBC 12.7 X10^3/uL (3.6-10.0) H 06/30/17 05:25 RBC 2.85 X10^6/uL (4.7-6.0) L 06/30/17 05:25 Hgb 7.7 g/dL (13.5-18.0) L 06/30/17 05:25 Hct 22.6 % (42.0-54.0) L 06/30/17 05:25 MCV 79.3 fL (80.0-100.0) L 06/30/17 05:25 MCH 27.0 pg (27.0-34.0) 06/30/17 05:25 MCHC 34.1 g/dL (33.0-35.0) 06/30/17 05:25 RDW 14.2 % (11.6-16.5) 06/30/17 05:25 Plt Count 195 X10^3/uL (150.0-450.0) 06/30/17 05:25 Plt Count Comment Adequate (ADEQUATE) 06/30/17 05:25 MPV 8.6 fL (7.4-11.0) 06/30/17 05:25 Neut % 79.0 % (42.0-75.0) H 06/30/17 05:25 Lymph % 10.8 % (21.0-51.0) L 06/30/17 05:25 [place] % 9.9 % (0.0-13.0) 06/30/17 05:25 Eos % 0.0 % (0.9-2.9) L 06/30/17 05:25 Baso % 0.3 % (0.2-1.0) 06/30/17 05:25 Neut # 10.0 x10^3/uL (2.2-4.8) H 06/30/17 05:25 Lymph # 1.4 X10^3/uL (1.3-2.9) 06/30/17 05:25 [place] # 1.2 x10^3/uL (0.3-0.8) H 06/30/17 05:25 Eos # 0.0 x10^3/uL (0.0-0.2) 06/30/17 05:25 Baso # 0.0 X10^3/uL (0.0-0.1) 06/30/17 05:25 Absolute Nucleated RBC 0.0 /100WBC 06/30/17 05:25 Total Counted 100 06/28/17 05:33 Neutrophils % (Manual) 74 % (39-76) 06/28/17 05:33 Band Neutrophils % 2 % (0-10) 06/28/17 05:33 Lymphocytes % (Manual) 11 % (13-43) L 06/28/17 05:33 Monocytes % (Manual) 12 % (4-9) H 06/28/17 05:33 Eosinophils % (Manual) 1 % (0-6) 06/28/17 05:33 Plt Morphology Comment Normal (NORMAL) 06/30/17 05:25 RBC Morphology Abnormal (NORMAL) 06/30/17 05:25 Hypochromasia Slight A 06/30/17 05:25 D-Dimer 2760 ng/mL (0-400) H* 06/24/17 06:20 Sodium 143 mmol/L (136-145) 06/30/17 05:25 Corrected Sodium 144 mmol/L (136-145) 06/30/17 05:25 Potassium 4.1 mmol/L (3.5-5.1) 06/30/17 19:25 Chloride 112 mmol/L (98-107) H 06/30/17 05:25 Carbon Dioxide 22.2 mmol/L (21-32) 06/30/17 05:25 BUN 19 mg/dL (7-18) H 06/30/17 05:25 Creatinine 1.05 mg/dL (0.70-1.30) 06/30/17 05:25 Est GFR (MDRD) Af Amer > 60 (>60) 06/30/17 05:25 Est GFR (MDRD) Non-Af > 60 (>60) 06/30/17 05:25 Glucose 141 mg/dL (65-99) H 06/30/17 05:25 POC Glucose (mg/dL) 140 mg/dL (65-99) H 06/30/17 19:41 Lactic Acid 1.7 mmol/L (0.4-2.0) 06/24/17 10:32 Calcium 8.8 mg/dL (8.5-10.1) 06/30/17 05:25 Corrected Calcium 10.2 mg/dL (8.5-10.1) H 06/30/17 05:25 Magnesium 2.0 mg/dL (1.7-2.9) 06/29/17 05:30 Total Bilirubin 0.60 mg/dL (0.2-1.0) 06/30/17 05:25 AST 26 Units/L (15-37) 06/30/17 05:25 ALT 18 Units/L (12-78) 06/30/17 05:25 Alkaline Phosphatase 79 Units/L (46-116) 06/30/17 05:25 Creatine Kinase 36 Units/L (39-308) L 06/24/17 06:20 CK-MB (CK-2) < 1.0 ng/mL (0-4.0) 06/24/17 06:20 CK/CKMB % Calc 2.8 % (<4) 06/24/17 06:20 Troponin I < 0.02 ng/mL (0-1.5) 06/24/17 06:20 B-Natriuretic Peptide 54.8 pg/mL (0-79) 06/24/17 06:20 Total Protein 5.9 g/dL (6.4-8.2) L 06/30/17 05:25 Albumin 2.2 g/dL (3.4-5.0) L 06/30/17 05:25 Globulin 3.7 g/dL (2.5-4.5) 06/30/17 05:25 Albumin/Globulin Ratio 0.6 Ratio (1.1-2.1) L 06/30/17 05:25 Specimen Type Catherized urine 06/24/17 09:58 Urine Color Yellow (YELLOW) 06/24/17 09:58 Urine Appearance Clear (CLEAR) 06/24/17 09:58 Urine pH 5.0 (5.0 - 8.0) 06/24/17 09:58 Ur Specific [place] 1.020 (1.000-1.030) 06/24/17 09:58 Urine Protein 2+ (NEGATIVE) 06/24/17 09:58 Urine Glucose (UA) Negative (NEGATIVE) 06/24/17 09:58 Urine Ketones 1+ (NEGATIVE) 06/24/17 09:58 Urine Occult Blood 1+ (NEGATIVE) 06/24/17 09:58 Urine Nitrite Negative (NEGATIVE) 06/24/17 09:58 Urine Bilirubin 1+ (NEGATIVE) 06/24/17 09:58 Urine Urobilinogen Normal (NORMAL) 06/24/17 09:58 Ur Leukocyte Esterase Negative (NEGATIVE) 06/24/17 09:58 Urine RBC 0-5 /HPF (NEGATIVE) 06/24/17 09:58 Urine WBC None seen /HPF (NEGATIVE) 06/24/17 09:58 Ur Squamous Epith Cells Rare /HPF (NEGATIVE) 06/24/17 09:58 Urine Bacteria Negative /HPF (NEGATIVE) 06/24/17 09:58 Ur Culture Indicated? No/not indicated 06/24/17 09:58 Vancomycin Trough 11.3 ug/mL (15-20) L 06/29/17 08:40 Influenza Type A (PCR) Negative (NEGATIVE) 06/30/17 12:49 Influenza Type B (PCR) Negative (NEGATIVE) 06/30/17 12:49 - Plan (1) Pneumonia Status: Acute Qualifiers: Pneumonia type: due to methicillin-resistant Staphylococcus aureus (MRSA) Laterality: bilateral Lung location: lower lobe of lung Qualified Code(s): J15.212 - Pneumonia due to Methicillin resistant Staphylococcus aureus Plan: VANCOMYCIN 1GM IV DAILY, RESPIRATORY TX, SUPPLEMENTAL OXYGEN, CONTINUE TO MONTIOR (2) Influenza A Status: Acute Plan: TAMIFLU 75MG PO BID, CONTINUE TO MONITOR (3) Dehydration Status: Acute Plan: 1/2 NS AT 80ML/HR, CONTINUE TO MONITOR (4) Hypernatremia Status: Acute Plan: 1/2NS AT 80ML/HR, CONTINUE TO MONITOR (5) Prerenal acute renal failure Status: Acute Plan: 1/2 NS AT 80ML/HR, CONTINUE TO MONITOR (6) Dementia Status: Acute Qualifiers: Dementia type: vascular dementia Dementia behavioral disturbance: with behavioral disturbance Qualified Code(s): F01.51 - Vascular dementia with behavioral disturbance Plan: HALDOL 2MG IV Q4H PRN, CONTINUE XANAX, CONTINUE ZYPREXA, CONTINUE TO MONITOR
[2017-07-01] MEDS: MORPHINE SULFATE INJ 2 MG INJ IVP PRN ×2 (05:14→19:53)
[2017-07-01] MEDS: D5W 1000 ML IV 1,000 ML IV SCH ×2 (05:14→06:08)
[2017-07-01] MEDS: NEURONTIN CAP 100 MG PO SCH ×3 (05:18→21:46)
[2017-07-01 05:47] LABS: BASOPHILS % (AUTO) 0.2 % (0.2-1.0); HEMATOCRIT 21.6 % (42.0-54.0); HEMOGLOBIN 7.3 g/dL (13.5-18.0); LYMPHOCYTES # (AUTO) 1.3 X10^3/uL (1.3-2.9); LYMPHOCYTES % (AUTO) 10.6 % (21.0-51.0); MEAN CORPUSCULAR HEMOGLOBIN 27.1 pg (27.0-34.0); MEAN CORPUSCULAR HGB CONC 33.8 g/dL (33.0-35.0); MEAN PLATELET VOLUME 8.6 fL (7.4-11.0); MONOCYTES % (AUTO) 7.9 % (0.0-13.0); NEUTROPHILS # (AUTO) 9.8 x10^3/uL (2.2-4.8); NEUTROPHILS % (AUTO) 81.3 % (42.0-75.0); PLATELET COUNT 195 X10^3/uL (150.0-450.0); RED CELL DISTRIBUTION WIDTH 14.1 % (11.6-16.5)
[2017-07-01 06:02] LABS: ALANINE AMINOTRANSFERASE 20 Units/L (12-78); ALBUMIN 2.3 g/dL (3.4-5.0); ALKALINE PHOSPHATASE 94 Units/L (46-116); ASPARTATE AMINO TRANSFERASE 24 Units/L (15-37); BLOOD UREA NITROGEN 16 mg/dL (7-18); CALCIUM 8.8 mg/dL (8.5-10.1); CARBON DIOXIDE 23.4 mmol/L (21-32); CHLORIDE 108 mmol/L (98-107); COR CA(FOR HYPOALB) 10.2 mg/dL (8.5-10.1); CREATININE 1.05 mg/dL (0.70-1.30); SODIUM 139 mmol/L (136-145); eGFR BLACK RACES > 60 (>60); eGFR NON BLACK RACES > 60 (>60)
[2017-07-01 06:13] LABS: HYPOCHROMASIA SLIGHT; PLATELET MORPHOLOGY COMMENT NORMAL (NORMAL)
--- NOTE | 2017-07-01 08:20 | RAD ---
HISTORY: Shortness of breath Study: Single view of the chest. Comparison: 06/30/2017 Findings: The cardiomediastinal silhouette is normal. No significant change in appearance of bibasilar airspace infiltrates. Osseous structures demonstrate no acute abnormality. IMPRESSION: 1. No change in appearance of bibasilar airspace infiltrates. It should be noted that true pneumonia does not resolve radiographically for approximately 4-6 weeks. Reported By:
[2017-07-01] MEDS: ACCUNEB 1.25 MG NEBULE NEB SCH ×4 (09:13→21:07)
[2017-07-01] MEDS: PROTONIX INJ 40 MG VIAL IVP SCH (09:15)
[2017-07-01] MEDS: VANCOMYCIN HCL 1 GM VIAL 1 GM in NS 250 ML IV 250 ML IV SCH (09:16)
[2017-07-01] MEDS: ALBUMIN HUMAN 25%- 100ML 100 ML IV SCH (09:16)
[2017-07-01] MEDS ORDERED: BENADRYL INJ 50 MG VIAL IVP PRN (10:24)
[2017-07-01] MEDS ORDERED: NS 500 ML IV 500 ML IV ONE ×2 (10:24→23:10)
[2017-07-01] MEDS: COLACE CAP 100 MG PO SCH (10:27)
[2017-07-01] MEDS: MEGACE PO SCH (10:27)
[2017-07-01] MEDS: GLUCOPHAGE PO SCH ×2 (10:27→21:46)
[2017-07-01] MEDS: LOPRESSOR TAB 50 MG PO SCH ×2 (10:27→21:46)
[2017-07-01] MEDS ORDERED: LASIX IVP ONE (10:30)
[2017-07-01] MEDS: PATIENT'S HOME MEDICATION PO SCH (11:02)
--- NOTE | 2017-07-01 11:43 | PCM.PROG ---
Progress Note - Progress Note for Day of Date: 07/01/17 - Subjective Subjective: Pt is s/p placement of PEG feeding tube . doing fairly well ..no nausea or vomiting . no abdominal pain . - Past Medical Family Social History Past Med/Fam/Surg Hx: No changes since H&P Allergies: Allergies No Known Drug Allergies Allergy (Verified 05/12/17 14:46) - Review of Systems ROS: No change since H&P - Vital Signs and I&O's Vital Signs: Temperature 99.3 F Pulse Rate [Left Brachial] 95 Pulse Rate [Right Brachial] 124 Pulse Rate 105 Respiratory Rate 20 Blood Pressure [Right Arm] 114/61 Blood Pressure [Left Arm] 131/77 Blood Pressure 134/79 O2 Sat by Pulse Oximetry 95 Intake and Output: Intake & Output 06/28/17 06/29/17 06/30/17 07/01/17 11:59 11:59 11:59 11:59 Intake Total 4083 880 2080 1140 Output Total 1150 1075 850 925 Balance 2933 -195 1230 215 - Physical Exam Oriented: negative: Normal, Time, Person, Place, Not Oriented, Unable to test, Other Respiratory: Rhonchi Cardiovascular: negative: S3, S4, Murmur, Edema : negative: Dysuria, Hematuria, Frequency, Discharge, Testicular Pain, Bleeding, , Other Auscultation: Bowel Sounds: negative: Bruit, Absent, Increased, Decreased, High Pitched, Other (soft abdomen , BS +.no leakage around the PEG site) Tenderness: Other (soft abdomen , BS +, no leakage around the PEG tube.) Skin: Normal Musculoskeletal: Instability Psychiatric: Normal, Other (dementia, disoriented) Mood Description: Calm Affect: Normal Speech Pattern: Unclear - Laboratory and Diagnostics Result Diagrams: 07/01/17 04:55 07/01/17 04:55 Labs: 06/24/17 10:32 Blood Blood Culture - Final 06/24/17 10:15 Blood Blood Culture - Final 06/24/17 06:30 Sputum - Expectorated Sputum Sputum Culture - Final Methicillin Resis Staph Aureus 06/24/17 06:30 Sputum - Expectorated Sputum - Final Laboratory WBC 12.0 X10^3/uL (3.6-10.0) H 07/01/17 04:55 RBC 2.70 X10^6/uL (4.7-6.0) L 07/01/17 04:55 Hgb 7.3 g/dL (13.5-18.0) L 07/01/17 04:55 Hct 21.6 % (42.0-54.0) L 07/01/17 04:55 MCV 80.0 fL (80.0-100.0) 07/01/17 04:55 MCH 27.1 pg (27.0-34.0) 07/01/17 04:55 MCHC 33.8 g/dL (33.0-35.0) 07/01/17 04:55 RDW 14.1 % (11.6-16.5) 07/01/17 04:55 Plt Count 195 X10^3/uL (150.0-450.0) 07/01/17 04:55 Plt Count Comment Adequate (ADEQUATE) 07/01/17 04:55 MPV 8.6 fL (7.4-11.0) 07/01/17 04:55 Neut % 81.3 % (42.0-75.0) H 07/01/17 04:55 Lymph % 10.6 % (21.0-51.0) L 07/01/17 04:55 [place] % 7.9 % (0.0-13.0) 07/01/17 04:55 Eos % 0.0 % (0.9-2.9) L 07/01/17 04:55 Baso % 0.2 % (0.2-1.0) 07/01/17 04:55 Neut # 9.8 x10^3/uL (2.2-4.8) H 07/01/17 04:55 Lymph # 1.3 X10^3/uL (1.3-2.9) 07/01/17 04:55 [place] # 1.0 x10^3/uL (0.3-0.8) H 07/01/17 04:55 Eos # 0.0 x10^3/uL (0.0-0.2) 07/01/17 04:55 Baso # 0.0 X10^3/uL (0.0-0.1) 07/01/17 04:55 Absolute Nucleated RBC 0.1 /100WBC 07/01/17 04:55 Total Counted 100 06/28/17 05:33 Neutrophils % (Manual) 74 % (39-76) 06/28/17 05:33 Band Neutrophils % 2 % (0-10) 06/28/17 05:33 Lymphocytes % (Manual) 11 % (13-43) L 06/28/17 05:33 Monocytes % (Manual) 12 % (4-9) H 06/28/17 05:33 Eosinophils % (Manual) 1 % (0-6) 06/28/17 05:33 Plt Morphology Comment Normal (NORMAL) 07/01/17 04:55 RBC Morphology Abnormal (NORMAL) 07/01/17 04:55 Hypochromasia Slight A 07/01/17 04:55 D-Dimer 2760 ng/mL (0-400) H* 06/24/17 06:20 Sodium 139 mmol/L (136-145) 07/01/17 04:55 Corrected Sodium TNP 07/01/17 04:55 Potassium 3.6 mmol/L (3.5-5.1) 07/01/17 04:55 Chloride 108 mmol/L (98-107) H 07/01/17 04:55 Carbon Dioxide 23.4 mmol/L (21-32) 07/01/17 04:55 BUN 16 mg/dL (7-18) 07/01/17 04:55 Creatinine 1.05 mg/dL (0.70-1.30) 07/01/17 04:55 Est GFR (MDRD) Af Amer > 60 (>60) 07/01/17 04:55 Est GFR (MDRD) Non-Af > 60 (>60) 07/01/17 04:55 Glucose 108 mg/dL (65-99) H 07/01/17 04:55 POC Glucose (mg/dL) 139 mg/dL (65-99) H 07/01/17 11:22 Lactic Acid 1.7 mmol/L (0.4-2.0) 06/24/17 10:32 Calcium 8.8 mg/dL (8.5-10.1) 07/01/17 04:55 Corrected Calcium 10.2 mg/dL (8.5-10.1) H 07/01/17 04:55 Magnesium 2.0 mg/dL (1.7-2.9) 06/29/17 05:30 Total Bilirubin 0.70 mg/dL (0.2-1.0) 07/01/17 04:55 AST 24 Units/L (15-37) 07/01/17 04:55 ALT 20 Units/L (12-78) 07/01/17 04:55 Alkaline Phosphatase 94 Units/L (46-116) 07/01/17 04:55 Creatine Kinase 36 Units/L (39-308) L 06/24/17 06:20 CK-MB (CK-2) < 1.0 ng/mL (0-4.0) 06/24/17 06:20 CK/CKMB % Calc 2.8 % (<4) 06/24/17 06:20 Troponin I < 0.02 ng/mL (0-1.5) 06/24/17 06:20 B-Natriuretic Peptide 54.8 pg/mL (0-79) 06/24/17 06:20 Total Protein 6.0 g/dL (6.4-8.2) L 07/01/17 04:55 Albumin 2.3 g/dL (3.4-5.0) L 07/01/17 04:55 Globulin 3.7 g/dL (2.5-4.5) 07/01/17 04:55 Albumin/Globulin Ratio 0.6 Ratio (1.1-2.1) L 07/01/17 04:55 Specimen Type Catherized urine 06/24/17 09:58 Urine Color Yellow (YELLOW) 06/24/17 09:58 Urine Appearance Clear (CLEAR) 06/24/17 09:58 Urine pH 5.0 (5.0 - 8.0) 06/24/17 09:58 Ur Specific [place] 1.020 (1.000-1.030) 06/24/17 09:58 Urine Protein 2+ (NEGATIVE) 06/24/17 09:58 Urine Glucose (UA) Negative (NEGATIVE) 06/24/17 09:58 Urine Ketones 1+ (NEGATIVE) 06/24/17 09:58 Urine Occult Blood 1+ (NEGATIVE) 06/24/17 09:58 Urine Nitrite Negative (NEGATIVE) 06/24/17 09:58 Urine Bilirubin 1+ (NEGATIVE) 06/24/17 09:58 Urine Urobilinogen Normal (NORMAL) 06/24/17 09:58 Ur Leukocyte Esterase Negative (NEGATIVE) 06/24/17 09:58 Urine RBC 0-5 /HPF (NEGATIVE) 06/24/17 09:58 Urine WBC None seen /HPF (NEGATIVE) 06/24/17 09:58 Ur Squamous Epith Cells Rare /HPF (NEGATIVE) 06/24/17 09:58 Urine Bacteria Negative /HPF (NEGATIVE) 06/24/17 09:58 Ur Culture Indicated? No/not indicated 06/24/17 09:58 Vancomycin Trough 11.3 ug/mL (15-20) L 06/29/17 08:40 Influenza Type A (PCR) Negative (NEGATIVE) 06/30/17 12:49 Influenza Type B (PCR) Negative (NEGATIVE) 06/30/17 12:49
--- NOTE | 2017-07-01 13:50 | PCM.PROG ---
Progress Note - Progress Note for Day of Date: 06/30/17 - Subjective Subjective: WAS ADMITTED FOR DEHYDRATION, PRERENAL FAILURE, HYPERNATREMIA, INFLUENZA A, AND PNEUMONIA. TODAY, HE IS LYING IN BED WITH EYES CLOSED ON MORNING ROUNDS. HE IS DIFFICULT TO AROUSE. HE CONTINUES WITH A PERSISTENT, PRODUCTIVE COUGH AND APPEARS TO HAVE DIFFICULTY CLEARING SECREATIONS. HE REMAINS NPO PER SPEECH THERAPY RECOMMENDATIONS DUE TO HIGH RISK FOR ASPIRATION. ON EXAMINATION, HEART IS REGULAR IN RATE AND RHYTHM. BILATERAL LUNGS ARE CONTINUE WITH COURSE RHONCHI AND WHEEZING. HE IS CURRENTLY UTILIZING OXYGEN VIA NASAL CANNULA AT 2L/MIN. ABDOMEN IS ROUND, SOFT, AND NON-TENDER WITH NORMAL BOWEL SOUNDS NOTED IN ALL QUADRANTS. THERE IS NORMAL RANGE OF MOTION NOTED TO ALL EXTREMITIES. HIS VITALS THIS MORNING ARE 98.1-95-18-91%-149/74. ABNORMAL LAB VALUES INCLUDE THE FOLLOWING: WBC 12.7, RBC 2.85, HGB 7.7, HCT 22.6 , POTASSIUM 3.3, CHLORIDE 112, BUN 19, GLUCOSE 141, CORRECTED CALCIUM 10.2, TOTAL PROTEIN 5.9, ALBUMIN 2.2. A CHEST XRAY WAS OBTAINED TODAY AND REPORTS NO CHANGE IN BILATERAL LOWER LOBE INFILTRATES, MILD CARDIOMEGALY WITHOUT CONGESTIVE HEART FAILURE. CONSULTED WITH PATIENT AND FAMILY. HE PLANS FOR PLACEMENT OF PEG TUBE TODAY. WE AGREE WITH PLAN. WE WILL OBTAIN A REPEAT INFLENZA SWAB BEFORE TRANSPORTING PATIENT TO THE OR. HE CONTINUES ON IV ANTIBIOTICS AN RESPIRATORY TX FOR PNEUMONIA. WE WILL CONTINUE WITH CURRENT PLAN OF CARE TODAY. WE PLAN TO FOLLOW UP WITH AM LABS AND CHEST XRAY AND CONTINUE TO MONITOR. - Past Medical Family Social History Past Med/Fam/Surg Hx: No changes since H&P Allergies: Allergies No Known Drug Allergies Allergy (Verified 05/12/17 14:46) - Review of Systems ROS: No change since H&P - Vital Signs and I&O's Vital Signs: Temperature 98.1 F Pulse Rate [Left Brachial] 107 Pulse Rate [Right Brachial] 96 Pulse Rate 105 Respiratory Rate 18 Blood Pressure [Right Arm] 114/61 Blood Pressure [Left Arm] 147/71 Blood Pressure 134/79 O2 Sat by Pulse Oximetry 97 Intake and Output: Intake & Output 06/29/17 06/30/17 07/01/17 07/02/17 11:59 11:59 11:59 11:59 Intake Total 880 2080 1140 Output Total 1074 074 925 Balance -195 1230 215 - Physical Exam Oriented: Unable to test Eyes: Normal. negative: Blurred Vision, Diplopia, Discharge, Pain, Redness, Photophobia, Other Ear: Normal. negative: Right, Left, Swelling, Ecchymosis, Hemotypanum, Abrasion , Laceration Nose: Normal Throat: Normal Respiratory: Right, Left, Generalized, Wheezes, Rhonchi Cardiovascular: Normal. negative: S3, S4, Murmur, Edema : Normal. negative: Dysuria, Hematuria, Frequency, Discharge, Testicular Pain , Bleeding, , Other Auscultation: Bowel Sounds: negative: Bruit, Absent, Increased, Decreased, High Pitched, Other (soft abdomen , BS +.no leakage around the PEG site) Palpation: Normal Tenderness: Other (soft abdomen , BS +, no leakage around the PEG tube.) Skin: Normal Musculoskeletal: Instability Psychiatric: Normal, Other (dementia, disoriented) Mood Description: Calm Affect: Normal Speech Pattern: Unclear - Laboratory and Diagnostics Result Diagrams: 07/01/17 04:55 07/01/17 04:55 Labs: 06/24/17 10:32 Blood Blood Culture - Final 06/24/17 10:15 Blood Blood Culture - Final 06/24/17 06:30 Sputum - Expectorated Sputum Sputum Culture - Final Methicillin Resis Staph Aureus 06/24/17 06:30 Sputum - Expectorated Sputum - Final Laboratory WBC 12.0 X10^3/uL (3.6-10.0) H 07/01/17 04:55 RBC 2.70 X10^6/uL (4.7-6.0) L 07/01/17 04:55 Hgb 7.3 g/dL (13.5-18.0) L 07/01/17 04:55 Hct 21.6 % (42.0-54.0) L 07/01/17 04:55 MCV 80.0 fL (80.0-100.0) 07/01/17 04:55 MCH 27.1 pg (27.0-34.0) 07/01/17 04:55 MCHC 33.8 g/dL (33.0-35.0) 07/01/17 04:55 RDW 14.1 % (11.6-16.5) 07/01/17 04:55 Plt Count 195 X10^3/uL (150.0-450.0) 07/01/17 04:55 Plt Count Comment Adequate (ADEQUATE) 07/01/17 04:55 MPV 8.6 fL (7.4-11.0) 07/01/17 04:55 Neut % 81.3 % (42.0-75.0) H 07/01/17 04:55 Lymph % 10.6 % (21.0-51.0) L 07/01/17 04:55 [place] % 7.9 % (0.0-13.0) 07/01/17 04:55 Eos % 0.0 % (0.9-2.9) L 07/01/17 04:55 Baso % 0.2 % (0.2-1.0) 07/01/17 04:55 Neut # 9.8 x10^3/uL (2.2-4.8) H 07/01/17 04:55 Lymph # 1.3 X10^3/uL (1.3-2.9) 07/01/17 04:55 [place] # 1.0 x10^3/uL (0.3-0.8) H 07/01/17 04:55 Eos # 0.0 x10^3/uL (0.0-0.2) 07/01/17 04:55 Baso # 0.0 X10^3/uL (0.0-0.1) 07/01/17 04:55 Absolute Nucleated RBC 0.1 /100WBC 07/01/17 04:55 Total Counted 100 06/28/17 05:33 Neutrophils % (Manual) 74 % (39-76) 06/28/17 05:33 Band Neutrophils % 2 % (0-10) 06/28/17 05:33 Lymphocytes % (Manual) 11 % (13-43) L 06/28/17 05:33 Monocytes % (Manual) 12 % (4-9) H 06/28/17 05:33 Eosinophils % (Manual) 1 % (0-6) 06/28/17 05:33 Plt Morphology Comment Normal (NORMAL) 07/01/17 04:55 RBC Morphology Abnormal (NORMAL) 07/01/17 04:55 Hypochromasia Slight A 07/01/17 04:55 D-Dimer 2760 ng/mL (0-400) H* 06/24/17 06:20 Sodium 139 mmol/L (136-145) 07/01/17 04:55 Corrected Sodium TNP 07/01/17 04:55 Potassium 3.6 mmol/L (3.5-5.1) 07/01/17 04:55 Chloride 108 mmol/L (98-107) H 07/01/17 04:55 Carbon Dioxide 23.4 mmol/L (21-32) 07/01/17 04:55 BUN 16 mg/dL (7-18) 07/01/17 04:55 Creatinine 1.05 mg/dL (0.70-1.30) 07/01/17 04:55 Est GFR (MDRD) Af Amer > 60 (>60) 07/01/17 04:55 Est GFR (MDRD) Non-Af > 60 (>60) 07/01/17 04:55 Glucose 108 mg/dL (65-99) H 07/01/17 04:55 POC Glucose (mg/dL) 139 mg/dL (65-99) H 07/01/17 11:22 Lactic Acid 1.7 mmol/L (0.4-2.0) 06/24/17 10:32 Calcium 8.8 mg/dL (8.5-10.1) 07/01/17 04:55 Corrected Calcium 10.2 mg/dL (8.5-10.1) H 07/01/17 04:55 Magnesium 2.0 mg/dL (1.7-2.9) 06/29/17 05:30 Total Bilirubin 0.70 mg/dL (0.2-1.0) 07/01/17 04:55 AST 24 Units/L (15-37) 07/01/17 04:55 ALT 20 Units/L (12-78) 07/01/17 04:55 Alkaline Phosphatase 94 Units/L (46-116) 07/01/17 04:55 Creatine Kinase 36 Units/L (39-308) L 06/24/17 06:20 CK-MB (CK-2) < 1.0 ng/mL (0-4.0) 06/24/17 06:20 CK/CKMB % Calc 2.8 % (<4) 06/24/17 06:20 Troponin I < 0.02 ng/mL (0-1.5) 06/24/17 06:20 B-Natriuretic Peptide 54.8 pg/mL (0-79) 06/24/17 06:20 Total Protein 6.0 g/dL (6.4-8.2) L 07/01/17 04:55 Albumin 2.3 g/dL (3.4-5.0) L 07/01/17 04:55 Globulin 3.7 g/dL (2.5-4.5) 07/01/17 04:55 Albumin/Globulin Ratio 0.6 Ratio (1.1-2.1) L 07/01/17 04:55 Specimen Type Catherized urine 06/24/17 09:58 Urine Color Yellow (YELLOW) 06/24/17 09:58 Urine Appearance Clear (CLEAR) 06/24/17 09:58 Urine pH 5.0 (5.0 - 8.0) 06/24/17 09:58 Ur Specific [place] 1.020 (1.000-1.030) 06/24/17 09:58 Urine Protein 2+ (NEGATIVE) 06/24/17 09:58 Urine Glucose (UA) Negative (NEGATIVE) 06/24/17 09:58 Urine Ketones 1+ (NEGATIVE) 06/24/17 09:58 Urine Occult Blood 1+ (NEGATIVE) 06/24/17 09:58 Urine Nitrite Negative (NEGATIVE) 06/24/17 09:58 Urine Bilirubin 1+ (NEGATIVE) 06/24/17 09:58 Urine Urobilinogen Normal (NORMAL) 06/24/17 09:58 Ur Leukocyte Esterase Negative (NEGATIVE) 06/24/17 09:58 Urine RBC 0-5 /HPF (NEGATIVE) 06/24/17 09:58 Urine WBC None seen /HPF (NEGATIVE) 06/24/17 09:58 Ur Squamous Epith Cells Rare /HPF (NEGATIVE) 06/24/17 09:58 Urine Bacteria Negative /HPF (NEGATIVE) 06/24/17 09:58 Ur Culture Indicated? No/not indicated 06/24/17 09:58 Vancomycin Trough 11.3 ug/mL (15-20) L 06/29/17 08:40 Influenza Type A (PCR) Negative (NEGATIVE) 06/30/17 12:49 Influenza Type B (PCR) Negative (NEGATIVE) 06/30/17 12:49 Blood Type B POSITIVE 07/01/17 11:00 Antibody Screen Negative 07/01/17 11:00 Crossmatch See Detail 07/01/17 11:00 - Plan (1) Pneumonia Status: Acute Qualifiers: Pneumonia type: due to methicillin-resistant Staphylococcus aureus (MRSA) Laterality: bilateral Lung location: lower lobe of lung Qualified Code(s): J15.212 - Pneumonia due to Methicillin resistant Staphylococcus aureus Plan: VANCOMYCIN 1GM IV DAILY, RESPIRATORY TX, SUPPLEMENTAL OXYGEN, CONTINUE TO MONTIOR (2) Influenza A Status: Acute Plan: TAMIFLU 75MG PO BID, CONTINUE TO MONITOR (3) Dehydration Status: Acute Plan: 1/2 NS AT 80ML/HR, CONTINUE TO MONITOR (4) Hypernatremia Status: Acute Plan: 1/2NS AT 80ML/HR, CONTINUE TO MONITOR (5) Prerenal acute renal failure Status: Acute Plan: 1/2 NS AT 80ML/HR, CONTINUE TO MONITOR (6) Dementia Status: Acute Qualifiers: Dementia type: vascular dementia Dementia behavioral disturbance: with behavioral disturbance Qualified Code(s): F01.51 - Vascular dementia with behavioral disturbance Plan: HALDOL 2MG IV Q4H PRN, CONTINUE XANAX, CONTINUE ZYPREXA, CONTINUE TO MONITOR
[2017-07-01] MEDS ORDERED: TYLENOL ELIXIR 325 MG UDC PO PRN (15:00)
[2017-07-01] MEDS: HALDOL INJ IVP PRN (19:42)
[2017-07-01] MEDS ORDERED: GLUCOPHAGE ONE (20:55)
[2017-07-01] MEDS ORDERED: LASIX ONE (21:39)
[2017-07-01] MEDS: ZyPREXA TAB 5 MG PO SCH (21:46)
[2017-07-02] MEDS: D5W 1000 ML IV 1,000 ML IV SCH ×3 (00:36→23:26)
[2017-07-02] MEDS: NEURONTIN CAP 100 MG PO SCH ×3 (05:26→21:57)
[2017-07-02 06:06] LABS: BASOPHILS % (AUTO) 0.3 % (0.2-1.0); HEMATOCRIT 28.8 % (42.0-54.0); HEMOGLOBIN 9.8 g/dL (13.5-18.0); LYMPHOCYTES % (AUTO) 7.3 % (21.0-51.0); MEAN CORPUSCULAR HEMOGLOBIN 27.2 pg (27.0-34.0); MEAN CORPUSCULAR HGB CONC 34.1 g/dL (33.0-35.0); MEAN CORPUSCULAR VOLUME 79.7 fL (80.0-100.0); MEAN PLATELET VOLUME 8.7 fL (7.4-11.0); MONOCYTES # (AUTO) 0.9 x10^3/uL (0.3-0.8); MONOCYTES % (AUTO) 6.6 % (0.0-13.0); NEUTROPHILS # (AUTO) 11.7 x10^3/uL (2.2-4.8); NEUTROPHILS % (AUTO) 85.8 % (42.0-75.0); PLATELET COUNT 236 X10^3/uL (150.0-450.0); RED BLOOD COUNT 3.61 X10^6/uL (4.7-6.0); RED CELL DISTRIBUTION WIDTH 14.1 % (11.6-16.5); WHITE BLOOD COUNT 13.7 X10^3/uL (3.6-10.0)
[2017-07-02 06:10] LABS: ALANINE AMINOTRANSFERASE 22 Units/L (12-78); ALBUMIN 2.6 g/dL (3.4-5.0); ALKALINE PHOSPHATASE 100 Units/L (46-116); ASPARTATE AMINO TRANSFERASE 26 Units/L (15-37); BLOOD UREA NITROGEN 14 mg/dL (7-18); CALCIUM 9.2 mg/dL (8.5-10.1); CARBON DIOXIDE 26.1 mmol/L (21-32); CHLORIDE 106 mmol/L (98-107); COR CA(FOR HYPOALB) 10.3 mg/dL (8.5-10.1); CREATININE 1.13 mg/dL (0.70-1.30); SODIUM 140 mmol/L (136-145); TOTAL PROTEIN 6.4 g/dL (6.4-8.2); eGFR BLACK RACES > 60 (>60); eGFR NON BLACK RACES > 60 (>60)
--- NOTE | 2017-07-02 07:37 | RAD ---
HISTORY: Shortness of breath Study: Chest AP portable Comparison: 07/01/2017 Findings: There is a left-sided central line with its tip in the superior vena cava. The heart is within normal limits in size. No congestive heart failure is noted. Bilateral lower lobe infiltrates are unchanged . No definite pleural effusions are identified. The bony thorax is unremarkable. IMPRESSION: No change bilateral lower lobe infiltrates Reported By:
[2017-07-02 08:25] LABS: CREATININE 1.18 mg/dL (0.70-1.30)
[2017-07-02 08:54] LABS: VANCOMYCIN,TROUGH 12.4 ug/mL (15-20)
[2017-07-02] MEDS: ACCUNEB 1.25 MG NEBULE NEB SCH ×4 (09:43→21:39)
[2017-07-02] MEDS ORDERED: GLUCOPHAGE ONE ×2 (09:53→19:52)
[2017-07-02] MEDS: COLACE CAP 100 MG PO SCH (10:03)
[2017-07-02] MEDS: LOPRESSOR TAB 50 MG PO SCH ×2 (10:03→20:23)
[2017-07-02] MEDS: MEGACE PO SCH (10:03)
[2017-07-02] MEDS: GLUCOPHAGE PO SCH ×2 (10:03→20:24)
[2017-07-02] MEDS: PATIENT'S HOME MEDICATION PO SCH (10:03)
[2017-07-02] MEDS: PROTONIX INJ 40 MG VIAL IVP SCH (10:04)
[2017-07-02] MEDS: ALBUMIN HUMAN 25%- 100ML 100 ML IV SCH (10:04)
[2017-07-02] MEDS: VANCOMYCIN HCL 1 GM VIAL 1 GM in NS 250 ML IV 250 ML IV SCH (11:05)
[2017-07-02] MEDS: XANAX PO SCH (14:03)
[2017-07-02] MEDS: ZyPREXA TAB 5 MG PO SCH (20:24)
[2017-07-03 05:45] LABS: ALANINE AMINOTRANSFERASE 20 Units/L (12-78); ALBUMIN 2.7 g/dL (3.4-5.0); ALKALINE PHOSPHATASE 89 Units/L (46-116); ASPARTATE AMINO TRANSFERASE 24 Units/L (15-37); BLOOD UREA NITROGEN 20 mg/dL (7-18); CALCIUM 9.1 mg/dL (8.5-10.1); CARBON DIOXIDE 24.9 mmol/L (21-32); CHLORIDE 102 mmol/L (98-107); COR CA(FOR HYPOALB) 10.1 mg/dL (8.5-10.1); COR NA(FOR HYPERGLY) 138 mmol/L (136-145); CREATININE 1.11 mg/dL (0.70-1.30); SODIUM 137 mmol/L (136-145); TOTAL PROTEIN 6.6 g/dL (6.4-8.2); eGFR BLACK RACES > 60 (>60); eGFR NON BLACK RACES > 60 (>60)
[2017-07-03 05:51] LABS: BASOPHILS % (AUTO) 0.2 % (0.2-1.0); HEMATOCRIT 29.2 % (42.0-54.0); HEMOGLOBIN 9.9 g/dL (13.5-18.0); LYMPHOCYTES # (AUTO) 1.1 X10^3/uL (1.3-2.9); LYMPHOCYTES % (AUTO) 7.4 % (21.0-51.0); MEAN CORPUSCULAR HEMOGLOBIN 27.2 pg (27.0-34.0); MEAN CORPUSCULAR HGB CONC 33.9 g/dL (33.0-35.0); MEAN CORPUSCULAR VOLUME 80.3 fL (80.0-100.0); MEAN PLATELET VOLUME 8.7 fL (7.4-11.0); MONOCYTES # (AUTO) 0.8 x10^3/uL (0.3-0.8); MONOCYTES % (AUTO) 5.4 % (0.0-13.0); NEUTROPHILS # (AUTO) 12.6 x10^3/uL (2.2-4.8); PLATELET COUNT 268 X10^3/uL (150.0-450.0); RED BLOOD COUNT 3.63 X10^6/uL (4.7-6.0); RED CELL DISTRIBUTION WIDTH 13.9 % (11.6-16.5); WHITE BLOOD COUNT 14.5 X10^3/uL (3.6-10.0)
[2017-07-03] MEDS: XANAX PO SCH (06:01)
[2017-07-03] MEDS: NEURONTIN CAP 100 MG PO SCH (06:01)
--- NOTE | 2017-07-03 07:01 | RAD ---
Examination: Portable AP chest History: SOB Comparison 07/02/2017 Findings: Stable cardiac size and position. Persistent bilateral lower lobe airspace disease obscurin g the diaphragm surfaces. No new abnormality noted. No change in position of left subclavian catheter . Impression: No change in appearance of the chest since 07/02/2017. Reported By:
[2017-07-03] MEDS: ACCUNEB 1.25 MG NEBULE NEB SCH (09:28)
[2017-07-03] MEDS ORDERED: GLUCOPHAGE ONE (09:41)
[2017-07-03] MEDS: ALBUMIN HUMAN 25%- 100ML 100 ML IV SCH (09:51)
[2017-07-03] MEDS: GLUCOPHAGE PO SCH (09:52)
[2017-07-03] MEDS: COLACE CAP 100 MG PO SCH (09:52)
[2017-07-03] MEDS: MEGACE PO SCH (09:52)
[2017-07-03] MEDS: LOPRESSOR TAB 50 MG PO SCH (09:52)
[2017-07-03] MEDS: PATIENT'S HOME MEDICATION PO SCH (09:53)
[2017-07-03] MEDS: VANCOMYCIN HCL 1 GM VIAL 1 GM in NS 250 ML IV 250 ML IV SCH (09:53)
[2017-07-03] MEDS: POTASSIUM CHL 40 MEQ/NS 0.45% 500 ML IV PRN (09:53)
[2017-07-03] MEDS: PROTONIX INJ 40 MG VIAL IVP SCH (09:53)
[2017-07-03 10:46] VITALS: BP 107/63
[2017-07-03] MEDS: D5W 1000 ML IV 1,000 ML IV SCH (11:53)
--- NOTE | 2017-07-03 20:14 | PCM.PROG ---
Progress Note - Progress Note for Day of Date: 07/01/17 - Subjective Subjective: WAS ADMITTED FOR DEHYDRATION, PRERENAL FAILURE, HYPERNATREMIA, INFLUENZA A, AND PNEUMONIA. INFULENZA , PRERENAL FAILURE, AND HYPERNATREMIA HAS RESOLVED. HE IS STATUS POST PLACEMENT OF PEG TUBE YESTERDAY. TODAY, HE IS LYING IN BED WITH EYES CLOSED ON MORNING ROUNDS. HE AWAKENS TO VERBAL STIMULI, BUT IS DROWSY. HE CONTINUES WITH A PERSISTENT, PRODUCTIVE COUGH. ON EXAMINATION, HEART IS REGULAR IN RATE AND RHYTHM. BILATERAL LUNGS CONTINUE WITH COURSE RHONCHI AND WHEEZING. HE IS CURRENTLY UTILIZING OXYGEN VIA NASAL CANNULA AT 2L/MIN. ABDOMEN IS ROUND, SOFT, AND NOTED WITH MILD TENDERNESS. THERE IS A PEG TUBE NOTED TO ABDOMEN WITH NO DRAINAGE NOTED TO SITE. HYPOACTIVE BOWEL SOUNDS NOTED IN ALL QUADRANTS. HIS VITALS THIS MORNING ARE 97.8-96-18-95%-113/59. ABNORMAL LAB VALUES INCLUDE THE FOLLOWING: WBC 12.0, RBC 2.70, HGB 7.3, HCT 21.6, CHLORIDE 108, GLUCOSE 108, TOTAL PROTEIN 6.0, ALBUMIN 2.3. A CHEST XRAY WAS OBTAINED TODAY AND REPORTS NO CHANGE IN APPEARTANCE OF BIBASILAR AIRSPACE INFILTRATES. HE CONTINUES ON IV ANTIBIOTICS AN RESPIRATORY TX FOR PNEUMONIA. TODAY, WE WILL START FEEDINGS VIA PEG TUBE WITH NEPRO AT 50ML/HR. WE WILL FLUSH PEG TUBE WITH 200ML WATER QID. DUE TO DECREASED HGB, WE WILL ALSO TRANSFUSE PATIENT WITH 2 UNITS PACKED RED BLOOD CELLS AND CONTINUE TO MONITOR HGB/HCT. OTHERWISE, WE WILL CONTINUE WITH CURRENT PLAN OF CARE TODAY. WE PLAN TO FOLLOW UP WITH AM LABS AND CHEST XRAY AND CONTINUE TO MONITOR. - Past Medical Family Social History Past Med/Fam/Surg Hx: No changes since H&P Allergies: Allergies No Known Drug Allergies Allergy (Verified 05/12/17 14:46) - Review of Systems ROS: No change since H&P - Vital Signs and I&O's Vital Signs: Temperature 97.8 F Pulse Rate [Left Brachial] 99 Pulse Rate [Right Brachial] 92 Pulse Rate 106 Respiratory Rate 18 Blood Pressure [Right Arm] 107/63 Blood Pressure [Left Arm] 135/63 Blood Pressure 134/79 O2 Sat by Pulse Oximetry 98 Intake and Output: Intake & Output 07/01/17 07/02/17 07/03/1727/18 11:59 11:59 11:59 11:59 Intake Total 1140 2535 3403 Output Total 921 0014 8235 Balance 215 -1585 928 - Physical Exam Oriented: Unable to test Eyes: Normal. negative: Blurred Vision, Diplopia, Discharge, Pain, Redness, Photophobia, Other Ear: Normal. negative: Right, Left, Swelling, Ecchymosis, Hemotypanum, Abrasion , Laceration Nose: Normal Throat: Normal Respiratory: Right, Left, Generalized, Wheezes, Rhonchi Cardiovascular: Normal, Tachycardia. negative: S3, S4, Murmur, Edema : Normal. negative: Dysuria, Hematuria, Frequency, Discharge, Testicular Pain , Bleeding, , Other Auscultation: Bowel Sounds: Decreased Palpation: Normal Tenderness: Periumbilical, Mild, Other (soft abdomen , BS +, no leakage around the PEG tube.) Skin: Normal Musculoskeletal: Instability Psychiatric: Normal, Other (dementia, disoriented) Mood Description: Calm Affect: Normal Speech Pattern: Unclear - Laboratory and Diagnostics Result Diagrams: 07/03/17 04:10 07/03/17 04:10 Labs: 06/24/17 10:32 Blood Blood Culture - Final 06/24/17 10:15 Blood Blood Culture - Final 06/24/17 06:30 Sputum - Expectorated Sputum Sputum Culture - Final Methicillin Resis Staph Aureus 06/24/17 06:30 Sputum - Expectorated Sputum - Final Laboratory WBC 14.5 X10^3/uL (3.6-10.0) H 07/03/17 04:10 RBC 3.63 X10^6/uL (4.7-6.0) L 07/03/17 04:10 Hgb 9.9 g/dL (13.5-18.0) L 07/03/17 04:10 Hct 29.2 % (42.0-54.0) L 07/03/17 04:10 MCV 80.3 fL (80.0-100.0) 07/03/17 04:10 MCH 27.2 pg (27.0-34.0) 07/03/17 04:10 MCHC 33.9 g/dL (33.0-35.0) 07/03/17 04:10 RDW 13.9 % (11.6-16.5) 07/03/17 04:10 Plt Count 268 X10^3/uL (150.0-450.0) 07/03/17 04:10 Plt Count Comment Adequate (ADEQUATE) 07/01/17 04:55 MPV 8.7 fL (7.4-11.0) 07/03/17 04:10 Neut % 87.0 % (42.0-75.0) H 07/03/17 04:10 Lymph % 7.4 % (21.0-51.0) L 07/03/17 04:10 [place] % 5.4 % (0.0-13.0) 07/03/17 04:10 Eos % 0.0 % (0.9-2.9) L 07/03/17 04:10 Baso % 0.2 % (0.2-1.0) 07/03/17 04:10 Neut # 12.6 x10^3/uL (2.2-4.8) H 07/03/17 04:10 Lymph # 1.1 X10^3/uL (1.3-2.9) L 07/03/17 04:10 [place] # 0.8 x10^3/uL (0.3-0.8) 07/03/17 04:10 Eos # 0.0 x10^3/uL (0.0-0.2) 07/03/17 04:10 Baso # 0.0 X10^3/uL (0.0-0.1) 07/03/17 04:10 Absolute Nucleated RBC 0.0 /100WBC 07/03/17 04:10 Total Counted 100 06/28/17 05:33 Neutrophils % (Manual) 74 % (39-76) 06/28/17 05:33 Band Neutrophils % 2 % (0-10) 06/28/17 05:33 Lymphocytes % (Manual) 11 % (13-43) L 06/28/17 05:33 Monocytes % (Manual) 12 % (4-9) H 06/28/17 05:33 Eosinophils % (Manual) 1 % (0-6) 06/28/17 05:33 Plt Morphology Comment Normal (NORMAL) 07/01/17 04:55 RBC Morphology Abnormal (NORMAL) 07/01/17 04:55 Hypochromasia Slight A 07/01/17 04:55 D-Dimer 2760 ng/mL (0-400) H* 06/24/17 06:20 Sodium 137 mmol/L (136-145) 07/03/17 04:10 Corrected Sodium 138 mmol/L (136-145) 07/03/17 04:10 Potassium 3.2 mmol/L (3.5-5.1) L 07/03/17 04:10 Chloride 102 mmol/L (98-107) 07/03/17 04:10 Carbon Dioxide 24.9 mmol/L (21-32) 07/03/17 04:10 BUN 20 mg/dL (7-18) H 07/03/17 04:10 Creatinine 1.11 mg/dL (0.70-1.30) 07/03/17 04:10 Est GFR (MDRD) Af Amer > 60 (>60) 07/03/17 04:10 Est GFR (MDRD) Non-Af > 60 (>60) 07/03/17 04:10 Glucose 136 mg/dL (65-99) H 07/03/17 04:10 POC Glucose (mg/dL) 158 mg/dL (65-99) H 07/03/17 12:07 Lactic Acid 1.7 mmol/L (0.4-2.0) 06/24/17 10:32 Calcium 9.1 mg/dL (8.5-10.1) 07/03/17 04:10 Corrected Calcium 10.1 mg/dL (8.5-10.1) 07/03/17 04:10 Magnesium 2.0 mg/dL (1.7-2.9) 06/29/17 05:30 Total Bilirubin 0.50 mg/dL (0.2-1.0) 07/03/17 04:10 AST 24 Units/L (15-37) 07/03/17 04:10 ALT 20 Units/L (12-78) 07/03/17 04:10 Alkaline Phosphatase 89 Units/L (46-116) 07/03/17 04:10 Creatine Kinase 36 Units/L (39-308) L 06/24/17 06:20 CK-MB (CK-2) < 1.0 ng/mL (0-4.0) 06/24/17 06:20 CK/CKMB % Calc 2.8 % (<4) 06/24/17 06:20 Troponin I < 0.02 ng/mL (0-1.5) 06/24/17 06:20 B-Natriuretic Peptide 54.8 pg/mL (0-79) 06/24/17 06:20 Total Protein 6.6 g/dL (6.4-8.2) 07/03/17 04:10 Albumin 2.7 g/dL (3.4-5.0) L 07/03/17 04:10 Globulin 3.9 g/dL (2.5-4.5) 07/03/17 04:10 Albumin/Globulin Ratio 0.7 Ratio (1.1-2.1) L 07/03/17 04:10 Specimen Type Catherized urine 06/24/17 09:58 Urine Color Yellow (YELLOW) 06/24/17 09:58 Urine Appearance Clear (CLEAR) 06/24/17 09:58 Urine pH 5.0 (5.0 - 8.0) 06/24/17 09:58 Ur Specific [place] 1.020 (1.000-1.030) 06/24/17 09:58 Urine Protein 2+ (NEGATIVE) 06/24/17 09:58 Urine Glucose (UA) Negative (NEGATIVE) 06/24/17 09:58 Urine Ketones 1+ (NEGATIVE) 06/24/17 09:58 Urine Occult Blood 1+ (NEGATIVE) 06/24/17 09:58 Urine Nitrite Negative (NEGATIVE) 06/24/17 09:58 Urine Bilirubin 1+ (NEGATIVE) 06/24/17 09:58 Urine Urobilinogen Normal (NORMAL) 06/24/17 09:58 Ur Leukocyte Esterase Negative (NEGATIVE) 06/24/17 09:58 Urine RBC 0-5 /HPF (NEGATIVE) 06/24/17 09:58 Urine WBC None seen /HPF (NEGATIVE) 06/24/17 09:58 Ur Squamous Epith Cells Rare /HPF (NEGATIVE) 06/24/17 09:58 Urine Bacteria Negative /HPF (NEGATIVE) 06/24/17 09:58 Ur Culture Indicated? No/not indicated 06/24/17 09:58 Vancomycin Trough 12.4 ug/mL (15-20) L 07/02/17 08:00 Influenza Type A (PCR) Negative (NEGATIVE) 06/30/17 12:49 Influenza Type B (PCR) Negative (NEGATIVE) 06/30/17 12:49 Blood Type B POSITIVE 07/01/17 11:00 Antibody Screen Negative 07/01/17 11:00 Crossmatch See Detail 07/01/17 11:00 - Plan (1) Pneumonia Status: Acute Qualifiers: Pneumonia type: due to methicillin-resistant Staphylococcus aureus (MRSA) Laterality: bilateral Lung location: lower lobe of lung Qualified Code(s): J15.212 - Pneumonia due to Methicillin resistant Staphylococcus aureus Plan: VANCOMYCIN 1GM IV DAILY, RESPIRATORY TX, SUPPLEMENTAL OXYGEN, CONTINUE TO MONTIOR (2) Status post insertion of percutaneous endoscopic gastrostomy (PEG) tube Status: Acute (3) Dementia Status: Acute Qualifiers: Dementia type: vascular dementia Dementia behavioral disturbance: with behavioral disturbance Qualified Code(s): F01.51 - Vascular dementia with behavioral disturbance Plan: HALDOL 2MG IV Q4H PRN, CONTINUE XANAX, CONTINUE ZYPREXA, CONTINUE TO MONITOR (4) Diabetes Status: Chronic Qualifiers: Diabetes mellitus type: type 2 Diabetes mellitus complication status: without complication Diabetes mellitus custodial insulin use: with custodial use Qualified Code(s): E11.9 - Type 2 diabetes mellitus without complications ; Z79.4 - halfway (current) use of insulin; Z79.4 - product controller (current) use of insulin; Z79.4 - product controller (current) use of insulin; Z79.4 - product controller ( current) use of insulin Plan: CONTINUE GLUCOPHAGE, CONTINUE HUMULIN R SLIDING SCALE, CONTINUE TO MONITOR (5) Hypertension Status: Chronic Qualifiers: Hypertension type: essential hypertension Qualified Code(s): I10 - Essential (primary) hypertension Plan: CONTINUE LOPRESSOR, CONTINUE CATAPRES, CONTINUE TO MONITOR
== END 2017-07-03 13:00 | DRG 194 ==
LOC: EDBD → ER 05:15 → ICU 08:08 → MED/SURG 06-28 21:15
PROVIDERS: ADMIT Internal Medicine; ATTEND Internal Medicine
PROC: 02HV33Z Insertion of Infusion Device into Superior Vena Cava, Percutaneous Approach (ICD-10-PCS; 2017-06-24)
PROC: 0DH63UZ Insertion of Feeding Device into Stomach, Percutaneous Approach (ICD-10-PCS; 2017-06-30)
PROC: 0DJ08ZZ Inspection of Upper Intestinal Tract, Via Natural or Artificial Opening Endoscopic (ICD-10-PCS; principal; 2017-06-30 14:15)
PROC: 30233N1 Transfusion of Nonautologous Red Blood Cells into Peripheral Vein, Percutaneous Approach (ICD-10-PCS; 2017-07-01)
PROC: 30233N1 Transfusion of Nonautologous Red Blood Cells into Peripheral Vein, Percutaneous Approach (ICD-10-PCS; 2017-07-02)
DX: J10.1 Influenza due to other identified influenza virus with other respiratory manifestations (principal); E86.0 Dehydration; J15.212 Pneumonia due to Methicillin resistant Staphylococcus aureus; E87.0 Hyperosmolality and hypernatremia; R06.02 Shortness of breath; R00.0 Tachycardia, unspecified; F41.8 Other specified anxiety disorders; E11.65 Type 2 diabetes mellitus with hyperglycemia; Z79.4 Long term (current) use of insulin; I10 Essential (primary) hypertension; R94.31 Abnormal electrocardiogram [ECG] [EKG]; R79.89 Other specified abnormal findings of blood chemistry; F01.51 Vascular dementia, unspecified severity, with behavioral disturbance; Z78.1 Physical restraint status; R13.11 Dysphagia, oral phase; D64.89 Other specified anemias; N17.8 Other acute kidney failure; L89.152 Pressure ulcer of sacral region, stage 2; L89.312 Pressure ulcer of right buttock, stage 2
CPT/HCPCS: 36415; 36430; 36556; 71045; 74018; 80053; 80202; 81001; 82550; 82553; 82565; 83605; 83735; 83880; 84132; 84295; 84484; 85025; 85378; 86850; 86900; 86901; 86922; 87040; 87070; 87077; 87186; 87205; 87502; 93005; 94640; 96365; 96367; 99100; 99284; 99285; A4222; C9113; G9035; P9016; P9047; S0179; A4217; J0713; J1200; J1630; J1940; J1956; J2270; J3360; J3370; J3480; J3490; J7608; J7613; J7620